=== PATIENT | female | born 1930 | race Caucasian/White ===

== ENCOUNTER 2017-10-26 21:39 | Inpatient (IN) | payer OTHER, BC ==
--- NOTE | 2017-10-26 21:48 | PDOC ---
History of Present Illness - General History Source: EMS, Family Exam Limitations: Intubated - History of Present Illness Initial Comments: 10/26/17 22:11 The patient is an 86 year old female, with a significant past medical history of cardiac stents x 10, aortic valve replacement, IDDM, who presents to the emergency department brought in by ems intubated after complaint of difficulty breathing this evening. As per ems, the patient was read to be 90% on capnography which dropped to 50% after being bagged in the field. As per ems, the patient was found tachypneic in the field, in respiratory distress, and was intubated (ETT 7.0). As per the patients family at bedside, the patient was feeling well yesterday morning, performing activities of daily life without symptoms. As per patients family, the patient had a nonproductive cough for the past few days, however, the patient reportedly felt better this morning. As per the family, the patient received her flu vaccination 3 weeks ago. Family denies recent sick contacts. At presentation was being bagged by ems. Allergies: aspirin Past surgical history: cardiac stent x 10 Social history: denies toxic habits <Monika Miller - Last Filed: 10/26/17 23:06> - General History Source: Family <Jose Antonio Fine - Last Filed: 10/27/17 19:38> - General Chief Complaint: Congestive Heart Failure Stated Complaint: DIFFICULTY BREATHING Time Seen by Provider: 10/26/17 21:47 Past History <Monika Miller - Last Filed: 10/26/17 23:06> <Jose Antonio Fine - Last Filed: 10/27/17 19:38> - Past Medical History Allergies/Adverse Reactions: Allergies Allergy/AdvReac Type Severity Reaction Status Date / Time aspirin Allergy Verified 10/26/17 21:50 Home Medications: Ambulatory Orders Amlodipine Besylate [Norvasc -] 10 mg PO DAILY 10/26/17 Atorvastatin Ca [Lipitor] 20 mg PO HS 10/26/17 Clopidogrel Bisulfate [Plavix -] 75 mg PO DAILY 10/26/17 Furosemide [Lasix] 40 mg PO DAILY 10/26/17 Insulin (LOG) Aspart [NovoLOG -] 0 units SQ TID 10/26/17 Insulin Glargine,Hum.rec.anlog [Lantus Solostar PEN (NF)] 35 units SQ AM Metoprolol Succinate [Toprol Xl -] 37.5 mg PO BID 10/26/17 Multivitamin/Iron/Folic Acid [Centrum Adults Tablet] 1 each PO DAILY 10/26/17 Pregabalin [Lyrica -] 200 mg PO TID 10/26/17 Review of Systems - Review of Systems Able to Perform ROS?: No (intubated) <Monika Miller - Last Filed: 10/26/17 23:06> *Physical Exam - Vital Signs Last Vital Signs Temp Pulse Resp BP Pulse Ox 99.1 F 90 14 152/52 98 10/26/17 21:48 10/26/17 21:48 10/26/17 21:48 10/26/17 21:48 10/26/17 21:48 - Physical Exam Comments: 10/26/17 22:12 GENERAL: (+) Intubated. HEENT: Normocephalic, atraumatic. PERRLA, EOMI. No conjunctival pallor. Sclera are non- icteric. Moist mucous membranes. Oropharynx is clear. NECK: Supple. Full ROM. No JVD. Carotid pulses 2+ and symmetric, without bruits. No thyromegaly. No lymphadenopathy. CARDIOVASCULAR: (+) Tachycardic rate and normal rhythm. No murmurs, rubs, or gallops. Distal pulses are 2+ and symmetric. PULMONARY: (+) decreased breath sounds bilaterally with scattered wheezing throughout. No rales or rhonchi. ABDOMINAL: (+) obese. Soft. Non-tender. Non-distended. No rebound or guarding. No organomegaly. Normoactive bowel sounds. MUSCULOSKELETAL Normal range of motion at all joints. No bony deformities or tenderness. No CVA tenderness. EXTREMITIES: No cyanosis. No clubbing. No edema. No calf tenderness. SKIN: Warm and dry. Normal capillary refill. No rashes. No jaundice. NEUROLOGICAL: No obvious neurological deficits visualized. Alert, awake, appropriate. Cranial nerves 2-12 intact. Normoreflexic in the upper and lower extremities. Toes are down-going bilaterally. Gait and speech unassessed secondary to intubation. <Monika Miller - Last Filed: 10/26/17 23:06> Heart Score/ECG Review - ECG Intrepretation Comment:: 10/26/17 23:06 ECG was read by Dr. Fine at 22:53 Impression: Sinus tachycardia. ST & T wave abnormality, consider inferolateral ischemia. Vent.Rate: 102 bpm IN Interval: 132 ms QTc: 458 ms <Monika Miller - Last Filed: 10/26/17 23:06> ED Treatment Course - LABORATORY CBC & Chemistry Diagram: 10/26/17 22:00 10/26/17 22:00 <Monika Miller - Last Filed: 10/26/17 23:06> - LABORATORY CBC & Chemistry Diagram: 10/27/17 06:00 10/27/17 06:00 <Jose Antonio Fine - Last Filed: 10/27/17 19:38> Medical Decision Making - Medical Decision Making 10/27/17 19:36 Dr. Fine: The scribe's documentation has been prepared under my direction and personally reviewed by me in its entirery. I confirm that the note above accurately reflects all work, treatment, procedures, and medical decision making performed by me. Pt was admitted to ICU accepted by ISIAH Choi early this morning <Jose Antonio Fine - Last Filed: 10/27/17 19:38> *DC/Admit/Observation/Transfer - Attestations Scribe Attestion: 10/26/17 22:16 Documentation prepared by Monika Miller, acting as medical center manager for Jose Antonio Fine DO <Monika Miller - Last Filed: 10/26/17 23:06> - Discharge Dispostion Admit: Yes <Jose Antonio Fine - Last Filed: 10/27/17 19:38> Diagnosis at time of Disposition: NSTEMI (non-ST elevated myocardial infarction), CHF (congestive heart failure) - Discharge Dispostion Condition at time of disposition: Stable
[2017-10-26] MEDS ORDERED: FUROSEMIDE 40 MG/4 ML INJECTABLE VIAL IVPUSH ONE (22:16)
[2017-10-26 22:19] LABS: BASOPHIL 0.4 % (0-2.0); EOSINOPHIL 0.4 % (0-4.5); MCH 28.7 pg (25.7-33.7); MCHC 32.2 g/dl (32.0-36.0); MEAN PLT VOLUME 12.6 fl (7.5-11.1); NEUTROPHILS 74.5 % (42.8-82.8); PLATELET COUNT 125 K/MM3 (134-434); RDW 13.9 % (11.6-15.6); WHITE BLOOD COUNT 20.1 K/mm3 (4.0-10.0)
[2017-10-26] MEDS ORDERED: FUROSEMIDE 40 MG/4 ML INJECTABLE VIAL ONE (22:19)
[2017-10-26 23:11] LABS: INR 1.13 (0.82-1.09); PROTHROMBIN TIME (PATIENT) 12.8 SEC (9.98-11.88)
[2017-10-26 23:20] LABS: ALBUMIN 3.4 g/dl (3.4-5.0); ANION GAP 13 (8-16); CALCIUM 8.8 mg/dL (8.5-10.1); CO2 27 mmol/L (21-32); CREATININE 1.9 mg/dL (0.55-1.02); SGOT/AST 190 U/L (15-37); SGPT/ALT 105 U/L (12-78)
[2017-10-26 23:23] LABS: ALK PHOS 298 U/L (45-117); BILIRUBIN,TOTAL 1.3 mg/dL (0.2-1.0); TOT PROT 7.3 g/dl (6.4-8.2)
[2017-10-26 23:27] LABS: GLUCOSE,RANDOM 368 mg/dL (74-106)
[2017-10-26 23:29] LABS: ARTERIAL BLD GAS O2 SATURATION 97.7 % (90-98.9); ARTERIAL BLOOD GAS HCO3 26.9 meq/L (22-26); ARTERIAL BLOOD GAS pH 7.35 (7.35-7.45)
[2017-10-26 23:30] LABS: ALLENS TEST POSITIVE; ART PUNCT SITE LEFT RADIAL; METHEMOGLOBIN 0.7 % (0.4-1.5)
[2017-10-26 23:31] LABS: LPM/O2% 100; MECH. VENT. YES; PT. ON O2? YES; TYPE OF O2 MECH VENT; VENT RATE 14; VT/PRESS 450
[2017-10-26] MEDS ORDERED: PROPOFOL 1,000,000 MCG/100 ML VIAL ONE (23:33)
[2017-10-26] MEDS: PROPOFOL 1,000,000 MCG/100 ML VIAL IVPB SCH (23:42)
[2017-10-26] MEDS ORDERED: AZITHROMYCIN IVPB 500 MG in DEXTROSE 5%-WATER - 250 ML IVPB SCH (23:45)
[2017-10-26 23:49] LABS: CPK 413 IU/L (26-192)
[2017-10-26 23:53] LABS: TROPONIN I 6.75 ng/ml (0.00-0.05)
[2017-10-26] MEDS ORDERED: CEFTRIAXONE 1,000 MG in DEXTROSE 5%-WATER - 50 ML IVPB ONE (23:57)
[2017-10-27] MEDS ORDERED: CLOPIDOGREL BISULFATE 300 MG TABLET PO ONE (00:02)
[2017-10-27] MEDS ORDERED: HEPARIN NA (PORCINE) 5,000 UNITS/ML 1ML VIAL IVPUSH PRN ×2 (00:02)
[2017-10-27] MEDS ORDERED: ATORVASTATIN CA 80 MG TABLET (FP) PO ONE (00:04)
[2017-10-27 00:09] LABS: URINE APPEARANCE CLEAR; URINE BILIRUBIN NEGATIVE (NEGATIVE); URINE BLOOD NEGATIVE (NEGATIVE); URINE COLOR LT. YELLOW; URINE GLUCOSE (UA) NEGATIVE (NEGATIVE); URINE KETONE NEGATIVE (NEGATIVE); URINE NITRITE NEGATIVE (NEGATIVE); URINE UROBILINOGEN 0.2 mg/dL (0.2-1.0)
[2017-10-27 00:18] LABS: URINE PROTEIN 1+ (NEGATIVE)
[2017-10-27] MEDS ORDERED: ATORVASTATIN CA 80 MG TABLET (FP) ONE (00:29)
[2017-10-27] MEDS ORDERED: CLOPIDOGREL BISULFATE 300 MG TABLET ONE (00:29)
[2017-10-27] MEDS ORDERED: HEPARIN INFUSION - 25,000 UNITS/500 ML INFUS.BAG IVPB ONE (00:29)
--- NOTE | 2017-10-27 00:34 | HP ---
CHIEF COMPLAINT: Shortness of breath PCP: In [place] HISTORY OF PRESENT ILLNESS: 86 year old F with pmh of IDDM, Cardiac Stent placement x10 (last placed 3 years prior), and aortic valve replacement (last year) presenting with shortness of breath. History obtained by daughter. Patient arrived from [place] via car last Wednesday. Patient was in usual state of health 2 days prior to admission. Patient performs ADLs and walks at baseline. Over the last 2 days patient had worsening SOB, decreased Urine output, weakness, and nonproductive cough with saliva. This evening patient's shortness of breath worsened and EMS was called. Patient was intubated in the field 2/2 to respiratory distress and was satting in the 50%. Daughter endorses chronic pedal edema, orthopnea, and dyspnea on exertion which has been worsening over the last 2 days as well. Per daughter, patient has not had increased salt intake. Patient denies fever, chills, nausea, vomiting, diarrhea, chest pain, palpitations, abdominal pain. ER course was notable for: (1) VS- WNL, CBC- wbc 20.1, ABG- 7.35/50.6/101/26.9 (2) Glucose- 389, Lactic Acid-6.0, Troponin of 6.75, CK-MB-26.816, BNP-20,000 (3) UA- negative (4) EKG- Sinus tachycardia. Q waves in inferior and lateral leads (5) CXR-pulmonary vascular congestion, pneumonia cannot be excluded Recent Travel: From [place] PAST MEDICAL HISTORY: as per HPI PAST SURGICAL HISTORY: Hysterectomy Social History: Smoking: denies Alcohol: denies Drugs: denies Family History: Allergies aspirin Allergy (Verified 10/26/17 21:50) HOME MEDICATIONS: Home Medications Medication Instructions Recorded Amlodipine Besylate [Norvasc -] 10 mg PO DAILY 10/26/17 Atorvastatin Ca [Lipitor] 20 mg PO HS 10/26/17 Clopidogrel Bisulfate [Plavix -] 75 mg PO DAILY 10/26/17 Furosemide [Lasix] 40 mg PO DAILY 10/26/17 Insulin (LOG) Aspart [NovoLOG -] 0 units SQ TID 10/26/17 Insulin Glargine,Hum.rec.anlog 35 units SQ AM 10/26/17 [Lantus Solostar PEN (NF)] Metoprolol Succinate [Toprol Xl -] 37.5 mg PO BID 10/26/17 Multivitamin/Iron/Folic Acid 1 each PO DAILY 10/26/17 [Centrum Adults Tablet] Pregabalin [Lyrica -] 200 mg PO TID 10/26/17 REVIEW OF SYSTEMS CONSTITUTIONAL: Absent: fever, chills, diaphoresis, generalized weakness, malaise, loss of appetite, weight change HEENT: Absent: rhinorrhea, nasal congestion, throat pain, throat swelling, difficulty swallowing, mouth swelling, ear pain, eye pain, visual changes CARDIOVASCULAR: Absent: chest pain, syncope, palpitations, irregular heart rate, lightheadedness , peripheral edema RESPIRATORY: Absent: cough, shortness of breath, dyspnea with exertion, orthopnea, wheezing, stridor, hemoptysis GASTROINTESTINAL: Absent: abdominal pain, abdominal distension, nausea, vomiting, diarrhea, constipation, melena, hematochezia GENITOURINARY: Absent: dysuria, frequency, urgency, hesitancy, hematuria, flank pain, genital pain MUSCULOSKELETAL: Absent: myalgia, arthralgia, joint swelling, back pain, neck pain SKIN: Absent: rash, itching, pallor HEMATOLOGIC/IMMUNOLOGIC: Absent: easy bleeding, easy bruising, lymphadenopathy, frequent infections ENDOCRINE: Absent: unexplained weight gain, unexplained weight loss, heat intolerance, cold intolerance NEUROLOGIC: Absent: headache, focal weakness or paresthesias, dizziness, unsteady gait, seizure, mental status changes, bladder or bowel incontinence PSYCHIATRIC: Absent: anxiety, depression, suicidal or homicidal ideation, hallucinations. PHYSICAL EXAMINATION Vital Signs - 24 hr 10/26/17 10/26/17 10/26/17 21:48 21:55 23:06 Temperature 99.1 F Pulse Rate 90 Pulse Rate [ 90 Apical] Respiratory 14 14 14 Rate Blood Pressure 152/52 Blood Pressure 148/53 [Right Arm] O2 Sat by Pulse 98 100 Oximetry (%) 10/26/17 23:07 Temperature Pulse Rate 90 Pulse Rate [ Apical] Respiratory Rate Blood Pressure Blood Pressure [Right Arm] O2 Sat by Pulse 100 Oximetry (%) GENERAL: +Intubated HEAD: Normal with no signs of trauma. LUNGS: Decreased breath sounds bilaterally HEART: Regular rate and rhythm, normal S1 and S2 without murmur, rub or gallop. +peripheral edema bilaterally of lower extremities ABDOMEN: Soft, nontender, not distended, normoactive bowel sounds, no guarding, no rebound, no masses. No hepatomegaly or splenomegaly. SKIN: Warm, dry, normal turgor, no rashes or lesions noted, normal capillary refill. Laboratory Results - last 24 hr 10/26/17 10/26/17 10/26/17 21:53 21:53 21:53 WBC RBC Hgb Hct MCV MCH MCHC RDW Plt Count MPV Neutrophils % Lymphocytes % Monocytes % Eosinophils % Basophils % PT with INR 12.80 H INR 1.13 Puncture Site ABG pH ABG pCO2 at Pt Temp ABG pO2 at Pt Temp ABG HCO3 ABG O2 Sat (Measured) ABG O2 Content ABG Base Excess Olman Test Carboxyhemoglobin Methemoglobin O2 Delivery Device Oxygen Flow Rate Vent Mode Vent Rate Mechanical Rate PEEP Pressure Support Vent Sodium Potassium Chloride Carbon Dioxide Anion Gap BUN Creatinine Creat Clearance w eGFR Random Glucose Lactic Acid Calcium Total Bilirubin AST ALT Alkaline Phosphatase Creatine Kinase 413 H Creatine Kinase Index 6.4 H* CK-MB (CK-2) 26.816 H Troponin I 6.75 H* B-Natriuretic Peptide 40327.60 H Total Protein Albumin Urine Color Lt. yellow Urine Appearance Clear Urine pH 5.0 Ur Specific [place] 1.020 Urine Protein 1+ H Urine Glucose (UA) Negative Urine Ketones Negative Urine Blood Negative Urine Nitrite Negative Urine Bilirubin Negative Urine Urobilinogen 0.2 10/26/17 10/26/17 10/26/17 21:53 22:00 22:00 WBC 20.1 H RBC 4.39 Hgb 12.6 Hct 39.0 MCV 89.0 MCH 28.7 MCHC 32.2 RDW 13.9 Plt Count 125 L MPV 12.6 H Neutrophils % 74.5 Lymphocytes % 17.4 Monocytes % 7.3 Eosinophils % 0.4 Basophils % 0.4 PT with INR INR Puncture Site ABG pH ABG pCO2 at Pt Temp ABG pO2 at Pt Temp ABG HCO3 ABG O2 Sat (Measured) ABG O2 Content ABG Base Excess Olman Test Carboxyhemoglobin Methemoglobin O2 Delivery Device Oxygen Flow Rate Vent Mode Vent Rate Mechanical Rate PEEP Pressure Support Vent Sodium 140 Potassium 4.4 Chloride 100 Carbon Dioxide 27 Anion Gap 13 BUN 32 H Creatinine 1.9 H Creat Clearance w eGFR 24.95 Random Glucose 368 H* Lactic Acid 6.0 H* Calcium 8.8 Total Bilirubin 1.3 H AST 190 H ALT 105 H Alkaline Phosphatase 298 H Creatine Kinase Creatine Kinase Index CK-MB (CK-2) Troponin I B-Natriuretic Peptide Total Protein 7.3 Albumin 3.4 Urine Color Urine Appearance Urine pH Ur Specific [place] Urine Protein Urine Glucose (UA) Urine Ketones Urine Blood Urine Nitrite Urine Bilirubin Urine Urobilinogen 10/26/17 23:25 WBC RBC Hgb Hct MCV MCH MCHC RDW Plt Count MPV Neutrophils % Lymphocytes % Monocytes % Eosinophils % Basophils % PT with INR INR Puncture Site Left radial ABG pH 7.35 ABG pCO2 at Pt Temp 50.6 H ABG pO2 at Pt Temp 101.0 H ABG HCO3 26.9 H ABG O2 Sat (Measured) 97.7 ABG O2 Content 17.8 ABG Base Excess 1.0 Olman Test Positive Carboxyhemoglobin 1.3 Methemoglobin 0.7 O2 Delivery Device Mech vent Oxygen Flow Rate 100 Vent Mode A/c Vent Rate 14 Mechanical Rate Yes PEEP 5.0 Pressure Support Vent 450 Sodium Potassium Chloride Carbon Dioxide Anion Gap BUN Creatinine Creat Clearance w eGFR Random Glucose Lactic Acid Calcium Total Bilirubin AST ALT Alkaline Phosphatase Creatine Kinase Creatine Kinase Index CK-MB (CK-2) Troponin I B-Natriuretic Peptide Total Protein Albumin Urine Color Urine Appearance Urine pH Ur Specific [place] Urine Protein Urine Glucose (UA) Urine Ketones Urine Blood Urine Nitrite Urine Bilirubin Urine Urobilinogen ASSESSMENT/PLAN: 86 year old F with pmh of IDDM, Cardiac Stent placement x10 (last placed 3 years prior), and aortic valve replacement (last year) presenting with shortness of breath, intubated in the field, and admitted to the ICU for Acute hypoxic Respiratory failure 2/2 to CHF exacerbation. #Acute hypoxic respiratory failure 2/2 to CHF exacerbation with NSTEMI -Patient currently intubated -Cardiac monitoring -Strict I/O's -Daily weights -Duonebs Q4 hours PRN -Continue Lipitor 80 mg PO HS -Continue Lasix 40 mg IV BID -Heparin protocol infusion -Start lopressor 25 mg PO TID per cardiology -Patient started on propofol for sedation -Will trend cardiac profile Q6 hours Plus EKG -Echocardiogram pending -Cardiology consulted, Dr. Kerr. Case discussed with cardiology -Blood cultures and flu swab pending -Aspirin held 2/2 to allergy -Repeat ABG and CXR in the AM #BASIL -Will continue to monitor creatinine -If creatinine improves, Patient can be given IV ike inhibitor -Sanches catheter in place -Avoid nephrotoxic medications #IDDM -Check BGM ACHS -Insulin sliding scale ACHS -Will obtain HBA1c #Leukocytosis, Likely reactive versus community acquired pneumonia -Start Ceftriaxone 1 g IV Daily and azithromycin 500 mg IV daily -Urine antigens pending -Respiratory viral panel pending -Flu swab pending -Sputum culture #Lactic Acidosis, Likely secondary to hypoxia -Continue to monitor Q 2 hours #Diabetic Neuropathy -Continue Lyrica 200 mg PO TID #HLD -Start Atorvastatin 80 mg PO daily #Transaminitis -Continue to trend -Hepatitis acute panel pending #FEN/GI -No fluids indicated at this time -Electrolytes within normal limits -Patient is NPO #PPx -DVT:Patient started on heparin protocol -GI: Zantac 150 milligrams PO daily Visit type - Emergency Visit Emergency Visit: Yes ED Registration Date: 10/27/17 Care time: The patient presented to the Emergency Department on the above date and was hospitalized for further evaluation of their emergent condition. - New Patient This patient is new to me today: Yes Date on this admission: 10/27/17 - Critical Care Critical Care patient: Yes Total Critical Care Time (in minutes): 45 Critical Care Statement: The care of this patient involved high complexity decision making to prevent further life threatening deterioration of the patient 's condition and/or to evaluate & treat vital organ system(s) failure or risk of failure.
[2017-10-27 00:37] LABS: ACETONE SERUM NEGATIVE (NEGATIVE)
[2017-10-27] MEDS ORDERED: CEFTRIAXONE 1 GM/50 ML BAG ONE (00:37)
[2017-10-27] MEDS ORDERED: AZITHROMYCIN IVPB 250 ML IVPB ONE (00:37)
--- NOTE | 2017-10-27 00:47 | PN ---
Teaching Attending Note Name of Resident: Lamont Noyola ATTENDING PHYSICIAN STATEMENT I saw and evaluated the patient. I reviewed the resident's note and discussed the case with the resident. I agree with the resident's findings and plan as documented. SUBJECTIVE: 86 yo F with pmhx of CAD, Cardiac stents X10 (placed years ago), AVR replacement , IDDM, who presents BIBA for hypoxic respiratory failure, intubated en field. As per daugter pt.s 02 was 50% on capno when bagged in field. Pt. was found tachypenic by EMS and was intubated. As per family pt. came from [place] over 1 weeks ago. Yesterday she stated she had shortness of breath, but denied chest pain or pressure. She also had a non- productive cougj. She was seeing a part time receptionist in [place] every 3 months, with her last check up being 3 months ago. Daughter noted, she checked out ok at that time. Daughter states she vomited X1 this morning, but later in day had continued shortness of breath. No fevers or chills as per daughter. OBJECTIVE: Physical: VS: Vital Signs Period Temp Pulse Resp BP Sys/[place] Pulse Ox Last 24 Hr 99.1 F 90-90 14-14 148-152/52-53 98-100 GEN: Intubated at bedside HEENT: NCAT, PERRL, ET tube in place CARD: RRR S1, S2 RESP: Decreased breath sounds bases ABD: Soft and Obese, BSX4, NTD to palpation EXT: +2 Pitting edema, bilateral and equal CBCD WBC 20.1 K/mm3 (4.0-10.0) H 10/26/17 22:00 RBC 4.39 M/mm3 (3.60-5.2) 10/26/17 22:00 Hgb 12.6 GM/dL (10.7-15.3) 10/26/17 22:00 Hct 39.0 % (32.4-45.2) 10/26/17 22:00 MCV 89.0 fl (80-96) 10/26/17 22:00 MCHC 32.2 g/dl (32.0-36.0) 10/26/17 22:00 RDW 13.9 % (11.6-15.6) 10/26/17 22:00 Plt Count 125 K/MM3 (134-434) L 10/26/17 22:00 MPV 12.6 fl (7.5-11.1) H 10/26/17 22:00 CMP Sodium 140 mmol/L (136-145) 10/26/17 22:00 Potassium 4.4 mmol/L (3.5-5.1) 10/26/17 22:00 Chloride 100 mmol/L (98-107) 10/26/17 22:00 Carbon Dioxide 27 mmol/L (21-32) 10/26/17 22:00 Anion Gap 13 (8-16) 10/26/17 22:00 BUN 32 mg/dL (7-18) H 10/26/17 22:00 Creatinine 1.9 mg/dL (0.55-1.02) H 10/26/17 22:00 Creat Clearance w eGFR 24.95 (>60) 10/26/17 22:00 Random Glucose 368 mg/dL (74-106) H* 10/26/17 22:00 Calcium 8.8 mg/dL (8.5-10.1) 10/26/17 22:00 Total Bilirubin 1.3 mg/dL (0.2-1.0) H 10/26/17 22:00 AST 190 U/L (15-37) H 10/26/17 22:00 ALT 105 U/L (12-78) H 10/26/17 22:00 Alkaline Phosphatase 298 U/L (45-117) H 10/26/17 22:00 Total Protein 7.3 g/dl (6.4-8.2) 10/26/17 22:00 Albumin 3.4 g/dl (3.4-5.0) 10/26/17 22:00 CARDIAC ENZYMES Creatine Kinase 413 IU/L (26-192) H 10/26/17 21:53 Troponin I 6.75 ng/ml (0.00-0.05) H* 10/26/17 21:53 EKG: Q waves inferolateral leads, NSR Urine Test Results Urine Color Lt. yellow 10/26/17 21:53 Urine Appearance Clear 10/26/17 21:53 Urine pH 5.0 (5.0-8.0) 10/26/17 21:53 Ur Specific [place] 1.020 (1.001-1.035) 10/26/17 21:53 Urine Protein 1+ (NEGATIVE) H 10/26/17 21:53 Urine Glucose (UA) Negative (NEGATIVE) 10/26/17 21:53 Urine Ketones Negative (NEGATIVE) 10/26/17 21:53 Urine Blood Negative (NEGATIVE) 10/26/17 21:53 Urine Nitrite Negative (NEGATIVE) 10/26/17 21:53 Urine Bilirubin Negative (NEGATIVE) 10/26/17 21:53 CXR- ET Tube in place Pulmonary Vasc. congestion with intersistial edema and bilateral plueral effusions, bilateral airspace opacities, alveolar edema most likely, pneumonia cannot be excluded ASSESSMENT AND PLAN: 86 yo F with pmhx of CAD, Cardiac stents X10 (placed years ago), AVR replacement , IDDM, who presents BIBA for hypoxic respiratory failure, intubated en field. Being admitted for acute respiratory failure, NSTEMI, and CHF 1.) Acute Hypoxic Respiratory Failure - Intubated and Sedated - Repeat ABG and CXR 2.) NSTEMI - ASA CANNOT be given due to Allergy - Hep. gtt - Plavix load, then 75mg daily - Cardiology called - Lipid panel/A1c - Statin (monitor transaminases) - Metoprolol - Echo 3.) Community Aquired Pnuemonia - Ceftriaxone, Azithro - Urine Ag - Sputum Cx - Resp. Viral panel, Flue Swab 4.) IDDM - FS - RAISS 5.) AVR - Records 6.) Transaminitis - Hepatitis panel - Trend 7.) GI PPX - Protonix 8.) Dvt Ppx - Hep gtt. Place in ICU CC time: 50 Minutes
[2017-10-27 00:57] LABS: PLATELET COMMENTS NO CLUMPING NOTED
[2017-10-27] MEDS: HEPARIN - 25,000 UNIT in SODIUM CHLORIDE 495 ML IV SCH (01:01)
[2017-10-27] MEDS: RANITIDINE HCL 150 MG TABLET (FP) PO SCH ×2 (01:18→09:27)
[2017-10-27 02:22] VITALS: BMI 28.9
[2017-10-27 02:34] LABS: URINE BACTERIA MODERATE /hpf (NONE SEEN); URINE HYALINE CAST 9 /lpf; URINE MUCUS RARE; URINE RBC 1 /hpf (0-3); URINE WBC 7 /hpf (3-5)
--- NOTE | 2017-10-27 05:20 | CONSULT ---
Consult Consult Specialty:: Pulmonary Critical Care Reason for Consultation:: Respiratory failure - History of Present Illness Chief Complaint: SOB History of Present Illness: Pt is an 86 yo female with h/o cardiac stents (10 yrs ago), aortic valve replacement, IDDM who was brought to ED after being intubated in the field. As per report pt has been having progressively worsening SOB for the past 48 hours. Yesterday EMS activated by family, on arrival she was found to be in respiratory distress and intubated prior to arrival to ED. Family reports non productive cough for the past couple of days as well as chronic LE edema. In ED labs notable for WBC 20, Lactate 6 (down to 3.2), Cr 1.9 (unknown baseline ), AST/ALT 190/105, Trop 6.7, BNP 51503. CXR with pulmonary congestion, though possible LLL infiltrate. Cardiology was consulted, pt placed on plavix and heparin drip for NSTEMI. She was also started on Ceftriaxone/Azithro for possible CAP. She was then transferred to the ICU for further management. Current Medications Albuterol/Ipratropium (Duoneb -) 1 amp NEB Q4H PRN PRN Reason: SHORTNESS OF BREATH Atorvastatin Calcium (Lipitor -) 80 mg PO HS BILL Chlorhexidine Gluconate (Hibiclens For Decolonization -) 1 applic TP HS BILL Furosemide (Lasix Injection -) 40 mg IVPUSH BIDLASIX BILL Heparin Sodium (Porcine) (Heparin -) 1,000 unit IVPUSH PRN PRN PRN Reason: Heparin Heparin Sodium (Porcine) (Heparin -) 5,000 unit IVPUSH PRN PRN PRN Reason: Heparin Propofol (Diprivan -) 1,000,000 mcg in 100 mls @ 1.905 mls/hr IVPB TITR BILL; 5 MCG/KG/MIN PRN Reason: Protocol Last Titration: 10/27/17 02:39 Dose: 25 mcg/kg/min, 9.525 mls/hr Azithromycin 500 mg/ Dextrose 250 mls @ 250 mls/hr IVPB DAILY BILL Last Admin: 10/27/17 01:14 Dose: 250 mls/hr Heparin Sodium (Porcine) 25, (000 unit/ Sodium Chloride) 500 mls @ 16 mls/hr IV TITR BILL; 800 UNIT/HR PRN Reason: Protocol Last Titration: 10/27/17 02:39 Dose: 800 unit/hr, 16 mls/hr Ceftriaxone Sodium 1,000 mg/ (Dextrose) 50 mls @ 100 mls/hr IVPB DAILY ONE Stop: 10/27/17 00:26 Last Admin: 10/27/17 00:10 Dose: 100 mls/hr Insulin Aspart (Novolog Vial Sliding Scale -) 1 vial SQ ACHS [facility] PRN Reason: Protocol Metoprolol Tartrate (Lopressor -) 25 mg PO TID [facility] Mupirocin (Bactroban Ointment (For Decolonization) -) 1 applic NS BID [facility] Stop: 11/01/17 09:59 Pregabalin (Lyrica -) 200 mg PO TID [facility] Ranitidine HCl (Zantac -) 150 mg PO DAILY [facility] Last Admin: 10/27/17 01:18 Dose: 150 mg - Alcohol/Substance Use Hx Alcohol Use: No - Smoking History Smoking history: Unknown if ever smoked Home Medications - Allergies Allergies/Adverse Reactions: Allergies Allergy/AdvReac Type Severity Reaction Status Date / Time aspirin Allergy Verified 10/26/17 21:50 - Home Medications Home Medications: Ambulatory Orders Amlodipine Besylate [Norvasc -] 10 mg PO DAILY 10/26/17 Atorvastatin Ca [Lipitor] 20 mg PO HS 10/26/17 Clopidogrel Bisulfate [Plavix -] 75 mg PO DAILY 10/26/17 Furosemide [Lasix] 40 mg PO DAILY 10/26/17 Insulin (LOG) Aspart [NovoLOG -] 0 units SQ TID 10/26/17 Insulin Glargine,Hum.rec.anlog [Lantus Solostar PEN (NF)] 35 units SQ AM Metoprolol Succinate [Toprol Xl -] 37.5 mg PO BID 10/26/17 Multivitamin/Iron/Folic Acid [Centrum Adults Tablet] 1 each PO DAILY 10/26/17 Pregabalin [Lyrica -] 200 mg PO TID 10/26/17 Physical Exam Vital Signs: Vital Signs Temperature 102.1 F H 10/27/17 01:15 Pulse Rate 84 10/27/17 01:32 Respiratory Rate 14 10/27/17 03:30 Blood Pressure 150/60 10/27/17 01:15 O2 Sat by Pulse Oximetry (%) 100 10/27/17 01:32 Eyes: Yes: WNL Cardiovascular: Yes: Regular Rate and Rhythm, S1, S2 Respiratory: Yes: Mechanically Ventilated, Rhonchi Gastrointestinal: Yes: WNL, Normal Bowel Sounds, Soft Edema: Yes (+2 bilateral ) Peripheral Pulses WNL: Yes Integumentary: Yes: WNL Neurological: Yes: Other (sedated on propofol, pin point pupils) Labs: CBC, BMP 10/26/17 22:00 10/26/17 22:00 CBCD WBC 20.1 K/mm3 (4.0-10.0) H 10/26/17 22:00 RBC 4.39 M/mm3 (3.60-5.2) 10/26/17 22:00 Hgb 12.6 GM/dL (10.7-15.3) 10/26/17 22:00 Hct 39.0 % (32.4-45.2) 10/26/17 22:00 MCV 89.0 fl (80-96) 10/26/17 22:00 MCHC 32.2 g/dl (32.0-36.0) 10/26/17 22:00 RDW 13.9 % (11.6-15.6) 10/26/17 22:00 Plt Count 125 K/MM3 (134-434) L 10/26/17 22:00 MPV 12.6 fl (7.5-11.1) H 10/26/17 22:00 CMP Sodium 140 mmol/L (136-145) 10/26/17 22:00 Potassium 4.4 mmol/L (3.5-5.1) 10/26/17 22:00 Chloride 100 mmol/L (98-107) 10/26/17 22:00 Carbon Dioxide 27 mmol/L (21-32) 10/26/17 22:00 Anion Gap 13 (8-16) 10/26/17 22:00 BUN 32 mg/dL (7-18) H 10/26/17 22:00 Creatinine 1.9 mg/dL (0.55-1.02) H 10/26/17 22:00 Creat Clearance w eGFR 24.95 (>60) 10/26/17 22:00 Calcium 8.8 mg/dL (8.5-10.1) 10/26/17 22:00 Total Bilirubin 1.3 mg/dL (0.2-1.0) H 10/26/17 22:00 AST 190 U/L (15-37) H 10/26/17 22:00 ALT 105 U/L (12-78) H 10/26/17 22:00 Alkaline Phosphatase 298 U/L (45-117) H 10/26/17 22:00 Total Protein 7.3 g/dl (6.4-8.2) 10/26/17 22:00 Albumin 3.4 g/dl (3.4-5.0) 10/26/17 22:00 Troponin, BNP 10/26/17 21:53 Troponin I 6.75 H* B-Natriuretic Peptide 53743.60 H Imaging - Results Chest X-ray: Report Reviewed, Image Reviewed Assessment/Plan Hypoxemic respiratory failure likely in the setting of NSTEMI/heart failure +/- CAP NSTEMI Elevated BNP c/f heart failure BASIL Mild transaminitis Lactic acidosis, improving Hyperglycemia, neg ketones -LTVV (vent adjusted to TV of 300 ~6cc/kg, 20/300/70/5) -ABG to ensure adequate ventilation -propofol for sedation and vent synchrony -cardiology following -TTE -cont heparin drip -cont statin and metoprolol -trend troponin and BNP -diurese for net out -f/u cultures -send resp viral swab -cont ceftriaxone/azithro -f/u repeat Cr -trend heparin panel -f/u hepatitis panel -consider abd US if worsening LFTs -FS -insulin prn -add PPI for GI ppx [facility] Critical Care time: 45 min
[2017-10-27] MEDS ORDERED: PREGABALIN 75 MG CAPSULE PO SCH (05:45)
[2017-10-27] MEDS ORDERED: PREGABALIN 150 MG, PREGABALIN 50 MG PO SCH (06:00)
[2017-10-27] MEDS ORDERED: PREGABALIN 100 MG CAPSULE PO SCH (06:00)
[2017-10-27 06:13] LABS: ARTERIAL BLD GAS O2 SATURATION 98.3 % (90-98.9); ARTERIAL BLOOD GAS HCO3 28.3 meq/L (22-26); ARTERIAL BLOOD GAS pH 7.43 (7.35-7.45)
[2017-10-27 06:14] LABS: ALLENS TEST POSITIVE; ART PUNCT SITE LEFT RADIAL; LPM/O2% 70%; MECH. VENT. YES; PT. ON O2? YES; TYPE OF O2 MECH VENT; VENT RATE 20; VT/PRESS 300
[2017-10-27] MEDS: INSULIN SLIDING SCALE (NOVOLOG) 1 VIAL SQ SCH ×4 (06:21→18:28)
[2017-10-27 06:22] LABS: MCH 28.9 pg (25.7-33.7); MCHC 33.1 g/dl (32.0-36.0); MEAN CELL VOLUME 87.1 fl (80-96); WHITE BLOOD COUNT 13.9 K/mm3 (4.0-10.0)
[2017-10-27] MEDS: METOPROLOL TARTRATE 25 MG TABLET (FP) PO SCH ×3 (06:24→22:00)
[2017-10-27] MEDS: FUROSEMIDE 40 MG/4 ML INJECTABLE VIAL IVPUSH SCH ×2 (06:24→13:09)
[2017-10-27 06:53] LABS: ALBUMIN 2.6 g/dl (3.4-5.0); ANION GAP 8 (8-16); CALCIUM 7.8 mg/dL (8.5-10.1); CO2 31 mmol/L (21-32); GLUCOSE,RANDOM 283 mg/dL (74-106); MAGNESIUM 2.1 mg/dL (1.8-2.4); SGOT/AST 119 U/L (15-37)
[2017-10-27 06:55] LABS: ALK PHOS 254 U/L (45-117); CREATININE 1.7 mg/dL (0.55-1.02); SGPT/ALT 86 U/L (12-78); TOT PROT 5.9 g/dl (6.4-8.2)
[2017-10-27 07:28] LABS: TROPONIN I 11.24 ng/ml (0.00-0.05)
[2017-10-27 08:29] LABS: MEAN PLT VOLUME 12.6 fl (7.5-11.1); PLATELET COUNT 96 K/MM3 (134-434); TOTAL CELLS COUNTED 100
[2017-10-27 08:30] LABS: METAMYELOCYTE 1 % (0-2); PLATELET COMMENTS MOD LARGE PLT SEEN; PLATELET ESTIMATE DECREASED
--- NOTE | 2017-10-27 08:32 | PN ---
Physical Exam: SUBJECTIVE: Patient seen and examined by me this am - Pt sedated, laying in bed intubated. No acute events in the AM - Spoke with daughter regarding plan for transfer to [place] for [facility] per cardiology. Confirmed medication list again with daughter. Daughter provided contact information for [employer], Dr. Navarro [phone] - Pt full code. Daughter endorses extensive past cardiac hx, including stents x10. OBJECTIVE: Vital Signs Intake & Output 10/24/17 10/25/17 10/26/17 10/27/17 23:59 23:59 23:59 23:59 Intake Total 354 Output Total 800 Balance -446 Weight 63.503 kg 69.4 kg Period Temp Pulse Resp BP Sys/Chatman Pulse Ox Last 24 Hr 98.8 F-102.1 F 84-102 14-24 112-152/51-70 98-100 GENERAL: The patient is sedated, intubated, laying in bed. HEAD: Normal with no signs of trauma. EYES: Pinpoint pupils, minimally reactive. No scleral icterus. ENT: ETT tube in place. Ears normal, nares patent, oropharynx clear without exudates, moist mucous membranes. NECK: Trachea midline, supple. No JVD, no hepatojugular reflex LUNGS: BL diffuse rhonchi. No wheezes, no crackles, no accessory muscle use. HEART: Regular rate and rhythm, S1, S2 without murmur, rub or gallop. ABDOMEN: Soft, nondistended, normoactive bowel sounds, no masses. Upper EXTREMITIES: 2+ pulses, warm, well-perfused, no edema. R IV in forearm, L IV in dorsal aspect of hand. Lower extremities: 1+ BL edema. Pressure ulcers noted on distal tip of 1st hallux BL. 1+ DP, 2+ PT pulse BL. Mild BL stasis dermatitis Laboratory Results - last 24 hr CBC, BMP 10/27/17 06:00 10/27/17 06:00 ABG Results ABG pH 7.43 (7.35-7.45) 10/27/17 06:12 ABG pCO2 at Pt Temp 43.4 mmHg (35-45) 10/27/17 06:12 ABG pO2 at Pt Temp 103.0 mmHg (68-100) H 10/27/17 06:12 ABG HCO3 28.3 meq/L (22-26) H 10/27/17 06:12 ABG O2 Sat (Measured) 98.3 % (90-98.9) 10/27/17 06:12 ABG O2 Content 15.7 % vol (15-22) 10/27/17 06:12 ABG Base Excess 4.0 meq/l (-2-2) H 10/27/17 06:12 10/26/17 10/26/17 10/26/17 21:53 21:53 21:53 WBC RBC Hgb Hct MCV MCH MCHC RDW Plt Count MPV Neutrophils % Lymphocytes % Monocytes % Eosinophils % Basophils % Platelet Comment PT with INR 12.80 H INR 1.13 Puncture Site ABG pH ABG pCO2 at Pt Temp ABG pO2 at Pt Temp ABG HCO3 ABG O2 Sat (Measured) ABG O2 Content ABG Base Excess Olman Test Carboxyhemoglobin Methemoglobin O2 Delivery Device Oxygen Flow Rate Vent Mode Vent Rate Mechanical Rate PEEP Pressure Support Vent Sodium Potassium Chloride Carbon Dioxide Anion Gap BUN Creatinine Creat Clearance w eGFR Random Glucose Lactic Acid Calcium Phosphorus Magnesium Total Bilirubin AST ALT Alkaline Phosphatase Creatine Kinase 413 H Creatine Kinase Index 6.4 H* CK-MB (CK-2) 26.816 H Troponin I 6.75 H* B-Natriuretic Peptide 80247.60 H Total Protein Albumin Urine Color Lt. yellow Urine Appearance Clear Urine pH 5.0 Ur Specific [place] 1.020 Urine Protein 1+ H Urine Glucose (UA) Negative Urine Ketones Negative Urine Blood Negative Urine Nitrite Negative Urine Bilirubin Negative Urine Urobilinogen 0.2 Urine WBC (Auto) 7 Urine RBC (Auto) 1 Ur Epithelial Cells Rare Urine Bacteria Moderate Hyaline Casts 9 Urine Mucus Rare Acetone, Qual Negative L Blood Type Antibody Screen 10/26/17 10/26/17 10/26/17 21:53 21:53 22:00 WBC 20.1 H RBC 4.39 Hgb 12.6 Hct 39.0 MCV 89.0 MCH 28.7 MCHC 32.2 RDW 13.9 Plt Count 125 L MPV 12.6 H Neutrophils % 74.5 Lymphocytes % 17.4 Monocytes % 7.3 Eosinophils % 0.4 Basophils % 0.4 Platelet Comment No clumping noted PT with INR INR Puncture Site ABG pH ABG pCO2 at Pt Temp ABG pO2 at Pt Temp ABG HCO3 ABG O2 Sat (Measured) ABG O2 Content ABG Base Excess Olman Test Carboxyhemoglobin Methemoglobin O2 Delivery Device Oxygen Flow Rate Vent Mode Vent Rate Mechanical Rate PEEP Pressure Support Vent Sodium Potassium Chloride Carbon Dioxide Anion Gap BUN Creatinine Creat Clearance w eGFR Random Glucose Lactic Acid 6.0 H* Calcium Phosphorus Magnesium Total Bilirubin AST ALT Alkaline Phosphatase Creatine Kinase Creatine Kinase Index CK-MB (CK-2) Troponin I B-Natriuretic Peptide Total Protein Albumin Urine Color Urine Appearance Urine pH Ur Specific [place] Urine Protein Urine Glucose (UA) Urine Ketones Urine Blood Urine Nitrite Urine Bilirubin Urine Urobilinogen Urine WBC (Auto) Urine RBC (Auto) Ur Epithelial Cells Urine Bacteria Hyaline Casts Urine Mucus Acetone, Qual Blood Type A POSITIVE Antibody Screen Negative 10/26/17 10/26/17 10/27/17 22:00 23:25 01:00 WBC RBC Hgb Hct MCV MCH MCHC RDW Plt Count MPV Neutrophils % Lymphocytes % Monocytes % Eosinophils % Basophils % Platelet Comment PT with INR INR Puncture Site Left radial ABG pH 7.35 ABG pCO2 at Pt Temp 50.6 H ABG pO2 at Pt Temp 101.0 H ABG HCO3 26.9 H ABG O2 Sat (Measured) 97.7 ABG O2 Content 17.8 ABG Base Excess 1.0 Olman Test Positive Carboxyhemoglobin 1.3 Methemoglobin 0.7 O2 Delivery Device Mech vent Oxygen Flow Rate 100 Vent Mode A/c Vent Rate 14 Mechanical Rate Yes PEEP 5.0 Pressure Support Vent 450 Sodium 140 Potassium 4.4 Chloride 100 Carbon Dioxide 27 Anion Gap 13 BUN 32 H Creatinine 1.9 H Creat Clearance w eGFR 24.95 Random Glucose 368 H* Lactic Acid 3.2 H* Calcium 8.8 Phosphorus Magnesium Total Bilirubin 1.3 H AST 190 H ALT 105 H Alkaline Phosphatase 298 H Creatine Kinase Creatine Kinase Index CK-MB (CK-2) Troponin I B-Natriuretic Peptide Total Protein 7.3 Albumin 3.4 Urine Color Urine Appearance Urine pH Ur Specific [place] Urine Protein Urine Glucose (UA) Urine Ketones Urine Blood Urine Nitrite Urine Bilirubin Urine Urobilinogen Urine WBC (Auto) Urine RBC (Auto) Ur Epithelial Cells Urine Bacteria Hyaline Casts Urine Mucus Acetone, Qual Blood Type Antibody Screen 10/27/17 10/27/17 10/27/17 06:00 06:00 06:00 WBC 13.9 H D RBC 3.98 Hgb 11.5 Hct 34.7 MCV 87.1 MCH 28.9 MCHC 33.1 RDW 14.0 Plt Count MPV Neutrophils % No Result Required. Lymphocytes % No Result Required. Monocytes % Eosinophils % Basophils % Platelet Comment PT with INR INR Puncture Site ABG pH ABG pCO2 at Pt Temp ABG pO2 at Pt Temp ABG HCO3 ABG O2 Sat (Measured) ABG O2 Content ABG Base Excess Olman Test Carboxyhemoglobin Methemoglobin O2 Delivery Device Oxygen Flow Rate Vent Mode Vent Rate Mechanical Rate PEEP Pressure Support Vent Sodium 137 Potassium 4.3 Chloride 98 Carbon Dioxide 31 Anion Gap 8 BUN 35 H Creatinine 1.7 H Creat Clearance w eGFR 28.36 Random Glucose 283 H D Lactic Acid Calcium 7.8 L Phosphorus 3.0 Magnesium 2.1 Total Bilirubin 1.0 D AST 119 H D ALT 86 H Alkaline Phosphatase 254 H Creatine Kinase 362 H Creatine Kinase Index CK-MB (CK-2) Troponin I 11.24 H* B-Natriuretic Peptide Total Protein 5.9 L Albumin 2.6 L D Urine Color Urine Appearance Urine pH Ur Specific [place] Urine Protein Urine Glucose (UA) Urine Ketones Urine Blood Urine Nitrite Urine Bilirubin Urine Urobilinogen Urine WBC (Auto) Urine RBC (Auto) Ur Epithelial Cells Urine Bacteria Hyaline Casts Urine Mucus Acetone, Qual Blood Type Antibody Screen 10/27/17 06:12 WBC RBC Hgb Hct MCV MCH MCHC RDW Plt Count MPV Neutrophils % Lymphocytes % Monocytes % Eosinophils % Basophils % Platelet Comment PT with INR INR Puncture Site Left radial ABG pH 7.43 ABG pCO2 at Pt Temp 43.4 ABG pO2 at Pt Temp 103.0 H ABG HCO3 28.3 H ABG O2 Sat (Measured) 98.3 ABG O2 Content 15.7 ABG Base Excess 4.0 H Olman Test Positive Carboxyhemoglobin Methemoglobin O2 Delivery Device Mech vent Oxygen Flow Rate 70% Vent Mode A/c Vent Rate 20 Mechanical Rate Yes PEEP 5.0 Pressure Support Vent 300 Sodium Potassium Chloride Carbon Dioxide Anion Gap BUN Creatinine Creat Clearance w eGFR Random Glucose Lactic Acid Calcium Phosphorus Magnesium Total Bilirubin AST ALT Alkaline Phosphatase Creatine Kinase Creatine Kinase Index CK-MB (CK-2) Troponin I B-Natriuretic Peptide Total Protein Albumin Urine Color Urine Appearance Urine pH Ur Specific [place] Urine Protein Urine Glucose (UA) Urine Ketones Urine Blood Urine Nitrite Urine Bilirubin Urine Urobilinogen Urine WBC (Auto) Urine RBC (Auto) Ur Epithelial Cells Urine Bacteria Hyaline Casts Urine Mucus Acetone, Qual Blood Type Antibody Screen Active Medications Generic Name Dose Route Start Last Admin Trade Name Freq PRN Reason Stop Dose Admin Albuterol/Ipratropium 1 amp 10/27/17 00:09 Duoneb - NEB Q4H PRN SHORTNESS OF BREATH Atorvastatin Calcium 80 mg 10/27/17 22:00 Lipitor - PO HS BILL Chlorhexidine Gluconate 1 applic 10/27/17 22:00 Hibiclens For Decolonization - TP HS BILL Clopidogrel Bisulfate 75 mg 10/27/17 10:00 Plavix - PO DAILY BILL Furosemide 40 mg 10/27/17 06:00 10/27/17 06:24 Lasix Injection - IVPUSH 40 mg BIDLASIX BILL Administration Heparin Sodium (Porcine) 1,000 unit 10/27/17 00:02 Heparin - IVPUSH PRN PRN Heparin Heparin Sodium (Porcine) 5,000 unit 10/27/17 00:02 Heparin - IVPUSH PRN PRN Heparin Propofol 1,000,000 mcg in 100 mls @ 1.905 mls/hr 10/26/17 23:45 10/27/17 02: 39 Diprivan - IVPB 25 mcg/kg/min TITR BILL 9.525 mls/hr Protocol Titration 5 MCG/KG/MIN Heparin Sodium (Porcine) 25, 500 mls @ 16 mls/hr 10/27/17 00:15 10/27/17 02: 39 000 unit/ Sodium Chloride IV 800 unit/hr TITR BILL 16 mls/hr Protocol Titration 800 UNIT/HR Azithromycin 500 mg/ Dextrose 250 mls @ 250 mls/hr 10/27/17 20:00 IVPB DAILY BILL CEFTRIAXONE 1 G/50 ML PREMIX 50 mls @ 100 mls/hr 10/27/17 20:00 Ceftriaxone 1 Gm-D5w Bag IVPB DAILY BILL Insulin Aspart 1 vial 10/27/17 07:00 10/27/17 06:21 Novolog Vial Sliding Scale - SQ 8 units ACHS BILL Administration Protocol Metoprolol Tartrate 25 mg 10/27/17 06:00 10/27/17 06:24 Lopressor - PO 25 mg TID BILL Administration Mupirocin 1 applic 10/27/17 10:00 Bactroban Ointment (For Decolonization) - NS 11/01/17 09:59 BID BILL Pregabalin 75 mg 10/27/17 10:00 Lyrica - PO BID BILL Ranitidine HCl 150 mg 10/27/17 00:45 10/27/17 01:18 Zantac - PO 150 mg DAILY BILL Administration Microbiology 10/27/17 01:15 Nasopharyngeal Swab Influenza Types A,B Antigen (JIMMIE) - Final 10/27/17 01:15 Nasopharyngeal Swab - Final Imaging: CXr 10/26 - 1. Endotracheal tube in place with the tip projecting approximately 2.7 cm above the joshua. 2. Pulmonary vascular congestion with interstitial edema and bilateral pleural effusions. Bilaterally airspace opacities are most likely alveolar edema. Pneumonia cannot be excluded. Please correlate clinically for severe CHF exacerbation. CXR 10/27 - No significant change. ETT in place. ECHO 10/27 - Poor study. Bioprosthetic aortic valve. Mild MR. LV filling pattern normal for age. Ef 58% EKG 10/27 - Sinus tach. No QTC prolongation. Normal axis. Deep q-waves in III, worse than prior ekg on presentation. TWIs in V5-6 ASSESSMENT/PLAN: 86 yo w/ pmh of IDDM, CAD (s/p stents x10, most recently 3 y ago) and AVR (last year) presenting with SOB, found to have severe flash pulmonary edema in setting of NSTEMI. #Acute Hypoxic Respiratory Failure 2/2 to NSTEMI - Intubated, vented - Unlikely to be PE, given CKMB elevation. CT not advised given Cr 1.7 and possible contrast load w/ LHC - Lasix 40mg BID per cards - Strict Is and Os - Duoneb Q4h prn #NSTEMI - elevated trops, abnormal ekg listed above - Continue home metoprolol 25 TID - Heparin gtt protocol - Continue plavix 75mg daily - Cardiology consulted. Recs appreciated. - Per cards, recommend IV hep gtt, lasix and CT to r/o PE w/ transfer for [facility] ( transfer to [place] in AM if stable) - Trop uptrending 6.75 admission-> 11.24 -> 12.30 (10/27 AM) - F/u LE doppler - Lipitor 80 mg daily - obtain PCP records #Possible CAP - WBC 13.9, febrile to 102.1 - F/u blood, urine, sputum cx's - f/u legionella/pneumo urine ag - lactate 3.2 -> 2.7 10/27 AM - Day 1 tim betancourt for CAP coverage #BL distal toe ulcers - arterial doppler #IDDM - Takes lantus 35u qHs at home + SS - lyrica 75mg BID for diabetic neuropathy - ISS - BGM q4h #BASIL - Cr. 1.9 -> 1.7 this AM - Hold IVFs for now - Trend BUN/Cr - daily bmp's PPX: heparin gtt Zantac for GI FEN: Fluids: none Electrolytes: daily BMPs, trend Cr Nutrition: none Dispo: ICU for further management. Transfer to [place] tomorrow for [facility] possibly Plan discussed with attending, Dr. Luis Aden, PGY1 Visit type - Emergency Visit Emergency Visit: Yes ED Registration Date: 10/27/17 Care time: The patient presented to the Emergency Department on the above date and was hospitalized for further evaluation of their emergent condition. - New Patient This patient is new to me today: Yes Date on this admission: 10/27/17 - Critical Care Critical Care patient: Yes Total Critical Care Time (in minutes): 35 Critical Care Statement: The care of this patient involved high complexity decision making to prevent further life threatening deterioration of the patient 's condition and/or to evaluate & treat vital organ system(s) failure or risk of failure.
[2017-10-27 09:16] LABS: CHOLESTEROL 94 mg/dL (50-200)
[2017-10-27] MEDS: MUPIROCIN 2% TOPICAL OINTMENT FOR DECOLONIZATION NS SCH ×2 (09:26→22:00)
[2017-10-27] MEDS: CLOPIDOGREL BISULFATE 75 MG TABLET (FP) PO SCH (09:27)
[2017-10-27] MEDS: PREGABALIN 75 MG CAPSULE PO SCH ×2 (09:27→22:00)
[2017-10-27 09:45] LABS: URINE LEUK ESTERASE TRACE (NEGATIVE)
[2017-10-27] MEDS ORDERED: FUROSEMIDE 40 MG TABLET (FP) PO SCH (10:00)
[2017-10-27] MEDS ORDERED: CLOPIDOGREL BISULFATE 75 MG TABLET (FP) PO SCH (10:00)
[2017-10-27] MEDS ORDERED: METOPROLOL SUCCINATE 25 MG TAB.SR.24H (FP) PO SCH (10:00)
--- NOTE | 2017-10-27 10:20 | CON.CARD ---
Consult Consult Specialty:: Cardiology Reason for Consultation:: nonstemi - History of Present Illness History of Present Illness: The patient is an 86 year old female, with a significant past medical history of cardiac stents x 10, aortic valve replacement, IDDM, who presents to the emergency department brought in by ems intubated after complaint of difficulty breathing this evening. As per ems, the patient was read to be 90% on capnography which dropped to 50% after being bagged in the field. As per ems, the patient was found tachypneic in the field, in respiratory distress, and was intubated (ETT 7.0). As per the patients family at bedside, the patient was feeling well yesterday morning, performing activities of daily life without symptoms. As per patients family, the patient had a nonproductive cough for the past few days, however, the patient reportedly felt better this morning. As per the family, the patient received her flu vaccination 3 weeks ago. Family denies recent sick contacts. At presentation was being bagged by ems. Allergies: aspirin Past surgical history: cardiac stent x 10 Social history: denies toxic habits 86 year old F with pmh of IDDM, Cardiac Stent placement x10 (last placed 3 years prior), and aortic valve replacement (last year) presenting with shortness of breath. History obtained by daughter. Patient arrived from [place] via car last Wednesday. Patient was in usual state of health 2 days prior to admission. Patient performs ADLs and walks at baseline. Over the last 2 days patient had worsening SOB, decreased Urine output, weakness, and nonproductive cough with saliva. This evening patient's shortness of breath worsened and EMS was called. Patient was intubated in the field 2/2 to respiratory distress and was satting in the 50%. Daughter endorses chronic pedal edema, orthopnea, and dyspnea on exertion which has been worsening over the last 2 days as well. Per daughter, patient has not had increased salt intake. Patient denies fever, chills, nausea, vomiting, diarrhea, chest pain, palpitations, abdominal pain. ER course was notable for: (1) VS- WNL, CBC- wbc 20.1, ABG- 7.35/50.6/101/26.9 (2) Glucose- 389, Lactic Acid-6.0, Troponin of 6.75, CK-MB-26.816, BNP-20,000 (3) UA- negative (4) EKG- Sinus tachycardia. Q waves in inferior and lateral leads (5) CXR-pulmonary vascular congestion, pneumonia cannot be excluded - History Source History Provided By: Medical Record - Past Medical History Cardio/Vascular: Yes: CAD, CHF Endocrine: Yes: Diabetes Mellitus - Alcohol/Substance Use Hx Alcohol Use: No - Smoking History Smoking history: Unknown if ever smoked Home Medications - Allergies Allergies/Adverse Reactions: Allergies Allergy/AdvReac Type Severity Reaction Status Date / Time aspirin Allergy Verified 10/26/17 21:50 - Home Medications Home Medications: Ambulatory Orders Amlodipine Besylate [Norvasc -] 10 mg PO DAILY 10/26/17 Atorvastatin Ca [Lipitor] 20 mg PO HS 10/26/17 Clopidogrel Bisulfate [Plavix -] 75 mg PO DAILY 10/26/17 Furosemide [Lasix] 40 mg PO DAILY 10/26/17 Insulin (LOG) Aspart [NovoLOG -] 0 units SQ TID 10/26/17 Insulin Glargine,Hum.rec.anlog [Lantus Solostar PEN (NF)] 35 units SQ AM Metoprolol Succinate [Toprol Xl -] 37.5 mg PO BID 10/26/17 Multivitamin/Iron/Folic Acid [Centrum Adults Tablet] 1 each PO DAILY 10/26/17 Pregabalin [Lyrica -] 200 mg PO TID 10/26/17 Review of Systems Unable to obtain ROS, reason: intubated Vital Signs: Vital Signs Temperature 98.9 F 10/27/17 06:50 Pulse Rate 73 10/27/17 08:00 Respiratory Rate 18 10/27/17 09:00 Blood Pressure 112/51 10/27/17 08:00 O2 Sat by Pulse Oximetry (%) 100 10/27/17 02:00 Constitutional: Yes: Well Nourished, No Distress, Calm Eyes: Yes: WNL, Conjunctiva Clear, EOM Intact HENT: Yes: WNL, Atraumatic, Normocephalic Neck: Yes: WNL, Supple, Trachea Midline Respiratory: Yes: Diminished, Intubated, Mechanically Ventilated Gastrointestinal: Yes: WNL, Normal Bowel Sounds Renal/: Yes: WNL Cardiovascular: Yes: WNL, Regular Rate and Rhythm Musculoskeletal: Yes: WNL Extremities: Yes: WNL Integumentary: Yes: WNL Neurological: Yes: WNL, Alert, Oriented ...Motor Strength: WNL Psychiatric: Yes: WNL, Alert, Oriented - Other Data Labs, Other Data: CBC, BMP 10/27/17 06:00 10/27/17 06:00 INR, PTT INR 1.13 (0.82-1.09) 10/26/17 21:53 Troponin, BNP 10/26/17 10/27/17 21:53 06:00 Troponin I 6.75 H* 11.24 H* B-Natriuretic Peptide 58780.60 H Troponin, BNP 10/26/17 10/27/17 21:53 06:00 Troponin I 6.75 H* 11.24 H* B-Natriuretic Peptide 14413.60 H Laboratory Tests 10/26/17 10/26/17 10/26/17 21:53 21:53 21:53 WBC RBC Hgb Hct MCV MCH MCHC RDW Plt Count MPV Total Counted Neutrophils % Neutrophils % (Manual) Band Neutrophils % Lymphocytes % Lymphocytes % (Manual) Monocytes % Monocytes % (Manual) Eosinophils % Basophils % Basophils % (Manual) Metamyelocytes Platelet Estimate Platelet Comment PT with INR 12.80 H INR 1.13 Puncture Site ABG pH ABG pCO2 at Pt Temp ABG pO2 at Pt Temp ABG HCO3 ABG O2 Sat (Measured) ABG O2 Content ABG Base Excess Olman Test Carboxyhemoglobin Methemoglobin O2 Delivery Device Oxygen Flow Rate Vent Mode Vent Rate Mechanical Rate PEEP Pressure Support Vent Sodium Potassium Chloride Carbon Dioxide Anion Gap BUN Creatinine Creat Clearance w eGFR Random Glucose Hemoglobin A1c % Lactic Acid Calcium Phosphorus Magnesium Total Bilirubin AST ALT Alkaline Phosphatase Creatine Kinase 413 H Creatine Kinase Index 6.4 H* CK-MB (CK-2) 26.816 H Troponin I 6.75 H* B-Natriuretic Peptide 38149.60 H Total Protein Albumin Triglycerides Cholesterol Total LDL Cholesterol HDL Cholesterol Urine Color Lt. yellow Urine Appearance Clear Urine pH 5.0 Ur Specific Patterson 1.020 Urine Protein 1+ H Urine Glucose (UA) Negative Urine Ketones Negative Urine Blood Negative Urine Nitrite Negative Urine Bilirubin Negative Urine Urobilinogen 0.2 Ur Leukocyte Esterase Trace H Urine WBC (Auto) 7 Urine RBC (Auto) 1 Ur Epithelial Cells Rare Urine Bacteria Moderate Hyaline Casts 9 Urine Mucus Rare Acetone, Qual Negative L Blood Type Antibody Screen 10/26/17 10/26/17 10/26/17 21:53 21:53 22:00 WBC 20.1 H RBC 4.39 Hgb 12.6 Hct 39.0 MCV 89.0 MCH 28.7 MCHC 32.2 RDW 13.9 Plt Count 125 L MPV 12.6 H Total Counted Neutrophils % 74.5 Neutrophils % (Manual) Band Neutrophils % Lymphocytes % 17.4 Lymphocytes % (Manual) Monocytes % 7.3 Monocytes % (Manual) Eosinophils % 0.4 Basophils % 0.4 Basophils % (Manual) Metamyelocytes Platelet Estimate Platelet Comment No clumping noted PT with INR INR Puncture Site ABG pH ABG pCO2 at Pt Temp ABG pO2 at Pt Temp ABG HCO3 ABG O2 Sat (Measured) ABG O2 Content ABG Base Excess Olman Test Carboxyhemoglobin Methemoglobin O2 Delivery Device Oxygen Flow Rate Vent Mode Vent Rate Mechanical Rate PEEP Pressure Support Vent Sodium Potassium Chloride Carbon Dioxide Anion Gap BUN Creatinine Creat Clearance w eGFR Random Glucose Hemoglobin A1c % Lactic Acid 6.0 H* Calcium Phosphorus Magnesium Total Bilirubin AST ALT Alkaline Phosphatase Creatine Kinase Creatine Kinase Index CK-MB (CK-2) Troponin I B-Natriuretic Peptide Total Protein Albumin Triglycerides Cholesterol Total LDL Cholesterol HDL Cholesterol Urine Color Urine Appearance Urine pH Ur Specific Patterson Urine Protein Urine Glucose (UA) Urine Ketones Urine Blood Urine Nitrite Urine Bilirubin Urine Urobilinogen Ur Leukocyte Esterase Urine WBC (Auto) Urine RBC (Auto) Ur Epithelial Cells Urine Bacteria Hyaline Casts Urine Mucus Acetone, Qual Blood Type A POSITIVE Antibody Screen Negative 10/26/17 10/26/17 10/27/17 22:00 23:25 01:00 WBC RBC Hgb Hct MCV MCH MCHC RDW Plt Count MPV Total Counted Neutrophils % Neutrophils % (Manual) Band Neutrophils % Lymphocytes % Lymphocytes % (Manual) Monocytes % Monocytes % (Manual) Eosinophils % Basophils % Basophils % (Manual) Metamyelocytes Platelet Estimate Platelet Comment PT with INR INR Puncture Site Left radial ABG pH 7.35 ABG pCO2 at Pt Temp 50.6 H ABG pO2 at Pt Temp 101.0 H ABG HCO3 26.9 H ABG O2 Sat (Measured) 97.7 ABG O2 Content 17.8 ABG Base Excess 1.0 Olman Test Positive Carboxyhemoglobin 1.3 Methemoglobin 0.7 O2 Delivery Device Mech vent Oxygen Flow Rate 100 Vent Mode A/c Vent Rate 14 Mechanical Rate Yes PEEP 5.0 Pressure Support Vent 450 Sodium 140 Potassium 4.4 Chloride 100 Carbon Dioxide 27 Anion Gap 13 BUN 32 H Creatinine 1.9 H Creat Clearance w eGFR 24.95 Random Glucose 368 H* Hemoglobin A1c % Lactic Acid 3.2 H* Calcium 8.8 Phosphorus Magnesium Total Bilirubin 1.3 H AST 190 H ALT 105 H Alkaline Phosphatase 298 H Creatine Kinase Creatine Kinase Index CK-MB (CK-2) Troponin I B-Natriuretic Peptide Total Protein 7.3 Albumin 3.4 Triglycerides Cholesterol Total LDL Cholesterol HDL Cholesterol Urine Color Urine Appearance Urine pH Ur Specific Patterson Urine Protein Urine Glucose (UA) Urine Ketones Urine Blood Urine Nitrite Urine Bilirubin Urine Urobilinogen Ur Leukocyte Esterase Urine WBC (Auto) Urine RBC (Auto) Ur Epithelial Cells Urine Bacteria Hyaline Casts Urine Mucus Acetone, Qual Blood Type Antibody Screen 10/27/17 10/27/17 10/27/17 06:00 06:00 06:00 WBC 13.9 H D RBC 3.98 Hgb 11.5 Hct 34.7 MCV 87.1 MCH 28.9 MCHC 33.1 RDW 14.0 Plt Count 96 L D MPV 12.6 H Total Counted 100 Neutrophils % No Result Required. Neutrophils % (Manual) 74.0 Band Neutrophils % 2.0 Lymphocytes % No Result Required. Lymphocytes % (Manual) 20.0 Monocytes % Monocytes % (Manual) 2 L Eosinophils % Basophils % Basophils % (Manual) 1.0 Metamyelocytes 1 Platelet Estimate Decreased Platelet Comment Mod large plt seen PT with INR INR Puncture Site ABG pH ABG pCO2 at Pt Temp ABG pO2 at Pt Temp ABG HCO3 ABG O2 Sat (Measured) ABG O2 Content ABG Base Excess Olman Test Carboxyhemoglobin Methemoglobin O2 Delivery Device Oxygen Flow Rate Vent Mode Vent Rate Mechanical Rate PEEP Pressure Support Vent Sodium 137 Potassium 4.3 Chloride 98 Carbon Dioxide 31 Anion Gap 8 BUN 35 H Creatinine 1.7 H Creat Clearance w eGFR 28.36 Random Glucose 283 H D Hemoglobin A1c % Lactic Acid Calcium 7.8 L Phosphorus 3.0 Magnesium 2.1 Total Bilirubin 1.0 D AST 119 H D ALT 86 H Alkaline Phosphatase 254 H Creatine Kinase 362 H Creatine Kinase Index 3.3 CK-MB (CK-2) 12.198 H Troponin I 11.24 H* B-Natriuretic Peptide Total Protein 5.9 L Albumin 2.6 L D Triglycerides Cholesterol Total LDL Cholesterol HDL Cholesterol Urine Color Urine Appearance Urine pH Ur Specific Patterson Urine Protein Urine Glucose (UA) Urine Ketones Urine Blood Urine Nitrite Urine Bilirubin Urine Urobilinogen Ur Leukocyte Esterase Urine WBC (Auto) Urine RBC (Auto) Ur Epithelial Cells Urine Bacteria Hyaline Casts Urine Mucus Acetone, Qual Blood Type Antibody Screen 10/27/17 10/27/17 10/27/17 06:00 06:12 07:45 WBC RBC Hgb Hct MCV MCH MCHC RDW Plt Count MPV Total Counted Neutrophils % Neutrophils % (Manual) Band Neutrophils % Lymphocytes % Lymphocytes % (Manual) Monocytes % Monocytes % (Manual) Eosinophils % Basophils % Basophils % (Manual) Metamyelocytes Platelet Estimate Platelet Comment PT with INR INR Puncture Site Left radial ABG pH 7.43 ABG pCO2 at Pt Temp 43.4 ABG pO2 at Pt Temp 103.0 H ABG HCO3 28.3 H ABG O2 Sat (Measured) 98.3 ABG O2 Content 15.7 ABG Base Excess 4.0 H Olman Test Positive Carboxyhemoglobin Methemoglobin O2 Delivery Device Mech vent Oxygen Flow Rate 70% Vent Mode A/c Vent Rate 20 Mechanical Rate Yes PEEP 5.0 Pressure Support Vent 300 Sodium Potassium Chloride Carbon Dioxide Anion Gap BUN Creatinine Creat Clearance w eGFR Random Glucose Hemoglobin A1c % 10.2 H Lactic Acid 2.7 H* Calcium Phosphorus Magnesium Total Bilirubin AST ALT Alkaline Phosphatase Creatine Kinase Creatine Kinase Index CK-MB (CK-2) Troponin I B-Natriuretic Peptide Total Protein Albumin Triglycerides Cholesterol Total LDL Cholesterol HDL Cholesterol Urine Color Urine Appearance Urine pH Ur Specific Patterson Urine Protein Urine Glucose (UA) Urine Ketones Urine Blood Urine Nitrite Urine Bilirubin Urine Urobilinogen Ur Leukocyte Esterase Urine WBC (Auto) Urine RBC (Auto) Ur Epithelial Cells Urine Bacteria Hyaline Casts Urine Mucus Acetone, Qual Blood Type Antibody Screen 10/27/17 07:45 WBC RBC Hgb Hct MCV MCH MCHC RDW Plt Count MPV Total Counted Neutrophils % Neutrophils % (Manual) Band Neutrophils % Lymphocytes % Lymphocytes % (Manual) Monocytes % Monocytes % (Manual) Eosinophils % Basophils % Basophils % (Manual) Metamyelocytes Platelet Estimate Platelet Comment PT with INR INR Puncture Site ABG pH ABG pCO2 at Pt Temp ABG pO2 at Pt Temp ABG HCO3 ABG O2 Sat (Measured) ABG O2 Content ABG Base Excess Olman Test Carboxyhemoglobin Methemoglobin O2 Delivery Device Oxygen Flow Rate Vent Mode Vent Rate Mechanical Rate PEEP Pressure Support Vent Sodium Potassium Chloride Carbon Dioxide Anion Gap BUN Creatinine Creat Clearance w eGFR Random Glucose Hemoglobin A1c % Lactic Acid Calcium Phosphorus Magnesium Total Bilirubin AST ALT Alkaline Phosphatase Creatine Kinase Creatine Kinase Index CK-MB (CK-2) Troponin I B-Natriuretic Peptide Total Protein Albumin Triglycerides 461 H Cholesterol 94 Total LDL Cholesterol 40 HDL Cholesterol 29 L Urine Color Urine Appearance Urine pH Ur Specific Patterson Urine Protein Urine Glucose (UA) Urine Ketones Urine Blood Urine Nitrite Urine Bilirubin Urine Urobilinogen Ur Leukocyte Esterase Urine WBC (Auto) Urine RBC (Auto) Ur Epithelial Cells Urine Bacteria Hyaline Casts Urine Mucus Acetone, Qual Blood Type Antibody Screen Imaging - Results Chest X-ray: Image Reviewed (chf) EKG: Image Reviewed (sr rep abn ? lateral st depression) Problem List - Problems (1) CHF (congestive heart failure) Code(s): I50.9 - HEART FAILURE, UNSPECIFIED (2) NSTEMI (non-ST elevated myocardial infarction) Code(s): I21.4 - NON-ST ELEVATION (NSTEMI) MYOCARDIAL INFARCTION Assessment/Plan nonstemi chf acute resp failure r/o PE ( patient came from [place] via car) s/p avr ashd sp 10 stents dm echo tds dilated lv mildly reduced ef, moderate MR RV not well visualized no TR recorded plan IV heparine plavix lasix CT to ro PE if no PE will d/w family transfer for c. cath d/w dr. Thomson cc time spent 70 min
--- NOTE | 2017-10-27 10:26 | EKG ---
Test Reason : Blood Pressure : / mmHG Vent. Rate : 102 BPM Atrial Rate : 102 BPM P-R Int : 132 ms QRS Dur : 104 ms QT Int : 352 ms P-R-T Axes : 056 019 243 degrees QTc Int : 458 ms SINUS TACHYCARDIA ABNORMAL ECG NO PREVIOUS ECGS AVAILABLE Confirmed by JOSE KAN MD ([id number]) on 10/27/2017 10:26:01 AM Referred By: Confirmed By:JOSE KAN MD
[2017-10-27 10:50] LABS: ARTERIAL BLD GAS O2 SATURATION 97.1 % (90-98.9); ARTERIAL BLOOD GAS BASE EXCESS 5.7 meq/l (-2-2); ARTERIAL BLOOD GAS HCO3 29.6 meq/L (22-26); ARTERIAL BLOOD GAS PO2 79.2 mmHg (68-100); ARTERIAL BLOOD GAS pH 7.46 (7.35-7.45)
[2017-10-27 10:53] LABS: ALLENS TEST POSITIVE; ART PUNCT SITE LEFT RADIAL; LPM/O2% 50; PT. ON O2? YES
[2017-10-27 10:54] LABS: MECH. VENT. ESPRIT; TYPE OF O2 MECH VENT; VENT RATE 20; VT/PRESS 300 TIDAL VOLUME
[2017-10-27] MEDS ORDERED: HEMOQUE TEST 1 EACH EACH ONE (11:20)
[2017-10-27] MEDS ORDERED: INSULIN (NOVOLOG) ASPART 100 UNITS/ML 10ML VIAL ONE (11:47)
--- NOTE | 2017-10-27 12:55 | EKG ---
Test Reason : Blood Pressure : / mmHG Vent. Rate : 081 BPM Atrial Rate : 081 BPM P-R Int : 148 ms QRS Dur : 100 ms QT Int : 376 ms P-R-T Axes : 066 -07 -27 degrees QTc Int : 436 ms NORMAL SINUS RHYTHM LOW VOLTAGE QRS ABNORMAL ECG WHEN COMPARED WITH ECG OF 26-OCT-2017 22:53, NO SIGNIFICANT CHANGE WAS FOUND Confirmed by LORETA VILLEGAS, JOSE ([id number] on 10/27/2017 12:54:33 PM Referred By: Elizabeth DHALIWAL Confirmed By:JOSE KAN MD
[2017-10-27 12:57] LABS: TROPONIN I 12.3 ng/ml (0.00-0.05)
--- NOTE | 2017-10-27 13:15 | CONSULT ---
Consultation: REQUESTING PROVIDER: CONSULT REQUEST: We have been asked to medically evaluate this patient for ( specify). HISTORY OF PRESENT ILLNESS: Briefly, this is an 86 yo F with pmh of CAD s/p stents x 10 3 yrs ago, aortic valve replacement (last year) and IDDM, who was BIBEMS due to respiratory distress. Patient was intubated by EMS in the field O2 sat 50%. According to daughter, patient arrived from [place] via car last Sun and has been experiencing progressive sob, worsening LE edema, decreased UO and dry cough x 2 days. At baseline she is ambulatory and independent. Daughter endorses chronic pedal edema, orthopnea, and dyspnea on exertion but increased salt intake, f/c, n/v/d, constipation, CP, palpitations, abd pain. Patient remains intubated and sedated in ICU. Hemodynamically stable, T max 102.1 at 1:15 am. REVIEW OF SYSTEMS: unable to obtain PHYSICAL EXAMINATION Vital Signs - 24 hr 10/26/17 10/26/17 10/26/17 21:48 21:52 21:55 Temperature 99.1 F Pulse Rate 90 Pulse Rate [ Apical] Respiratory 14 14 Rate Blood Pressure 152/52 Blood Pressure [Right Arm] O2 Sat by Pulse 98 98 Oximetry (%) 10/26/17 10/26/17 10/27/17 23:06 23:07 01:00 Temperature Pulse Rate 90 Pulse Rate [ 90 Apical] Respiratory 14 14 Rate Blood Pressure Blood Pressure 148/53 [Right Arm] O2 Sat by Pulse 100 100 Oximetry (%) 10/27/17 10/27/17 10/27/17 01:12 01:13 01:15 Temperature 102.1 F H Pulse Rate 84 Pulse Rate [ 84 84 Apical] Respiratory 14 14 14 Rate Blood Pressure 150/60 Blood Pressure 114/60 114/60 [Right Arm] O2 Sat by Pulse 100 100 100 Oximetry (%) 10/27/17 10/27/17 10/27/17 01:32 02:00 03:00 Temperature Pulse Rate 84 102 H 88 Pulse Rate [ Apical] Respiratory 24 Rate Blood Pressure 150/60 Blood Pressure [Right Arm] O2 Sat by Pulse 100 100 Oximetry (%) 10/27/17 10/27/17 10/27/17 03:30 04:00 05:00 Temperature 98.8 F Pulse Rate 87 87 Pulse Rate [ Apical] Respiratory 14 14 16 Rate Blood Pressure 112/66 118/70 Blood Pressure [Right Arm] O2 Sat by Pulse Oximetry (%) 10/27/17 10/27/17 10/27/17 05:29 06:00 06:50 Temperature 98.9 F Pulse Rate 84 84 Pulse Rate [ Apical] Respiratory 14 20 20 Rate Blood Pressure 128/59 116/51 Blood Pressure [Right Arm] O2 Sat by Pulse Oximetry (%) 10/27/17 10/27/17 10/27/17 07:15 08:00 09:00 Temperature Pulse Rate 73 Pulse Rate [ Apical] Respiratory 20 20 18 Rate Blood Pressure 112/51 Blood Pressure [Right Arm] O2 Sat by Pulse Oximetry (%) 10/27/17 10/27/17 09:45 10:00 Temperature 99.9 F H Pulse Rate 77 Pulse Rate [ Apical] Respiratory 20 20 Rate Blood Pressure 125/52 Blood Pressure [Right Arm] O2 Sat by Pulse 100 Oximetry (%) GENERAL: sedated HEAD: Normal with no signs of trauma. EYES: Pupils equal, pinpoint, conjunctiva clear EARS, NOSE, THROAT: Moist mucous membranes. NECK: supple LUNGS: bibasilar ronchi HEART: distant heart sounds, Regular rate and rhythm, S1 and S2 ABDOMEN: Soft, not distended, globally reduced bowel sounds, no masses. MUSCULOSKELETAL: No bony deformities UPPER EXTREMITIES: 2+ pulses, warm, well-perfused. No peripheral edema. LOWER EXTREMITIES: 1+ pulses, warm, well-perfused. trace peripheral edema. NEUROLOGICAL: sedated PSYCHIATRIC: sedated SKIN: Warm, dry Laboratory Results - last 24 hr 10/26/17 10/26/17 10/26/17 21:53 21:53 21:53 WBC RBC Hgb Hct MCV MCH MCHC RDW Plt Count MPV Total Counted Neutrophils % Neutrophils % (Manual) Band Neutrophils % Lymphocytes % Lymphocytes % (Manual) Monocytes % Monocytes % (Manual) Eosinophils % Basophils % Basophils % (Manual) Metamyelocytes Platelet Estimate Platelet Comment PT with INR 12.80 H INR 1.13 Puncture Site ABG pH ABG pCO2 at Pt Temp ABG pO2 at Pt Temp ABG HCO3 ABG O2 Sat (Measured) ABG O2 Content ABG Base Excess Olman Test Carboxyhemoglobin Methemoglobin O2 Delivery Device Oxygen Flow Rate Vent Mode Vent Rate Mechanical Rate PEEP Pressure Support Vent Sodium Potassium Chloride Carbon Dioxide Anion Gap BUN Creatinine Creat Clearance w eGFR POC Glucometer Random Glucose Hemoglobin A1c % Lactic Acid Calcium Phosphorus Magnesium Total Bilirubin AST ALT Alkaline Phosphatase Creatine Kinase 413 H Creatine Kinase Index 6.4 H* CK-MB (CK-2) 26.816 H Troponin I 6.75 H* B-Natriuretic Peptide 84346.60 H Total Protein Albumin Triglycerides Cholesterol Total LDL Cholesterol HDL Cholesterol Urine Color Lt. yellow Urine Appearance Clear Urine pH 5.0 Ur Specific Ulen 1.020 Urine Protein 1+ H Urine Glucose (UA) Negative Urine Ketones Negative Urine Blood Negative Urine Nitrite Negative Urine Bilirubin Negative Urine Urobilinogen 0.2 Ur Leukocyte Esterase Trace H Urine WBC (Auto) 7 Urine RBC (Auto) 1 Ur Epithelial Cells Rare Urine Bacteria Moderate Hyaline Casts 9 Urine Mucus Rare Acetone, Qual Negative L Blood Type Antibody Screen 10/26/17 10/26/17 10/26/17 21:53 21:53 22:00 WBC 20.1 H RBC 4.39 Hgb 12.6 Hct 39.0 MCV 89.0 MCH 28.7 MCHC 32.2 RDW 13.9 Plt Count 125 L MPV 12.6 H Total Counted Neutrophils % 74.5 Neutrophils % (Manual) Band Neutrophils % Lymphocytes % 17.4 Lymphocytes % (Manual) Monocytes % 7.3 Monocytes % (Manual) Eosinophils % 0.4 Basophils % 0.4 Basophils % (Manual) Metamyelocytes Platelet Estimate Platelet Comment No clumping noted PT with INR INR Puncture Site ABG pH ABG pCO2 at Pt Temp ABG pO2 at Pt Temp ABG HCO3 ABG O2 Sat (Measured) ABG O2 Content ABG Base Excess Olman Test Carboxyhemoglobin Methemoglobin O2 Delivery Device Oxygen Flow Rate Vent Mode Vent Rate Mechanical Rate PEEP Pressure Support Vent Sodium Potassium Chloride Carbon Dioxide Anion Gap BUN Creatinine Creat Clearance w eGFR POC Glucometer Random Glucose Hemoglobin A1c % Lactic Acid 6.0 H* Calcium Phosphorus Magnesium Total Bilirubin AST ALT Alkaline Phosphatase Creatine Kinase Creatine Kinase Index CK-MB (CK-2) Troponin I B-Natriuretic Peptide Total Protein Albumin Triglycerides Cholesterol Total LDL Cholesterol HDL Cholesterol Urine Color Urine Appearance Urine pH Ur Specific Ulen Urine Protein Urine Glucose (UA) Urine Ketones Urine Blood Urine Nitrite Urine Bilirubin Urine Urobilinogen Ur Leukocyte Esterase Urine WBC (Auto) Urine RBC (Auto) Ur Epithelial Cells Urine Bacteria Hyaline Casts Urine Mucus Acetone, Qual Blood Type A POSITIVE Antibody Screen Negative 1110/26/17 10/27/17 22:00 23:25 01:00 WBC RBC Hgb Hct MCV MCH MCHC RDW Plt Count MPV Total Counted Neutrophils % Neutrophils % (Manual) Band Neutrophils % Lymphocytes % Lymphocytes % (Manual) Monocytes % Monocytes % (Manual) Eosinophils % Basophils % Basophils % (Manual) Metamyelocytes Platelet Estimate Platelet Comment PT with INR INR Puncture Site Left radial ABG pH 7.35 ABG pCO2 at Pt Temp 50.6 H ABG pO2 at Pt Temp 101.0 H ABG HCO3 26.9 H ABG O2 Sat (Measured) 97.7 ABG O2 Content 17.8 ABG Base Excess 1.0 Olman Test Positive Carboxyhemoglobin 1.3 Methemoglobin 0.7 O2 Delivery Device Mech vent Oxygen Flow Rate 100 Vent Mode A/c Vent Rate 14 Mechanical Rate Yes PEEP 5.0 Pressure Support Vent 450 Sodium 140 Potassium 4.4 Chloride 100 Carbon Dioxide 27 Anion Gap 13 BUN 32 H Creatinine 1.9 H Creat Clearance w eGFR 24.95 POC Glucometer Random Glucose 368 H* Hemoglobin A1c % Lactic Acid 3.2 H* Calcium 8.8 Phosphorus Magnesium Total Bilirubin 1.3 H AST 190 H ALT 105 H Alkaline Phosphatase 298 H Creatine Kinase Creatine Kinase Index CK-MB (CK-2) Troponin I B-Natriuretic Peptide Total Protein 7.3 Albumin 3.4 Triglycerides Cholesterol Total LDL Cholesterol HDL Cholesterol Urine Color Urine Appearance Urine pH Ur Specific Ulen Urine Protein Urine Glucose (UA) Urine Ketones Urine Blood Urine Nitrite Urine Bilirubin Urine Urobilinogen Ur Leukocyte Esterase Urine WBC (Auto) Urine RBC (Auto) Ur Epithelial Cells Urine Bacteria Hyaline Casts Urine Mucus Acetone, Qual Blood Type Antibody Screen 10/27/17 10/27/17 10/27/17 06:00 06:00 06:00 WBC 13.9 H D RBC 3.98 Hgb 11.5 Hct 34.7 MCV 87.1 MCH 28.9 MCHC 33.1 RDW 14.0 Plt Count 96 L D MPV 12.6 H Total Counted 100 Neutrophils % No Result Required. Neutrophils % (Manual) 74.0 Band Neutrophils % 2.0 Lymphocytes % No Result Required. Lymphocytes % (Manual) 20.0 Monocytes % Monocytes % (Manual) 2 L Eosinophils % Basophils % Basophils % (Manual) 1.0 Metamyelocytes 1 Platelet Estimate Decreased Platelet Comment Mod large plt seen PT with INR INR Puncture Site ABG pH ABG pCO2 at Pt Temp ABG pO2 at Pt Temp ABG HCO3 ABG O2 Sat (Measured) ABG O2 Content ABG Base Excess Olman Test Carboxyhemoglobin Methemoglobin O2 Delivery Device Oxygen Flow Rate Vent Mode Vent Rate Mechanical Rate PEEP Pressure Support Vent Sodium 137 Potassium 4.3 Chloride 98 Carbon Dioxide 31 Anion Gap 8 BUN 35 H Creatinine 1.7 H Creat Clearance w eGFR 28.36 POC Glucometer Random Glucose 283 H D Hemoglobin A1c % Lactic Acid Calcium 7.8 L Phosphorus 3.0 Magnesium 2.1 Total Bilirubin 1.0 D AST 119 H D ALT 86 H Alkaline Phosphatase 254 H Creatine Kinase 362 H Creatine Kinase Index 3.3 CK-MB (CK-2) 12.198 H Troponin I 11.24 H* B-Natriuretic Peptide Total Protein 5.9 L Albumin 2.6 L D Triglycerides Cholesterol Total LDL Cholesterol HDL Cholesterol Urine Color Urine Appearance Urine pH Ur Specific Ulen Urine Protein Urine Glucose (UA) Urine Ketones Urine Blood Urine Nitrite Urine Bilirubin Urine Urobilinogen Ur Leukocyte Esterase Urine WBC (Auto) Urine RBC (Auto) Ur Epithelial Cells Urine Bacteria Hyaline Casts Urine Mucus Acetone, Qual Blood Type Antibody Screen 10/27/17 10/27/17 10/27/17 06:00 06:06 06:12 WBC RBC Hgb Hct MCV MCH MCHC RDW Plt Count MPV Total Counted Neutrophils % Neutrophils % (Manual) Band Neutrophils % Lymphocytes % Lymphocytes % (Manual) Monocytes % Monocytes % (Manual) Eosinophils % Basophils % Basophils % (Manual) Metamyelocytes Platelet Estimate Platelet Comment PT with INR INR Puncture Site Left radial ABG pH 7.43 ABG pCO2 at Pt Temp 43.4 ABG pO2 at Pt Temp 103.0 H ABG HCO3 28.3 H ABG O2 Sat (Measured) 98.3 ABG O2 Content 15.7 ABG Base Excess 4.0 H Olman Test Positive Carboxyhemoglobin Methemoglobin O2 Delivery Device Mech vent Oxygen Flow Rate 70% Vent Mode A/c Vent Rate 20 Mechanical Rate Yes PEEP 5.0 Pressure Support Vent 300 Sodium Potassium Chloride Carbon Dioxide Anion Gap BUN Creatinine Creat Clearance w eGFR POC Glucometer 356.51972 Random Glucose Hemoglobin A1c % 10.2 H Lactic Acid Calcium Phosphorus Magnesium Total Bilirubin AST ALT Alkaline Phosphatase Creatine Kinase Creatine Kinase Index CK-MB (CK-2) Troponin I B-Natriuretic Peptide Total Protein Albumin Triglycerides Cholesterol Total LDL Cholesterol HDL Cholesterol Urine Color Urine Appearance Urine pH Ur Specific Ulen Urine Protein Urine Glucose (UA) Urine Ketones Urine Blood Urine Nitrite Urine Bilirubin Urine Urobilinogen Ur Leukocyte Esterase Urine WBC (Auto) Urine RBC (Auto) Ur Epithelial Cells Urine Bacteria Hyaline Casts Urine Mucus Acetone, Qual Blood Type Antibody Screen 10/27/17 10/27/17 10/27/17 06:36 07:45 07:45 WBC RBC Hgb Hct MCV MCH MCHC RDW Plt Count MPV Total Counted Neutrophils % Neutrophils % (Manual) Band Neutrophils % Lymphocytes % Lymphocytes % (Manual) Monocytes % Monocytes % (Manual) Eosinophils % Basophils % Basophils % (Manual) Metamyelocytes Platelet Estimate Platelet Comment PT with INR INR Puncture Site ABG pH ABG pCO2 at Pt Temp ABG pO2 at Pt Temp ABG HCO3 ABG O2 Sat (Measured) ABG O2 Content ABG Base Excess Olman Test Carboxyhemoglobin Methemoglobin O2 Delivery Device Oxygen Flow Rate Vent Mode Vent Rate Mechanical Rate PEEP Pressure Support Vent Sodium Potassium Chloride Carbon Dioxide Anion Gap BUN Creatinine Creat Clearance w eGFR POC Glucometer [phone] Random Glucose Hemoglobin A1c % Lactic Acid 2.7 H* Calcium Phosphorus Magnesium Total Bilirubin AST ALT Alkaline Phosphatase Creatine Kinase Creatine Kinase Index CK-MB (CK-2) Troponin I B-Natriuretic Peptide Total Protein Albumin Triglycerides 461 H Cholesterol 94 Total LDL Cholesterol 40 HDL Cholesterol 29 L Urine Color Urine Appearance Urine pH Ur Specific Ulen Urine Protein Urine Glucose (UA) Urine Ketones Urine Blood Urine Nitrite Urine Bilirubin Urine Urobilinogen Ur Leukocyte Esterase Urine WBC (Auto) Urine RBC (Auto) Ur Epithelial Cells Urine Bacteria Hyaline Casts Urine Mucus Acetone, Qual Blood Type Antibody Screen 10/27/17 10/27/17 10/27/17 09:50 10:42 11:27 WBC RBC Hgb Hct MCV MCH MCHC RDW Plt Count MPV Total Counted Neutrophils % Neutrophils % (Manual) Band Neutrophils % Lymphocytes % Lymphocytes % (Manual) Monocytes % Monocytes % (Manual) Eosinophils % Basophils % Basophils % (Manual) Metamyelocytes Platelet Estimate Platelet Comment PT with INR INR Puncture Site Left radial ABG pH 7.46 H ABG pCO2 at Pt Temp 41.9 ABG pO2 at Pt Temp 79.2 D ABG HCO3 29.6 H ABG O2 Sat (Measured) 97.1 ABG O2 Content 15.1 ABG Base Excess 5.7 H Olman Test Positive Carboxyhemoglobin Methemoglobin O2 Delivery Device Mech vent Oxygen Flow Rate 50 Vent Mode A/c Vent Rate 20 Mechanical Rate Esprit PEEP 5.0 Pressure Support Vent 300 tidal volume Sodium Potassium Chloride Carbon Dioxide Anion Gap BUN Creatinine Creat Clearance w eGFR POC Glucometer [phone] Random Glucose Hemoglobin A1c % Lactic Acid Calcium Phosphorus Magnesium Total Bilirubin AST ALT Alkaline Phosphatase Creatine Kinase 347 H Creatine Kinase Index CK-MB (CK-2) Troponin I 12.30 H* B-Natriuretic Peptide Total Protein Albumin Triglycerides Cholesterol Total LDL Cholesterol HDL Cholesterol Urine Color Urine Appearance Urine pH Ur Specific Ulen Urine Protein Urine Glucose (UA) Urine Ketones Urine Blood Urine Nitrite Urine Bilirubin Urine Urobilinogen Ur Leukocyte Esterase Urine WBC (Auto) Urine RBC (Auto) Ur Epithelial Cells Urine Bacteria Hyaline Casts Urine Mucus Acetone, Qual Blood Type Antibody Screen Active Medications Generic Name Dose Route Start Last Admin Trade Name Freq PRN Reason Stop Dose Admin Albuterol/Ipratropium 1 amp 10/27/17 00:09 Duoneb - NEB Q4H PRN SHORTNESS OF BREATH Atorvastatin Calcium 80 mg 10/27/17 22:00 Lipitor - PO HS BILL Chlorhexidine Gluconate 1 applic 10/27/17 22:00 Hibiclens For Decolonization - TP HS BILL Clopidogrel Bisulfate 75 mg 10/27/17 10:00 10/27/17 09:27 Plavix - PO 75 mg DAILY BILL Administration Furosemide 40 mg 10/27/17 06:00 10/27/17 13:09 Lasix Injection - IVPUSH 40 mg BIDLASIX BILL Administration Heparin Sodium (Porcine) 1,000 unit 10/27/17 00:02 Heparin - IVPUSH PRN PRN Heparin Heparin Sodium (Porcine) 5,000 unit 10/27/17 00:02 Heparin - IVPUSH PRN PRN Heparin Propofol 1,000,000 mcg in 100 mls @ 1.905 mls/hr 10/26/17 23:45 10/27/17 02: 39 Diprivan - IVPB 25 mcg/kg/min TITR BILL 9.525 mls/hr Protocol Titration 5 MCG/KG/MIN Heparin Sodium (Porcine) 25, 500 mls @ 16 mls/hr 10/27/17 00:15 10/27/17 02: 39 000 unit/ Sodium Chloride IV 800 unit/hr TITR BILL 16 mls/hr Protocol Titration 800 UNIT/HR Azithromycin 500 mg/ Dextrose 250 mls @ 250 mls/hr 10/27/17 20:00 IVPB DAILY BILL CEFTRIAXONE 1 G/50 ML PREMIX 50 mls @ 100 mls/hr 10/27/17 20:00 Ceftriaxone 1 Gm-D5w Bag IVPB DAILY BILL Insulin Aspart 1 vial 10/27/17 07:00 10/27/17 11:48 Novolog Vial Sliding Scale - SQ 4 units ACHS BILL Administration Protocol Metoprolol Tartrate 25 mg 10/27/17 06:00 10/27/17 13:09 Lopressor - PO 25 mg TID BILL Administration Mupirocin 1 applic 10/27/17 10:00 10/27/17 09:26 Bactroban Ointment (For Decolonization) - NS 11/01/17 09:59 1 applic BID BILL Administration Pregabalin 75 mg 10/27/17 10:00 10/27/17 09:27 Lyrica - PO 75 mg BID BILL Administration Ranitidine HCl 150 mg 10/27/17 00:45 10/27/17 09:27 Zantac - PO 150 mg DAILY BILL Administration ASSESSMENT/PLAN: Briefly, this is an 86 yo F with pmh of CAD s/p stents x 10 3 yrs ago, aortic valve replacement (last year) and IDDM, who was BIBEMS due to respiratory distress. Patient was intubated by EMS in the field Neuro -continue sedation with propofol @ 25, titrate as needed for vent synchronization Pulm *Acute hypoxemic hypercarbic respiratory failure -likely due to NSTEMI vs underlying PNA -vent settings adjusted per AB%/ac/20/5/300, plateau 18; no daily abg needed at this time -CXR b/l pulm vessel engorgememtn and b/l effusions improved, however retrocardiac opacity and RLL opacity remains -continue diuresis -contiune CAP abx coverage rocephin azithro -duonebs -tylenol for fever -f/u cultures -r/o PE in setting of recent travel with B/l LE dopplers; low suspicion, CTA not indicated katie in setting of BASIL; DDimer not useful due to concurrent inflammatory process ID: *Possible Severe sepsis -findings could be explained by reactive inflammatory process; cant r/o CAP -lactic acidosis may be due resp failure/chf -febrile -leukocytosis improving 20->14 -abx coverage -further treatment as above CV *CAD with acute CHF exacerbation *NSTEMI -BNP 9800 -trop 6.75->11.24; trend to peak -EKG inferolateral ST depressions, no change x2. -cardio on board; determine goals of care p/d possible cath transfer -on hep gtt, plavix, allergic to ASA -lopressor 25 tid -lipitor 80 -Lasix IV 40 bid GI *Transaminitis *hyperbilirubinemia -due to hepatic congestion in setting of vol overload -trending down -f/u hepatitis panel Renal *BASIL -likely pre renal due to vol overload -creat improving with diuresis 1.9->1.7; baseline unknown Endocrine -IDDM -BGM, ISS FEN diurese lytes stable NPO hep, zantac Dispo: We will continue to follow the patient. Thank you for this consultative opportunity. Problem List - Problems (1) Transaminitis Code(s): R74.0 - NONSPEC ELEV OF LEVELS OF TRANSAMNS & LACTIC ACID DEHYDRGNSE (2) Severe sepsis Code(s): A41.9 - SEPSIS, UNSPECIFIED ORGANISM; R65.20 - SEVERE SEPSIS WITHOUT SEPTIC SHOCK (3) CAP (community acquired pneumonia) Code(s): J18.9 - PNEUMONIA, UNSPECIFIED ORGANISM (4) Lactic acidosis Code(s): E87.2 - ACIDOSIS (5) BASIL (acute kidney injury) Code(s): N17.9 - ACUTE KIDNEY FAILURE, UNSPECIFIED (6) CHF (congestive heart failure) Code(s): I50.9 - HEART FAILURE, UNSPECIFIED (7) NSTEMI (non-ST elevated myocardial infarction) Code(s): I21.4 - NON-ST ELEVATION (NSTEMI) MYOCARDIAL INFARCTION (8) IDDM (insulin dependent diabetes mellitus) Code(s): E11.9 - TYPE 2 DIABETES MELLITUS WITHOUT COMPLICATIONS; Z79.4 - FAMILY SERVICES WORKER (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 - New Patient This patient is new to me today: Yes Date on this admission: 10/27/17 - Critical Care Critical Care patient: Yes Total Critical Care Time (in minutes): 45 Critical Care Statement: The care of this patient involved high complexity decision making to prevent further life threatening deterioration of the patient 's condition and/or to evaluate & treat vital organ system(s) failure or risk of failure.
--- NOTE | 2017-10-27 14:32 | PN ---
Teaching Attending Note Name of Resident: Fransico Aden ATTENDING PHYSICIAN STATEMENT I saw and evaluated the patient. I reviewed the resident's note and discussed the case with the resident. I agree with the resident's findings and plan as documented. SUBJECTIVE: Unable to obtain hx. No events this am OBJECTIVE: NAD , sedated and intubated. round equal pupils . sluggish reaction to light . CV: RRR distant heart sounds , No JVD . Lungs: rales b/l ABd: soft, ND , NT ,NL BS . Ext: 1+ edema on b/l Legs . DP is not palpable. warm feet . discolored, blackish areas on tip of big toes with a thickened peeling overlying skin . ASSESSMENT AND PLAN: 86 y/o unfortunate lady with h/o CAD, s/p stenting , AVR, IDDM , and other medical problems who presented with SOB and was found to have acute pulm edema in the setting of NSTEMI 1- Acute hypoxic respiratory failure : due to pulm edema in setting of KS - cont diuresis - cont mechanical ventilation 2- NSTEMI: EKG with lateral ischemic changes . trop cont to increase. - trend trop - cont plavix and Heparin gtt . goal PTT 50-70 - cont BB . metorpolol TID - Card input appreciated - suspicion for PE is very low as Ckmb is elevated at 6.5 % of total indicating a primary ischemic cardiac events. US of LE ordered. - echo pending 3- Black discoloration of big toes and decreased DP pulses: concern for ischemia /embolic events . - check Arterial doppler - on heparin gtt 4- CAP : with severe sepsis : - Cont azithro and ceftriaxone . day 2 - follow blood cx and sputum cx - follow lactate 5-h/o DM : A1c 10 . - change SSI to q 6 hr. 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 unclear what her Cr base line is . - obtain records form PCP - cont to monitor Cr on diuresis . ICU level of care. Critical Care Total Critical Care Time (in minutes): 45 Critical Care Statement: The care of this patient involved high complexity decision making to prevent further life threatening deterioration of the patient 's condition and/or to evaluate & treat vital organ system(s) failure or risk of failure.
[2017-10-27 16:43] LABS: TROPONIN I 11.14 ng/ml (0.00-0.05)
[2017-10-27] MEDS ORDERED: ACETAMINOPHEN 1000 MG/100 ML VIAL (NON FORMULARY) IVPB PRN (17:31)
[2017-10-27] MEDS: PROPOFOL 1,000,000 MCG/100 ML VIAL IVPB SCH (17:56)
[2017-10-27] MEDS ORDERED: PT OWN MED DRAWER 7, Y5N ONE (21:51)
[2017-10-27] MEDS: CEFTRIAXONE 1 G/50 ML PREMIX 50 ML IVPB SCH (21:59)
[2017-10-27] MEDS: ATORVASTATIN CA 80 MG TABLET (FP) PO SCH (22:00)
[2017-10-27] MEDS: CHLORHEXIDINE GLUCONATE 4% CLEANSER FOR DECOLONIZATION TP SCH (22:00)
[2017-10-27] MEDS: AZITHROMYCIN IVPB 500 MG in DEXTROSE 5%-WATER - 250 ML IVPB SCH (22:11)
[2017-10-28] MEDS: INSULIN SLIDING SCALE (NOVOLOG) 1 VIAL SQ SCH ×4 (00:06→18:43)
[2017-10-28] MEDS: HEPARIN - 25,000 UNIT in SODIUM CHLORIDE 495 ML IV SCH (01:00)
[2017-10-28] MEDS: ALBUTEROL SO4 2.5/IPRATROPIUM 0.5 INH SOL 3 ML VIAL.NEB. NEB PRN ×3 (01:19→11:20)
[2017-10-28 06:37] LABS: BASOPHIL 0.4 % (0-2.0); EOSINOPHIL 0.6 % (0-4.5); MCH 28.7 pg (25.7-33.7); MEAN CELL VOLUME 87.1 fl (80-96); MEAN PLT VOLUME 12.9 fl (7.5-11.1); NEUTROPHILS 60.7 % (42.8-82.8); PLATELET COUNT 111 K/MM3 (134-434); RDW 13.7 % (11.6-15.6); WHITE BLOOD COUNT 19.1 K/mm3 (4.0-10.0)
[2017-10-28] MEDS: FUROSEMIDE 40 MG/4 ML INJECTABLE VIAL IVPUSH SCH ×2 (06:40→14:12)
[2017-10-28] MEDS: METOPROLOL TARTRATE 25 MG TABLET (FP) PO SCH (06:41)
[2017-10-28] MEDS: PROPOFOL 1,000,000 MCG/100 ML VIAL IVPB SCH ×2 (06:41→21:05)
[2017-10-28 06:56] LABS: ALBUMIN 2.6 g/dl (3.4-5.0); ALK PHOS 305 U/L (45-117); ANION GAP 11 (8-16); BILIRUBIN,TOTAL 1.3 mg/dL (0.2-1.0); CALCIUM 7.7 mg/dL (8.5-10.1); CO2 29 mmol/L (21-32); CREATININE 1.5 mg/dL (0.55-1.02); GLUCOSE,RANDOM 234 mg/dL (74-106); MAGNESIUM 2.2 mg/dL (1.8-2.4); PHOSPHOROUS 3.5 mg/dL (2.5-4.9); SGOT/AST 77 U/L (15-37); SGPT/ALT 63 U/L (12-78); TOT PROT 6.2 g/dl (6.4-8.2)
[2017-10-28] MEDS: DOPAMINE 400 MG/D5W - 400,000 MCG/250 ML INFUS.BAG IVPB SCH (08:05)
--- NOTE | 2017-10-28 08:20 | PN ---
Physical Exam: SUBJECTIVE: Patient seen and examined by me this AM - Per nursing, mild bleeding from ETT. Heparin gtt decreased. No further bleeding. No other overnight events. -Daughter counseled yesterday about plan for transfer for [facility], presumptively today. - Will need to contact crime scene investigator in [place] for further collateral. - hypotensive in AM. Started on Dopa gtt. OBJECTIVE: Vital Signs Intake & Output 10/25/17 10/26/17 10/27/17 10/28/17 23:59 23:59 23:59 23:59 Intake Total 886 708 Output Total 2300 500 Balance -1414 208 Weight 63.503 kg 69.4 kg 67.358 kg Period Temp Pulse Resp BP Sys/Chatman Pulse Ox Last 24 Hr 99.4 F-102 F 66-97 14-25 104-156/38-65 99-100 GENERAL: The patient is sedated, intubated, laying in bed. HEAD: Normal with no signs of trauma. EYES: Pinpoint pupils, minimally reactive. No scleral icterus. ENT: ETT tube in place. Ears normal, nares patent, oropharynx clear without exudates, moist mucous membranes. NECK: Trachea midline, supple. No JVD, no hepatojugular reflex LUNGS: Still with BL diffuse rhonchi/crackles. No wheezes, no accessory muscle use. HEART: Difficult to appreciate. Regular rate and rhythm, S1, S2 without murmur, rub or gallop. ABDOMEN: Soft, nondistended, normoactive bowel sounds, no masses. Upper EXTREMITIES: 2+ pulses, warm, well-perfused, 1+ non-pitting edema. R IV in forearm, L IV in dorsal aspect of hand. Lower extremities: LE edema improved. Pressure ulcers noted on distal tip of 1st hallux BL. 1+ DP, 2+ PT pulse BL. Mild BL stasis dermatitis Laboratory Results - last 24 hr CBC, BMP 10/28/17 05:00 10/28/17 05:00 10/26/17 10/27/17 10/27/17 21:53 06:00 06:00 WBC RBC Hgb Hct MCV MCH MCHC RDW Plt Count 96 L D MPV 12.6 H Total Counted 100 Neutrophils % Neutrophils % (Manual) 74.0 Band Neutrophils % 2.0 Lymphocytes % Lymphocytes % (Manual) 20.0 Monocytes % Monocytes % (Manual) 2 L Eosinophils % Basophils % Basophils % (Manual) 1.0 Metamyelocytes 1 Platelet Estimate Decreased Platelet Comment Mod large plt seen PTT (Actin FS) Puncture Site ABG pH ABG pCO2 at Pt Temp ABG pO2 at Pt Temp ABG HCO3 ABG O2 Sat (Measured) ABG O2 Content ABG Base Excess Olman Test O2 Delivery Device Oxygen Flow Rate Vent Mode Vent Rate Mechanical Rate PEEP Pressure Support Vent Sodium Potassium Chloride Carbon Dioxide Anion Gap BUN Creatinine Creat Clearance w eGFR POC Glucometer Random Glucose Hemoglobin A1c % Lactic Acid Calcium Phosphorus Magnesium Total Bilirubin AST ALT Alkaline Phosphatase Creatine Kinase Creatine Kinase Index 3.3 CK-MB (CK-2) 12.198 H Troponin I Total Protein Albumin Triglycerides Cholesterol Total LDL Cholesterol HDL Cholesterol Ur Leukocyte Esterase Trace H Hepatitis A IgM Ab Hep Bs Antigen Hep B Core IgM Ab Hepatitis C Ab (EIA) 10/27/17 10/27/17 10/27/17 06:00 06:06 06:36 WBC RBC Hgb Hct MCV MCH MCHC RDW Plt Count MPV Total Counted Neutrophils % Neutrophils % (Manual) Band Neutrophils % Lymphocytes % Lymphocytes % (Manual) Monocytes % Monocytes % (Manual) Eosinophils % Basophils % Basophils % (Manual) Metamyelocytes Platelet Estimate Platelet Comment PTT (Actin FS) Puncture Site ABG pH ABG pCO2 at Pt Temp ABG pO2 at Pt Temp ABG HCO3 ABG O2 Sat (Measured) ABG O2 Content ABG Base Excess Olman Test O2 Delivery Device Oxygen Flow Rate Vent Mode Vent Rate Mechanical Rate PEEP Pressure Support Vent Sodium Potassium Chloride Carbon Dioxide Anion Gap BUN Creatinine Creat Clearance w eGFR POC Glucometer [phone] Random Glucose Hemoglobin A1c % 10.2 H Lactic Acid Calcium Phosphorus Magnesium Total Bilirubin AST ALT Alkaline Phosphatase Creatine Kinase Creatine Kinase Index CK-MB (CK-2) Troponin I Total Protein Albumin Triglycerides Cholesterol Total LDL Cholesterol HDL Cholesterol Ur Leukocyte Esterase Hepatitis A IgM Ab Hep Bs Antigen Hep B Core IgM Ab Hepatitis C Ab (EIA) 10/27/17 10/27/17 10/27/17 07:45 07:45 07:45 WBC RBC Hgb Hct MCV MCH MCHC RDW Plt Count MPV Total Counted Neutrophils % Neutrophils % (Manual) Band Neutrophils % Lymphocytes % Lymphocytes % (Manual) Monocytes % Monocytes % (Manual) Eosinophils % Basophils % Basophils % (Manual) Metamyelocytes Platelet Estimate Platelet Comment PTT (Actin FS) Puncture Site ABG pH ABG pCO2 at Pt Temp ABG pO2 at Pt Temp ABG HCO3 ABG O2 Sat (Measured) ABG O2 Content ABG Base Excess Olman Test O2 Delivery Device Oxygen Flow Rate Vent Mode Vent Rate Mechanical Rate PEEP Pressure Support Vent Sodium Potassium Chloride Carbon Dioxide Anion Gap BUN Creatinine Creat Clearance w eGFR POC Glucometer Random Glucose Hemoglobin A1c % Lactic Acid 2.7 H* Calcium Phosphorus Magnesium Total Bilirubin AST ALT Alkaline Phosphatase Creatine Kinase Creatine Kinase Index CK-MB (CK-2) Troponin I Total Protein Albumin Triglycerides 461 H Cholesterol 94 Total LDL Cholesterol 40 HDL Cholesterol 29 L Ur Leukocyte Esterase Hepatitis A IgM Ab Negative Hep Bs Antigen Negative Hep B Core IgM Ab Negative Hepatitis C Ab (EIA) 0.1 10/27/17 10/27/17 10/27/17 09:50 10:42 11:27 WBC RBC Hgb Hct MCV MCH MCHC RDW Plt Count MPV Total Counted Neutrophils % Neutrophils % (Manual) Band Neutrophils % Lymphocytes % Lymphocytes % (Manual) Monocytes % Monocytes % (Manual) Eosinophils % Basophils % Basophils % (Manual) Metamyelocytes Platelet Estimate Platelet Comment PTT (Actin FS) Puncture Site Left radial ABG pH 7.46 H ABG pCO2 at Pt Temp 41.9 ABG pO2 at Pt Temp 79.2 D ABG HCO3 29.6 H ABG O2 Sat (Measured) 97.1 ABG O2 Content 15.1 ABG Base Excess 5.7 H Olman Test Positive O2 Delivery Device Mech vent Oxygen Flow Rate 50 Vent Mode A/c Vent Rate 20 Mechanical Rate Esprit PEEP 5.0 Pressure Support Vent 300 tidal volume Sodium Potassium Chloride Carbon Dioxide Anion Gap BUN Creatinine Creat Clearance w eGFR POC Glucometer [phone] Random Glucose Hemoglobin A1c % Lactic Acid Calcium Phosphorus Magnesium Total Bilirubin AST ALT Alkaline Phosphatase Creatine Kinase 347 H Creatine Kinase Index 3.0 CK-MB (CK-2) 10.460 H Troponin I 12.30 H* Total Protein Albumin Triglycerides Cholesterol Total LDL Cholesterol HDL Cholesterol Ur Leukocyte Esterase Hepatitis A IgM Ab Hep Bs Antigen Hep B Core IgM Ab Hepatitis C Ab (EIA) 10/27/17 10/27/17 10/27/17 13:46 13:46 13:46 WBC RBC Hgb Hct MCV MCH MCHC RDW Plt Count MPV Total Counted Neutrophils % Neutrophils % (Manual) Band Neutrophils % Lymphocytes % Lymphocytes % (Manual) Monocytes % Monocytes % (Manual) Eosinophils % Basophils % Basophils % (Manual) Metamyelocytes Platelet Estimate Platelet Comment PTT (Actin FS) 61.9 H Puncture Site ABG pH ABG pCO2 at Pt Temp ABG pO2 at Pt Temp ABG HCO3 ABG O2 Sat (Measured) ABG O2 Content ABG Base Excess Olman Test O2 Delivery Device Oxygen Flow Rate Vent Mode Vent Rate Mechanical Rate PEEP Pressure Support Vent Sodium Potassium Chloride Carbon Dioxide Anion Gap BUN Creatinine Creat Clearance w eGFR POC Glucometer Random Glucose Hemoglobin A1c % Lactic Acid Calcium Phosphorus Magnesium Total Bilirubin AST ALT Alkaline Phosphatase Creatine Kinase 352 H Creatine Kinase Index 2.8 CK-MB (CK-2) 10.09 H Troponin I 11.14 H* Cancelled Total Protein Albumin Triglycerides Cholesterol Total LDL Cholesterol HDL Cholesterol Ur Leukocyte Esterase Hepatitis A IgM Ab Hep Bs Antigen Hep B Core IgM Ab Hepatitis C Ab (EIA) 10/27/17 10/27/17 10/28/17 16:46 21:59 01:00 WBC RBC Hgb Hct MCV MCH MCHC RDW Plt Count MPV Total Counted Neutrophils % Neutrophils % (Manual) Band Neutrophils % Lymphocytes % Lymphocytes % (Manual) Monocytes % Monocytes % (Manual) Eosinophils % Basophils % Basophils % (Manual) Metamyelocytes Platelet Estimate Platelet Comment PTT (Actin FS) 82.7 H D Puncture Site ABG pH ABG pCO2 at Pt Temp ABG pO2 at Pt Temp ABG HCO3 ABG O2 Sat (Measured) ABG O2 Content ABG Base Excess Olman Test O2 Delivery Device Oxygen Flow Rate Vent Mode Vent Rate Mechanical Rate PEEP Pressure Support Vent Sodium Potassium Chloride Carbon Dioxide Anion Gap BUN Creatinine Creat Clearance w eGFR POC Glucometer [phone] Random Glucose Hemoglobin A1c % Lactic Acid Calcium Phosphorus Magnesium Total Bilirubin AST ALT Alkaline Phosphatase Creatine Kinase Creatine Kinase Index CK-MB (CK-2) Troponin I Total Protein Albumin Triglycerides Cholesterol Total LDL Cholesterol HDL Cholesterol Ur Leukocyte Esterase Hepatitis A IgM Ab Hep Bs Antigen Hep B Core IgM Ab Hepatitis C Ab (EIA) 10/28/17 10/28/17 10/28/17 05:00 05:00 05:00 WBC 19.1 H D RBC 4.07 Hgb 11.7 Hct 35.5 MCV 87.1 MCH 28.7 MCHC 33.0 RDW 13.7 Plt Count 111 L MPV 12.9 H Total Counted Neutrophils % 60.7 Neutrophils % (Manual) Band Neutrophils % Lymphocytes % 29.2 D Lymphocytes % (Manual) Monocytes % 9.1 Monocytes % (Manual) Eosinophils % 0.6 Basophils % 0.4 Basophils % (Manual) Metamyelocytes Platelet Estimate Platelet Comment PTT (Actin FS) Puncture Site ABG pH ABG pCO2 at Pt Temp ABG pO2 at Pt Temp ABG HCO3 ABG O2 Sat (Measured) ABG O2 Content ABG Base Excess Olman Test O2 Delivery Device Oxygen Flow Rate Vent Mode Vent Rate Mechanical Rate PEEP Pressure Support Vent Sodium 138 Potassium 3.1 L D Chloride 98 Carbon Dioxide 29 Anion Gap 11 BUN 31 H Creatinine 1.5 H Creat Clearance w eGFR 32.77 POC Glucometer Random Glucose 234 H Hemoglobin A1c % Lactic Acid 2.9 H* Calcium 7.7 L Phosphorus 3.5 Magnesium 2.2 Total Bilirubin 1.3 H D AST 77 H D ALT 63 D Alkaline Phosphatase 305 H D Creatine Kinase Creatine Kinase Index CK-MB (CK-2) Troponin I Total Protein 6.2 L Albumin 2.6 L Triglycerides Cholesterol Total LDL Cholesterol HDL Cholesterol Ur Leukocyte Esterase Hepatitis A IgM Ab Hep Bs Antigen Hep B Core IgM Ab Hepatitis C Ab (EIA) Active Medications Generic Name Dose Route Start Last Admin Trade Name Freq PRN Reason Stop Dose Admin Acetaminophen 1,000 mg 10/27/17 17:31 10/27/17 17:55 Ofirmev Injection - IVPB 1,000 mg Q6H PRN Administration FEVER OR PAIN Albuterol/Ipratropium 1 amp 10/27/17 00:09 10/28/17 05:00 Duoneb - NEB 1 amp Q4H PRN Administration SHORTNESS OF BREATH Atorvastatin Calcium 80 mg 10/27/17 22:00 10/27/17 22:00 Lipitor - PO 80 mg HS BILL Administration Chlorhexidine Gluconate 1 applic 10/27/17 22:00 10/27/17 22:00 Hibiclens For Decolonization - TP 1 applic HS BILL Administration Clopidogrel Bisulfate 75 mg 10/27/17 10:00 10/27/17 09:27 Plavix - PO 75 mg DAILY BILL Administration Furosemide 40 mg 10/27/17 06:00 10/28/17 06:40 Lasix Injection - IVPUSH 40 mg BIDLASIX BILL Administration Heparin Sodium (Porcine) 1,000 unit 10/27/17 00:02 Heparin - IVPUSH PRN PRN Heparin Heparin Sodium (Porcine) 5,000 unit 10/27/17 00:02 Heparin - IVPUSH PRN PRN Heparin Propofol 1,000,000 mcg in 100 mls @ 1.905 mls/hr 10/26/17 23:45 10/28/17 06: 41 Diprivan - IVPB 30 mcg/kg/min TITR BILL 11.431 mls/hr Protocol Administration 5 MCG/KG/MIN Heparin Sodium (Porcine) 25, 500 mls @ 16 mls/hr 10/27/17 00:15 10/28/17 02: 30 000 unit/ Sodium Chloride IV 700 unit/hr TITR BILL 14 mls/hr Protocol Titration 800 UNIT/HR Azithromycin 500 mg/ Dextrose 250 mls @ 250 mls/hr 10/27/17 20:00 10/27/17 22 :11 IVPB 250 mls/hr DAILY BILL Administration CEFTRIAXONE 1 G/50 ML PREMIX 50 mls @ 100 mls/hr 10/27/17 20:00 10/27/17 21: 59 Ceftriaxone 1 Gm-D5w Bag IVPB 100 mls/hr DAILY BILL Administration Dopamine HCl/Dextrose 400,000 mcg in 250 mls @ 12.63 mls/hr 10/28/17 08:00 08:05 Dopamine 400 Mg/D5w - IVPB 5 mcg/kg/min TITR BILL 12.63 mls/hr Protocol Administration 5 MCG/KG/MIN Insulin Aspart 1 vial 10/27/17 15:30 10/28/17 06:42 Novolog Vial Sliding Scale - SQ 4 units Q6HPO BILL Administration Protocol Metoprolol Tartrate 25 mg 10/27/17 06:00 10/28/17 06:41 Lopressor - PO 25 mg TID BILL Administration Mupirocin 1 applic 10/27/17 10:00 10/27/17 22:00 Bactroban Ointment (For Decolonization) - NS 11/01/17 09:59 1 applic BID BILL Administration Pregabalin 75 mg 10/27/17 10:00 10/27/17 22:00 Lyrica - PO 75 mg BID BILL Administration Ranitidine HCl 150 mg 10/27/17 00:45 10/27/17 09:27 Zantac - PO 150 mg DAILY BILL Administration Microbiology 10/26/17 21:54 Blood - Peripheral Venous Blood Culture - Preliminary NO GROWTH OBTAINED AFTER 24 HOURS, INCUBATION TO CONTINUE FOR 4 DAYS. 10/26/17 21:54 Blood - Peripheral Venous Blood Culture - Preliminary NO GROWTH OBTAINED AFTER 24 HOURS, INCUBATION TO CONTINUE FOR 4 DAYS. 10/27/17 06:30 Sputum - Endotrachea Suction/Ventilator Gram Stain - Final 10/27/17 06:30 Urine - Urine Sanches Legionella Antigen - Final 10/27/17 06:30 Urine - Urine Sanches Streptococcus pneumoniae Antigen (M - Final 10/27/17 01:15 Nasopharyngeal Swab Influenza Types A,B Antigen (JIMMIE) - Final 10/27/17 01:15 Nasopharyngeal Swab - Final Imaging: CXr 10/26 - 1. Endotracheal tube in place with the tip projecting approximately 2.7 cm above the joshua. 2. Pulmonary vascular congestion with interstitial edema and bilateral pleural effusions. Bilaterally airspace opacities are most likely alveolar edema. Pneumonia cannot be excluded. Please correlate clinically for severe CHF exacerbation. CXR 10/27 - No significant change. ETT in place. CXR 10/28 - No evidence of pneumothorax. Resolving vascular congestive changes. Resolving bilateral pulmonary consolidations. ECHO 10/27 - Poor study. Bioprosthetic aortic valve. Mild MR. LV filling pattern normal for age. Ef 58% EKG 10/27 - Sinus tach. No QTC prolongation. Normal axis. Deep q-waves in III, worse than prior ekg on presentation. TWIs in V5-6 EKG 10/28 - NSR. NAD. Q waves in III improved. No TWIs. Improved since prior Venous duplex LE 10/27 - No evidence of deep venous thrombosis. Arterial duplex 10/27 - Extensive atherosclerotic disease with weak, monophasic flow within the popliteal and posterior tibial arteries bilaterally. Clinical correlation and follow-up recommended. Please see above discussion. ASSESSMENT/PLAN: 86 yo w/ pmh of IDDM, CAD (s/p stents x10, most recently 3 y ago) and AVR (last year) presenting with SOB, found to have severe flash pulmonary edema in setting of NSTEMI. #Acute Hypoxic Respiratory Failure 2/2 to NSTEMI - Remains intubated, vented - Unlikely to be PE, given CKMB elevation. Discussed with crime scene investigator, Dr. Rowan. Cannot rule-out PE and presents increase risk with cardiac cath if PE present, however BASIL complicates decision-making. Will hold off on CT for now , recheck Cr in AM. - Lasix 40mg BID per cards - Strict Is and Os - Duoneb Q4h prn #NSTEMI - elevated trops, abnormal ekg listed above. Repeat EKG improved since prior on 10/27 - Plan for transfer to [facility], however no beds. Will continue with current tx and assess. daughter informed. - hold metoprolol in setting of hypotension - Heparin gtt protocol - Continue plavix 75mg daily - Cardiology consulted. Recs appreciated. - Trop downtrending today 11 -> 7.4 - F/u LE doppler - Lipitor 80 mg daily - Monitor for hypotension. Maintain MAP of 65>. A-line placement for BP monitoring. #Possible CAP - WBC 13.9, febrile to 102.1 - blood, urine neg to date - Sputum + moraxella catarrhalis - Legionella/pneumo urine ag neg - lactate 3.2 -> 2.7 10/27 AM - Day 2 tim betancourt for CAP coverage #PVD - arterial dopplers notable for extensive Bl atherosclerotic dz. - Vascular consulted. Recs appreciated #IDDM - Takes lantus 35u qHs at home + SS. BG 362 in PM. - Will need to start basal insulin + SS - lyrica 75mg BID for diabetic neuropathy - ISS for now - BGM q4h #BASIL - Cr stable at 1.5 today this AM - Hold IVFs for now - Trend BUN/Cr - daily bmp's PPX: heparin gtt Zantac for GI FEN: Fluids: none Electrolytes: HypoK 3.2, repleted. Daily BMPs Nutrition: none Dispo: ICU for further management. Transfer when stable/bed available at [facility]. Plan discussed with attending, Dr. Luis Aden, PGY1 Visit type - Emergency Visit Emergency Visit: Yes ED Registration Date: 10/27/17 Care time: The patient presented to the Emergency Department on the above date and was hospitalized for further evaluation of their emergent condition. - New Patient This patient is new to me today: No - Critical Care Critical Care patient: Yes Total Critical Care Time (in minutes): 35 Critical Care Statement: The care of this patient involved high complexity decision making to prevent further life threatening deterioration of the patient 's condition and/or to evaluate & treat vital organ system(s) failure or risk of failure.
--- NOTE | 2017-10-28 08:26 | PN ---
Physical Exam: SUBJECTIVE: Patient seen and examined by me - Mild somnolent, delirious when seen this AM. Received ativan overnight due to agitation, combativeness with nursing staff - Daughter at bedside. States that pt tends to , usually receives risperdal in PM to help with insomnia. Endorses pt seems better - Pt endorses improving SOB. Complaining of issues with nursing staff. Tangential speech. Worried about falling, frustrated that she has not received adequate assistance by staff. - Denies any fever/chills, BUENROSTRO/dizzines, CP/palpitations, cough, N/V, dysuria, peripheral numbness/weakness OBJECTIVE: Vital Signs Intake & Output 10/25/17 10/26/17 10/27/17 10/28/17 23:59 23:59 23:59 23:59 Intake Total 886 708 Output Total 2300 500 Balance -1414 208 Weight 63.503 kg 69.4 kg 67.358 kg Period Temp Pulse Resp BP Sys/Chatman Pulse Ox Last 24 Hr 99.4 F-102 F 66-97 14-25 104-156/38-65 99-100 GENERAL: A&Ox2, does not know date. Somnolent, in no acute distress. HEAD: NCAT EYES: PERRL, extraocular movements intact, sclera anicteric, conjunctiva clear. No ptosis. ENT: Ears normal, nares patent, oropharynx clear without exudates, moist mucous membranes. NECK: Trachea midline, supple. JVD noted. LUNGS: Much improved. Decreased bibasilar breath sounds. No longer wheezing. No accessory muscle use. HEART: 3/6 systolic ejection murmur heard best at RUSB and LUSB. Regular rate and rhythm, S1, S2 without murmur, rub or gallop. ABDOMEN: Soft, nontender, nondistended, normoactive bowel sounds, no guarding, no rebound. No suprapubic tenderness Upper EXTREMITIES: 2+ pulses, warm, well-perfused, no edema. Lower extremities: 2+ DP, PT pulses BL. 1+ pitting edema bilaterally, improved. NEUROLOGICAL: Cranial nerves II through XII grossly intact. Normal speech, gait not observed. Psych: Still with tangential speech, pleasant, normal affect Laboratory Results - last 24 hr CBC, BMP 10/28/17 05:00 10/28/17 05:00 10/26/17 10/27/17 10/27/17 21:53 06:00 06:00 WBC RBC Hgb Hct MCV MCH MCHC RDW Plt Count 96 L D MPV 12.6 H Total Counted 100 Neutrophils % Neutrophils % (Manual) 74.0 Band Neutrophils % 2.0 Lymphocytes % Lymphocytes % (Manual) 20.0 Monocytes % Monocytes % (Manual) 2 L Eosinophils % Basophils % Basophils % (Manual) 1.0 Metamyelocytes 1 Platelet Estimate Decreased Platelet Comment Mod large plt seen PTT (Actin FS) Puncture Site ABG pH ABG pCO2 at Pt Temp ABG pO2 at Pt Temp ABG HCO3 ABG O2 Sat (Measured) ABG O2 Content ABG Base Excess Olman Test O2 Delivery Device Oxygen Flow Rate Vent Mode Vent Rate Mechanical Rate PEEP Pressure Support Vent Sodium Potassium Chloride Carbon Dioxide Anion Gap BUN Creatinine Creat Clearance w eGFR POC Glucometer Random Glucose Hemoglobin A1c % Lactic Acid Calcium Phosphorus Magnesium Total Bilirubin AST ALT Alkaline Phosphatase Creatine Kinase Creatine Kinase Index 3.3 CK-MB (CK-2) 12.198 H Troponin I Total Protein Albumin Triglycerides Cholesterol Total LDL Cholesterol HDL Cholesterol Ur Leukocyte Esterase Trace H Hepatitis A IgM Ab Hep Bs Antigen Hep B Core IgM Ab Hepatitis C Ab (EIA) 10/27/17 10/27/17 10/27/17 06:00 06:06 06:36 WBC RBC Hgb Hct MCV MCH MCHC RDW Plt Count MPV Total Counted Neutrophils % Neutrophils % (Manual) Band Neutrophils % Lymphocytes % Lymphocytes % (Manual) Monocytes % Monocytes % (Manual) Eosinophils % Basophils % Basophils % (Manual) Metamyelocytes Platelet Estimate Platelet Comment PTT (Actin FS) Puncture Site ABG pH ABG pCO2 at Pt Temp ABG pO2 at Pt Temp ABG HCO3 ABG O2 Sat (Measured) ABG O2 Content ABG Base Excess Olman Test O2 Delivery Device Oxygen Flow Rate Vent Mode Vent Rate Mechanical Rate PEEP Pressure Support Vent Sodium Potassium Chloride Carbon Dioxide Anion Gap BUN Creatinine Creat Clearance w eGFR POC Glucometer [phone] Random Glucose Hemoglobin A1c % 10.2 H Lactic Acid Calcium Phosphorus Magnesium Total Bilirubin AST ALT Alkaline Phosphatase Creatine Kinase Creatine Kinase Index CK-MB (CK-2) Troponin I Total Protein Albumin Triglycerides Cholesterol Total LDL Cholesterol HDL Cholesterol Ur Leukocyte Esterase Hepatitis A IgM Ab Hep Bs Antigen Hep B Core IgM Ab Hepatitis C Ab (EIA) 10/27/17 10/27/1717 07:45 07:45 07:45 WBC RBC Hgb Hct MCV MCH MCHC RDW Plt Count MPV Total Counted Neutrophils % Neutrophils % (Manual) Band Neutrophils % Lymphocytes % Lymphocytes % (Manual) Monocytes % Monocytes % (Manual) Eosinophils % Basophils % Basophils % (Manual) Metamyelocytes Platelet Estimate Platelet Comment PTT (Actin FS) Puncture Site ABG pH ABG pCO2 at Pt Temp ABG pO2 at Pt Temp ABG HCO3 ABG O2 Sat (Measured) ABG O2 Content ABG Base Excess Olman Test O2 Delivery Device Oxygen Flow Rate Vent Mode Vent Rate Mechanical Rate PEEP Pressure Support Vent Sodium Potassium Chloride Carbon Dioxide Anion Gap BUN Creatinine Creat Clearance w eGFR POC Glucometer Random Glucose Hemoglobin A1c % Lactic Acid 2.7 H* Calcium Phosphorus Magnesium Total Bilirubin AST ALT Alkaline Phosphatase Creatine Kinase Creatine Kinase Index CK-MB (CK-2) Troponin I Total Protein Albumin Triglycerides 461 H Cholesterol 94 Total LDL Cholesterol 40 HDL Cholesterol 29 L Ur Leukocyte Esterase Hepatitis A IgM Ab Negative Hep Bs Antigen Negative Hep B Core IgM Ab Negative Hepatitis C Ab (EIA) 0.1 10/27/17 10/27/17 10/27/17 09:50 10:42 11:27 WBC RBC Hgb Hct MCV MCH MCHC RDW Plt Count MPV Total Counted Neutrophils % Neutrophils % (Manual) Band Neutrophils % Lymphocytes % Lymphocytes % (Manual) Monocytes % Monocytes % (Manual) Eosinophils % Basophils % Basophils % (Manual) Metamyelocytes Platelet Estimate Platelet Comment PTT (Actin FS) Puncture Site Left radial ABG pH 7.46 H ABG pCO2 at Pt Temp 41.9 ABG pO2 at Pt Temp 79.2 D ABG HCO3 29.6 H ABG O2 Sat (Measured) 97.1 ABG O2 Content 15.1 ABG Base Excess 5.7 H Olman Test Positive O2 Delivery Device Mech vent Oxygen Flow Rate 50 Vent Mode A/c Vent Rate 20 Mechanical Rate Esprit PEEP 5.0 Pressure Support Vent 300 tidal volume Sodium Potassium Chloride Carbon Dioxide Anion Gap BUN Creatinine Creat Clearance w eGFR POC Glucometer [phone] Random Glucose Hemoglobin A1c % Lactic Acid Calcium Phosphorus Magnesium Total Bilirubin AST ALT Alkaline Phosphatase Creatine Kinase 347 H Creatine Kinase Index 3.0 CK-MB (CK-2) 10.460 H Troponin I 12.30 H* Total Protein Albumin Triglycerides Cholesterol Total LDL Cholesterol HDL Cholesterol Ur Leukocyte Esterase Hepatitis A IgM Ab Hep Bs Antigen Hep B Core IgM Ab Hepatitis C Ab (EIA) 10/27/17 10/27/17 10/27/17 13:46 13:46 13:46 WBC RBC Hgb Hct MCV MCH MCHC RDW Plt Count MPV Total Counted Neutrophils % Neutrophils % (Manual) Band Neutrophils % Lymphocytes % Lymphocytes % (Manual) Monocytes % Monocytes % (Manual) Eosinophils % Basophils % Basophils % (Manual) Metamyelocytes Platelet Estimate Platelet Comment PTT (Actin FS) 61.9 H Puncture Site ABG pH ABG pCO2 at Pt Temp ABG pO2 at Pt Temp ABG HCO3 ABG O2 Sat (Measured) ABG O2 Content ABG Base Excess Olman Test O2 Delivery Device Oxygen Flow Rate Vent Mode Vent Rate Mechanical Rate PEEP Pressure Support Vent Sodium Potassium Chloride Carbon Dioxide Anion Gap BUN Creatinine Creat Clearance w eGFR POC Glucometer Random Glucose Hemoglobin A1c % Lactic Acid Calcium Phosphorus Magnesium Total Bilirubin AST ALT Alkaline Phosphatase Creatine Kinase 352 H Creatine Kinase Index 2.8 CK-MB (CK-2) 10.09 H Troponin I 11.14 H* Cancelled Total Protein Albumin Triglycerides Cholesterol Total LDL Cholesterol HDL Cholesterol Ur Leukocyte Esterase Hepatitis A IgM Ab Hep Bs Antigen Hep B Core IgM Ab Hepatitis C Ab (EIA) 10/27/17 10/27/17 10/28/17 16:46 21:59 01:00 WBC RBC Hgb Hct MCV MCH MCHC RDW Plt Count MPV Total Counted Neutrophils % Neutrophils % (Manual) Band Neutrophils % Lymphocytes % Lymphocytes % (Manual) Monocytes % Monocytes % (Manual) Eosinophils % Basophils % Basophils % (Manual) Metamyelocytes Platelet Estimate Platelet Comment PTT (Actin FS) 82.7 H D Puncture Site ABG pH ABG pCO2 at Pt Temp ABG pO2 at Pt Temp ABG HCO3 ABG O2 Sat (Measured) ABG O2 Content ABG Base Excess Olman Test O2 Delivery Device Oxygen Flow Rate Vent Mode Vent Rate Mechanical Rate PEEP Pressure Support Vent Sodium Potassium Chloride Carbon Dioxide Anion Gap BUN Creatinine Creat Clearance w eGFR POC Glucometer [phone] Random Glucose Hemoglobin A1c % Lactic Acid Calcium Phosphorus Magnesium Total Bilirubin AST ALT Alkaline Phosphatase Creatine Kinase Creatine Kinase Index CK-MB (CK-2) Troponin I Total Protein Albumin Triglycerides Cholesterol Total LDL Cholesterol HDL Cholesterol Ur Leukocyte Esterase Hepatitis A IgM Ab Hep Bs Antigen Hep B Core IgM Ab Hepatitis C Ab (EIA) 10/28/17 10/28/17 10/28/17 05:00 05:00 05:00 WBC 19.1 H D RBC 4.07 Hgb 11.7 Hct 35.5 MCV 87.1 MCH 28.7 MCHC 33.0 RDW 13.7 Plt Count 111 L MPV 12.9 H Total Counted Neutrophils % 60.7 Neutrophils % (Manual) Band Neutrophils % Lymphocytes % 29.2 D Lymphocytes % (Manual) Monocytes % 9.1 Monocytes % (Manual) Eosinophils % 0.6 Basophils % 0.4 Basophils % (Manual) Metamyelocytes Platelet Estimate Platelet Comment PTT (Actin FS) Puncture Site ABG pH ABG pCO2 at Pt Temp ABG pO2 at Pt Temp ABG HCO3 ABG O2 Sat (Measured) ABG O2 Content ABG Base Excess Olman Test O2 Delivery Device Oxygen Flow Rate Vent Mode Vent Rate Mechanical Rate PEEP Pressure Support Vent Sodium 138 Potassium 3.1 L D Chloride 98 Carbon Dioxide 29 Anion Gap 11 BUN 31 H Creatinine 1.5 H Creat Clearance w eGFR 32.77 POC Glucometer Random Glucose 234 H Hemoglobin A1c % Lactic Acid 2.9 H* Calcium 7.7 L Phosphorus 3.5 Magnesium 2.2 Total Bilirubin 1.3 H D AST 77 H D ALT 63 D Alkaline Phosphatase 305 H D Creatine Kinase Creatine Kinase Index CK-MB (CK-2) Troponin I Total Protein 6.2 L Albumin 2.6 L Triglycerides Cholesterol Total LDL Cholesterol HDL Cholesterol Ur Leukocyte Esterase Hepatitis A IgM Ab Hep Bs Antigen Hep B Core IgM Ab Hepatitis C Ab (EIA) Active Medications Generic Name Dose Route Start Last Admin Trade Name Freq PRN Reason Stop Dose Admin Acetaminophen 1,000 mg 10/27/17 17:31 10/27/17 17:55 Ofirmev Injection - IVPB 1,000 mg Q6H PRN Administration FEVER OR PAIN Albuterol/Ipratropium 1 amp 10/27/17 00:09 10/28/17 05:00 Duoneb - NEB 1 amp Q4H PRN Administration SHORTNESS OF BREATH Atorvastatin Calcium 80 mg 10/27/17 22:00 10/27/17 22:00 Lipitor - PO 80 mg HS BILL Administration Chlorhexidine Gluconate 1 applic 10/27/17 22:00 10/27/17 22:00 Hibiclens For Decolonization - TP 1 applic HS BILL Administration Clopidogrel Bisulfate 75 mg 10/27/17 10:00 10/27/17 09:27 Plavix - PO 75 mg DAILY BILL Administration Furosemide 40 mg 10/27/17 06:00 10/28/17 06:40 Lasix Injection - IVPUSH 40 mg BIDLASIX BILL Administration Heparin Sodium (Porcine) 1,000 unit 10/27/17 00:02 Heparin - IVPUSH PRN PRN Heparin Heparin Sodium (Porcine) 5,000 unit 10/27/17 00:02 Heparin - IVPUSH PRN PRN Heparin Propofol 1,000,000 mcg in 100 mls @ 1.905 mls/hr 10/26/17 23:45 10/28/17 06: 41 Diprivan - IVPB 30 mcg/kg/min TITR BILL 11.431 mls/hr Protocol Administration 5 MCG/KG/MIN Heparin Sodium (Porcine) 25, 500 mls @ 16 mls/hr 10/27/17 00:15 10/28/17 02: 30 000 unit/ Sodium Chloride IV 700 unit/hr TITR BILL 14 mls/hr Protocol Titration 800 UNIT/HR Azithromycin 500 mg/ Dextrose 250 mls @ 250 mls/hr 10/27/17 20:00 10/27/17 22 :11 IVPB 250 mls/hr DAILY BILL Administration CEFTRIAXONE 1 G/50 ML PREMIX 50 mls @ 100 mls/hr 10/27/17 20:00 10/27/17 21: 59 Ceftriaxone 1 Gm-D5w Bag IVPB 100 mls/hr DAILY BILL Administration Dopamine HCl/Dextrose 400,000 mcg in 250 mls @ 12.63 mls/hr 10/28/17 08:00 08:05 Dopamine 400 Mg/D5w - IVPB 5 mcg/kg/min TITR BILL 12.63 mls/hr Protocol Administration 5 MCG/KG/MIN Insulin Aspart 1 vial 10/27/17 15:30 10/28/17 06:42 Novolog Vial Sliding Scale - SQ 4 units Q6HPO BILL Administration Protocol Metoprolol Tartrate 25 mg 10/27/17 06:00 10/28/17 06:41 Lopressor - PO 25 mg TID BILL Administration Mupirocin 1 applic 10/27/17 10:00 10/27/17 22:00 Bactroban Ointment (For Decolonization) - NS 11/01/17 09:59 1 applic BID BILL Administration Pregabalin 75 mg 10/27/17 10:00 11/29/17 22:00 Lyrica - PO 75 mg BID BILL Administration Ranitidine HCl 150 mg 10/27/17 00:45 10/27/17 09:27 Zantac - PO 150 mg DAILY BILL Administration Microbiology 10/26/17 21:54 Blood - Peripheral Venous Blood Culture - Preliminary NO GROWTH OBTAINED AFTER 24 HOURS, INCUBATION TO CONTINUE FOR 4 DAYS. 10/26/17 21:54 Blood - Peripheral Venous Blood Culture - Preliminary NO GROWTH OBTAINED AFTER 24 HOURS, INCUBATION TO CONTINUE FOR 4 DAYS. 10/27/17 06:30 Sputum - Endotrachea Suction/Ventilator Gram Stain - Final 10/27/17 06:30 Urine - Urine Sanches Legionella Antigen - Final 10/27/17 06:30 Urine - Urine Sanches Streptococcus pneumoniae Antigen (M - Final 10/27/17 01:15 Nasopharyngeal Swab Influenza Types A,B Antigen (JIMMIE) - Final 10/27/17 01:15 Nasopharyngeal Swab - Final CXR 10/27 - BL Pleural effusions. L compressive ateclectasis EKG 10/26 - RBBB. Extreme R axis deviation. TWI in v1-v3, v6. ASSESSMENT/PLAN: 72 yo woman w/ pmh of COPD, CAD (stents in 2012), diastolic CHF, HTN, DM,, dementia, who presented to ED with progressive increased WOB/SOB after >1 week of finishing steroid taper, unresponsive to home O2/duoneb tx, satting in low 80s at home with hx of multiple admissions for COPD/CHF exacerbations. #Acute hypoxic hypercapneic respiratory failure - AM ABG 7.36/67/61/37, minimal change on 5L O2. SOB improved since admission - O2 Tx. Maintain O2 >88%. Bipap at night. - If increasingly somnolent, hypoxic during day, escalate to BiPap and send ABG - Decreased Solumedrol 60 mg to 40mg BID - Duonebs q6h, q4h PRN - Symbicort BID - Zithromax 500mg daily for 3 days - Pulmonology consulted. Recs appreciated - No cultures sent - Smoking cessation #Diastolic CHF - BNP 467 on admission. ECHO 06/15/2017 - grossly normal, EF 70%. - Resume Toprol xl 100mg daily, Hyzaar 1 tab daily per cards - Lasix 20mg PO daily per cardiology - Ranexa BID - Cardiology consulted. Recs appreciated. - Strict Is and Os #CAD - EKG w/ RBBB, TWIs V1-3,V6, NSR. Prior stents in 2012 - ASA 81mg - Continue BB, hyzaar - Trop neg x1 (0.02) - cardiology following #DM - BGM ACHS - ISS - Gabapentin 300mg for diabetic neuropathy #HTN -Continue home norvasc 10mg daily. Possible switch to SHIRA/ARB tomorrow - Check Cr in AM #Gastric mass - Pt refusing treatment/biopsy. - GI consulted. Per Dr. Acharya, daughter wishes for comfort care only. No procedures - Prior elevated CEA #GERD -PPI #nicotine dependence - Nicoderm patch - Doughnut Batter Mixer on smoking cessation #PPX Heparin subQ FEN: Fluids: Limit PO intake Electrolytes: Daily BMPs, monitor BUN/Cr Nutrition: Diabetic diet Plan discussed with attending, Dr. Luis Aden, PGY1
[2017-10-28] MEDS ORDERED: POTASSIUM CHLORIDE 20 MEQ PREMIX IVPB 100 ML IVPB ONE (08:32)
[2017-10-28] MEDS ORDERED: HEMOQUE TEST 1 EACH EACH ONE (09:15)
[2017-10-28 09:36] LABS: TROPONIN I 7.39 ng/ml (0.00-0.05)
[2017-10-28] MEDS: CEFTRIAXONE 1 G/50 ML PREMIX 50 ML IVPB SCH (10:04)
[2017-10-28] MEDS: RANITIDINE HCL 150 MG TABLET (FP) PO SCH (10:05)
[2017-10-28] MEDS: CLOPIDOGREL BISULFATE 75 MG TABLET (FP) PO SCH (10:05)
[2017-10-28] MEDS: MUPIROCIN 2% TOPICAL OINTMENT FOR DECOLONIZATION NS SCH ×2 (10:05→21:03)
[2017-10-28] MEDS: PREGABALIN 75 MG CAPSULE PO SCH ×2 (10:19→21:04)
[2017-10-28] MEDS ORDERED: PT OWN MED DRAWER 7, Y5N ONE ×2 (11:38→21:00)
[2017-10-28] MEDS: AZITHROMYCIN IVPB 500 MG in DEXTROSE 5%-WATER - 250 ML IVPB SCH (11:46)
--- NOTE | 2017-10-28 11:54 | PN ---
Teaching Attending Note Name of Resident: Fransico Aden ATTENDING PHYSICIAN STATEMENT I saw and evaluated the patient. I reviewed the resident's note and discussed the case with the resident. I agree with the resident's findings and plan as documented. SUBJECTIVE: This Am, she was hypotensive. Dopamine was started. No other events over night OBJECTIVE: NAD, sedated and intubated. round equal pupils. sluggish reaction to light . CV: RRR distant heart sounds , No JVD . Lungs: rales b/l improved from yesterday ABd: soft, ND , NT ,NL BS . Ext: 1+ edema on b/l Legs . DP is not palpable. warm feet . discolored, blackish areas on tip of big toes with a thickened peeling overlying skin . ASSESSMENT AND PLAN: 86 y/o unfortunate lady with h/o CAD, s/p stenting , AVR, IDDM , and other medical problems who presented with SOB and was found to have acute pulm edema in the setting of NSTEMI 1- Acute hypoxic respiratory failure: due to pulm edema in setting of UT and possible PNA - Cont diuresis. - Cont mechanical ventilation 2- NSTEMI: EKG with lateral ischemic changes. trop trended down. Now hypotensive ( cardiogenic shock ve septic shock ) - Cont trend trop / . repeat EKG - cont plavix and Heparin gtt . goal PTT 50-70 - dc metoprolol in setting of shock - Suspicion for PE is low , especially with neg doppler of LE , and sign of L sided heart failure. introducing dye now might be risky in the setting of BASIL. - echo was a difficult study. d/w Card the possible need for repeat Echo, it will be reviewed and co ndsidered - Await further Recs from Dr. Ulrich. - consider changing propofol to another sedative in setting of hypotension - needs central line. COnsider A line 3- BASIL: likley prerenal from CHF . Cr improved with diuresis - cont lasix - cont to monitor - records to be obtained form her PCP 4- CAP: with severe sepsis : - Cont azithro and ceftriaxone . day 3 - follow blood cx and sputum cx - follow lactate 5-PVD: Black discoloration of big toes and decreased DP pulses Arterial US d reviewed. - cont heparin gtt - VAscular 5-h/o DM : A1c 10 . - Cont SSI ICU level of care.
--- NOTE | 2017-10-28 12:50 | EKG ---
Test Reason : Blood Pressure : / mmHG Vent. Rate : 067 BPM Atrial Rate : 067 BPM P-R Int : 130 ms QRS Dur : 106 ms QT Int : 508 ms P-R-T Axes : 090 012 013 degrees QTc Int : 536 ms NORMAL SINUS RHYTHM INCOMPLETE LEFT BUNDLE BRANCH BLOCK NONSPECIFIC ST AND T WAVE ABNORMALITY PROLONGED QT ABNORMAL ECG WHEN COMPARED WITH ECG OF 27-OCT-2017 08:27, NONSPECIFIC T WAVE ABNORMALITY, WORSE IN ANTERIOR LEADS QT HAS LENGTHENED Confirmed by DIANA DIAZ MD ([id number]) on 10/28/2017 12:50:22 PM Referred By: Confirmed By:DIANA DIAZ MD
--- NOTE | 2017-10-28 12:59 | PN ---
Progress Note, Physician Chief Complaint: Pt is intubated; awakens intermittently. Daughter is at bedside; says her mother opens her eyes, but does not respond to her. History of Present Illness: The patient is an 86 year old female (b. [place]),, with a significant past medical history of cardiac stents x 10, aortic valve replacement, IDDM, who presents to the emergency department brought in by ems intubated after complaint of difficulty breathing this evening. As per ems, the patient was read to be 90% on capnography which dropped to 50% after being bagged in the field. As per ems, the patient was found tachypneic in the field, in respiratory distress, and was intubated (ETT 7.0). As per the patients family at bedside, the patient was feeling well yesterday morning, performing activities of daily life without symptoms. As per patients family, the patient had a nonproductive cough for the past few days, however, the patient reportedly felt better this morning. As per the family, the patient received her flu vaccination 3 weeks ago. Family denies recent sick contacts. At presentation was being bagged by ems. Allergies: aspirin Past surgical history: cardiac stent x 10 Social history: denies toxic habits - Current Medication List Current Medications: Active Medications Acetaminophen (Ofirmev Injection -) 1,000 mg IVPB Q6H PRN PRN Reason: FEVER OR PAIN Last Admin: 10/27/17 17:55 Dose: 1,000 mg Albuterol/Ipratropium (Duoneb -) 1 amp NEB Q4H PRN PRN Reason: SHORTNESS OF BREATH Last Admin: 10/28/17 11:20 Dose: 1 amp Atorvastatin Calcium (Lipitor -) 80 mg PO HS [facility] Last Admin: 10/27/17 22:00 Dose: 80 mg Chlorhexidine Gluconate (Hibiclens For Decolonization -) 1 applic TP HS [facility] Last Admin: 10/27/17 22:00 Dose: 1 applic Clopidogrel Bisulfate (Plavix -) 75 mg PO DAILY [facility] Last Admin: 10/28/17 10:05 Dose: 75 mg Furosemide (Lasix Injection -) 40 mg IVPUSH BIDLASIX [facility] Last Admin: 10/28/17 06:40 Dose: 40 mg Heparin Sodium (Porcine) (Heparin -) 1,000 unit IVPUSH PRN PRN PRN Reason: Heparin Heparin Sodium (Porcine) (Heparin -) 5,000 unit IVPUSH PRN PRN PRN Reason: Heparin Propofol (Diprivan -) 1,000,000 mcg in 100 mls @ 1.905 mls/hr IVPB TITR BILL; 5 MCG/KG/MIN PRN Reason: Protocol Last Titration: 10/28/17 10:00 Dose: 40 mcg/kg/min, 15.241 mls/hr Heparin Sodium (Porcine) 25, (000 unit/ Sodium Chloride) 500 mls @ 16 mls/hr IV TITR BILL; 800 UNIT/HR PRN Reason: Protocol Last Titration: 10/28/17 02:30 Dose: 700 unit/hr, 14 mls/hr Azithromycin 500 mg/ Dextrose 250 mls @ 250 mls/hr IVPB DAILY [facility] Last Admin: 10/28/17 11:46 Dose: 250 mls/hr CEFTRIAXONE 1 G/50 ML PREMIX (Ceftriaxone 1 Gm-D5w Bag) 50 mls @ 100 mls/hr IVPB DAILY [facility] Last Admin: 10/28/17 10:04 Dose: 100 mls/hr Dopamine HCl/Dextrose (Dopamine 400 Mg/D5w -) 400,000 mcg in 250 mls @ 12.63 mls/hr IVPB TITR BILL; 5 MCG/KG/MIN PRN Reason: Protocol Last Admin: 10/28/17 08:05 Dose: 5 mcg/kg/min, 12.63 mls/hr Insulin Aspart (Novolog Vial Sliding Scale -) 1 vial SQ Q6HPO BILL PRN Reason: Protocol Last Admin: 10/28/17 06:42 Dose: 4 units Mupirocin (Bactroban Ointment (For Decolonization) -) 1 applic NS BID [facility] Stop: 11/01/17 09:59 Last Admin: 10/28/17 10:05 Dose: 1 applic Pregabalin (Lyrica -) 75 mg PO BID [facility] Last Admin: 10/28/17 10:19 Dose: 75 mg Ranitidine HCl (Zantac -) 150 mg PO DAILY [facility] Last Admin: 10/28/17 10:05 Dose: 150 mg - Objective Vital Signs: Vital Signs Temperature 99.1 F 10/28/17 10:00 Pulse Rate 64 10/28/17 10:00 Respiratory Rate 20 10/28/17 11:20 Blood Pressure 113/40 10/28/17 10:00 O2 Sat by Pulse Oximetry (%) 99 10/27/17 20:00 Constitutional: Yes: Other Eyes: Yes: Conjunctiva Clear HENT: Yes: Other (congestion) Neck: Yes: Decreased ROM Cardiovascular: Yes: Pulse Irregular, Murmur (2/6 systolic murmur, LSB-->apex) Respiratory: Yes: Mechanically Ventilated Gastrointestinal: Yes: Soft Genitourinary: No: Anuria Musculoskeletal: Yes: Other Extremities: Yes: Cool Edema: Yes Edema: LLE: 1+, RLE: 1+ Peripheral Pulses: Left Doralis Pedis: 1+, Right Dorsalis Pedis: 1+ Integumentary: Yes: Venous Stasis Changes Neurological: Yes: Other (not following commands) Labs: CBC, BMP 10/28/17 05:00 10/28/17 05:00 INR, PTT INR 1.13 (0.82-1.09) 10/26/17 21:53 Abnormal Lab Results 10/28/17 10/28/17 10/28/17 01:00 05:00 05:00 WBC 19.1 H D Plt Count 111 L MPV 12.9 H PTT (Actin FS) 82.7 H D Sodium Potassium 3.1 L D Chloride BUN 31 H Creatinine 1.5 H Random Glucose 234 H Lactic Acid Calcium 7.7 L Total Bilirubin 1.3 H D AST 77 H D Alkaline Phosphatase 305 H D Troponin I 7.39 H* Total Protein 6.2 L Albumin 2.6 L 10/28/17 10/28/17 10/28/17 05:00 08:52 13:46 WBC Plt Count MPV PTT (Actin FS) 57.0 H D Sodium 135 L Potassium 3.2 L Chloride 96 L BUN 32 H Creatinine 1.5 H Random Glucose 362 H* D Lactic Acid 2.9 H* Calcium 7.1 L Total Bilirubin AST Alkaline Phosphatase Troponin I Total Protein Albumin - ....Imaging Chest X-ray: Image Reviewed (improving vascular congestion) EKG: Image Reviewed (NSR; incomplete LBBB; nonspecific T wave changes (more anteriorly)) Problem List - Problems (1) Acute on chronic systolic and diastolic heart failure, NYHA class 3 Assessment/Plan: NSTEMI; Mild-moderate LY dysfunction; unable to see RV well, and RVSP unable to be assessed. Hypotension-->IV dopamine this morning, with improvement in BP. Good urine output; improvement in vascular congestion (CXR). AB.46/42/79/97 on AC 50%/20/[place]/Peep 5/PSV 300 Pt's daughter requests transfer to [facility], DIscussed pt with Dr. Lin , [facility]: no beds presently available, and it is felt pt is responsive to present therapy. will reassess daily Code(s): I50.43 - ACUTE ON CHRONIC COMBINED SYSTOLIC AND DIASTOLIC HRT FAIL (2) BASIL (acute kidney injury) Code(s): N17.9 - ACUTE KIDNEY FAILURE, UNSPECIFIED (3) CAD (coronary artery disease) Code(s): I25.10 - ATHSCL HEART DISEASE OF [place] CORONARY ARTERY W/O ANG PCTRS (4) IDDM (insulin dependent diabetes mellitus) Code(s): E11.9 - TYPE 2 DIABETES MELLITUS WITHOUT COMPLICATIONS; Z79.4 - CARE HOME (CURRENT) USE OF INSULIN (5) Lactic acidosis Code(s): E87.2 - ACIDOSIS (6) NSTEMI (non-ST elevated myocardial infarction) Assessment/Plan: Continue IV heparin and clopidogrel (reported ASA allergy). Statin. On dopamine for circulatroy shock, hypotension. Code(s): I21.4 - NON-ST ELEVATION (NSTEMI) MYOCARDIAL INFARCTION (7) Severe sepsis Code(s): A41.9 - SEPSIS, UNSPECIFIED ORGANISM; R65.20 - SEVERE SEPSIS WITHOUT SEPTIC SHOCK (8) Transaminitis Code(s): R74.0 - NONSPEC ELEV OF LEVELS OF TRANSAMNS & LACTIC ACID DEHYDRGNSE (9) At high risk for pulmonary embolism Assessment/Plan: relatively sudden SOB a week after a 9 hour car trip from [place]. Leg pains (however, these have been chronic). Continue IV heparin. Problematic doing CTA presently. Code(s): Z91.89 - OTH PERSONAL RISK FACTORS, NOT ELSEWHERE CLASSIFIED
--- NOTE | 2017-10-28 13:00 | PN ---
Progress Note, Physician - Current Medication List Current Medications: Active Medications Acetaminophen (Ofirmev Injection -) 1,000 mg IVPB Q6H PRN PRN Reason: FEVER OR PAIN Last Admin: 10/27/17 17:55 Dose: 1,000 mg Albuterol/Ipratropium (Duoneb -) 1 amp NEB Q4H PRN PRN Reason: SHORTNESS OF BREATH Last Admin: 10/28/17 11:20 Dose: 1 amp Atorvastatin Calcium (Lipitor -) 80 mg PO HS BILL Last Admin: 10/27/17 22:00 Dose: 80 mg Chlorhexidine Gluconate (Hibiclens For Decolonization -) 1 applic TP HS BILL Last Admin: 10/27/17 22:00 Dose: 1 applic Clopidogrel Bisulfate (Plavix -) 75 mg PO DAILY BILL Last Admin: 10/28/17 10:05 Dose: 75 mg Furosemide (Lasix Injection -) 40 mg IVPUSH BIDLASIX BILL Last Admin: 10/28/17 06:40 Dose: 40 mg Heparin Sodium (Porcine) (Heparin -) 1,000 unit IVPUSH PRN PRN PRN Reason: Heparin Heparin Sodium (Porcine) (Heparin -) 5,000 unit IVPUSH PRN PRN PRN Reason: Heparin Propofol (Diprivan -) 1,000,000 mcg in 100 mls @ 1.905 mls/hr IVPB TITR BILL; 5 MCG/KG/MIN PRN Reason: Protocol Last Titration: 10/28/17 10:00 Dose: 40 mcg/kg/min, 15.241 mls/hr Heparin Sodium (Porcine) 25, (000 unit/ Sodium Chloride) 500 mls @ 16 mls/hr IV TITR BILL; 800 UNIT/HR PRN Reason: Protocol Last Titration: 10/28/17 02:30 Dose: 700 unit/hr, 14 mls/hr Azithromycin 500 mg/ Dextrose 250 mls @ 250 mls/hr IVPB DAILY [facility] Last Admin: 10/28/17 11:46 Dose: 250 mls/hr CEFTRIAXONE 1 G/50 ML PREMIX (Ceftriaxone 1 Gm-D5w Bag) 50 mls @ 100 mls/hr IVPB DAILY [facility] Last Admin: 10/28/17 10:04 Dose: 100 mls/hr Dopamine HCl/Dextrose (Dopamine 400 Mg/D5w -) 400,000 mcg in 250 mls @ 12.63 mls/hr IVPB TITR BILL; 5 MCG/KG/MIN PRN Reason: Protocol Last Admin: 10/28/17 08:05 Dose: 5 mcg/kg/min, 12.63 mls/hr Insulin Aspart (Novolog Vial Sliding Scale -) 1 vial SQ Q6HPO BILL PRN Reason: Protocol Last Admin: 10/28/17 06:42 Dose: 4 units Mupirocin (Bactroban Ointment (For Decolonization) -) 1 applic NS BID [facility] Stop: 11/01/17 09:59 Last Admin: 10/28/17 10:05 Dose: 1 applic Pregabalin (Lyrica -) 75 mg PO BID [facility] Last Admin: 10/28/17 10:19 Dose: 75 mg Ranitidine HCl (Zantac -) 150 mg PO DAILY [facility] Last Admin: 10/28/17 10:05 Dose: 150 mg - Objective Vital Signs: Vital Signs Temperature 99.1 F 10/28/17 10:00 Pulse Rate 64 10/28/17 10:00 Respiratory Rate 20 10/28/17 11:20 Blood Pressure 113/40 10/28/17 10:00 O2 Sat by Pulse Oximetry (%) 99 10/27/17 20:00 Labs: CBC, BMP 10/28/17 05:00 10/28/17 05:00 INR, PTT INR 1.13 (0.82-1.09) 10/26/17 21:53
--- NOTE | 2017-10-28 13:01 | PN ---
Teaching Attending Note Name of Resident: David Melendez ATTENDING PHYSICIAN STATEMENT I saw and evaluated the patient. I reviewed the resident's note and discussed the case with the resident. I agree with the resident's findings and plan as documented. SUBJECTIVE: Patient seen and examined in the ICU. Intubated and sedated. On low dose Dopamine for hemodynamic support. AC mode of vent. Intake & Output 10/25/17 10/26/17 10/27/17 10/28/17 23:59 23:59 23:59 23:59 Intake Total 886 708 Output Total 2300 500 Balance -1414 208 Weight 140 lb 153 lb 148 lb 8 oz Last Vital Signs Temp Pulse Resp BP Pulse Ox 99.1 F 64 20 113/40 99 10/28/17 10:00 10/28/17 10:00 10/28/17 11:20 10/28/17 10:00 10/27/17 20:00 Active Medications Acetaminophen (Ofirmev Injection -) 1,000 mg IVPB Q6H PRN PRN Reason: FEVER OR PAIN Last Admin: 10/27/17 17:55 Dose: 1,000 mg Albuterol/Ipratropium (Duoneb -) 1 amp NEB Q4H PRN PRN Reason: SHORTNESS OF BREATH Last Admin: 10/28/17 11:20 Dose: 1 amp Atorvastatin Calcium (Lipitor -) 80 mg PO HS [facility] Last Admin: 10/27/17 22:00 Dose: 80 mg Chlorhexidine Gluconate (Hibiclens For Decolonization -) 1 applic TP HS BILL Last Admin: 10/27/17 22:00 Dose: 1 applic Clopidogrel Bisulfate (Plavix -) 75 mg PO DAILY BILL Last Admin: 10/28/17 10:05 Dose: 75 mg Furosemide (Lasix Injection -) 40 mg IVPUSH BIDLASIX BILL Last Admin: 10/28/17 06:40 Dose: 40 mg Heparin Sodium (Porcine) (Heparin -) 1,000 unit IVPUSH PRN PRN PRN Reason: Heparin Heparin Sodium (Porcine) (Heparin -) 5,000 unit IVPUSH PRN PRN PRN Reason: Heparin Propofol (Diprivan -) 1,000,000 mcg in 100 mls @ 1.905 mls/hr IVPB TITR BILL; 5 MCG/KG/MIN PRN Reason: Protocol Last Titration: 10/28/17 10:00 Dose: 40 mcg/kg/min, 15.241 mls/hr Heparin Sodium (Porcine) 25, (000 unit/ Sodium Chloride) 500 mls @ 16 mls/hr IV TITR BILL; 800 UNIT/HR PRN Reason: Protocol Last Titration: 10/28/17 02:30 Dose: 700 unit/hr, 14 mls/hr Azithromycin 500 mg/ Dextrose 250 mls @ 250 mls/hr IVPB DAILY [facility] Last Admin: 10/28/17 11:46 Dose: 250 mls/hr CEFTRIAXONE 1 G/50 ML PREMIX (Ceftriaxone 1 Gm-D5w Bag) 50 mls @ 100 mls/hr IVPB DAILY [facility] Last Admin: 10/28/17 10:04 Dose: 100 mls/hr Dopamine HCl/Dextrose (Dopamine 400 Mg/D5w -) 400,000 mcg in 250 mls @ 12.63 mls/hr IVPB TITR BILL; 5 MCG/KG/MIN PRN Reason: Protocol Last Admin: 10/28/17 08:05 Dose: 5 mcg/kg/min, 12.63 mls/hr Insulin Aspart (Novolog Vial Sliding Scale -) 1 vial SQ Q6HPO BILL PRN Reason: Protocol Last Admin: 10/28/17 06:42 Dose: 4 units Mupirocin (Bactroban Ointment (For Decolonization) -) 1 applic NS BID [facility] Stop: 11/01/17 09:59 Last Admin: 10/28/17 10:05 Dose: 1 applic Pregabalin (Lyrica -) 75 mg PO BID [facility] Last Admin: 10/28/17 10:19 Dose: 75 mg Ranitidine HCl (Zantac -) 150 mg PO DAILY [facility] Last Admin: 10/28/17 10:05 Dose: 150 mg General: Yes: Intubated Cardiovascular: Yes: Regular Rate and Rhythm, S1, S2 Respiratory: Yes: Mechanically Ventilated, Bilateral Rhonchi Gastrointestinal: Yes: WNL, Normal Bowel Sounds, Soft Edema: Yes (+2 bilateral ) Peripheral Pulses WNL: Yes Integumentary: Yes: WNL Neurological: Yes: Other (sedated on propofol) Labs: Laboratory Results - last 24 hr 10/27/17 10/27/17 10/27/17 07:45 09:50 13:46 WBC RBC Hgb Hct MCV MCH MCHC RDW Plt Count MPV Neutrophils % Lymphocytes % Monocytes % Eosinophils % Basophils % PTT (Actin FS) Sodium Potassium Chloride Carbon Dioxide Anion Gap BUN Creatinine Creat Clearance w eGFR POC Glucometer Random Glucose Lactic Acid Calcium Phosphorus Magnesium Total Bilirubin AST ALT Alkaline Phosphatase Creatine Kinase 347 H 352 H Creatine Kinase Index 3.0 2.8 CK-MB (CK-2) 10.460 H 10.09 H Troponin I 12.30 H* 11.14 H* Total Protein Albumin Hepatitis A IgM Ab Negative Hep Bs Antigen Negative Hep B Core IgM Ab Negative Hepatitis C Ab (EIA) 0.1 10/27/17 10/27/17 10/27/17 13:46 13:46 16:46 WBC RBC Hgb Hct MCV MCH MCHC RDW Plt Count MPV Neutrophils % Lymphocytes % Monocytes % Eosinophils % Basophils % PTT (Actin FS) 61.9 H Sodium Potassium Chloride Carbon Dioxide Anion Gap BUN Creatinine Creat Clearance w eGFR POC Glucometer [phone] Random Glucose Lactic Acid Calcium Phosphorus Magnesium Total Bilirubin AST ALT Alkaline Phosphatase Creatine Kinase Creatine Kinase Index CK-MB (CK-2) Troponin I Cancelled Total Protein Albumin Hepatitis A IgM Ab Hep Bs Antigen Hep B Core IgM Ab Hepatitis C Ab (EIA) 10/27/17 10/28/17 10/28/17 21:59 01:00 05:00 WBC 19.1 H D RBC 4.07 Hgb 11.7 Hct 35.5 MCV 87.1 MCH 28.7 MCHC 33.0 RDW 13.7 Plt Count 111 L MPV 12.9 H Neutrophils % 60.7 Lymphocytes % 29.2 D Monocytes % 9.1 Eosinophils % 0.6 Basophils % 0.4 PTT (Actin FS) 82.7 H D Sodium Potassium Chloride Carbon Dioxide Anion Gap BUN Creatinine Creat Clearance w eGFR POC Glucometer [phone] Random Glucose Lactic Acid Calcium Phosphorus Magnesium Total Bilirubin AST ALT Alkaline Phosphatase Creatine Kinase Creatine Kinase Index CK-MB (CK-2) Troponin I Total Protein Albumin Hepatitis A IgM Ab Hep Bs Antigen Hep B Core IgM Ab Hepatitis C Ab (EIA) 10/28/17 10/28/17 10/28/17 05:00 05:00 05:10 WBC RBC Hgb Hct MCV MCH MCHC RDW Plt Count MPV Neutrophils % Lymphocytes % Monocytes % Eosinophils % Basophils % PTT (Actin FS) Sodium 138 Potassium 3.1 L D Chloride 98 Carbon Dioxide 29 Anion Gap 11 BUN 31 H Creatinine 1.5 H Creat Clearance w eGFR 32.77 POC Glucometer Random Glucose 234 H Lactic Acid 2.9 H* Calcium 7.7 L Phosphorus 3.5 Magnesium 2.2 Total Bilirubin 1.3 H D AST 77 H D ALT 63 D Alkaline Phosphatase 305 H D Creatine Kinase Creatine Kinase Index CK-MB (CK-2) Troponin I 7.39 H* Cancelled Total Protein 6.2 L Albumin 2.6 L Hepatitis A IgM Ab Hep Bs Antigen Hep B Core IgM Ab Hepatitis C Ab (EIA) 10/28/17 10/28/17 05:43 08:52 WBC RBC Hgb Hct MCV MCH MCHC RDW Plt Count MPV Neutrophils % Lymphocytes % Monocytes % Eosinophils % Basophils % PTT (Actin FS) 57.0 H D Sodium Potassium Chloride Carbon Dioxide Anion Gap BUN Creatinine Creat Clearance w eGFR POC Glucometer [phone] Random Glucose Lactic Acid Calcium Phosphorus Magnesium Total Bilirubin AST ALT Alkaline Phosphatase Creatine Kinase Creatine Kinase Index CK-MB (CK-2) Troponin I Total Protein Albumin Hepatitis A IgM Ab Hep Bs Antigen Hep B Core IgM Ab Hepatitis C Ab (EIA) Assessment/Plan Hypoxemic respiratory failure likely in the setting of NSTEMI/heart failure +/- CAP NSTEMI Elevated BNP : heart failure BASIL Mild transaminitis Lactic acidosis, improving Hyperglycemia Low clinical suspicion for Pulmonary Embolism AC Mode of vent Hold Lasix for now CVC insertion Dopamine for hemodynamic support IV Heparin Statin Troponin Daily assessment for diuretic Noted Empiric ABX Glycemic control Strict I&O Hold on CT chest as low clinical suspicion for PE Dr Coelho Critical care time spent in reviewing chart, evaluating patient and formulating plan - 36 minutes.
--- NOTE | 2017-10-28 13:24 | PN ---
Physical Exam: SUBJECTIVE: The patient is an 86F with a PMH of CAD s/p 10 stents 3 years ago, aortic valve replacement last year, IDDM who was brought into the ED for respiratory distress. The patient was intubated in the field and sedated. The patient remains intubated and sedated in the ICU. No acute events overnight. Unable to obtain ROS. OBJECTIVE: Vital Signs Period Temp Pulse Resp BP Sys/Chatman Pulse Ox Last 24 Hr 99.1 F-102 F 64-97 14-25 104-156/34-65 99 GENERAL: The patient is sedated, in no acute distress. HEAD: Normal with no signs of trauma. EYES: PERRL, extraocular movements intact, sclera anicteric, conjunctiva clear. No ptosis. NECK: Trachea midline, full range of motion, supple. LUNGS: Breath sounds equal, clear to auscultation bilaterally, no wheezes, no crackles, no accessory muscle use. HEART: Regular rate and rhythm, S1, S2 without murmur, rub or gallop. ABDOMEN: Soft, nontender, nondistended, normoactive bowel sounds, no guarding, no rebound, no hepatosplenomegaly, no masses. EXTREMITIES: 2+ pulses, warm, well-perfused, no edema. NEUROLOGICAL: Cranial nerves II through XII grossly intact. Normal speech, gait not observed. PSYCH: Normal mood, normal affect. SKIN: Warm, dry, normal turgor, no rashes or lesions noted Laboratory Results - last 24 hr 10/27/17 10/27/17 10/27/17 07:45 09:50 13:46 WBC RBC Hgb Hct MCV MCH MCHC RDW Plt Count MPV Neutrophils % Lymphocytes % Monocytes % Eosinophils % Basophils % PTT (Actin FS) Sodium Potassium Chloride Carbon Dioxide Anion Gap BUN Creatinine Creat Clearance w eGFR POC Glucometer Random Glucose Lactic Acid Calcium Phosphorus Magnesium Total Bilirubin AST ALT Alkaline Phosphatase Creatine Kinase 352 H Creatine Kinase Index 3.0 2.8 CK-MB (CK-2) 10.460 H 10.09 H Troponin I 11.14 H* Total Protein Albumin Hepatitis A IgM Ab Negative Hep Bs Antigen Negative Hep B Core IgM Ab Negative Hepatitis C Ab (EIA) 0.1 10/27/17 10/27/17 10/27/17 13:46 13:46 16:46 WBC RBC Hgb Hct MCV MCH MCHC RDW Plt Count MPV Neutrophils % Lymphocytes % Monocytes % Eosinophils % Basophils % PTT (Actin FS) 61.9 H Sodium Potassium Chloride Carbon Dioxide Anion Gap BUN Creatinine Creat Clearance w eGFR POC Glucometer [phone] Random Glucose Lactic Acid Calcium Phosphorus Magnesium Total Bilirubin AST ALT Alkaline Phosphatase Creatine Kinase Creatine Kinase Index CK-MB (CK-2) Troponin I Cancelled Total Protein Albumin Hepatitis A IgM Ab Hep Bs Antigen Hep B Core IgM Ab Hepatitis C Ab (EIA) 10/27/17 10/28/17 10/28/17 21:59 01:00 05:00 WBC 19.1 H D RBC 4.07 Hgb 11.7 Hct 35.5 MCV 87.1 MCH 28.7 MCHC 33.0 RDW 13.7 Plt Count 111 L MPV 12.9 H Neutrophils % 60.7 Lymphocytes % 29.2 D Monocytes % 9.1 Eosinophils % 0.6 Basophils % 0.4 PTT (Actin FS) 82.7 H D Sodium Potassium Chloride Carbon Dioxide Anion Gap BUN Creatinine Creat Clearance w eGFR POC Glucometer [phone] Random Glucose Lactic Acid Calcium Phosphorus Magnesium Total Bilirubin AST ALT Alkaline Phosphatase Creatine Kinase Creatine Kinase Index CK-MB (CK-2) Troponin I Total Protein Albumin Hepatitis A IgM Ab Hep Bs Antigen Hep B Core IgM Ab Hepatitis C Ab (EIA) 10/28/17 10/28/17 10/28/17 05:00 05:00 05:10 WBC RBC Hgb Hct MCV MCH MCHC RDW Plt Count MPV Neutrophils % Lymphocytes % Monocytes % Eosinophils % Basophils % PTT (Actin FS) Sodium 138 Potassium 3.1 L D Chloride 98 Carbon Dioxide 29 Anion Gap 11 BUN 31 H Creatinine 1.5 H Creat Clearance w eGFR 32.77 POC Glucometer Random Glucose 234 H Lactic Acid 2.9 H* Calcium 7.7 L Phosphorus 3.5 Magnesium 2.2 Total Bilirubin 1.3 H D AST 77 H D ALT 63 D Alkaline Phosphatase 305 H D Creatine Kinase Creatine Kinase Index CK-MB (CK-2) Troponin I 7.39 H* Cancelled Total Protein 6.2 L Albumin 2.6 L Hepatitis A IgM Ab Hep Bs Antigen Hep B Core IgM Ab Hepatitis C Ab (EIA) 10/28/17 10/28/17 05:43 08:52 WBC RBC Hgb Hct MCV MCH MCHC RDW Plt Count MPV Neutrophils % Lymphocytes % Monocytes % Eosinophils % Basophils % PTT (Actin FS) 57.0 H D Sodium Potassium Chloride Carbon Dioxide Anion Gap BUN Creatinine Creat Clearance w eGFR POC Glucometer [phone] Random Glucose Lactic Acid Calcium Phosphorus Magnesium Total Bilirubin AST ALT Alkaline Phosphatase Creatine Kinase Creatine Kinase Index CK-MB (CK-2) Troponin I Total Protein Albumin Hepatitis A IgM Ab Hep Bs Antigen Hep B Core IgM Ab Hepatitis C Ab (EIA) Active Medications Generic Name Dose Route Start Last Admin Trade Name Freq PRN Reason Stop Dose Admin Acetaminophen 1,000 mg 10/27/17 17:31 10/27/17 17:55 Ofirmev Injection - IVPB 1,000 mg Q6H PRN Administration FEVER OR PAIN Albuterol/Ipratropium 1 amp 10/27/17 00:09 10/28/17 11:20 Duoneb - NEB 1 amp Q4H PRN Administration SHORTNESS OF BREATH Atorvastatin Calcium 80 mg 10/27/17 22:00 10/27/17 22:00 Lipitor - PO 80 mg HS BILL Administration Chlorhexidine Gluconate 1 applic 10/27/17 22:00 10/27/17 22:00 Hibiclens For Decolonization - TP 1 applic HS BILL Administration Clopidogrel Bisulfate 75 mg 10/27/17 10:00 10/28/17 10:05 Plavix - PO 75 mg DAILY BILL Administration Furosemide 40 mg 10/27/17 06:00 10/28/17 06:40 Lasix Injection - IVPUSH 40 mg BIDLASIX BILL Administration Heparin Sodium (Porcine) 1,000 unit 10/27/17 00:02 Heparin - IVPUSH PRN PRN Heparin Heparin Sodium (Porcine) 5,000 unit 10/27/17 00:02 Heparin - IVPUSH PRN PRN Heparin Propofol 1,000,000 mcg in 100 mls @ 1.905 mls/hr 10/26/17 23:45 10/28/17 10: 00 Diprivan - IVPB 40 mcg/kg/min TITR BILL 15.241 mls/hr Protocol Titration 5 MCG/KG/MIN Heparin Sodium (Porcine) 25, 500 mls @ 16 mls/hr 10/27/17 00:15 10/28/17 02: 30 000 unit/ Sodium Chloride IV 700 unit/hr TITR BILL 14 mls/hr Protocol Titration 800 UNIT/HR Azithromycin 500 mg/ Dextrose 250 mls @ 250 mls/hr 10/27/17 20:00 10/28/17 11 :46 IVPB 250 mls/hr DAILY BILL Administration CEFTRIAXONE 1 G/50 ML PREMIX 50 mls @ 100 mls/hr 10/27/17 20:00 10/28/17 10: 04 Ceftriaxone 1 Gm-D5w Bag IVPB 100 mls/hr DAILY BILL Administration Dopamine HCl/Dextrose 400,000 mcg in 250 mls @ 12.63 mls/hr 10/28/17 08:00 08:05 Dopamine 400 Mg/D5w - IVPB 5 mcg/kg/min TITR BILL 12.63 mls/hr Protocol Administration 5 MCG/KG/MIN Insulin Aspart 1 vial 10/27/17 15:30 10/28/17 13:09 Novolog Vial Sliding Scale - SQ Not Given Q6HPO [facility] Protocol Mupirocin 1 applic 10/27/17 10:00 10/28/17 10:05 Bactroban Ointment (For Decolonization) - NS 11/01/17 09:59 1 applic BID BILL Administration Pregabalin 75 mg 10/27/17 10:00 10/28/17 10:19 Lyrica - PO 75 mg BID BILL Administration Ranitidine HCl 150 mg 10/27/17 00:45 10/28/17 10:05 Zantac - PO 150 mg DAILY BILL Administration ASSESSMENT/PLAN: The patient is an 86F who presented to the ED in respiratory distress and is currently intubated and sedated. Neuro: - Currently sedated - Continue sedation with Propofol @25 CV: CAD and questionable NSTEMI - Continue heparin GGT and plavix - Pt is allergic to ASA - Continue Lopressor 25, lipitor 80, lasix 40 IV Pulm: NSTEMI vs PNA - CAP coverage: 1 gm rocephin and 500 azithro - Continue diuresis with 40 mg IV lasix Renal: BASIL - BUN/Cr: 31/1.5, improving from 35/1.7 : - None GI: - On Zantac 150 daily ID: Sepsis 2/2 CAP or inflammation vs cardiogenic shock - Continue resusictation - BP slightly hypotensive in the AM - Added dopamine via peripheral IV for BP support Hem/Onc: - None Endocrine: IDDM - Continue meds - Novolog 1 sq q6h MSK: - None PPX: - Heparin ggt FEN (Fluids, electrolytes, nutrition): - NPO Dispo: - Continue to monitor in ICU Visit type - Emergency Visit Emergency Visit: Yes ED Registration Date: 10/27/17 Care time: The patient presented to the Emergency Department on the above date and was hospitalized for further evaluation of their emergent condition. - New Patient This patient is new to me today: Yes Date on this admission: 10/28/17 - Critical Care Critical Care patient: Yes Total Critical Care Time (in minutes): 45 Critical Care Statement: The care of this patient involved high complexity decision making to prevent further life threatening deterioration of the patient 's condition and/or to evaluate & treat vital organ system(s) failure or risk of failure.
[2017-10-28] MEDS ORDERED: POTASSIUM CHLORIDE TABS 20 MEQ TABLET.ER (FP) PO ONE (13:37)
[2017-10-28 14:32] LABS: ANION GAP 9 (8-16); CALCIUM 7.1 mg/dL (8.5-10.1); CO2 30 mmol/L (21-32); CREATININE 1.5 mg/dL (0.55-1.02)
[2017-10-28 15:07] LABS: GLUCOSE,RANDOM 362 mg/dL (74-106)
[2017-10-28] MEDS ORDERED: PROPOFOL 1,000,000 MCG/100 ML VIAL ONE (15:20)
[2017-10-28] MEDS: KCL 10 MEQ IVPB 10 MEQ/100 ML INFUS.BAG IVPB SCH ×3 (16:01→18:37)
--- NOTE | 2017-10-28 17:05 | PN ---
Progress Note (short form) - Note Progress Note: Vascular Surgery Pt seen and examined. Pt on dopamine and IV heparin. Called to evaluate bl lower ext for discoloration. Pt with right great toe callus. Pt has good dopplerable DP and PT pulses in both extremiteis. cont medical management. Venou duplex is negative. Jatinder Thornton DO
[2017-10-28 18:25] LABS: ANION GAP 9 (8-16); CO2 28 mmol/L (21-32); CREATININE 1.5 mg/dL (0.55-1.02)
[2017-10-28 18:27] LABS: CALCIUM 6.8 mg/dL (8.5-10.1); GLUCOSE,RANDOM 337 mg/dL (74-106)
[2017-10-28] MEDS ORDERED: CALCIUM GLUCONATE 10% - 1,000 MG/10 ML VIAL IVPB ONE (18:29)
[2017-10-28] MEDS ORDERED: CALCIUM GLUCONATE 10% - 1,000 MG/10 ML VIAL ONE (20:59)
[2017-10-28] MEDS: CHLORHEXIDINE GLUCONATE 4% CLEANSER FOR DECOLONIZATION TP SCH (21:03)
[2017-10-28] MEDS: ATORVASTATIN CA 80 MG TABLET (FP) PO SCH (21:04)
[2017-10-29] MEDS: HEPARIN - 25,000 UNIT in SODIUM CHLORIDE 495 ML IV SCH (03:49)
[2017-10-29] MEDS: PROPOFOL 1,000,000 MCG/100 ML VIAL IVPB SCH ×2 (04:04→21:46)
[2017-10-29] MEDS ORDERED: PROPOFOL 1,000,000 MCG/100 ML VIAL ONE (05:18)
[2017-10-29] MEDS: INSULIN SLIDING SCALE (NOVOLOG) 1 VIAL SQ SCH ×4 (05:31→21:42)
[2017-10-29 06:17] LABS: MCH 28.9 pg (25.7-33.7); MCHC 33.8 g/dl (32.0-36.0); MEAN CELL VOLUME 85.5 fl (80-96); MEAN PLT VOLUME 12.7 fl (7.5-11.1); PLATELET COUNT 124 K/MM3 (134-434); WHITE BLOOD COUNT 13.3 K/mm3 (4.0-10.0)
[2017-10-29 07:21] LABS: ALBUMIN 2.1 g/dl (3.4-5.0); ANION GAP 8 (8-16); BILIRUBIN,TOTAL 0.9 mg/dL (0.2-1.0); CALCIUM 7.5 mg/dL (8.5-10.1); CO2 30 mmol/L (21-32); CREATININE 1.4 mg/dL (0.55-1.02); GLUCOSE,RANDOM 194 mg/dL (74-106); MAGNESIUM 2.4 mg/dL (1.8-2.4); PHOSPHOROUS 4.2 mg/dL (2.5-4.9); SGOT/AST 64 U/L (15-37); SGPT/ALT 53 U/L (12-78); TOT PROT 5.6 g/dl (6.4-8.2)
[2017-10-29 07:34] LABS: ALK PHOS 428 U/L (45-117); CPK 379 IU/L (26-192)
--- NOTE | 2017-10-29 08:52 | PN ---
Physical Exam: SUBJECTIVE: Patient seen and examined by me this AM - One episode of SVT overnight per nursing. BP stable on dopa 5 gtt. No other events per nursing. - Per cardiology, no beds available at [facility] currently. Pt up for transfer. Will go for [facility] once bed available. - Intubated, sedated still. AC mode. Vent 40/300/20/5 OBJECTIVE: Vital Signs Intake & Output 10/26/17 10/27/17 10/28/17 10/29/17 23:59 23:59 23:59 23:59 Intake Total 886 2441 312 Output Total 2300 1700 300 Balance -1414 741 12 Weight 63.503 kg 69.4 kg 67.358 kg 67.5 kg Period Temp Pulse Resp BP Sys/Chatman Pulse Ox Last 24 Hr 99.0 F-99.5 F 64-83 14-22 104-131/36-50 96-99 GENERAL: The patient is sedated, intubated, laying in bed. HEAD: Normal with no signs of trauma. EYES: Pinpoint pupils, minimally reactive. Mild scleral icterus ENT: Increased labial edema. NG, ETT in place. Ears normal, nares patent, oropharynx clear without exudates, moist mucous membranes. NECK: Trachea midline, supple. No JVD, no hepatojugular reflex LUNGS: Still with BL diffuse rhonchi/crackles. No wheezes, no accessory muscle use. HEART: 2/6 blowing systolic murmur at LUSB/RUSB. Distant heart sounds. Regular rate and rhythm, S1, S2 without murmur, rub or gallop. ABDOMEN: Soft, nondistended, normoactive bowel sounds, no masses. Upper EXTREMITIES: 2+ pulses, warm, well-perfused, 1+ non-pitting edema. R IV in forearm, L IV in dorsal aspect of hand. Lower extremities: Trace LE edema. Pressure ulcers noted on distal tip of 1st hallux BL. Still with 1+ DP, 2+ PT pulse BL. Mild BL stasis dermatitis Laboratory Results - last 24 hr CBC, BMP 10/29/17 05:00 10/29/17 05:00 10/28/17 10/28/17 10/28/17 05:00 05:43 08:52 WBC RBC Hgb Hct MCV MCH MCHC RDW Plt Count MPV Neutrophils % Lymphocytes % PTT (Actin FS) 57.0 H D Sodium Potassium Chloride Carbon Dioxide Anion Gap BUN Creatinine Creat Clearance w eGFR POC Glucometer [phone] Random Glucose Calcium Phosphorus Magnesium Total Bilirubin AST ALT Alkaline Phosphatase Creatine Kinase Troponin I 7.39 H* Total Protein Albumin 10/28/17 10/28/17 10/28/17 13:05 13:46 17:00 WBC RBC Hgb Hct MCV MCH MCHC RDW Plt Count MPV Neutrophils % Lymphocytes % PTT (Actin FS) Sodium 135 L 138 Potassium 3.2 L 4.3 D Chloride 96 L 101 Carbon Dioxide 30 28 Anion Gap 9 9 BUN 32 H 34 H Creatinine 1.5 H 1.5 H Creat Clearance w eGFR POC Glucometer > 400 Random Glucose 362 H* D 337 H* Calcium 7.1 L 6.8 L* Phosphorus Magnesium Total Bilirubin AST ALT Alkaline Phosphatase Creatine Kinase Troponin I Total Protein Albumin 10/28/17 10/29/17 10/29/17 22:45 05:00 05:00 WBC 13.3 H D RBC 3.61 Hgb 10.4 L D Hct 30.9 L MCV 85.5 MCH 28.9 MCHC 33.8 RDW 14.0 Plt Count 124 L MPV 12.7 H Neutrophils % No Result Required. Lymphocytes % No Result Required. PTT (Actin FS) 49.5 H Sodium Potassium Chloride Carbon Dioxide Anion Gap BUN Creatinine Creat Clearance w eGFR POC Glucometer [phone] Random Glucose Calcium Phosphorus Magnesium Total Bilirubin AST ALT Alkaline Phosphatase Creatine Kinase Troponin I Total Protein Albumin 10/29/17 05:00 WBC RBC Hgb Hct MCV MCH MCHC RDW Plt Count MPV Neutrophils % Lymphocytes % PTT (Actin FS) Sodium 138 Potassium 3.9 Chloride 100 Carbon Dioxide 30 Anion Gap 8 BUN 31 H Creatinine 1.4 H Creat Clearance w eGFR 35.49 POC Glucometer Random Glucose 194 H D Calcium 7.5 L Phosphorus 4.2 Magnesium 2.4 Total Bilirubin 0.9 D AST 64 H ALT 53 Alkaline Phosphatase 428 H D Creatine Kinase 379 H Troponin I Total Protein 5.6 L Albumin 2.1 L Active Medications Generic Name Dose Route Start Last Admin Trade Name Freq PRN Reason Stop Dose Admin Acetaminophen 1,000 mg 10/27/17 17:31 10/27/17 17:55 Ofirmev Injection - IVPB 1,000 mg Q6H PRN Administration FEVER OR PAIN Albuterol Sulfate 1 amp 10/28/17 16:04 Ventolin 0.083% Nebulizer Soln - NEB Q4H PRN SHORT OF BREATH/WHEEZING Atorvastatin Calcium 80 mg 10/27/17 22:00 10/28/17 21:04 Lipitor - PO 80 mg HS BILL Administration Chlorhexidine Gluconate 1 applic 10/27/17 22:00 10/28/17 21:03 Hibiclens For Decolonization - TP 1 applic HS BILL Administration Clopidogrel Bisulfate 75 mg 10/27/17 10:00 10/28/17 10:05 Plavix - PO 75 mg DAILY BILL Administration Heparin Sodium (Porcine) 1,000 unit 10/27/17 00:02 Heparin - IVPUSH PRN PRN Heparin Heparin Sodium (Porcine) 5,000 unit 10/27/17 00:02 Heparin - IVPUSH PRN PRN Heparin Propofol 1,000,000 mcg in 100 mls @ 1.905 mls/hr 10/26/17 23:45 10/29/17 04: 04 Diprivan - IVPB Not Given TITR BILL Protocol 5 MCG/KG/MIN Heparin Sodium (Porcine) 25, 500 mls @ 16 mls/hr 10/27/17 00:15 10/29/17 03: 49 000 unit/ Sodium Chloride IV Not Given TITR BILL Protocol 800 UNIT/HR Azithromycin 500 mg/ Dextrose 250 mls @ 250 mls/hr 10/27/17 20:00 10/28/17 11 :46 IVPB 250 mls/hr DAILY BILL Administration CEFTRIAXONE 1 G/50 ML PREMIX 50 mls @ 100 mls/hr 10/27/17 20:00 10/28/17 10: 04 Ceftriaxone 1 Gm-D5w Bag IVPB 100 mls/hr DAILY BILL Administration Dopamine HCl/Dextrose 400,000 mcg in 250 mls @ 12.63 mls/hr 10/28/17 08:00 08:05 Dopamine 400 Mg/D5w - IVPB 5 mcg/kg/min TITR BILL 12.63 mls/hr Protocol Administration 5 MCG/KG/MIN Insulin Aspart 1 vial 10/27/17 15:30 10/29/17 05:31 Novolog Vial Sliding Scale - SQ 2 units Q6HPO BILL Administration Protocol Mupirocin 1 applic 10/27/17 10:00 10/28/17 21:03 Bactroban Ointment (For Decolonization) - NS 11/01/17 09:59 1 applic BID BILL Administration Pregabalin 75 mg 10/27/17 10:00 10/28/17 21:04 Lyrica - PO 75 mg BID BILL Administration Ranitidine HCl 150 mg 10/27/17 00:45 10/28/17 10:05 Zantac - PO 150 mg DAILY BILL Administration Microbiology 10/26/17 21:54 Blood - Peripheral Venous Blood Culture - Preliminary NO GROWTH OBTAINED AFTER 48 HOURS, INCUBATION TO CONTINUE FOR 3 DAYS. 10/26/17 21:54 Blood - Peripheral Venous Blood Culture - Preliminary NO GROWTH OBTAINED AFTER 48 HOURS, INCUBATION TO CONTINUE FOR 3 DAYS. 10/27/17 06:30 Sputum - Endotrachea Suction/Ventilator Gram Stain - Final 10/27/17 06:30 Sputum - Endotrachea Suction/Ventilator Sputum Culture - Preliminary Moraxella (Bran.) Catarrhalis 10/26/17 21:53 Urine - Urine Sanches Urine Culture - Final NO GROWTH OBTAINED 10/27/17 06:48 Nasopharyngeal Swab Respiratory Virus (PCR) - Preliminary 10/27/17 06:30 Urine - Urine Sanches Legionella Antigen - Final 10/27/17 06:30 Urine - Urine Sanches Streptococcus pneumoniae Antigen (M - Final 10/27/17 01:15 Nasopharyngeal Swab Influenza Types A,B Antigen (JIMMIE) - Final 10/27/17 01:15 Nasopharyngeal Swab - Final Imaging: CXr 10/26 - 1. Endotracheal tube in place with the tip projecting approximately 2.7 cm above the joshua. 2. Pulmonary vascular congestion with interstitial edema and bilateral pleural effusions. Bilaterally airspace opacities are most likely alveolar edema. Pneumonia cannot be excluded. Please correlate clinically for severe CHF exacerbation. CXR 10/27 - No significant change. ETT in place. CXR 10/28 - No evidence of pneumothorax. Resolving vascular congestive changes. Resolving bilateral pulmonary consolidations. ECHO 10/27 - Poor study. Bioprosthetic aortic valve. Mild MR. LV filling pattern normal for age. Ef 58% EKG 10/27 - Sinus tach. No QTC prolongation. Normal axis. Deep q-waves in III, worse than prior ekg on presentation. TWIs in V5-6 EKG 10/28 - NSR. NAD. Q waves in III improved. No TWIs. Improved since prior Venous duplex LE 10/27 - No evidence of deep venous thrombosis. Arterial duplex 10/27 - Extensive atherosclerotic disease with weak, monophasic flow within the popliteal and posterior tibial arteries bilaterally. Clinical correlation and follow-up recommended. Please see above discussion. CXR 10/29 - No significant changes since prior CXR. ASSESSMENT/PLAN: 86 yo w/ pmh of IDDM, CAD (s/p stents x10, most recently 3 y ago) and AVR (last year) presenting with SOB, found to have severe flash pulmonary edema in setting of NSTEMI. #Acute Hypoxic Respiratory Failure 2/2 to NSTEMI - Remains intubated, vented. AC Mode. Vent 40/300/20/5. Sedation changed from propofol to fentanyl, ?versed, covering ICU resident confirmed. Propofol is cardiosuppresive. Will confirm again in AM. - Unlikely to be PE, given CKMB elevation. Discussed with bulk folder, Dr. Rowan. Cannot rule-out PE and presents increase risk with cardiac cath if PE present, however BASIL complicates decision-making. Will continue to hold off on CT scan. - Holding lasix per ICU team plan. Continue to monitor Cr. - Strict Is and Os - Duoneb Q4h prn #NSTEMI - elevated trops, abnormal ekg listed above. Repeat EKG improved since prior on 10/27 - Plan for transfer to [facility], still no beds - Continue to hold metoprolol in setting of hypotension. Reconfirm w/ cardiology - Heparin gtt protocol - Continue plavix 75mg daily - Cardiology consulted. Recs appreciated. - Trop still downtrending today 7.4 -> 4.3 this AM - Lipitor 80 mg daily - Monitor for hypotension. Maintain MAP of 65>. #Possible CAP - WBC 13.2 today down slightly, Low fever 99.5 overnight - blood, urine neg to date - Sputum + moraxella catarrhalis - Legionella/pneumo urine ag neg - lactate 3.2 -> 2.7 10/27 AM - Day 3 tim betancourt for CAP coverage - Trend fever, WBC #PVD - arterial dopplers notable for extensive Bl atherosclerotic dz. - Vascular consulted. Recs appreciated #IDDM - Takes lantus 35u qHs at home + SS. AM BG 194 this AM - Continue to monitor glucose. Consider basal insulin - lyrica 75mg BID for diabetic neuropathy - ISS adjusted - BGM q4h #BASIL - Cr 1.4 today. At baseline - Hold IVFs for now in setting of CHF - Trend BUN/Cr - daily bmp's PPX: heparin gtt Zantac for GI FEN: Fluids: none Electrolytes:Daily BMPs, trend Cr Nutrition: none Dispo: ICU for further management. Transfer when stable/bed available at [facility]. Plan discussed with attending, Dr. Luis Aden, PGY1 Visit type - Emergency Visit Emergency Visit: Yes ED Registration Date: 10/27/17 Care time: The patient presented to the Emergency Department on the above date and was hospitalized for further evaluation of their emergent condition. - New Patient This patient is new to me today: No - Critical Care Critical Care patient: Yes Total Critical Care Time (in minutes): 35 Critical Care Statement: The care of this patient involved high complexity decision making to prevent further life threatening deterioration of the patient 's condition and/or to evaluate & treat vital organ system(s) failure or risk of failure.
[2017-10-29 09:27] LABS: METAMYELOCYTE 1 % (0-2); PLATELET ESTIMATE SLT DECREASE; TOTAL CELLS COUNTED 100
[2017-10-29] MEDS ORDERED: PT OWN MED DRAWER 7, Y5N ONE (09:31)
[2017-10-29] MEDS: AZITHROMYCIN IVPB 500 MG in DEXTROSE 5%-WATER - 250 ML IVPB SCH (09:36)
[2017-10-29 09:37] LABS: TROPONIN I 4.34 ng/ml (0.00-0.05)
[2017-10-29] MEDS: CEFTRIAXONE 1 G/50 ML PREMIX 50 ML IVPB SCH (09:41)
[2017-10-29] MEDS: RANITIDINE HCL 150 MG TABLET (FP) PO SCH (09:42)
[2017-10-29] MEDS: PREGABALIN 75 MG CAPSULE PO SCH ×2 (09:42→21:44)
[2017-10-29] MEDS: MUPIROCIN 2% TOPICAL OINTMENT FOR DECOLONIZATION NS SCH ×2 (09:42→21:44)
[2017-10-29] MEDS ORDERED: FUROSEMIDE 40 MG/4 ML INJECTABLE VIAL IVPUSH SCH (09:45)
--- NOTE | 2017-10-29 09:51 | PN ---
Teaching Attending Note Name of Resident: David Melendez ATTENDING PHYSICIAN STATEMENT I saw and evaluated the patient. I reviewed the resident's note and discussed the case with the resident. I agree with the resident's findings and plan as documented. SUBJECTIVE: Patient seen and examined in the ICU. Intubated and sedated. On Dopamine @ 5mcq for hemodynamic support. AC mode of vent, 40% FiO2. Intake & Output 10/26/17 10/27/17 10/28/17 10/29/17 23:59 23:59 23:59 23:59 Intake Total 886 2441 312 Output Total 2300 1700 300 Balance -1414 741 12 Weight 140 lb 153 lb 148 lb 8 oz 148 lb 12.992 oz Last Vital Signs Temp Pulse Resp BP Pulse Ox 99.2 F 65 20 112/48 96 10/29/17 10:00 10/29/17 10:26 10/29/17 10:00 10/29/17 10:26 10/29/17 07:53 Active Medications Acetaminophen (Ofirmev Injection -) 1,000 mg IVPB Q6H PRN PRN Reason: FEVER OR PAIN Last Admin: 10/27/17 17:55 Dose: 1,000 mg Albuterol Sulfate (Ventolin 0.083% Nebulizer Soln -) 1 amp NEB Q4H PRN PRN Reason: SHORT OF BREATH/WHEEZING Atorvastatin Calcium (Lipitor -) 80 mg PO HS BILL Last Admin: 10/28/17 21:04 Dose: 80 mg Chlorhexidine Gluconate (Hibiclens For Decolonization -) 1 applic TP HS BILL Last Admin: 10/28/17 21:03 Dose: 1 applic Clopidogrel Bisulfate (Plavix -) 75 mg PO DAILY BILL Last Admin: 10/28/17 10:05 Dose: 75 mg Heparin Sodium (Porcine) (Heparin -) 1,000 unit IVPUSH PRN PRN PRN Reason: Heparin Heparin Sodium (Porcine) (Heparin -) 5,000 unit IVPUSH PRN PRN PRN Reason: Heparin Propofol (Diprivan -) 1,000,000 mcg in 100 mls @ 1.905 mls/hr IVPB TITR BILL; 5 MCG/KG/MIN PRN Reason: Protocol Last Titration: 10/29/17 10:27 Dose: 40 mcg/kg/min, 15.241 mls/hr Heparin Sodium (Porcine) 25, (000 unit/ Sodium Chloride) 500 mls @ 16 mls/hr IV TITR BILL; 800 UNIT/HR PRN Reason: Protocol Last Titration: 10/29/17 07:30 Dose: 800 unit/hr, 16 mls/hr Azithromycin 500 mg/ Dextrose 250 mls @ 250 mls/hr IVPB DAILY [facility] Last Admin: 10/29/17 09:36 Dose: 250 mls/hr CEFTRIAXONE 1 G/50 ML PREMIX (Ceftriaxone 1 Gm-D5w Bag) 50 mls @ 100 mls/hr IVPB DAILY [facility] Last Admin: 10/29/17 09:41 Dose: 100 mls/hr Dopamine HCl/Dextrose (Dopamine 400 Mg/D5w -) 400,000 mcg in 250 mls @ 12.63 mls/hr IVPB TITR BILL; 5 MCG/KG/MIN PRN Reason: Protocol Last Titration: 10/29/17 10:26 Dose: 2 mcg/kg/min, 5.052 mls/hr Insulin Aspart (Novolog Vial Sliding Scale -) 1 vial SQ Q6HPO [facility] PRN Reason: Protocol Mupirocin (Bactroban Ointment (For Decolonization) -) 1 applic NS BID [facility] Stop: 11/01/17 09:59 Last Admin: 10/29/17 09:42 Dose: 1 applic Pregabalin (Lyrica -) 75 mg PO BID [facility] Last Admin: 10/29/17 09:42 Dose: 75 mg Ranitidine HCl (Zantac -) 150 mg PO DAILY [facility] Last Admin: 10/29/17 09:42 Dose: 150 mg General: Yes: Intubated and sedated Cardiovascular: Yes: Regular Rate and Rhythm, S1, S2 Respiratory: Yes: Mechanically Ventilated, Bilateral Rhonchi Gastrointestinal: Yes: WNL, Normal Bowel Sounds, Soft Edema: Yes (+2 bilateral ) Peripheral Pulses WNL: Yes Integumentary: Yes: WNL Neurological: Yes: Other (sedated on propofol) Labs: Laboratory Results - last 24 hr 10/28/17 10/28/17 10/28/17 05:43 13:05 13:46 WBC RBC Hgb Hct MCV MCH MCHC RDW Plt Count MPV Total Counted Neutrophils % Neutrophils % (Manual) Lymphocytes % Lymphocytes % (Manual) Monocytes % (Manual) Basophils % (Manual) Metamyelocytes Platelet Estimate PTT (Actin FS) Sodium 135 L Potassium 3.2 L Chloride 96 L Carbon Dioxide 30 Anion Gap 9 BUN 32 H Creatinine 1.5 H Creat Clearance w eGFR POC Glucometer [phone] > 400 Random Glucose 362 H* D Calcium 7.1 L Phosphorus Magnesium Total Bilirubin AST ALT Alkaline Phosphatase Creatine Kinase Troponin I Total Protein Albumin 10/28/17 10/28/17 10/29/17 17:00 22:45 05:00 WBC RBC Hgb Hct MCV MCH MCHC RDW Plt Count MPV Total Counted Neutrophils % Neutrophils % (Manual) Lymphocytes % Lymphocytes % (Manual) Monocytes % (Manual) Basophils % (Manual) Metamyelocytes Platelet Estimate PTT (Actin FS) 49.5 H Sodium 138 Potassium 4.3 D Chloride 101 Carbon Dioxide 28 Anion Gap 9 BUN 34 H Creatinine 1.5 H Creat Clearance w eGFR POC Glucometer [phone] Random Glucose 337 H* Calcium 6.8 L* Phosphorus Magnesium Total Bilirubin AST ALT Alkaline Phosphatase Creatine Kinase Troponin I Total Protein Albumin 10/29/17 10/29/17 05:00 05:00 WBC 13.3 H D RBC 3.61 Hgb 10.4 L D Hct 30.9 L MCV 85.5 MCH 28.9 MCHC 33.8 RDW 14.0 Plt Count 124 L MPV 12.7 H Total Counted 100 Neutrophils % No Result Required. Neutrophils % (Manual) 59.0 D Lymphocytes % No Result Required. Lymphocytes % (Manual) 28.0 D Monocytes % (Manual) 10 D Basophils % (Manual) 2.0 Metamyelocytes 1 Platelet Estimate Slt decrease PTT (Actin FS) Sodium 138 Potassium 3.9 Chloride 100 Carbon Dioxide 30 Anion Gap 8 BUN 31 H Creatinine 1.4 H Creat Clearance w eGFR 35.49 POC Glucometer Random Glucose 194 H D Calcium 7.5 L Phosphorus 4.2 Magnesium 2.4 Total Bilirubin 0.9 D AST 64 H ALT 53 Alkaline Phosphatase 428 H D Creatine Kinase 379 H Troponin I 4.34 H* Total Protein 5.6 L Albumin 2.1 L Assessment/Plan Hypoxemic respiratory failure likely in the setting of NSTEMI/heart failure +/- CAP NSTEMI Elevated BNP : heart failure BASIL Mild transaminitis Lactic acidosis, improving Hyperglycemia Low clinical suspicion for Pulmonary Embolism AC Mode of vent Hold Lasix for now CVC insertion Dopamine for hemodynamic support IV Heparin Statin Empiric ABX Glycemic control Strict I&O Hold on CT chest as low clinical suspicion for PE For transfer to [facility] for cardiac cath Dr Coelho Critical care time spent in reviewing chart, evaluating patient and formulating plan - 36 minutes.
[2017-10-29] MEDS: CLOPIDOGREL BISULFATE 75 MG TABLET (FP) PO SCH (12:50)
--- NOTE | 2017-10-29 13:19 | PN ---
Physical Exam: SUBJECTIVE: The patient is an 86F with a PMH of CAD s/p 10 stents 3 years ago, aortic valve replacement last year, IDDM who was brought into the ED for respiratory distress. The patient was intubated in the field and sedated. The patient remains intubated and sedated in the ICU. No acute events overnight. Unable to obtain ROS. Patient is normotensive on dopamine drip. Transfer to [facility] for heart cath. OBJECTIVE: Vital Signs Period Temp Pulse Resp BP Sys/[place] Pulse Ox Last 24 Hr 99.0 F-99.5 F 65-83 14-22 102-132/36-55 96-99 GENERAL: The patient is intubated, in no acute distress. HEAD: Normal with no signs of trauma. EYES: PERRL, extraocular movements intact, sclera anicteric, conjunctiva clear. No ptosis. . NECK: Trachea midline, full range of motion, supple. LUNGS: Breath sounds equal, clear to auscultation bilaterally, no wheezes, no crackles, no accessory muscle use. HEART: Regular rate and rhythm, S1, S2 without murmur, rub or gallop. ABDOMEN: Soft, nontender, nondistended, normoactive bowel sounds, no guarding, no rebound, no hepatosplenomegaly, no masses. EXTREMITIES: 2+ pulses, warm, well-perfused, no edema. NEUROLOGICAL: Cranial nerves II through XII grossly intact. Normal speech, gait not observed. PSYCH: Normal mood, normal affect. SKIN: Warm, dry, normal turgor, no rashes or lesions noted Laboratory Results - last 24 hr 10/28/17 10/28/17 10/28/17 13:05 13:46 17:00 WBC RBC Hgb Hct MCV MCH MCHC RDW Plt Count MPV Total Counted Neutrophils % Neutrophils % (Manual) Lymphocytes % Lymphocytes % (Manual) Monocytes % (Manual) Basophils % (Manual) Metamyelocytes Platelet Estimate PTT (Actin FS) Sodium 135 L 138 Potassium 3.2 L 4.3 D Chloride 96 L 101 Carbon Dioxide 30 28 Anion Gap 9 9 BUN 32 H 34 H Creatinine 1.5 H 1.5 H Creat Clearance w eGFR POC Glucometer > 400 Random Glucose 362 H* D 337 H* Calcium 7.1 L 6.8 L* Phosphorus Magnesium Total Bilirubin AST ALT Alkaline Phosphatase Creatine Kinase Creatine Kinase Index CK-MB (CK-2) Troponin I Total Protein Albumin 10/28/17 10/29/17 10/29/17 22:45 05:00 05:00 WBC 13.3 H D RBC 3.61 Hgb 10.4 L D Hct 30.9 L MCV 85.5 MCH 28.9 MCHC 33.8 RDW 14.0 Plt Count 124 L MPV 12.7 H Total Counted 100 Neutrophils % No Result Required. Neutrophils % (Manual) 59.0 D Lymphocytes % No Result Required. Lymphocytes % (Manual) 28.0 D Monocytes % (Manual) 10 D Basophils % (Manual) 2.0 Metamyelocytes 1 Platelet Estimate Slt decrease PTT (Actin FS) 49.5 H Sodium Potassium Chloride Carbon Dioxide Anion Gap BUN Creatinine Creat Clearance w eGFR POC Glucometer [phone] Random Glucose Calcium Phosphorus Magnesium Total Bilirubin AST ALT Alkaline Phosphatase Creatine Kinase Creatine Kinase Index CK-MB (CK-2) Troponin I Total Protein Albumin 10/29/17 10/29/17 05:00 05:27 WBC RBC Hgb Hct MCV MCH MCHC RDW Plt Count MPV Total Counted Neutrophils % Neutrophils % (Manual) Lymphocytes % Lymphocytes % (Manual) Monocytes % (Manual) Basophils % (Manual) Metamyelocytes Platelet Estimate PTT (Actin FS) Sodium 138 Potassium 3.9 Chloride 100 Carbon Dioxide 30 Anion Gap 8 BUN 31 H Creatinine 1.4 H Creat Clearance w eGFR 35.49 POC Glucometer 219.72732 Random Glucose 194 H D Calcium 7.5 L Phosphorus 4.2 Magnesium 2.4 Total Bilirubin 0.9 D AST 64 H ALT 53 Alkaline Phosphatase 428 H D Creatine Kinase 379 H Creatine Kinase Index 0.5 CK-MB (CK-2) 2.27 Troponin I 4.34 H* Total Protein 5.6 L Albumin 2.1 L Active Medications Generic Name Dose Route Start Last Admin Trade Name Freq PRN Reason Stop Dose Admin Acetaminophen 1,000 mg 10/27/17 17:31 10/27/17 17:55 Ofirmev Injection - IVPB 1,000 mg Q6H PRN Administration FEVER OR PAIN Albuterol Sulfate 1 amp 10/28/17 16:04 Ventolin 0.083% Nebulizer Soln - NEB Q4H PRN SHORT OF BREATH/WHEEZING Atorvastatin Calcium 80 mg 10/27/17 22:00 10/28/17 21:04 Lipitor - PO 80 mg HS BILL Administration Chlorhexidine Gluconate 1 applic 10/27/17 22:00 10/28/17 21:03 Hibiclens For Decolonization - TP 1 applic HS BILL Administration Clopidogrel Bisulfate 75 mg 10/27/17 10:00 10/29/17 12:50 Plavix - PO 75 mg DAILY BILL Administration Heparin Sodium (Porcine) 1,000 unit 10/27/17 00:02 Heparin - IVPUSH PRN PRN Heparin Heparin Sodium (Porcine) 5,000 unit 10/27/17 00:02 Heparin - IVPUSH PRN PRN Heparin Propofol 1,000,000 mcg in 100 mls @ 1.905 mls/hr 10/26/17 23:45 10/29/17 12: 59 Diprivan - IVPB 35 mcg/kg/min TITR BILL 13.336 mls/hr Protocol Titration 5 MCG/KG/MIN Heparin Sodium (Porcine) 25, 500 mls @ 16 mls/hr 10/27/17 00:15 10/29/17 07: 30 000 unit/ Sodium Chloride IV 800 unit/hr TITR BILL 16 mls/hr Protocol Titration 800 UNIT/HR Azithromycin 500 mg/ Dextrose 250 mls @ 250 mls/hr 10/27/17 20:00 10/29/17 09 :36 IVPB 250 mls/hr DAILY BILL Administration CEFTRIAXONE 1 G/50 ML PREMIX 50 mls @ 100 mls/hr 10/27/17 20:00 10/29/17 09: 41 Ceftriaxone 1 Gm-D5w Bag IVPB 100 mls/hr DAILY BILL Administration Dopamine HCl/Dextrose 400,000 mcg in 250 mls @ 12.63 mls/hr 10/28/17 08:00 12:58 Dopamine 400 Mg/D5w - IVPB 0 mcg/kg/min TITR BILL 0 mls/hr Protocol Titration 5 MCG/KG/MIN Potassium Chloride 10 meq in 100 mls @ 100 mls/hr 10/29/17 13:15 Potassium Chloride 10 Meq Premix Ivpb - IVPB 10/29/17 14:14 Q60M BILL Insulin Aspart 1 vial 10/29/17 12:00 Novolog Vial Sliding Scale - SQ Q6HPO [facility] Protocol Mupirocin 1 applic 10/27/17 10:00 10/29/17 09:42 Bactroban Ointment (For Decolonization) - NS 11/01/17 09:59 1 applic BID BILL Administration Pregabalin 75 mg 10/27/17 10:00 10/29/17 09:42 Lyrica - PO 75 mg BID BILL Administration Ranitidine HCl 150 mg 10/27/17 00:45 10/29/17 09:42 Zantac - PO 150 mg DAILY BILL Administration ASSESSMENT/PLAN: The patient is an 86F who presented to the ED in respiratory distress and is currently intubated and sedated. Neuro: - Currently sedated - Continue sedation with Propofol @25 - Will add fentanyl and wean propofol 2/2 cardiosuppressive effects of propofol CV: CAD and questionable NSTEMI - Continue heparin GGT and plavix - Pt is allergic to ASA - Continue Lopressor 25, lipitor 80, lasix 40 IV - Transfer to [facility] for cath - EKG shows nonspecific T-wave changes - BP is normotensive with dopamine drip continuing Pulm: NSTEMI vs PNA - CAP coverage: 1 gm rocephin and 500 azithro - Continue diuresis with 40 mg IV lasix Renal: BASIL - BUN/Cr: 31/1.4, stable : - None GI: - On Zantac 150 daily ID: Sepsis 2/2 CAP or inflammation vs cardiogenic shock - Continue resuscitation - Continue dopamine drip - Wean propofol as it has cardiosuppressive effects Hem/Onc: - None Endocrine: IDDM - Continue meds - Novolog 1 sq q6h MSK: - None PPX: - Heparin ggt FEN (Fluids, electrolytes, nutrition): - Per wallpaper hanger helper, will progress diet as tolerated - Enteral feeds Dispo: - Transfer to [facility] when bed is available Visit type - Emergency Visit Emergency Visit: Yes ED Registration Date: 10/27/17 Care time: The patient presented to the Emergency Department on the above date and was hospitalized for further evaluation of their emergent condition. - New Patient This patient is new to me today: No - Critical Care Critical Care patient: Yes Total Critical Care Time (in minutes): 49 Critical Care Statement: The care of this patient involved high complexity decision making to prevent further life threatening deterioration of the patient 's condition and/or to evaluate & treat vital organ system(s) failure or risk of failure.
[2017-10-29] MEDS ORDERED: FENTANYL INJECTION 500 MCG in DEXTROSE 5%-WATER - 90 ML IVPB SCH (13:30)
--- NOTE | 2017-10-29 14:30 | PN ---
Teaching Attending Note Name of Resident: Fransico Aden ATTENDING PHYSICIAN STATEMENT I saw and evaluated the patient. I reviewed the resident's note and discussed the case with the resident. I agree with the resident's findings and plan as documented. SUBJECTIVE: no events over night OBJECTIVE: NAD, sedated and intubated. round equal pupils. sluggish reaction to light. CV: RRR distant heart sounds , No JVD . Lungs: rales anteriorly, clear lungs in lower lobes ABd: soft, ND , NT ,NL BS . Ext:1+ edema on b/l Legs. DP is not palpable. warm feet . discolored, blackish areas on tip of big toes with peeling overlying skin . ASSESSMENT AND PLAN: 86 y/o unfortunate lady with h/o CAD, s/p stenting , AVR, IDDM , and other medical problems who presented with SOB and was found to have acute pulm edema in the setting of NSTEMI 1- Acute hypoxic respiratory failure: due to pulm edema and PNA - Cont to hold diuress - Cont mechanical ventilation 2- NSTEMI with cardiogenic shock - cont plavix and Heparin gtt. goal PTT 50-70 - cont to hold BB - d/w Dr. Christiansonade the possibility to change propofol to another sedative due to hypotension - taper dopamine down . - CAth plan per Card 3- BASIL: pre-renal from CHF. improved and stable - cont to monitor 4- CAP: with severe sepsis: - Cont azithro and ceftriaxone . day 4 - follow blood cx - Sputum cx with Moraxella Catarrhalis , covered with this regimen 5-PVD: - cont heparin gtt 5-h/o DM : - Cont SSI ( increase coverage ) - [facility] pharmacy to switch Abx gtts to ICU level of care.
--- NOTE | 2017-10-29 15:05 | PN ---
Progress Note, Physician Chief Complaint: Pt remains intubated, sedated. History of Present Illness: The patient is an 86 year old female (b. [place]),, with a significant past medical history of cardiac stents x 10, aortic valve replacement, IDDM, who presents to the emergency department brought in by ems intubated after complaint of difficulty breathing this evening. As per ems, the patient was read to be 90% on capnography which dropped to 50% after being bagged in the field. As per ems, the patient was found tachypneic in the field, in respiratory distress, and was intubated (ETT 7.0). As per the patients family at bedside, the patient was feeling well yesterday morning, performing activities of daily life without symptoms. As per patients family, the patient had a nonproductive cough for the past few days, however, the patient reportedly felt better this morning. As per the family, the patient received her flu vaccination 3 weeks ago. Family denies recent sick contacts. At presentation was being bagged by ems. Allergies: aspirin Past surgical history: cardiac stent x 10 Social history: denies toxic habits - Current Medication List Current Medications: Active Medications Acetaminophen (Ofirmev Injection -) 1,000 mg IVPB Q6H PRN PRN Reason: FEVER OR PAIN Last Admin: 10/27/17 17:55 Dose: 1,000 mg Albuterol Sulfate (Ventolin 0.083% Nebulizer Soln -) 1 amp NEB Q4H PRN PRN Reason: SHORT OF BREATH/WHEEZING Atorvastatin Calcium (Lipitor -) 80 mg PO HS [facility] Last Admin: 10/28/17 21:04 Dose: 80 mg Chlorhexidine Gluconate (Hibiclens For Decolonization -) 1 applic TP HS [facility] Last Admin: 10/28/17 21:03 Dose: 1 applic Clopidogrel Bisulfate (Plavix -) 75 mg PO DAILY [facility] Last Admin: 10/29/17 12:50 Dose: 75 mg Heparin Sodium (Porcine) (Heparin -) 1,000 unit IVPUSH PRN PRN PRN Reason: Heparin Heparin Sodium (Porcine) (Heparin -) 5,000 unit IVPUSH PRN PRN PRN Reason: Heparin Propofol (Diprivan -) 1,000,000 mcg in 100 mls @ 1.905 mls/hr IVPB TITR BILL; 5 MCG/KG/MIN PRN Reason: Protocol Last Titration: 10/29/17 12:59 Dose: 35 mcg/kg/min, 13.336 mls/hr Heparin Sodium (Porcine) 25, (000 unit/ Sodium Chloride) 500 mls @ 16 mls/hr IV TITR BILL; 800 UNIT/HR PRN Reason: Protocol Last Titration: 10/29/17 07:30 Dose: 800 unit/hr, 16 mls/hr Azithromycin 500 mg/ Dextrose 250 mls @ 250 mls/hr IVPB DAILY [facility] Last Admin: 10/29/17 09:36 Dose: 250 mls/hr CEFTRIAXONE 1 G/50 ML PREMIX (Ceftriaxone 1 Gm-D5w Bag) 50 mls @ 100 mls/hr IVPB DAILY [facility] Last Admin: 10/29/17 09:41 Dose: 100 mls/hr Dopamine HCl/Dextrose (Dopamine 400 Mg/D5w -) 400,000 mcg in 250 mls @ 12.63 mls/hr IVPB TITR BILL; 5 MCG/KG/MIN PRN Reason: Protocol Last Titration: 10/29/17 12:58 Dose: 0 mcg/kg/min, 0 mls/hr Potassium Chloride (Potassium Chloride 10 Meq Premix Ivpb -) 10 meq in 100 mls @ 100 mls/hr IVPB Q60M [facility] Stop: 10/29/17 14:14 Fentanyl 500 mcg/ Dextrose 100 mls @ 5 mls/hr IVPB TITR [facility] PRN Reason: 25 MCG/HR Insulin Aspart (Novolog Vial Sliding Scale -) 1 vial SQ Q6HPO BILL PRN Reason: Protocol Last Admin: 10/29/17 13:53 Dose: 4 unit Mupirocin (Bactroban Ointment (For Decolonization) -) 1 applic NS BID [facility] Stop: 11/01/17 09:59 Last Admin: 10/29/17 09:42 Dose: 1 applic Pregabalin (Lyrica -) 75 mg PO BID [facility] Last Admin: 10/29/17 09:42 Dose: 75 mg Ranitidine HCl (Zantac -) 150 mg PO DAILY [facility] Last Admin: 10/29/17 09:42 Dose: 150 mg - Objective Vital Signs: Vital Signs Temperature 99.2 F 10/29/17 10:00 Pulse Rate 74 10/29/17 12:58 Respiratory Rate 20 10/29/17 14:27 Blood Pressure 131/55 10/29/17 12:58 O2 Sat by Pulse Oximetry (%) 96 10/29/17 07:53 Eyes: Yes: WNL HENT: Yes: Other (intubated) Neck: Yes: Decreased ROM Cardiovascular: Yes: Murmur (systolic 2/6 LSB-->axilla) Respiratory: Yes: Diminished Gastrointestinal: Yes: Soft ...Rectal Exam: Yes: Deferred Genitourinary: No: Anuria Musculoskeletal: Yes: Muscle Weakness Extremities: Yes: Cool Edema: No Peripheral Pulses WNL: No Peripheral Pulses: Left Doralis Pedis: 1+, Right Dorsalis Pedis: 1+ Integumentary: Yes: WNL Neurological: Yes: Unresponsive, Weakness Psychiatric: Yes: Other Labs: CBC, BMP 10/29/17 05:00 10/29/17 05:00 INR, PTT INR 1.13 (0.82-1.09) 10/26/17 21:53 Abnormal Lab Results 10/28/17 10/28/17 10/29/17 13:46 17:00 05:00 WBC Hgb Hct Plt Count MPV PTT (Actin FS) 49.5 H BUN 34 H Creatinine 1.5 H Random Glucose 362 H* D 337 H* Calcium 6.8 L* AST Alkaline Phosphatase Creatine Kinase Troponin I Total Protein Albumin 10/29/17 10/29/17 05:00 05:00 WBC 13.3 H D Hgb 10.4 L D Hct 30.9 L Plt Count 124 L MPV 12.7 H PTT (Actin FS) BUN 31 H Creatinine 1.4 H Random Glucose 194 H D Calcium 7.5 L AST 64 H Alkaline Phosphatase 428 H D Creatine Kinase 379 H Troponin I 4.34 H* Total Protein 5.6 L Albumin 2.1 L Abnormal Lab Results 10/29/17 10/29/17 10/29/17 05:00 05:00 05:00 WBC 13.3 H D Hgb 10.4 L D Hct 30.9 L Plt Count 124 L MPV 12.7 H PTT (Actin FS) 49.5 H BUN 31 H Creatinine 1.4 H Random Glucose 194 H D Calcium 7.5 L AST 64 H Alkaline Phosphatase 428 H D Creatine Kinase 379 H Troponin I 4.34 H* Total Protein 5.6 L Albumin 2.1 L 10/29/17 10/29/17 17:45 17:45 WBC Hgb Hct Plt Count MPV PTT (Actin FS) 69.8 H D BUN Creatinine Random Glucose Calcium AST Alkaline Phosphatase Creatine Kinase Troponin I 3.78 H* Total Protein Albumin - ....Imaging Chest X-ray: Image Reviewed (no significant change (mild-moderate vascular congestion)) Other: Image Reviewed (telemetry: NSR) Problem List - Problems (1) Acute on chronic systolic and diastolic heart failure, NYHA class 3 Assessment/Plan: NSTEMI; Mild-moderate LV dysfunction; unable to see RV well, and RVSP unable to be assessed. Hypotension required IV dopamine; as of this afternoon, it has been discontinued. Fair urine output; continued vascular congestion. Code(s): I50.43 - ACUTE ON CHRONIC COMBINED SYSTOLIC AND DIASTOLIC HRT FAIL (2) BASIL (acute kidney injury) Assessment/Plan: avoid excessive dehydration. Code(s): N17.9 - ACUTE KIDNEY FAILURE, UNSPECIFIED (3) CAD (coronary artery disease) Code(s): I25.10 - ATHSCL HEART DISEASE OF [place] CORONARY ARTERY W/O ANG PCTRS (4) IDDM (insulin dependent diabetes mellitus) Code(s): E11.9 - TYPE 2 DIABETES MELLITUS WITHOUT COMPLICATIONS; Z79.4 - SEWING TECHNIQUES DEMONSTRATOR (CURRENT) USE OF INSULIN (5) Lactic acidosis Code(s): E87.2 - ACIDOSIS (6) NSTEMI (non-ST elevated myocardial infarction) Assessment/Plan: Now off dopamine. NTI 12.3-->4.3 within the past 48 hours. Continue IV heparin and PO clopidogrel. On atorvastatin 80 mg/day. Consider ACEI when BP and renal status allow. Code(s): I21.4 - NON-ST ELEVATION (NSTEMI) MYOCARDIAL INFARCTION (7) Severe sepsis Code(s): A41.9 - SEPSIS, UNSPECIFIED ORGANISM; R65.20 - SEVERE SEPSIS WITHOUT SEPTIC SHOCK (8) Transaminitis Assessment/Plan: likely secondary to passive congestion from CHF; levels are improving. Code(s): R74.0 - NONSPEC ELEV OF LEVELS OF TRANSAMNS & LACTIC ACID DEHYDRGNSE (9) At high risk for pulmonary embolism Assessment/Plan: relatively sudden SOB a week after a 9 hour car trip from [place]. Leg pains (however, these have been chronic). Continue IV heparin. Problematic doing CTA presently. Code(s): Z91.89 - OTH PERSONAL RISK FACTORS, NOT ELSEWHERE CLASSIFIED (10) Acute respiratory failure Assessment/Plan: For respiratory weaning per laboratory animal caretaker. Code(s): J96.00 - ACUTE RESPIRATORY FAILURE, UNSP W HYPOXIA OR HYPERCAPNIA
[2017-10-29] MEDS ORDERED: KCL 10 MEQ IVPB 10 MEQ/100 ML INFUS.BAG IVPB SCH (15:30)
[2017-10-29] MEDS ORDERED: fentaNYL CITRATE 250 MCG/5 ML VIAL ONE (17:50)
[2017-10-29] MEDS: FENTANYL INJECTION 500 MCG in DEXTROSE 5%-WATER - 90 ML IVPB SCH (18:11)
[2017-10-29] MEDS: DOPAMINE 400 MG/D5W - 400,000 MCG/250 ML INFUS.BAG IVPB SCH (19:19)
[2017-10-29] MEDS: CHLORHEXIDINE GLUCONATE 4% CLEANSER FOR DECOLONIZATION TP SCH (21:44)
[2017-10-29] MEDS: ATORVASTATIN CA 80 MG TABLET (FP) PO SCH (21:45)
[2017-10-30] MEDS: INSULIN SLIDING SCALE (NOVOLOG) 1 VIAL SQ SCH ×4 (00:35→17:40)
[2017-10-30] MEDS: HEPARIN - 25,000 UNIT in SODIUM CHLORIDE 495 ML IV SCH ×3 (00:35→17:43)
--- NOTE | 2017-10-30 06:06 | PN ---
Progress Note (short form) - Note Progress Note: PULM/CCM SUBJECTIVE: Patient seen and examined in the ICU. 24Hr: weaned off dopamine starting diuresis still awaiting bed at [facility] for cath holding propofol this am Vital Signs Temp 98.9 F 10/30/17 02:00 Pulse 64 10/30/17 04:00 Resp 20 10/30/17 04:00 BP 101/38 10/30/17 04:00 Pulse Ox 98 10/29/17 20:59 Intake & Output 10/29/17 10/29/17 10/30/17 11:59 23:59 11:59 Intake Total 312 256 Output Total 300 300 Balance 12 -44 Weight 67.5 kg Intake: IV 312 116 DIPRIVAN - 1,000,000 mcg 126 52 In 100 ml @ 5 MCG/KG/MIN 1.905 mls/hr IVPB TITR BILL Rx#:[id number] DOPAMINE 400 MG/D5W - 400 88 ,000 mcg In 250 ml @ 5 MCG/KG/MIN 12.63 mls/hr IVPB TITR BILL Rx#: [id number] Heparin - 25,000 Unit In 98 64 Normal Saline - 495 ml @ 800 UNIT/HR 16 mls/hr IV TITR BILL Rx#:[id number] IVPB 20 Tube Irrigant 120 Output: Urine 300 300 Sanches 300 300 Other: Voiding Method Indwelling Catheter Indwelling Catheter Bowel Movement No Weight Measurement Method Built in [facility] Home Medications Amlodipine Besylate [Norvasc -] 10 mg PO DAILY 10/26/17 Atorvastatin Ca [Lipitor] 20 mg PO HS 10/26/17 Clopidogrel Bisulfate [Plavix -] 75 mg PO DAILY 10/26/17 Furosemide [Lasix] 40 mg PO DAILY 10/26/17 Insulin (LOG) Aspart [NovoLOG -] 0 units SQ TID 10/26/17 Insulin Glargine,Hum.rec.anlog [Lantus Solostar PEN (NF)] 35 units SQ AM Metoprolol Succinate [Toprol Xl -] 37.5 mg PO BID 10/26/17 Multivitamin/Iron/Folic Acid [Centrum Adults Tablet] 1 each PO DAILY 10/26/17 Pregabalin [Lyrica -] 200 mg PO TID 10/26/17 Current Medications Acetaminophen (Ofirmev Injection -) 1,000 mg IVPB Q6H PRN PRN Reason: FEVER OR PAIN Last Admin: 10/27/17 17:55 Dose: 1,000 mg Albuterol Sulfate (Ventolin 0.083% Nebulizer Soln -) 1 amp NEB Q4H PRN PRN Reason: SHORT OF BREATH/WHEEZING Atorvastatin Calcium (Lipitor -) 80 mg PO HS [facility] Last Admin: 10/29/17 21:45 Dose: 80 mg Chlorhexidine Gluconate (Hibiclens For Decolonization -) 1 applic TP HS [facility] Last Admin: 10/29/17 21:44 Dose: 1 applic Clopidogrel Bisulfate (Plavix -) 75 mg PO DAILY [facility] Last Admin: 10/29/17 12:50 Dose: 75 mg Heparin Sodium (Porcine) (Heparin -) 1,000 unit IVPUSH PRN PRN PRN Reason: Heparin Heparin Sodium (Porcine) (Heparin -) 5,000 unit IVPUSH PRN PRN PRN Reason: Heparin Propofol (Diprivan -) 1,000,000 mcg in 100 mls @ 1.905 mls/hr IVPB TITR BILL; 5 MCG/KG/MIN PRN Reason: Protocol Last Admin: 10/29/17 21:46 Dose: 35 mcg/kg/min, 13.336 mls/hr Heparin Sodium (Porcine) 25, (000 unit/ Sodium Chloride) 500 mls @ 16 mls/hr IV TITR BILL; 800 UNIT/HR PRN Reason: Protocol Last Admin: 10/30/17 00:35 Dose: Not Given Azithromycin 500 mg/ Dextrose 250 mls @ 250 mls/hr IVPB DAILY [facility] Last Admin: 10/29/17 09:36 Dose: 250 mls/hr CEFTRIAXONE 1 G/50 ML PREMIX (Ceftriaxone 1 Gm-D5w Bag) 50 mls @ 100 mls/hr IVPB DAILY [facility] Last Admin: 10/29/17 09:41 Dose: 100 mls/hr Dopamine HCl/Dextrose (Dopamine 400 Mg/D5w -) 400,000 mcg in 250 mls @ 12.63 mls/hr IVPB TITR BILL; 5 MCG/KG/MIN PRN Reason: Protocol Last Admin: 10/29/17 19:19 Dose: Not Given Fentanyl 500 mcg/ Dextrose 100 mls @ 5 mls/hr IVPB TITR BILL; 25 MCG/HR PRN Reason: Protocol Last Admin: 10/29/17 18:11 Dose: 5 mls/hr Insulin Aspart (Novolog Vial Sliding Scale -) 1 vial SQ Q6HPO [facility] PRN Reason: Protocol Last Admin: 10/30/17 00:35 Dose: 6 unit Mupirocin (Bactroban Ointment (For Decolonization) -) 1 applic NS BID [facility] Stop: 11/01/17 09:59 Last Admin: 10/29/17 21:44 Dose: 1 applic Pregabalin (Lyrica -) 75 mg PO BID [facility] Last Admin: 10/29/17 21:44 Dose: 75 mg Ranitidine HCl (Zantac -) 150 mg PO DAILY [facility] Last Admin: 10/29/17 09:42 Dose: 150 mg General: Yes: intubated, deeply sedated on propofol Cardiovascular: Yes: Regular Rate and Rhythm, S1, S2 Respiratory: Yes:scattered rhonchi, minimal secretions via ETT Gastrointestinal: Yes: WNL, Normal Bowel Sounds, Soft Edema: Yes dependent pitting edema Peripheral Pulses WNL: Yes Integumentary: Yes: WNL Neurological: Yes: Other (sedated on propofol) Labs: Laboratory Results - last 24 hr 10/28/17 10/28/17 10/28/17 05:43 13:05 13:46 WBC RBC Hgb Hct MCV MCH MCHC RDW Plt Count MPV Total Counted Neutrophils % Neutrophils % (Manual) Lymphocytes % Lymphocytes % (Manual) Monocytes % (Manual) Basophils % (Manual) Metamyelocytes Platelet Estimate PTT (Actin FS) Sodium 135 L Potassium 3.2 L Chloride 96 L Carbon Dioxide 30 Anion Gap 9 BUN 32 H Creatinine 1.5 H Creat Clearance w eGFR POC Glucometer [phone] > 400 Random Glucose 362 H* D Calcium 7.1 L Phosphorus Magnesium Total Bilirubin AST ALT Alkaline Phosphatase Creatine Kinase Troponin I Total Protein Albumin 10/28/17 10/28/17 10/29/17 17:00 22:45 05:00 WBC RBC Hgb Hct MCV MCH MCHC RDW Plt Count MPV Total Counted Neutrophils % Neutrophils % (Manual) Lymphocytes % Lymphocytes % (Manual) Monocytes % (Manual) Basophils % (Manual) Metamyelocytes Platelet Estimate PTT (Actin FS) 49.5 H Sodium 138 Potassium 4.3 D Chloride 101 Carbon Dioxide 28 Anion Gap 9 BUN 34 H Creatinine 1.5 H Creat Clearance w eGFR POC Glucometer [phone] Random Glucose 337 H* Calcium 6.8 L* Phosphorus Magnesium Total Bilirubin AST ALT Alkaline Phosphatase Creatine Kinase Troponin I Total Protein Albumin 10/29/17 10/29/17 05:00 05:00 WBC 13.3 H D RBC 3.61 Hgb 10.4 L D Hct 30.9 L MCV 85.5 MCH 28.9 MCHC 33.8 RDW 14.0 Plt Count 124 L MPV 12.7 H Total Counted 100 Neutrophils % No Result Required. Neutrophils % (Manual) 59.0 D Lymphocytes % No Result Required. Lymphocytes % (Manual) 28.0 D Monocytes % (Manual) 10 D Basophils % (Manual) 2.0 Metamyelocytes 1 Platelet Estimate Slt decrease PTT (Actin FS) Sodium 138 Potassium 3.9 Chloride 100 Carbon Dioxide 30 Anion Gap 8 BUN 31 H Creatinine 1.4 H Creat Clearance w eGFR 35.49 POC Glucometer Random Glucose 194 H D Calcium 7.5 L Phosphorus 4.2 Magnesium 2.4 Total Bilirubin 0.9 D AST 64 H ALT 53 Alkaline Phosphatase 428 H D Creatine Kinase 379 H Troponin I 4.34 H* Total Protein 5.6 L Albumin 2.1 L Assessment/Plan Hypoxemic respiratory failure likely in the setting of NSTEMI/heart failure +/- CAP NSTEMI Elevated BNP : heart failure BASIL Mild transaminitis Lactic acidosis, improving Hyperglycemia Low clinical suspicion for Pulmonary Embolism Cont AC Mode of vent, consider high PS upon daily awakening start diuresis as BP allows CVC insertion inotropic support as needed IV Heparin Statin Empiric ABX Glycemic control Strict I&O low clinical suspicion for PE and on AC for valve For transfer to [facility] for cardiac cath Bogdan Menezes ACNP 4423 35min
[2017-10-30 06:17] LABS: BASOPHIL 0.3 % (0-2.0); EOSINOPHIL 2.2 % (0-4.5); MCH 28.5 pg (25.7-33.7); MEAN CELL VOLUME 86.4 fl (80-96); MEAN PLT VOLUME 12.4 fl (7.5-11.1); NEUTROPHILS 63.4 % (42.8-82.8); PLATELET COUNT 122 K/MM3 (134-434); RDW 14.3 % (11.6-15.6); WHITE BLOOD COUNT 12.8 K/mm3 (4.0-10.0)
[2017-10-30] MEDS: PROPOFOL 1,000,000 MCG/100 ML VIAL IVPB SCH ×2 (07:10→07:12)
[2017-10-30] MEDS ORDERED: FUROSEMIDE 40 MG/4 ML INJECTABLE VIAL IVPUSH ONE (08:15)
--- NOTE | 2017-10-30 08:20 | PN ---
Teaching Attending Note Name of Resident: Fransico Aden ATTENDING PHYSICIAN STATEMENT I saw and evaluated the patient. I reviewed the resident's note and discussed the case with the resident. I agree with the resident's findings and plan as documented. SUBJECTIVE: no events over night OBJECTIVE: awake, intubated , looks uncomfortable. tracks CV: RRR distant heart sounds , No JVD . Lungs: rales anteriorly, clear lungs in lower lobes ABd: soft, slightly distended , NT ,NL BS . Ext:1+ edema on b/l Legs. DP is not palpable. warm feet . discolored, blackish areas on tip of big toes with peeling overlying skin . ASSESSMENT AND PLAN: 86 y/o unfortunate lady with h/o CAD, s/p stenting , AVR, IDDM , and other medical problems who presented with SOB and was found to have acute pulm edema in the setting of NSTEMI 1- Acute hypoxic respiratory failure: due to pulm edema and PNA - start lasix again. give 40 IV now - Cont mechanical ventilation , with trial to wean off - cont Abx . Mix in NS instead of D5w. pharmacy called 2- NSTEMI with cardiogenic shock. - cont plavix and Heparin gtt. - cont to hold BB - off dopamine - CAth plan per Card 3- BASIL: pre-renal from CHF. labs pending this am - cont to monitor 4- CAP: with severe sepsis: - Cont azithro and ceftriaxone . day 5 - blood cx Neg to date - Sputum cx with Moraxella Catarrhalis , covered with this regimen 5-PVD: - cont heparin gtt 5-h/o DM : - Cont SSI - mix Abx in NS ICU level of care. d/w ICU staff Critical Care Total Critical Care Time (in minutes): 30 Critical Care Statement: The care of this patient involved high complexity decision making to prevent further life threatening deterioration of the patient 's condition and/or to evaluate & treat vital organ system(s) failure or risk of failure.
[2017-10-30] MEDS ORDERED: QUEtiapine FUMARATE 25 MG TABLET (FP) PO ONE (08:23)
[2017-10-30] MEDS: FENTANYL INJECTION 500 MCG in DEXTROSE 5%-WATER - 90 ML IVPB SCH ×6 (08:30→16:00)
--- NOTE | 2017-10-30 09:22 | EKG ---
Test Reason : Blood Pressure : / mmHG Vent. Rate : 070 BPM Atrial Rate : 070 BPM P-R Int : 138 ms QRS Dur : 102 ms QT Int : 454 ms P-R-T Axes : 058 007 095 degrees QTc Int : 490 ms NORMAL SINUS RHYTHM NONSPECIFIC ST ABNORMALITY ABNORMAL QRS-T ANGLE, CONSIDER PRIMARY T WAVE ABNORMALITY PROLONGED QT ABNORMAL ECG WHEN COMPARED WITH ECG OF 28-OCT-2017 10:22, NONSPECIFIC T WAVE ABNORMALITY HAS REPLACED INVERTED T WAVES IN INFERIOR LEADS NONSPECIFIC T WAVE ABNORMALITY NO LONGER EVIDENT IN ANTERIOR LEADS Confirmed by LORETA VILLEGAS, JOSE ([id number]) on 10/30/2017 9:22:19 AM Referred By: Confirmed By:JOSE KAN MD
[2017-10-30] MEDS: MUPIROCIN 2% TOPICAL OINTMENT FOR DECOLONIZATION NS SCH ×2 (09:26→21:01)
[2017-10-30] MEDS: CLOPIDOGREL BISULFATE 75 MG TABLET (FP) PO SCH (09:27)
[2017-10-30] MEDS: PREGABALIN 75 MG CAPSULE PO SCH ×2 (09:27→21:01)
[2017-10-30] MEDS: RANITIDINE HCL 150 MG TABLET (FP) PO SCH (09:27)
[2017-10-30] MEDS: DOPAMINE 400 MG/D5W - 400,000 MCG/250 ML INFUS.BAG IVPB SCH (09:28)
[2017-10-30 09:29] LABS: ALBUMIN 2.2 g/dl (3.4-5.0); ANION GAP 15 (8-16); BILIRUBIN,TOTAL 0.9 mg/dL (0.2-1.0); CALCIUM 7.3 mg/dL (8.5-10.1); CO2 23 mmol/L (21-32); CREATININE 1.6 mg/dL (0.55-1.02); GLUCOSE,RANDOM 189 mg/dL (74-106); MAGNESIUM 2.8 mg/dL (1.8-2.4); PHOSPHOROUS 4.6 mg/dL (2.5-4.9); SGOT/AST 84 U/L (15-37); SGPT/ALT 61 U/L (12-78); TOT PROT 6.2 g/dl (6.4-8.2)
[2017-10-30 09:30] LABS: ALK PHOS 702 U/L (45-117)
--- NOTE | 2017-10-30 09:43 | PN ---
Physical Exam: SUBJECTIVE: Patient seen and examined by me this AM - Off pressors. Stable overnight - No transfer yet. Will require cardiology f/u - Slight fever overnight - More active today, moving in bed. Sedation was decreased overnight. OBJECTIVE: Vital Signs Intake & Output 10/27/17 10/28/17 10/29/17 10/30/17 23:59 23:59 23:59 23:59 Intake Total 886 2441 568 238 Output Total 2300 1700 600 200 Balance -1414 741 -32 38 Weight 69.4 kg 67.358 kg 67.5 kg 65.969 kg Period Temp Pulse Resp BP Sys/Chatman Pulse Ox Last 24 Hr 98.9 F-100.1 F 60-94 15-20 101-132/38-80 98-98 GENERAL: The patient is sedated, intubated, laying in bed. HEAD: Normal with no signs of trauma. +dolls eyes, +corneal reflex, + gag reflex. EYES: Pinpoint pupils, minimally reactive. Mild scleral icterus ENT: Increased labial edema. NG, ETT in place. Ears normal, nares patent, oropharynx clear without exudates, moist mucous membranes. NECK: Trachea midline, supple. No JVD, no hepatojugular reflex LUNGS: Course breath sounds. Decreased at bases. No wheezes, no accessory muscle use. HEART: 2/6 blowing systolic murmur at LUSB/RUSB. Regular rate and rhythm, S1, S2 without murmur, rub or gallop. ABDOMEN: Soft, nondistended, normoactive bowel sounds, no masses. Upper EXTREMITIES: 2+ pulses, warm, well-perfused, 1+ non-pitting edema. R IV in forearm, L IV in dorsal aspect of hand. Lower extremities: 1+ pitting LE edema. Pressure ulcers noted on distal tip of 1st hallux BL. Still with 1+ DP, 2+ PT pulse BL. Mild BL stasis dermatitis Laboratory Results - last 24 hr CBC, BMP 10/30/17 05:50 10/30/17 05:50 10/29/17 10/29/17 10/29/17 05:00 05:27 17:45 WBC RBC Hgb Hct MCV MCH MCHC RDW Plt Count MPV Neutrophils % Lymphocytes % Monocytes % Eosinophils % Basophils % PTT (Actin FS) Sodium Potassium Chloride Carbon Dioxide Anion Gap BUN Creatinine Creat Clearance w eGFR POC Glucometer [phone] Random Glucose Calcium Phosphorus Magnesium Total Bilirubin AST ALT Alkaline Phosphatase Creatine Kinase Index 0.5 CK-MB (CK-2) 2.27 Troponin I 4.34 H* 3.78 H* Total Protein Albumin 10/29/17 10/29/17 10/30/17 17:45 21:18 05:50 WBC RBC Hgb Hct MCV MCH MCHC RDW Plt Count MPV Neutrophils % Lymphocytes % Monocytes % Eosinophils % Basophils % PTT (Actin FS) 69.8 H D 92.7 H D Sodium Potassium Chloride Carbon Dioxide Anion Gap BUN Creatinine Creat Clearance w eGFR POC Glucometer [phone] Random Glucose Calcium Phosphorus Magnesium Total Bilirubin AST ALT Alkaline Phosphatase Creatine Kinase Index CK-MB (CK-2) Troponin I Total Protein Albumin 10/30/17 10/30/17 05:50 05:50 WBC 12.8 H RBC 3.87 Hgb 11.0 Hct 33.4 MCV 86.4 MCH 28.5 MCHC 33.0 RDW 14.3 Plt Count 122 L MPV 12.4 H Neutrophils % 63.4 Lymphocytes % 25.8 Monocytes % 8.3 Eosinophils % 2.2 D Basophils % 0.3 PTT (Actin FS) Sodium 138 Potassium 3.9 Chloride 101 Carbon Dioxide 23 D Anion Gap 15 BUN 33 H Creatinine 1.6 H Creat Clearance w eGFR 30.42 POC Glucometer Random Glucose 189 H Calcium 7.3 L Phosphorus 4.6 Magnesium 2.8 H Total Bilirubin 0.9 AST 84 H D ALT 61 Alkaline Phosphatase 702 H D Creatine Kinase Index CK-MB (CK-2) Troponin I Total Protein 6.2 L Albumin 2.2 L Active Medications Generic Name Dose Route Start Last Admin Trade Name Freq PRN Reason Stop Dose Admin Acetaminophen 1,000 mg 10/27/17 17:31 10/27/17 17:55 Ofirmev Injection - IVPB 1,000 mg Q6H PRN Administration FEVER OR PAIN Albuterol Sulfate 1 amp 10/28/17 16:04 Ventolin 0.083% Nebulizer Soln - NEB Q4H PRN SHORT OF BREATH/WHEEZING Atorvastatin Calcium 80 mg 10/27/17 22:00 10/29/17 21:45 Lipitor - PO 80 mg HS BILL Administration Chlorhexidine Gluconate 1 applic 10/27/17 22:00 10/29/17 21:44 Hibiclens For Decolonization - TP 1 applic HS BILL Administration Clopidogrel Bisulfate 75 mg 10/27/17 10:00 10/30/17 09:27 Plavix - PO 75 mg DAILY BILL Administration Fentanyl 50 mcg 10/30/17 08:16 10/30/17 08:40 Sublimaze Injection - IVPUSH 10/31/17 08:29 50 mcg Q2H PRN Administration AGITATION Heparin Sodium (Porcine) 1,000 unit 10/27/17 00:02 Heparin - IVPUSH PRN PRN Heparin Heparin Sodium (Porcine) 5,000 unit 10/27/17 00:02 Heparin - IVPUSH PRN PRN Heparin Heparin Sodium (Porcine) 25, 500 mls @ 16 mls/hr 10/27/17 00:15 10/30/17 08: 37 000 unit/ Sodium Chloride IV 700 unit/hr TITR BILL 14 mls/hr Protocol Titration 800 UNIT/HR Fentanyl 500 mcg/ Dextrose 100 mls @ 5 mls/hr 10/29/17 16:15 10/29/17 18:11 IVPB 5 mls/hr TITR BILL Administration Protocol 25 MCG/HR Ceftriaxone Sodium 1 gm/ 50 mls @ 100 mls/hr 10/30/17 10:00 Sodium Chloride IVPB DAILY BILL Insulin Aspart 1 vial 10/29/17 12:00 10/30/17 07:06 Novolog Vial Sliding Scale - SQ 4 unit Q6HPO BILL Administration Protocol Mupirocin 1 applic 10/27/17 10:00 10/30/17 09:26 Bactroban Ointment (For Decolonization) - NS 11/01/17 09:59 1 applic BID BILL Administration Pregabalin 75 mg 10/27/17 10:00 10/30/17 09:27 Lyrica - PO 75 mg BID BILL Administration Ranitidine HCl 150 mg 10/27/17 00:45 10/30/17 09:27 Zantac - PO 150 mg DAILY BILL Administration Microbiology 10/26/17 21:54 Blood - Peripheral Venous Blood Culture - Preliminary NO GROWTH OBTAINED AFTER 72 HOURS, INCUBATION TO CONTINUE FOR 2 DAYS. 10/26/17 21:54 Blood - Peripheral Venous Blood Culture - Preliminary NO GROWTH OBTAINED AFTER 72 HOURS, INCUBATION TO CONTINUE FOR 2 DAYS. 10/27/17 06:30 Sputum - Endotrachea Suction/Ventilator Gram Stain - Final 10/27/17 06:30 Sputum - Endotrachea Suction/Ventilator Sputum Culture - Final Moraxella (Bran.) Catarrhalis 10/26/17 21:53 Urine - Urine Sanches Urine Culture - Final NO GROWTH OBTAINED 10/27/17 06:48 Nasopharyngeal Swab Respiratory Virus (PCR) - Preliminary 10/27/17 06:30 Urine - Urine Sanches Legionella Antigen - Final 10/27/17 06:30 Urine - Urine Sanches Streptococcus pneumoniae Antigen (M - Final 10/27/17 01:15 Nasopharyngeal Swab Influenza Types A,B Antigen (JIMMIE) - Final 10/27/17 01:15 Nasopharyngeal Swab - Final Imaging: CXr 10/26 - 1. Endotracheal tube in place with the tip projecting approximately 2.7 cm above the joshua. 2. Pulmonary vascular congestion with interstitial edema and bilateral pleural effusions. Bilaterally airspace opacities are most likely alveolar edema. Pneumonia cannot be excluded. Please correlate clinically for severe CHF exacerbation. CXR 10/27 - No significant change. ETT in place. CXR 10/28 - No evidence of pneumothorax. Resolving vascular congestive changes. Resolving bilateral pulmonary consolidations. ECHO 10/27 - Poor study. Bioprosthetic aortic valve. Mild MR. LV filling pattern normal for age. Ef 58% EKG 10/27 - Sinus tach. No QTC prolongation. Normal axis. Deep q-waves in III, worse than prior ekg on presentation. TWIs in V5-6 EKG 10/28 - NSR. NAD. Q waves in III improved. No TWIs. Improved since prior Venous duplex LE 10/27 - No evidence of deep venous thrombosis. Arterial duplex 10/27 - Extensive atherosclerotic disease with weak, monophasic flow within the popliteal and posterior tibial arteries bilaterally. Clinical correlation and follow-up recommended. Please see above discussion. CXR 10/29 - No significant changes since prior CXR. ASSESSMENT/PLAN: 86 yo w/ pmh of IDDM, CAD (s/p stents x10, most recently 3 y ago) and AVR (last year) presenting with SOB, found to have severe flash pulmonary edema in setting of NSTEMI. Pt still awaiting transfer to [facility] for C. Stable, off pressors. Will likely be up for transfer Wednesday if beds available. Will check again with cardiology on Wednesday. #Acute Hypoxic Respiratory Failure 2/2 to NSTEMI - Remains intubated, vented. AC Mode. Vent 40/300/20/5. Sedation changed to propofol/fentanyl per ICU team. - Unlikely to be PE, given CKMB elevation. Discussed with local company refrigerated truck driver, Dr. Rowan. Cannot rule-out PE and presents increase risk with cardiac cath if PE present, however BASIL complicates decision-making. Will continue to hold off on CT scan. - Started lasix 40 daily now. Continue to monitor Cr. - Strict Is and Os - Duoneb Q4h prn - Possible extubation today. #NSTEMI - elevated trops, abnormal ekg listed above. Repeat EKG improved since prior on 10/27 - Plan for transfer to [facility], still no beds. Try again on Wednesday. - Continue to hold metoprolol in setting of hypotension. Reconfirm w/ cardiology - Heparin gtt protocol - Continue plavix 75mg daily - Cardiology consulted. Recs appreciated. - Lipitor 80 mg daily - Monitor for hypotension. Maintain MAP of 65>. #Possible CAP - WBC 13.2 today down slightly, Low fever 99.5 overnight - blood, urine neg to date - Sputum + moraxella catarrhalis - Legionella/pneumo urine ag neg - lactate 3.2 -> 2.7 10/27 AM - Day 5 tim betancourt for CAP coverage - Trend fever, WBC #Elevated Alk phos - 298 on admission 10/26-> 702 10/30 - f/u RUQ u/s - Trend LFTs #PVD - arterial dopplers notable for extensive Bl atherosclerotic dz. - Vascular consulted. Recs appreciated #IDDM - Takes lantus 35u qHs at home + SS. AM BG 194 this AM - Continue to monitor glucose. Consider basal insulin - lyrica 75mg BID for diabetic neuropathy - ISS adjusted - BGM q4h - All IV in meds in NS, not D5W #BASIL - Cr 1.4 -> 1.6 today. Uptrending. - Continue to hold IVFs for now in setting of CHF - Trend BUN/Cr - daily bmp's PPX: heparin gtt Zantac for GI FEN: Fluids: none Electrolytes:Daily BMPs, trend Cr Nutrition: none Dispo: ICU for further management. Transfer when stable/bed available at [facility], likely wednesday if available. Plan discussed with attending, Dr. Luis Aden, PGY1 Visit type - Emergency Visit Emergency Visit: Yes ED Registration Date: 10/27/17 Care time: The patient presented to the Emergency Department on the above date and was hospitalized for further evaluation of their emergent condition. - New Patient This patient is new to me today: No - Critical Care Critical Care patient: Yes Total Critical Care Time (in minutes): 35 Critical Care Statement: The care of this patient involved high complexity decision making to prevent further life threatening deterioration of the patient 's condition and/or to evaluate & treat vital organ system(s) failure or risk of failure.
[2017-10-30] MEDS ORDERED: AZITHROMYCIN IVPB 500 MG in SODIUM CHLORIDE 250 ML IVPB SCH (10:00)
--- NOTE | 2017-10-30 10:07 | PN ---
Progress Note, Physician History of Present Illness: The patient is an 86 year old female, with a significant past medical history of cardiac stents x 10, aortic valve replacement, IDDM, who presents to the emergency department brought in by ems intubated after complaint of difficulty breathing this evening. As per ems, the patient was read to be 90% on capnography which dropped to 50% after being bagged in the field. As per ems, the patient was found tachypneic in the field, in respiratory distress, and was intubated (ETT 7.0). As per the patients family at bedside, the patient was feeling well yesterday morning, performing activities of daily life without symptoms. As per patients family, the patient had a nonproductive cough for the past few days, however, the patient reportedly felt better this morning. As per the family, the patient received her flu vaccination 3 weeks ago. Family denies recent sick contacts. At presentation was being bagged by ems. Allergies: aspirin Past surgical history: cardiac stent x 10 Social history: denies toxic habits 86 year old F with pmh of IDDM, Cardiac Stent placement x10 (last placed 3 years prior), and aortic valve replacement (last year) presenting with shortness of breath. History obtained by daughter. Patient arrived from [place] via car last Wednesday. Patient was in usual state of health 2 days prior to admission. Patient performs ADLs and walks at baseline. Over the last 2 days patient had worsening SOB, decreased Urine output, weakness, and nonproductive cough with saliva. This evening patient's shortness of breath worsened and EMS was called. Patient was intubated in the field 2/2 to respiratory distress and was satting in the 50%. Daughter endorses chronic pedal edema, orthopnea, and dyspnea on exertion which has been worsening over the last 2 days as well. Per daughter, patient has not had increased salt intake. Patient denies fever, chills, nausea, vomiting, diarrhea, chest pain, palpitations, abdominal pain. ER course was notable for: (1) VS- WNL, CBC- wbc 20.1, ABG- 7.35/50.6/101/26.9 (2) Glucose- 389, Lactic Acid-6.0, Troponin of 6.75, CK-MB-26.816, BNP-20,000 (3) UA- negative (4) EKG- Sinus tachycardia. Q waves in inferior and lateral leads (5) CXR-pulmonary vascular congestion, pneumonia cannot be excluded - Current Medication List Current Medications: Active Medications Acetaminophen (Ofirmev Injection -) 1,000 mg IVPB Q6H PRN PRN Reason: FEVER OR PAIN Last Admin: 10/27/17 17:55 Dose: 1,000 mg Albuterol Sulfate (Ventolin 0.083% Nebulizer Soln -) 1 amp NEB Q4H PRN PRN Reason: SHORT OF BREATH/WHEEZING Atorvastatin Calcium (Lipitor -) 80 mg PO HS BILL Last Admin: 10/29/17 21:45 Dose: 80 mg Chlorhexidine Gluconate (Hibiclens For Decolonization -) 1 applic TP HS BILL Last Admin: 10/29/17 21:44 Dose: 1 applic Clopidogrel Bisulfate (Plavix -) 75 mg PO DAILY BILL Last Admin: 10/30/17 09:27 Dose: 75 mg Fentanyl (Sublimaze Injection -) 50 mcg IVPUSH Q2H PRN PRN Reason: AGITATION Stop: 10/31/17 08:29 Last Admin: 10/30/17 08:40 Dose: 50 mcg Heparin Sodium (Porcine) (Heparin -) 1,000 unit IVPUSH PRN PRN PRN Reason: Heparin Heparin Sodium (Porcine) (Heparin -) 5,000 unit IVPUSH PRN PRN PRN Reason: Heparin Heparin Sodium (Porcine) 25, (000 unit/ Sodium Chloride) 500 mls @ 16 mls/hr IV TITR BILL; 800 UNIT/HR PRN Reason: Protocol Last Titration: 10/30/17 08:37 Dose: 700 unit/hr, 14 mls/hr Fentanyl 500 mcg/ Dextrose 100 mls @ 5 mls/hr IVPB TITR BILL; 25 MCG/HR PRN Reason: Protocol Last Admin: 10/29/17 18:11 Dose: 5 mls/hr Ceftriaxone Sodium 1 gm/ (Sodium Chloride) 50 mls @ 100 mls/hr IVPB DAILY BILL Insulin Aspart (Novolog Vial Sliding Scale -) 1 vial SQ Q6HPO BILL PRN Reason: Protocol Last Admin: 10/30/17 07:06 Dose: 4 unit Mupirocin (Bactroban Ointment (For Decolonization) -) 1 applic NS BID BILL Stop: 11/01/17 09:59 Last Admin: 10/30/17 09:26 Dose: 1 applic Pregabalin (Lyrica -) 75 mg PO BID [facility] Last Admin: 10/30/17 09:27 Dose: 75 mg Ranitidine HCl (Zantac -) 150 mg PO DAILY [facility] Last Admin: 10/30/17 09:27 Dose: 150 mg - Objective Vital Signs: Vital Signs Temperature 100.1 F H 10/30/17 08:00 Pulse Rate 94 H 10/30/17 08:00 Respiratory Rate 15 10/30/17 08:00 Blood Pressure 112/80 10/30/17 08:00 O2 Sat by Pulse Oximetry (%) 98 10/29/17 20:59 Eyes: Yes: WNL, Conjunctiva Clear, EOM Intact HENT: Yes: WNL, Atraumatic, Normocephalic Neck: Yes: WNL, Supple, Trachea Midline Cardiovascular: Yes: WNL, Regular Rate and Rhythm Respiratory: Yes: WNL, Intubated, Mechanically Ventilated Gastrointestinal: Yes: WNL, Normal Bowel Sounds Genitourinary: Yes: WNL Musculoskeletal: Yes: WNL Extremities: Yes: WNL Edema: No Integumentary: Yes: WNL ...Motor Strength: WNL Psychiatric: Yes: WNL Labs: CBC, BMP 10/30/17 05:50 10/30/17 05:50 INR, PTT INR 1.13 (0.82-1.09) 10/26/17 21:53 Laboratory Tests 10/26/17 10/26/17 10/26/17 21:53 21:53 21:53 WBC RBC Hgb Hct MCV MCH MCHC RDW Plt Count MPV Total Counted Neutrophils % Neutrophils % (Manual) Band Neutrophils % Lymphocytes % Lymphocytes % (Manual) Monocytes % Monocytes % (Manual) Eosinophils % Basophils % Basophils % (Manual) Metamyelocytes Platelet Estimate Platelet Comment PT with INR 12.80 H INR 1.13 PTT (Actin FS) Puncture Site ABG pH ABG pCO2 at Pt Temp ABG pO2 at Pt Temp ABG HCO3 ABG O2 Sat (Measured) ABG O2 Content ABG Base Excess Olman Test Carboxyhemoglobin Methemoglobin O2 Delivery Device Oxygen Flow Rate Vent Mode Vent Rate Mechanical Rate PEEP Pressure Support Vent Sodium Potassium Chloride Carbon Dioxide Anion Gap BUN Creatinine Creat Clearance w eGFR POC Glucometer Random Glucose Hemoglobin A1c % Lactic Acid Calcium Phosphorus Magnesium Total Bilirubin AST ALT Alkaline Phosphatase Creatine Kinase 413 H Creatine Kinase Index 6.4 H* CK-MB (CK-2) 26.816 H Troponin I 6.75 H* B-Natriuretic Peptide 97286.60 H Total Protein Albumin Triglycerides Cholesterol Total LDL Cholesterol HDL Cholesterol Urine Color Lt. yellow Urine Appearance Clear Urine pH 5.0 Ur Specific [place] 1.020 Urine Protein 1+ H Urine Glucose (UA) Negative Urine Ketones Negative Urine Blood Negative Urine Nitrite Negative Urine Bilirubin Negative Urine Urobilinogen 0.2 Ur Leukocyte Esterase Trace H Urine WBC (Auto) 7 Urine RBC (Auto) 1 Ur Epithelial Cells Rare Urine Bacteria Moderate Hyaline Casts 9 Urine Mucus Rare Acetone, Qual Negative L Hepatitis A IgM Ab Hep Bs Antigen Hep B Core IgM Ab Hepatitis C Ab (EIA) Blood Type Antibody Screen 10/26/17 10/26/17 10/26/17 21:53 21:53 22:00 WBC 20.1 H RBC 4.39 Hgb 12.6 Hct 39.0 MCV 89.0 MCH 28.7 MCHC 32.2 RDW 13.9 Plt Count 125 L MPV 12.6 H Total Counted Neutrophils % 74.5 Neutrophils % (Manual) Band Neutrophils % Lymphocytes % 17.4 Lymphocytes % (Manual) Monocytes % 7.3 Monocytes % (Manual) Eosinophils % 0.4 Basophils % 0.4 Basophils % (Manual) Metamyelocytes Platelet Estimate Platelet Comment No clumping noted PT with INR INR PTT (Actin FS) Puncture Site ABG pH ABG pCO2 at Pt Temp ABG pO2 at Pt Temp ABG HCO3 ABG O2 Sat (Measured) ABG O2 Content ABG Base Excess Olman Test Carboxyhemoglobin Methemoglobin O2 Delivery Device Oxygen Flow Rate Vent Mode Vent Rate Mechanical Rate PEEP Pressure Support Vent Sodium Potassium Chloride Carbon Dioxide Anion Gap BUN Creatinine Creat Clearance w eGFR POC Glucometer Random Glucose Hemoglobin A1c % Lactic Acid 6.0 H* Calcium Phosphorus Magnesium Total Bilirubin AST ALT Alkaline Phosphatase Creatine Kinase Creatine Kinase Index CK-MB (CK-2) Troponin I B-Natriuretic Peptide Total Protein Albumin Triglycerides Cholesterol Total LDL Cholesterol HDL Cholesterol Urine Color Urine Appearance Urine pH Ur Specific [place] Urine Protein Urine Glucose (UA) Urine Ketones Urine Blood Urine Nitrite Urine Bilirubin Urine Urobilinogen Ur Leukocyte Esterase Urine WBC (Auto) Urine RBC (Auto) Ur Epithelial Cells Urine Bacteria Hyaline Casts Urine Mucus Acetone, Qual Hepatitis A IgM Ab Hep Bs Antigen Hep B Core IgM Ab Hepatitis C Ab (EIA) Blood Type A POSITIVE Antibody Screen Negative 10/26/17 10/26/17 10/27/17 22:00 23:25 01:00 WBC RBC Hgb Hct MCV MCH MCHC RDW Plt Count MPV Total Counted Neutrophils % Neutrophils % (Manual) Band Neutrophils % Lymphocytes % Lymphocytes % (Manual) Monocytes % Monocytes % (Manual) Eosinophils % Basophils % Basophils % (Manual) Metamyelocytes Platelet Estimate Platelet Comment PT with INR INR PTT (Actin FS) Puncture Site Left radial ABG pH 7.35 ABG pCO2 at Pt Temp 50.6 H ABG pO2 at Pt Temp 101.0 H ABG HCO3 26.9 H ABG O2 Sat (Measured) 97.7 ABG O2 Content 17.8 ABG Base Excess 1.0 Olman Test Positive Carboxyhemoglobin 1.3 Methemoglobin 0.7 O2 Delivery Device Mech vent Oxygen Flow Rate 100 Vent Mode A/c Vent Rate 14 Mechanical Rate Yes PEEP 5.0 Pressure Support Vent 450 Sodium 140 Potassium 4.4 Chloride 100 Carbon Dioxide 27 Anion Gap 13 BUN 32 H Creatinine 1.9 H Creat Clearance w eGFR 24.95 POC Glucometer Random Glucose 368 H* Hemoglobin A1c % Lactic Acid 3.2 H* Calcium 8.8 Phosphorus Magnesium Total Bilirubin 1.3 H AST 190 H ALT 105 H Alkaline Phosphatase 298 H Creatine Kinase Creatine Kinase Index CK-MB (CK-2) Troponin I B-Natriuretic Peptide Total Protein 7.3 Albumin 3.4 Triglycerides Cholesterol Total LDL Cholesterol HDL Cholesterol Urine Color Urine Appearance Urine pH Ur Specific [place] Urine Protein Urine Glucose (UA) Urine Ketones Urine Blood Urine Nitrite Urine Bilirubin Urine Urobilinogen Ur Leukocyte Esterase Urine WBC (Auto) Urine RBC (Auto) Ur Epithelial Cells Urine Bacteria Hyaline Casts Urine Mucus Acetone, Qual Hepatitis A IgM Ab Hep Bs Antigen Hep B Core IgM Ab Hepatitis C Ab (EIA) Blood Type Antibody Screen 10/27/17 10/27/17 10/27/17 06:00 06:00 06:00 WBC 13.9 H D RBC 3.98 Hgb 11.5 Hct 34.7 MCV 87.1 MCH 28.9 MCHC 33.1 RDW 14.0 Plt Count 96 L D MPV 12.6 H Total Counted 100 Neutrophils % No Result Required. Neutrophils % (Manual) 74.0 Band Neutrophils % 2.0 Lymphocytes % No Result Required. Lymphocytes % (Manual) 20.0 Monocytes % Monocytes % (Manual) 2 L Eosinophils % Basophils % Basophils % (Manual) 1.0 Metamyelocytes 1 Platelet Estimate Decreased Platelet Comment Mod large plt seen PT with INR INR PTT (Actin FS) Puncture Site ABG pH ABG pCO2 at Pt Temp ABG pO2 at Pt Temp ABG HCO3 ABG O2 Sat (Measured) ABG O2 Content ABG Base Excess Olman Test Carboxyhemoglobin Methemoglobin O2 Delivery Device Oxygen Flow Rate Vent Mode Vent Rate Mechanical Rate PEEP Pressure Support Vent Sodium 137 Potassium 4.3 Chloride 98 Carbon Dioxide 31 Anion Gap 8 BUN 35 H Creatinine 1.7 H Creat Clearance w eGFR 28.36 POC Glucometer Random Glucose 283 H D Hemoglobin A1c % Lactic Acid Calcium 7.8 L Phosphorus 3.0 Magnesium 2.1 Total Bilirubin 1.0 D AST 119 H D ALT 86 H Alkaline Phosphatase 254 H Creatine Kinase 362 H Creatine Kinase Index 3.3 CK-MB (CK-2) 12.198 H Troponin I 11.24 H* B-Natriuretic Peptide Total Protein 5.9 L Albumin 2.6 L D Triglycerides Cholesterol Total LDL Cholesterol HDL Cholesterol Urine Color Urine Appearance Urine pH Ur Specific [place] Urine Protein Urine Glucose (UA) Urine Ketones Urine Blood Urine Nitrite Urine Bilirubin Urine Urobilinogen Ur Leukocyte Esterase Urine WBC (Auto) Urine RBC (Auto) Ur Epithelial Cells Urine Bacteria Hyaline Casts Urine Mucus Acetone, Qual Hepatitis A IgM Ab Hep Bs Antigen Hep B Core IgM Ab Hepatitis C Ab (EIA) Blood Type Antibody Screen 10/27/17 10/27/17 10/27/17 06:00 06:06 06:12 WBC RBC Hgb Hct MCV MCH MCHC RDW Plt Count MPV Total Counted Neutrophils % Neutrophils % (Manual) Band Neutrophils % Lymphocytes % Lymphocytes % (Manual) Monocytes % Monocytes % (Manual) Eosinophils % Basophils % Basophils % (Manual) Metamyelocytes Platelet Estimate Platelet Comment PT with INR INR PTT (Actin FS) Puncture Site Left radial ABG pH 7.43 ABG pCO2 at Pt Temp 43.4 ABG pO2 at Pt Temp 103.0 H ABG HCO3 28.3 H ABG O2 Sat (Measured) 98.3 ABG O2 Content 15.7 ABG Base Excess 4.0 H Olman Test Positive Carboxyhemoglobin Methemoglobin O2 Delivery Device Mech vent Oxygen Flow Rate 70% Vent Mode A/c Vent Rate 20 Mechanical Rate Yes PEEP 5.0 Pressure Support Vent 300 Sodium Potassium Chloride Carbon Dioxide Anion Gap BUN Creatinine Creat Clearance w eGFR POC Glucometer 356.97184 Random Glucose Hemoglobin A1c % 10.2 H Lactic Acid Calcium Phosphorus Magnesium Total Bilirubin AST ALT Alkaline Phosphatase Creatine Kinase Creatine Kinase Index CK-MB (CK-2) Troponin I B-Natriuretic Peptide Total Protein Albumin Triglycerides Cholesterol Total LDL Cholesterol HDL Cholesterol Urine Color Urine Appearance Urine pH Ur Specific [place] Urine Protein Urine Glucose (UA) Urine Ketones Urine Blood Urine Nitrite Urine Bilirubin Urine Urobilinogen Ur Leukocyte Esterase Urine WBC (Auto) Urine RBC (Auto) Ur Epithelial Cells Urine Bacteria Hyaline Casts Urine Mucus Acetone, Qual Hepatitis A IgM Ab Hep Bs Antigen Hep B Core IgM Ab Hepatitis C Ab (EIA) Blood Type Antibody Screen 10/27/17 10/27/17 10/27/17 06:36 07:45 07:45 WBC RBC Hgb Hct MCV MCH MCHC RDW Plt Count MPV Total Counted Neutrophils % Neutrophils % (Manual) Band Neutrophils % Lymphocytes % Lymphocytes % (Manual) Monocytes % Monocytes % (Manual) Eosinophils % Basophils % Basophils % (Manual) Metamyelocytes Platelet Estimate Platelet Comment PT with INR INR PTT (Actin FS) Puncture Site ABG pH ABG pCO2 at Pt Temp ABG pO2 at Pt Temp ABG HCO3 ABG O2 Sat (Measured) ABG O2 Content ABG Base Excess Olman Test Carboxyhemoglobin Methemoglobin O2 Delivery Device Oxygen Flow Rate Vent Mode Vent Rate Mechanical Rate PEEP Pressure Support Vent Sodium Potassium Chloride Carbon Dioxide Anion Gap BUN Creatinine Creat Clearance w eGFR POC Glucometer [phone] Random Glucose Hemoglobin A1c % Lactic Acid 2.7 H* Calcium Phosphorus Magnesium Total Bilirubin AST ALT Alkaline Phosphatase Creatine Kinase Creatine Kinase Index CK-MB (CK-2) Troponin I B-Natriuretic Peptide Total Protein Albumin Triglycerides 461 H Cholesterol 94 Total LDL Cholesterol 40 HDL Cholesterol 29 L Urine Color Urine Appearance Urine pH Ur Specific [place] Urine Protein Urine Glucose (UA) Urine Ketones Urine Blood Urine Nitrite Urine Bilirubin Urine Urobilinogen Ur Leukocyte Esterase Urine WBC (Auto) Urine RBC (Auto) Ur Epithelial Cells Urine Bacteria Hyaline Casts Urine Mucus Acetone, Qual Hepatitis A IgM Ab Hep Bs Antigen Hep B Core IgM Ab Hepatitis C Ab (EIA) Blood Type Antibody Screen 10/27/17 10/27/17 10/27/17 07:45 09:50 10:42 WBC RBC Hgb Hct MCV MCH MCHC RDW Plt Count MPV Total Counted Neutrophils % Neutrophils % (Manual) Band Neutrophils % Lymphocytes % Lymphocytes % (Manual) Monocytes % Monocytes % (Manual) Eosinophils % Basophils % Basophils % (Manual) Metamyelocytes Platelet Estimate Platelet Comment PT with INR INR PTT (Actin FS) Puncture Site Left radial ABG pH 7.46 H ABG pCO2 at Pt Temp 41.9 ABG pO2 at Pt Temp 79.2 D ABG HCO3 29.6 H ABG O2 Sat (Measured) 97.1 ABG O2 Content 15.1 ABG Base Excess 5.7 H Olman Test Positive Carboxyhemoglobin Methemoglobin O2 Delivery Device Mech vent Oxygen Flow Rate 50 Vent Mode A/c Vent Rate 20 Mechanical Rate Esprit PEEP 5.0 Pressure Support Vent 300 tidal volume Sodium Potassium Chloride Carbon Dioxide Anion Gap BUN Creatinine Creat Clearance w eGFR POC Glucometer Random Glucose Hemoglobin A1c % Lactic Acid Calcium Phosphorus Magnesium Total Bilirubin AST ALT Alkaline Phosphatase Creatine Kinase 347 H Creatine Kinase Index 3.0 CK-MB (CK-2) 10.460 H Troponin I 12.30 H* B-Natriuretic Peptide Total Protein Albumin Triglycerides Cholesterol Total LDL Cholesterol HDL Cholesterol Urine Color Urine Appearance Urine pH Ur Specific [place] Urine Protein Urine Glucose (UA) Urine Ketones Urine Blood Urine Nitrite Urine Bilirubin Urine Urobilinogen Ur Leukocyte Esterase Urine WBC (Auto) Urine RBC (Auto) Ur Epithelial Cells Urine Bacteria Hyaline Casts Urine Mucus Acetone, Qual Hepatitis A IgM Ab Negative Hep Bs Antigen Negative Hep B Core IgM Ab Negative Hepatitis C Ab (EIA) 0.1 Blood Type Antibody Screen 10/27/17 10/27/17 10/27/17 11:27 13:46 13:46 WBC RBC Hgb Hct MCV MCH MCHC RDW Plt Count MPV Total Counted Neutrophils % Neutrophils % (Manual) Band Neutrophils % Lymphocytes % Lymphocytes % (Manual) Monocytes % Monocytes % (Manual) Eosinophils % Basophils % Basophils % (Manual) Metamyelocytes Platelet Estimate Platelet Comment PT with INR INR PTT (Actin FS) 61.9 H Puncture Site ABG pH ABG pCO2 at Pt Temp ABG pO2 at Pt Temp ABG HCO3 ABG O2 Sat (Measured) ABG O2 Content ABG Base Excess Olman Test Carboxyhemoglobin Methemoglobin O2 Delivery Device Oxygen Flow Rate Vent Mode Vent Rate Mechanical Rate PEEP Pressure Support Vent Sodium Potassium Chloride Carbon Dioxide Anion Gap BUN Creatinine Creat Clearance w eGFR POC Glucometer [phone] Random Glucose Hemoglobin A1c % Lactic Acid Calcium Phosphorus Magnesium Total Bilirubin AST ALT Alkaline Phosphatase Creatine Kinase 352 H Creatine Kinase Index 2.8 CK-MB (CK-2) 10.09 H Troponin I 11.14 H* B-Natriuretic Peptide Total Protein Albumin Triglycerides Cholesterol Total LDL Cholesterol HDL Cholesterol Urine Color Urine Appearance Urine pH Ur Specific [place] Urine Protein Urine Glucose (UA) Urine Ketones Urine Blood Urine Nitrite Urine Bilirubin Urine Urobilinogen Ur Leukocyte Esterase Urine WBC (Auto) Urine RBC (Auto) Ur Epithelial Cells Urine Bacteria Hyaline Casts Urine Mucus Acetone, Qual Hepatitis A IgM Ab Hep Bs Antigen Hep B Core IgM Ab Hepatitis C Ab (EIA) Blood Type Antibody Screen 10/27/17 10/27/17 10/27/17 13:46 16:46 21:59 WBC RBC Hgb Hct MCV MCH MCHC RDW Plt Count MPV Total Counted Neutrophils % Neutrophils % (Manual) Band Neutrophils % Lymphocytes % Lymphocytes % (Manual) Monocytes % Monocytes % (Manual) Eosinophils % Basophils % Basophils % (Manual) Metamyelocytes Platelet Estimate Platelet Comment PT with INR INR PTT (Actin FS) Puncture Site ABG pH ABG pCO2 at Pt Temp ABG pO2 at Pt Temp ABG HCO3 ABG O2 Sat (Measured) ABG O2 Content ABG Base Excess Olman Test Carboxyhemoglobin Methemoglobin O2 Delivery Device Oxygen Flow Rate Vent Mode Vent Rate Mechanical Rate PEEP Pressure Support Vent Sodium Potassium Chloride Carbon Dioxide Anion Gap BUN Creatinine Creat Clearance w eGFR POC Glucometer [phone] Random Glucose Hemoglobin A1c % Lactic Acid Calcium Phosphorus Magnesium Total Bilirubin AST ALT Alkaline Phosphatase Creatine Kinase Creatine Kinase Index CK-MB (CK-2) Troponin I Cancelled B-Natriuretic Peptide Total Protein Albumin Triglycerides Cholesterol Total LDL Cholesterol HDL Cholesterol Urine Color Urine Appearance Urine pH Ur Specific [place] Urine Protein Urine Glucose (UA) Urine Ketones Urine Blood Urine Nitrite Urine Bilirubin Urine Urobilinogen Ur Leukocyte Esterase Urine WBC (Auto) Urine RBC (Auto) Ur Epithelial Cells Urine Bacteria Hyaline Casts Urine Mucus Acetone, Qual Hepatitis A IgM Ab Hep Bs Antigen Hep B Core IgM Ab Hepatitis C Ab (EIA) Blood Type Antibody Screen 10/28/17 10/28/17 10/28/17 01:00 05:00 05:00 WBC 19.1 H D RBC 4.07 Hgb 11.7 Hct 35.5 MCV 87.1 MCH 28.7 MCHC 33.0 RDW 13.7 Plt Count 111 L MPV 12.9 H Total Counted Neutrophils % 60.7 Neutrophils % (Manual) Band Neutrophils % Lymphocytes % 29.2 D Lymphocytes % (Manual) Monocytes % 9.1 Monocytes % (Manual) Eosinophils % 0.6 Basophils % 0.4 Basophils % (Manual) Metamyelocytes Platelet Estimate Platelet Comment PT with INR INR PTT (Actin FS) 82.7 H D Puncture Site ABG pH ABG pCO2 at Pt Temp ABG pO2 at Pt Temp ABG HCO3 ABG O2 Sat (Measured) ABG O2 Content ABG Base Excess Olman Test Carboxyhemoglobin Methemoglobin O2 Delivery Device Oxygen Flow Rate Vent Mode Vent Rate Mechanical Rate PEEP Pressure Support Vent Sodium 138 Potassium 3.1 L D Chloride 98 Carbon Dioxide 29 Anion Gap 11 BUN 31 H Creatinine 1.5 H Creat Clearance w eGFR 32.77 POC Glucometer Random Glucose 234 H Hemoglobin A1c % Lactic Acid Calcium 7.7 L Phosphorus 3.5 Magnesium 2.2 Total Bilirubin 1.3 H D AST 77 H D ALT 63 D Alkaline Phosphatase 305 H D Creatine Kinase Creatine Kinase Index CK-MB (CK-2) Troponin I 7.39 H* B-Natriuretic Peptide Total Protein 6.2 L Albumin 2.6 L Triglycerides Cholesterol Total LDL Cholesterol HDL Cholesterol Urine Color Urine Appearance Urine pH Ur Specific [place] Urine Protein Urine Glucose (UA) Urine Ketones Urine Blood Urine Nitrite Urine Bilirubin Urine Urobilinogen Ur Leukocyte Esterase Urine WBC (Auto) Urine RBC (Auto) Ur Epithelial Cells Urine Bacteria Hyaline Casts Urine Mucus Acetone, Qual Hepatitis A IgM Ab Hep Bs Antigen Hep B Core IgM Ab Hepatitis C Ab (EIA) Blood Type Antibody Screen 10/28/17 10/28/17 10/28/17 05:00 05:10 05:43 WBC RBC Hgb Hct MCV MCH MCHC RDW Plt Count MPV Total Counted Neutrophils % Neutrophils % (Manual) Band Neutrophils % Lymphocytes % Lymphocytes % (Manual) Monocytes % Monocytes % (Manual) Eosinophils % Basophils % Basophils % (Manual) Metamyelocytes Platelet Estimate Platelet Comment PT with INR INR PTT (Actin FS) Puncture Site ABG pH ABG pCO2 at Pt Temp ABG pO2 at Pt Temp ABG HCO3 ABG O2 Sat (Measured) ABG O2 Content ABG Base Excess Olman Test Carboxyhemoglobin Methemoglobin O2 Delivery Device Oxygen Flow Rate Vent Mode Vent Rate Mechanical Rate PEEP Pressure Support Vent Sodium Potassium Chloride Carbon Dioxide Anion Gap BUN Creatinine Creat Clearance w eGFR POC Glucometer [phone] Random Glucose Hemoglobin A1c % Lactic Acid 2.9 H* Calcium Phosphorus Magnesium Total Bilirubin AST ALT Alkaline Phosphatase Creatine Kinase Creatine Kinase Index CK-MB (CK-2) Troponin I Cancelled B-Natriuretic Peptide Total Protein Albumin Triglycerides Cholesterol Total LDL Cholesterol HDL Cholesterol Urine Color Urine Appearance Urine pH Ur Specific [place] Urine Protein Urine Glucose (UA) Urine Ketones Urine Blood Urine Nitrite Urine Bilirubin Urine Urobilinogen Ur Leukocyte Esterase Urine WBC (Auto) Urine RBC (Auto) Ur Epithelial Cells Urine Bacteria Hyaline Casts Urine Mucus Acetone, Qual Hepatitis A IgM Ab Hep Bs Antigen Hep B Core IgM Ab Hepatitis C Ab (EIA) Blood Type Antibody Screen 10/28/17 10/28/17 10/28/17 08:52 13:05 13:46 WBC RBC Hgb Hct MCV MCH MCHC RDW Plt Count MPV Total Counted Neutrophils % Neutrophils % (Manual) Band Neutrophils % Lymphocytes % Lymphocytes % (Manual) Monocytes % Monocytes % (Manual) Eosinophils % Basophils % Basophils % (Manual) Metamyelocytes Platelet Estimate Platelet Comment PT with INR INR PTT (Actin FS) 57.0 H D Puncture Site ABG pH ABG pCO2 at Pt Temp ABG pO2 at Pt Temp ABG HCO3 ABG O2 Sat (Measured) ABG O2 Content ABG Base Excess Olman Test Carboxyhemoglobin Methemoglobin O2 Delivery Device Oxygen Flow Rate Vent Mode Vent Rate Mechanical Rate PEEP Pressure Support Vent Sodium 135 L Potassium 3.2 L Chloride 96 L Carbon Dioxide 30 Anion Gap 9 BUN 32 H Creatinine 1.5 H Creat Clearance w eGFR POC Glucometer > 400 Random Glucose 362 H* D Hemoglobin A1c % Lactic Acid Calcium 7.1 L Phosphorus Magnesium Total Bilirubin AST ALT Alkaline Phosphatase Creatine Kinase Creatine Kinase Index CK-MB (CK-2) Troponin I B-Natriuretic Peptide Total Protein Albumin Triglycerides Cholesterol Total LDL Cholesterol HDL Cholesterol Urine Color Urine Appearance Urine pH Ur Specific [place] Urine Protein Urine Glucose (UA) Urine Ketones Urine Blood Urine Nitrite Urine Bilirubin Urine Urobilinogen Ur Leukocyte Esterase Urine WBC (Auto) Urine RBC (Auto) Ur Epithelial Cells Urine Bacteria Hyaline Casts Urine Mucus Acetone, Qual Hepatitis A IgM Ab Hep Bs Antigen Hep B Core IgM Ab Hepatitis C Ab (EIA) Blood Type Antibody Screen 10/28/17 10/28/17 10/29/17 17:00 22:45 05:00 WBC RBC Hgb Hct MCV MCH MCHC RDW Plt Count MPV Total Counted Neutrophils % Neutrophils % (Manual) Band Neutrophils % Lymphocytes % Lymphocytes % (Manual) Monocytes % Monocytes % (Manual) Eosinophils % Basophils % Basophils % (Manual) Metamyelocytes Platelet Estimate Platelet Comment PT with INR INR PTT (Actin FS) 49.5 H Puncture Site ABG pH ABG pCO2 at Pt Temp ABG pO2 at Pt Temp ABG HCO3 ABG O2 Sat (Measured) ABG O2 Content ABG Base Excess Olman Test Carboxyhemoglobin Methemoglobin O2 Delivery Device Oxygen Flow Rate Vent Mode Vent Rate Mechanical Rate PEEP Pressure Support Vent Sodium 138 Potassium 4.3 D Chloride 101 Carbon Dioxide 28 Anion Gap 9 BUN 34 H Creatinine 1.5 H Creat Clearance w eGFR POC Glucometer [phone] Random Glucose 337 H* Hemoglobin A1c % Lactic Acid Calcium 6.8 L* Phosphorus Magnesium Total Bilirubin AST ALT Alkaline Phosphatase Creatine Kinase Creatine Kinase Index CK-MB (CK-2) Troponin I B-Natriuretic Peptide Total Protein Albumin Triglycerides Cholesterol Total LDL Cholesterol HDL Cholesterol Urine Color Urine Appearance Urine pH Ur Specific [place] Urine Protein Urine Glucose (UA) Urine Ketones Urine Blood Urine Nitrite Urine Bilirubin Urine Urobilinogen Ur Leukocyte Esterase Urine WBC (Auto) Urine RBC (Auto) Ur Epithelial Cells Urine Bacteria Hyaline Casts Urine Mucus Acetone, Qual Hepatitis A IgM Ab Hep Bs Antigen Hep B Core IgM Ab Hepatitis C Ab (EIA) Blood Type Antibody Screen 10/29/17 10/29/17 10/29/17 05:00 05:00 05:27 WBC 13.3 H D RBC 3.61 Hgb 10.4 L D Hct 30.9 L MCV 85.5 MCH 28.9 MCHC 33.8 RDW 14.0 Plt Count 124 L MPV 12.7 H Total Counted 100 Neutrophils % No Result Required. Neutrophils % (Manual) 59.0 D Band Neutrophils % Lymphocytes % No Result Required. Lymphocytes % (Manual) 28.0 D Monocytes % Monocytes % (Manual) 10 D Eosinophils % Basophils % Basophils % (Manual) 2.0 Metamyelocytes 1 Platelet Estimate Slt decrease Platelet Comment PT with INR INR PTT (Actin FS) Puncture Site ABG pH ABG pCO2 at Pt Temp ABG pO2 at Pt Temp ABG HCO3 ABG O2 Sat (Measured) ABG O2 Content ABG Base Excess Olman Test Carboxyhemoglobin Methemoglobin O2 Delivery Device Oxygen Flow Rate Vent Mode Vent Rate Mechanical Rate PEEP Pressure Support Vent Sodium 138 Potassium 3.9 Chloride 100 Carbon Dioxide 30 Anion Gap 8 BUN 31 H Creatinine 1.4 H Creat Clearance w eGFR 35.49 POC Glucometer [phone] Random Glucose 194 H D Hemoglobin A1c % Lactic Acid Calcium 7.5 L Phosphorus 4.2 Magnesium 2.4 Total Bilirubin 0.9 D AST 64 H ALT 53 Alkaline Phosphatase 428 H D Creatine Kinase 379 H Creatine Kinase Index 0.5 CK-MB (CK-2) 2.27 Troponin I 4.34 H* B-Natriuretic Peptide Total Protein 5.6 L Albumin 2.1 L Triglycerides Cholesterol Total LDL Cholesterol HDL Cholesterol Urine Color Urine Appearance Urine pH Ur Specific [place] Urine Protein Urine Glucose (UA) Urine Ketones Urine Blood Urine Nitrite Urine Bilirubin Urine Urobilinogen Ur Leukocyte Esterase Urine WBC (Auto) Urine RBC (Auto) Ur Epithelial Cells Urine Bacteria Hyaline Casts Urine Mucus Acetone, Qual Hepatitis A IgM Ab Hep Bs Antigen Hep B Core IgM Ab Hepatitis C Ab (EIA) Blood Type Antibody Screen 10/29/17 10/29/17 10/29/17 17:45 17:45 21:18 WBC RBC Hgb Hct MCV MCH MCHC RDW Plt Count MPV Total Counted Neutrophils % Neutrophils % (Manual) Band Neutrophils % Lymphocytes % Lymphocytes % (Manual) Monocytes % Monocytes % (Manual) Eosinophils % Basophils % Basophils % (Manual) Metamyelocytes Platelet Estimate Platelet Comment PT with INR INR PTT (Actin FS) 69.8 H D Puncture Site ABG pH ABG pCO2 at Pt Temp ABG pO2 at Pt Temp ABG HCO3 ABG O2 Sat (Measured) ABG O2 Content ABG Base Excess Olman Test Carboxyhemoglobin Methemoglobin O2 Delivery Device Oxygen Flow Rate Vent Mode Vent Rate Mechanical Rate PEEP Pressure Support Vent Sodium Potassium Chloride Carbon Dioxide Anion Gap BUN Creatinine Creat Clearance w eGFR POC Glucometer [phone] Random Glucose Hemoglobin A1c % Lactic Acid Calcium Phosphorus Magnesium Total Bilirubin AST ALT Alkaline Phosphatase Creatine Kinase Creatine Kinase Index CK-MB (CK-2) Troponin I 3.78 H* B-Natriuretic Peptide Total Protein Albumin Triglycerides Cholesterol Total LDL Cholesterol HDL Cholesterol Urine Color Urine Appearance Urine pH Ur Specific [place] Urine Protein Urine Glucose (UA) Urine Ketones Urine Blood Urine Nitrite Urine Bilirubin Urine Urobilinogen Ur Leukocyte Esterase Urine WBC (Auto) Urine RBC (Auto) Ur Epithelial Cells Urine Bacteria Hyaline Casts Urine Mucus Acetone, Qual Hepatitis A IgM Ab Hep Bs Antigen Hep B Core IgM Ab Hepatitis C Ab (EIA) Blood Type Antibody Screen 10/30/17 10/30/17 10/30/17 05:50 05:50 05:50 WBC 12.8 H RBC 3.87 Hgb 11.0 Hct 33.4 MCV 86.4 MCH 28.5 MCHC 33.0 RDW 14.3 Plt Count 122 L MPV 12.4 H Total Counted Neutrophils % 63.4 Neutrophils % (Manual) Band Neutrophils % Lymphocytes % 25.8 Lymphocytes % (Manual) Monocytes % 8.3 Monocytes % (Manual) Eosinophils % 2.2 D Basophils % 0.3 Basophils % (Manual) Metamyelocytes Platelet Estimate Platelet Comment PT with INR INR PTT (Actin FS) 92.7 H D Puncture Site ABG pH ABG pCO2 at Pt Temp ABG pO2 at Pt Temp ABG HCO3 ABG O2 Sat (Measured) ABG O2 Content ABG Base Excess Olman Test Carboxyhemoglobin Methemoglobin O2 Delivery Device Oxygen Flow Rate Vent Mode Vent Rate Mechanical Rate PEEP Pressure Support Vent Sodium 138 Potassium 3.9 Chloride 101 Carbon Dioxide 23 D Anion Gap 15 BUN 33 H Creatinine 1.6 H Creat Clearance w eGFR 30.42 POC Glucometer Random Glucose 189 H Hemoglobin A1c % Lactic Acid Calcium 7.3 L Phosphorus 4.6 Magnesium 2.8 H Total Bilirubin 0.9 AST 84 H D ALT 61 Alkaline Phosphatase 702 H D Creatine Kinase Creatine Kinase Index CK-MB (CK-2) Troponin I B-Natriuretic Peptide Total Protein 6.2 L Albumin 2.2 L Triglycerides Cholesterol Total LDL Cholesterol HDL Cholesterol Urine Color Urine Appearance Urine pH Ur Specific [place] Urine Protein Urine Glucose (UA) Urine Ketones Urine Blood Urine Nitrite Urine Bilirubin Urine Urobilinogen Ur Leukocyte Esterase Urine WBC (Auto) Urine RBC (Auto) Ur Epithelial Cells Urine Bacteria Hyaline Casts Urine Mucus Acetone, Qual Hepatitis A IgM Ab Hep Bs Antigen Hep B Core IgM Ab Hepatitis C Ab (EIA) Blood Type Antibody Screen Problem List - Problems (1) CHF (congestive heart failure) Code(s): I50.9 - HEART FAILURE, UNSPECIFIED (2) NSTEMI (non-ST elevated myocardial infarction) Code(s): I21.4 - NON-ST ELEVATION (NSTEMI) MYOCARDIAL INFARCTION Assessment/Plan - Problems (1) Acute on chronic systolic and diastolic heart failure, NYHA class 3 Assessment/Plan: NSTEMI; Mild-moderate LV dysfunction; unable to see RV well, and RVSP unable to be assessed. Hypotension resolved Fair urine output; continued vascular congestion. awaiting transfer to [facility] for c. cath when stable and bed in ICU available - as per dr. Lovell note Code(s): I50.43 - ACUTE ON CHRONIC COMBINED SYSTOLIC AND DIASTOLIC HRT FAIL (2) BASIL (acute kidney injury) Assessment/Plan: avoid excessive dehydration. Code(s): N17.9 - ACUTE KIDNEY FAILURE, UNSPECIFIED (3) CAD (coronary artery disease) Code(s): I25.10 - ATHSCL HEART DISEASE OF [place] CORONARY ARTERY W/O ANG PCTRS (4) IDDM (insulin dependent diabetes mellitus) Code(s): E11.9 - TYPE 2 DIABETES MELLITUS WITHOUT COMPLICATIONS; Z79.4 - [employer]GER (CURRENT) USE OF INSULIN (5) Lactic acidosis Code(s): E87.2 - ACIDOSIS (6) NSTEMI (non-ST elevated myocardial infarction) Assessment/Plan: Now off dopamine. TNI 12.3-->4.3 within the past 48 hours. Continue IV heparin and PO clopidogrel. On atorvastatin 80 mg/day. Consider ACEI when BP and renal status allow. BBlockers Code(s): I21.4 - NON-ST ELEVATION (NSTEMI) MYOCARDIAL INFARCTION (7) Severe sepsis Code(s): A41.9 - SEPSIS, UNSPECIFIED ORGANISM; R65.20 - SEVERE SEPSIS WITHOUT SEPTIC SHOCK (8) Transaminitis Assessment/Plan: likely secondary to passive congestion from CHF; levels are improving. Code(s): R74.0 - NONSPEC ELEV OF LEVELS OF TRANSAMNS & LACTIC ACID DEHYDRGNSE (9) At high risk for pulmonary embolism Assessment/Plan: relatively sudden SOB a week after a 9 hour car trip from [place]. Leg pains (however, these have been chronic). Continue IV heparin. Problematic doing CTA presently. Code(s): Z91.89 - OTH PERSONAL RISK FACTORS, NOT ELSEWHERE CLASSIFIED (10) Acute respiratory failure Assessment/Plan: For respiratory weaning per quality tech. Code(s): J96.00 - ACUTE RESPIRATORY FAILURE, UNSP W HYPOXIA OR HYPERCAPNIA cc time 40 min
[2017-10-30] MEDS ORDERED: fentaNYL CITRATE 250 MCG/5 ML VIAL ONE ×3 (10:11→19:46)
[2017-10-30] MEDS: CEFTRIAXONE 1 GM in SODIUM CHLORIDE 50 ML IVPB SCH (10:32)
[2017-10-30] MEDS: METOPROLOL TARTRATE 25 MG TABLET (FP) PO SCH ×2 (10:39→21:01)
[2017-10-30] MEDS: CHLORHEXIDINE GLUCONATE 4% CLEANSER FOR DECOLONIZATION TP SCH (21:01)
[2017-10-30] MEDS: ATORVASTATIN CA 80 MG TABLET (FP) PO SCH (21:01)
[2017-10-31] MEDS ORDERED: fentaNYL CITRATE 250 MCG/5 ML VIAL ONE ×4 (03:11→21:28)
[2017-10-31 05:50] LABS: MCH 28.6 pg (25.7-33.7); MCHC 33.2 g/dl (32.0-36.0); MEAN CELL VOLUME 86.1 fl (80-96); MEAN PLT VOLUME 11.6 fl (7.5-11.1); PLATELET COUNT 152 K/MM3 (134-434); RDW 13.9 % (11.6-15.6); WHITE BLOOD COUNT 10.9 K/mm3 (4.0-10.0)
[2017-10-31] MEDS: INSULIN SLIDING SCALE (NOVOLOG) 1 VIAL SQ SCH ×4 (06:00→17:30)
[2017-10-31] MEDS: HEPARIN - 25,000 UNIT in SODIUM CHLORIDE 495 ML IV SCH ×2 (06:02→09:24)
[2017-10-31 06:10] LABS: PLATELET COMMENTS RARE GIANT PLTS
[2017-10-31 06:50] LABS: ALK PHOS 755 U/L (45-117); ANION GAP 9 (8-16); BILIRUBIN,TOTAL 0.8 mg/dL (0.2-1.0); CALCIUM 7.6 mg/dL (8.5-10.1); CO2 28 mmol/L (21-32); CREATININE 1.4 mg/dL (0.55-1.02); GLUCOSE,RANDOM 199 mg/dL (74-106); MAGNESIUM 2.7 mg/dL (1.8-2.4); PHOSPHOROUS 3.6 mg/dL (2.5-4.9); SGOT/AST 71 U/L (15-37); SGPT/ALT 47 U/L (12-78); TOT PROT 6.1 g/dl (6.4-8.2)
[2017-10-31] MEDS ORDERED: FENTANYL INJECTION 500 MCG in DEXTROSE 5%-WATER - 90 ML IVPB SCH (07:45)
[2017-10-31] MEDS: FENTANYL INJECTION 500 MCG in DEXTROSE 5%-WATER - 90 ML IVPB SCH ×2 (07:45→16:21)
--- NOTE | 2017-10-31 08:38 | PN ---
Progress Note (short form) - Note Progress Note: PULM/CCM Pt Seen & examined in the ICU, restless on the Vent O/N off of Propofol requiring occasional extra push of Fent, remians off of COGNOS, remains O > I w/ gentle Lasix, hemodynamically stable. Active Medications Acetaminophen (Ofirmev Injection -) 1,000 mg IVPB Q6H PRN PRN Reason: FEVER OR PAIN Last Admin: 10/27/17 17:55 Dose: 1,000 mg Albuterol Sulfate (Ventolin 0.083% Nebulizer Soln -) 1 amp NEB Q4H PRN PRN Reason: SHORT OF BREATH/WHEEZING Atorvastatin Calcium (Lipitor -) 80 mg PO HS [facility] Last Admin: 10/30/17 21:01 Dose: 80 mg Chlorhexidine Gluconate (Hibiclens For Decolonization -) 1 applic TP HS [facility] Last Admin: 10/30/17 21:01 Dose: 1 applic Clopidogrel Bisulfate (Plavix -) 75 mg PO DAILY [facility] Last Admin: 10/30/17 09:27 Dose: 75 mg Fentanyl (Sublimaze Injection -) 100 mcg IVPUSH ONCE ONE Stop: 10/31/17 10:35 Heparin Sodium (Porcine) (Heparin -) 1,000 unit IVPUSH PRN PRN PRN Reason: Heparin Heparin Sodium (Porcine) (Heparin -) 5,000 unit IVPUSH PRN PRN PRN Reason: Heparin Heparin Sodium (Porcine) 25, (000 unit/ Sodium Chloride) 500 mls @ 16 mls/hr IV TITR BILL; 800 UNIT/HR PRN Reason: Protocol Last Admin: 10/31/17 09:24 Dose: 500 unit/hr, 10 mls/hr Ceftriaxone Sodium 1 gm/ (Sodium Chloride) 50 mls @ 100 mls/hr IVPB DAILY [facility] Last Admin: 10/31/17 09:18 Dose: 100 mls/hr Fentanyl 500 mcg/ Dextrose 100 mls @ 5 mls/hr IVPB TITR BILL; 25 MCG/HR PRN Reason: Protocol Last Admin: 10/31/17 07:45 Dose: 75 mcg/hr, 15 mls/hr Insulin Aspart (Novolog Vial Sliding Scale -) 1 vial SQ Q6HPO BILL PRN Reason: Protocol Last Admin: 10/31/17 06:00 Dose: 4 unit Metoprolol Tartrate (Lopressor -) 25 mg PO BID [facility] Last Admin: 10/30/17 21:01 Dose: 25 mg Mupirocin (Bactroban Ointment (For Decolonization) -) 1 applic NS BID [facility] Stop: 11/01/17 09:59 Last Admin: 10/31/17 09:22 Dose: 1 applic Potassium Chloride (Potassium Chloride 10 Meq Premix Ivpb -) 10 meq IVPB Q60M [facility] Stop: 10/31/17 13:16 Pregabalin (Lyrica -) 75 mg PO BID [facility] Last Admin: 10/30/17 21:01 Dose: Not Given Ranitidine HCl (Zantac -) 150 mg PO DAILY [facility] Last Admin: 10/30/17 09:27 Dose: 150 mg V/S Period Temp Pulse Resp BP Sys/[place] Pulse Ox Last 24 Hr 97.4 F-100.6 F 50-75 18-22 117-143/38-51 96 Intake & Output 10/28/17 10/29/17 10/30/17 10/31/17 23:59 23:59 23:59 23:59 Intake Total 2441 568 649 366 Output Total 8736 887 5172 400 Balance 741 -32 -551 -34 Weight 67.358 kg 67.5 kg 65.969 kg 65.6 kg GEN: Elderly woman sedated and intubated on the Vent HEENT: no JVD, PERRL, an-icteric, ETT CV: nml S1 S2, RR, distant heart sounds, unable to appreciate any G/M/R PULM: Bibasilar crackles ABd: Protuberant, +BS, soft, ND, minimal TTP in all quadrants, no guarding. Ext: Feet are warm but DP is not palpable, trace edema on b/l Legs, discolored, blackish areas on tip of big toes with peeling overlying skin , not changed . CBC, BMP 10/31/17 05:35 10/31/17 05:35 MICRO 10/26/17 21:54 Blood - Peripheral Venous Blood Culture - Preliminary NO GROWTH OBTAINED AFTER 96 HOURS, INCUBATION TO CONTINUE FOR 1 DAYS. 10/26/17 21:54 Blood - Peripheral Venous Blood Culture - Preliminary NO GROWTH OBTAINED AFTER 96 HOURS, INCUBATION TO CONTINUE FOR 1 DAYS. 10/27/17 06:30 Sputum - Endotrachea Suction/Ventilator Gram Stain - Final 10/27/17 06:30 Sputum - Endotrachea Suction/Ventilator Sputum Culture - Final Moraxella (Bran.) Catarrhalis 10/26/17 21:53 Urine - Urine [place] Urine Culture - Final NO GROWTH OBTAINED 10/27/17 06:48 Nasopharyngeal Swab Respiratory Virus (PCR) - Preliminary 10/27/17 06:30 Urine - Urine Sanches Legionella Antigen - Final 10/27/17 06:30 Urine - Urine [place] Streptococcus pneumoniae Antigen (M - Final 10/27/17 01:15 Nasopharyngeal Swab Influenza Types A,B Antigen (JIMMIE) - Final 10/27/17 01:15 Nasopharyngeal Swab - Final IMAGING 2 NOTE: CXR 10/31: PENDING ASSESS: This is an 86 y/o lady w/ cardiac stents x 10, AVR, & IDDM, who presented on 10/26 w/ SOB and was found to have acute pulm edema in the setting of an NSTEMI. PLAN: -Maintain O = I or O > I -Wean sedation as tolerated -Wean Vent as tolerated -Cont plavix -Cont Heparin gtt. -Cont BB -Strict I's & O's -Monitor UOP -Trend BUN/Cr -Replete e-lytes prn -Maintain O = I -Cont ceftriaxone (completed 5 days of azithro) -FSs -SSI -cont heparin gtt -Transfer to [facility] for CABG DGL, [facility] ICU PULM/CCM 1022
[2017-10-31] MEDS: POTASSIUM CHLORIDE 10 MEQ PREMIX IVPB (POTASSIUM RIDER) IVPB SCH ×2 (09:00→10:00)
[2017-10-31] MEDS ORDERED: FUROSEMIDE 40 MG/4 ML INJECTABLE VIAL IVPUSH ONE (09:04)
--- NOTE | 2017-10-31 09:06 | PN ---
Progress Note (short form) - Note Progress Note: Subjective: low grade fever last night . awake today and indicates back pain , denies CP or SOB or abd pain Objective: Vital Signs: Last Vital Signs Temp Pulse Resp BP Pulse Ox 99 F 53 L 20 136/46 96 10/31/17 08:00 10/31/17 08:00 10/31/17 08:00 10/31/17 08:00 10/30/17 20:08 Intake & Output 10/28/17 10/29/17 10/30/17 10/31/17 23:59 23:59 23:59 23:59 Intake Total 2441 568 649 366 Output Total 4105 097 3770 400 Balance 741 -32 -551 -34 Weight 148 lb 8 oz 148 lb 12.992 oz 145 lb 7 oz 144 lb 9.972 oz Laboratory Results - last 24 hr 10/29/17 10/30/17 10/30/17 13:48 05:50 06:08 WBC RBC Hgb Hct MCV MCH MCHC RDW Plt Count MPV Platelet Comment PTT (Actin FS) Sodium Potassium Chloride Carbon Dioxide 23 D Anion Gap 15 BUN 33 H Creatinine 1.6 H Creat Clearance w eGFR 30.42 POC Glucometer 250.54954 250.50250 Random Glucose 189 H Calcium 7.3 L Phosphorus 4.6 Magnesium 2.8 H Total Bilirubin 0.9 AST 84 H D ALT 61 Alkaline Phosphatase 702 H D Total Protein 6.2 L Albumin 2.2 L 10/30/17 10/30/17 10/30/17 11:53 17:03 17:36 WBC RBC Hgb Hct MCV MCH MCHC RDW Plt Count MPV Platelet Comment PTT (Actin FS) 94.2 H Sodium Potassium Chloride Carbon Dioxide Anion Gap BUN Creatinine Creat Clearance w eGFR POC Glucometer 234.64766 210.66068 Random Glucose Calcium Phosphorus Magnesium Total Bilirubin AST ALT Alkaline Phosphatase Total Protein Albumin 10/30/17 10/30/17 10/31/17 20:52 21:46 05:35 WBC 10.9 H RBC 3.49 L Hgb 10.0 L Hct 30.1 L MCV 86.1 MCH 28.6 MCHC 33.2 RDW 13.9 Plt Count 152 D MPV 11.6 H Platelet Comment Rare giant plts PTT (Actin FS) 78.9 H Sodium Potassium Chloride Carbon Dioxide Anion Gap BUN Creatinine Creat Clearance w eGFR POC Glucometer [phone] Random Glucose Calcium Phosphorus Magnesium Total Bilirubin AST ALT Alkaline Phosphatase Total Protein Albumin 10/31/17 10/31/17 10/31/17 05:35 05:35 05:35 WBC RBC Hgb Hct MCV MCH MCHC RDW Plt Count MPV Platelet Comment PTT (Actin FS) 78.4 H Sodium 132 L Potassium 3.1 L D Chloride 95 L Carbon Dioxide 28 D Anion Gap 9 BUN 33 H Creatinine 1.4 H Creat Clearance w eGFR 35.49 POC Glucometer 214.47557 Random Glucose 199 H Calcium 7.6 L Phosphorus 3.6 D Magnesium 2.7 H Total Bilirubin 0.8 AST 71 H ALT 47 D Alkaline Phosphatase 755 H Total Protein 6.1 L Albumin 2.0 L Physical Exam: awake, intubated . tracks and nods CV: RRR distant heart sounds , No JVD . Lungs: rales anteriorly, clear lungs in lower lobes ABd: soft, ND ,minimal TTP in all quadrants , no guarding ,NL BS . Ext:1+ edema on b/l Legs. DP is not palpable. warm feet . discolored, blackish areas on tip of big toes with peeling overlying skin , not changed . ASSESSMENT AND PLAN: 86 y/o unfortunate lady with h/o CAD, s/p stenting , AVR, IDDM , and other medical problems who presented with SOB and was found to have acute pulm edema in the setting of NSTEMI 1- Acute hypoxic respiratory failure: due to pulm edema and PNA I&O : net neg 500 cc in past 24 hr after lasix - give 40 of IV lasix again today . - Cont mechanical ventilation , with trial to wean off - cont Abx . 2- NSTEMI with cardiogenic shock. - cont plavix and Heparin gtt. - cont BB , monitor BB - off pressors - CAth plan per Card 3- BASIL: pre-renal from CHF. stable Cr - cont to monitor 4- CAP: with severe sepsis: - Cont ceftriaxone . day 6. completed 5 days of azithro - blood cx Neg to date - low grade fever last night , monitor 5-PVD: - cont heparin gtt 5-DM : - Cont SSI - Sugar improved after mixing ABx in NS 6- Transaminitis : initially thougth to be due to liver congestin. ALT/AST/Bili improved. but now Alk phos cont to increase. likely due to cholestasis form Ceftriaxone. Hep panel Neg - US of [facility] ICU level of care. Visit type - Emergency Visit Emergency Visit: Yes ED Registration Date: 10/27/17 Care time: The patient presented to the Emergency Department on the above date and was hospitalized for further evaluation of their emergent condition. - New Patient This patient is new to me today: No - Critical Care Critical Care patient: Yes Total Critical Care Time (in minutes): 30 Critical Care Statement: The care of this patient involved high complexity decision making to prevent further life threatening deterioration of the patient 's condition and/or to evaluate & treat vital organ system(s) failure or risk of failure.
[2017-10-31] MEDS ORDERED: PT OWN MED DRAWER 7, Y5N ONE (09:16)
[2017-10-31] MEDS: CEFTRIAXONE 1 GM in SODIUM CHLORIDE 50 ML IVPB SCH (09:18)
[2017-10-31] MEDS: MUPIROCIN 2% TOPICAL OINTMENT FOR DECOLONIZATION NS SCH ×2 (09:22→21:22)
--- NOTE | 2017-10-31 09:28 | PN ---
Progress Note, Physician History of Present Illness: The patient is an 86 year old female, with a significant past medical history of cardiac stents x 10, aortic valve replacement, IDDM, who presents to the emergency department brought in by ems intubated after complaint of difficulty breathing this evening. As per ems, the patient was read to be 90% on capnography which dropped to 50% after being bagged in the field. As per ems, the patient was found tachypneic in the field, in respiratory distress, and was intubated (ETT 7.0). As per the patients family at bedside, the patient was feeling well yesterday morning, performing activities of daily life without symptoms. As per patients family, the patient had a nonproductive cough for the past few days, however, the patient reportedly felt better this morning. As per the family, the patient received her flu vaccination 3 weeks ago. Family denies recent sick contacts. At presentation was being bagged by ems. Allergies: aspirin Past surgical history: cardiac stent x 10 Social history: denies toxic habits 86 year old F with pmh of IDDM, Cardiac Stent placement x10 (last placed 3 years prior), and aortic valve replacement (last year) presenting with shortness of breath. History obtained by daughter. Patient arrived from [place] via car last Wednesday. Patient was in usual state of health 2 days prior to admission. Patient performs ADLs and walks at baseline. Over the last 2 days patient had worsening SOB, decreased Urine output, weakness, and nonproductive cough with saliva. This evening patient's shortness of breath worsened and EMS was called. Patient was intubated in the field 2/2 to respiratory distress and was satting in the 50%. Daughter endorses chronic pedal edema, orthopnea, and dyspnea on exertion which has been worsening over the last 2 days as well. Per daughter, patient has not had increased salt intake. Patient denies fever, chills, nausea, vomiting, diarrhea, chest pain, palpitations, abdominal pain. ER course was notable for: (1) VS- WNL, CBC- wbc 20.1, ABG- 7.35/50.6/101/26.9 (2) Glucose- 389, Lactic Acid-6.0, Troponin of 6.75, CK-MB-26.816, BNP-20,000 (3) UA- negative (4) EKG- Sinus tachycardia. Q waves in inferior and lateral leads (5) CXR-pulmonary vascular congestion, pneumonia cannot be excluded - Current Medication List Current Medications: Active Medications Acetaminophen (Ofirmev Injection -) 1,000 mg IVPB Q6H PRN PRN Reason: FEVER OR PAIN Last Admin: 10/27/17 17:55 Dose: 1,000 mg Albuterol Sulfate (Ventolin 0.083% Nebulizer Soln -) 1 amp NEB Q4H PRN PRN Reason: SHORT OF BREATH/WHEEZING Atorvastatin Calcium (Lipitor -) 80 mg PO HS [facility] Last Admin: 10/30/17 21:01 Dose: 80 mg Chlorhexidine Gluconate (Hibiclens For Decolonization -) 1 applic TP HS [facility] Last Admin: 10/30/17 21:01 Dose: 1 applic Clopidogrel Bisulfate (Plavix -) 75 mg PO DAILY [facility] Last Admin: 10/30/17 09:27 Dose: 75 mg Heparin Sodium (Porcine) (Heparin -) 1,000 unit IVPUSH PRN PRN PRN Reason: Heparin Heparin Sodium (Porcine) (Heparin -) 5,000 unit IVPUSH PRN PRN PRN Reason: Heparin Heparin Sodium (Porcine) 25, (000 unit/ Sodium Chloride) 500 mls @ 16 mls/hr IV TITR BILL; 800 UNIT/HR PRN Reason: Protocol Last Admin: 10/31/17 09:24 Dose: 500 unit/hr, 10 mls/hr Ceftriaxone Sodium 1 gm/ (Sodium Chloride) 50 mls @ 100 mls/hr IVPB DAILY [facility] Last Admin: 10/31/17 09:18 Dose: 100 mls/hr Fentanyl 500 mcg/ Dextrose 100 mls @ 5 mls/hr IVPB TITR BILL; 25 MCG/HR PRN Reason: Protocol Last Admin: 10/31/17 07:45 Dose: 75 mcg/hr, 15 mls/hr Insulin Aspart (Novolog Vial Sliding Scale -) 1 vial SQ Q6HPO BILL PRN Reason: Protocol Last Admin: 10/31/17 06:00 Dose: 4 unit Metoprolol Tartrate (Lopressor -) 25 mg PO BID [facility] Last Admin: 10/30/17 21:01 Dose: 25 mg Mupirocin (Bactroban Ointment (For Decolonization) -) 1 applic NS BID [facility] Stop: 11/01/17 09:59 Last Admin: 10/31/17 09:22 Dose: 1 applic Potassium Chloride (Potassium Chloride 10 Meq Premix Ivpb -) 10 meq IVPB Q60M [facility] Stop: 10/31/17 12:01 Pregabalin (Lyrica -) 75 mg PO BID [facility] Last Admin: 10/30/17 21:01 Dose: Not Given Ranitidine HCl (Zantac -) 150 mg PO DAILY [facility] Last Admin: 10/30/17 09:27 Dose: 150 mg - Objective Vital Signs: Vital Signs Temperature 99 F 10/31/17 08:00 Pulse Rate 53 L 10/31/17 08:00 Respiratory Rate 20 10/31/17 08:00 Blood Pressure 136/46 10/31/17 08:00 O2 Sat by Pulse Oximetry (%) 96 10/30/17 20:08 Eyes: Yes: WNL, Conjunctiva Clear, EOM Intact HENT: Yes: WNL, Atraumatic, Normocephalic Neck: Yes: WNL, Supple, Trachea Midline Cardiovascular: Yes: WNL, Regular Rate and Rhythm Respiratory: Yes: Intubated, Mechanically Ventilated Gastrointestinal: Yes: WNL, Normal Bowel Sounds Genitourinary: Yes: WNL Musculoskeletal: Yes: WNL Extremities: Yes: WNL Edema: No Integumentary: Yes: WNL Neurological: Yes: WNL, Alert, Oriented ...Motor Strength: WNL Psychiatric: Yes: WNL Labs: CBC, BMP 10/31/17 05:35 10/31/17 05:35 INR, PTT INR 1.13 (0.82-1.09) 10/26/17 21:53 Problem List - Problems (1) CHF (congestive heart failure) Code(s): I50.9 - HEART FAILURE, UNSPECIFIED (2) NSTEMI (non-ST elevated myocardial infarction) Code(s): I21.4 - NON-ST ELEVATION (NSTEMI) MYOCARDIAL INFARCTION Assessment/Plan - Problems (1) Acute on chronic systolic and diastolic heart failure, NYHA class 3 Assessment/Plan: NSTEMI; Mild-moderate LV dysfunction; unable to see RV well, and RVSP unable to be assessed. Hypotension resolved Fair urine output; continued vascular congestion. awaiting transfer to [facility] for c. cath when stable and bed in ICU available - as per dr. Lovell note Code(s): I50.43 - ACUTE ON CHRONIC COMBINED SYSTOLIC AND DIASTOLIC HRT FAIL (2) BASIL (acute kidney injury) Assessment/Plan: avoid excessive dehydration. Code(s): N17.9 - ACUTE KIDNEY FAILURE, UNSPECIFIED (3) CAD (coronary artery disease) Code(s): I25.10 - ATHSCL HEART DISEASE OF [place] CORONARY ARTERY W/O ANG PCTRS (4) IDDM (insulin dependent diabetes mellitus) Code(s): E11.9 - TYPE 2 DIABETES MELLITUS WITHOUT COMPLICATIONS; Z79.4 - SENIOR CARE (CURRENT) USE OF INSULIN (5) Lactic acidosis Code(s): E87.2 - ACIDOSIS (6) NSTEMI (non-ST elevated myocardial infarction) Assessment/Plan: Now off dopamine. TNI 12.3-->4.3 within the past 48 hours. Continue IV heparin and PO clopidogrel. On atorvastatin 80 mg/day. Consider ACEI when BP and renal status allow. BBlockers Code(s): I21.4 - NON-ST ELEVATION (NSTEMI) MYOCARDIAL INFARCTION (7) Severe sepsis Code(s): A41.9 - SEPSIS, UNSPECIFIED ORGANISM; R65.20 - SEVERE SEPSIS WITHOUT SEPTIC SHOCK (8) Transaminitis Assessment/Plan: likely secondary to passive congestion from CHF; levels are improving. Code(s): R74.0 - NONSPEC ELEV OF LEVELS OF TRANSAMNS & LACTIC ACID DEHYDRGNSE (9) At high risk for pulmonary embolism Assessment/Plan: relatively sudden SOB a week after a 9 hour car trip from [place]. Leg pains (however, these have been chronic). Continue IV heparin. Problematic doing CTA presently. Code(s): Z91.89 - OT PERSONAL RISK FACTORS, NOT ELSEWHERE CLASSIFIED (10) Acute respiratory failure Assessment/Plan: For respiratory weaning per device processing engineer. Code(s): J96.00 - ACUTE RESPIRATORY FAILURE, UNSP W HYPOXIA OR HYPERCAPNIA cc time 40 min
[2017-10-31] MEDS ORDERED: POTASSIUM CHLORIDE 10 MEQ PREMIX IVPB (POTASSIUM RIDER) IVPB SCH (10:15)
[2017-10-31] MEDS: KCL 10 MEQ IVPB 10 MEQ/100 ML INFUS.BAG IVPB SCH ×4 (11:26→15:30)
[2017-10-31] MEDS: METOPROLOL TARTRATE 25 MG TABLET (FP) PO SCH ×2 (12:49→21:30)
[2017-10-31] MEDS: RANITIDINE HCL 150 MG TABLET (FP) PO SCH (12:49)
[2017-10-31] MEDS: PREGABALIN 75 MG CAPSULE PO SCH ×2 (12:49→21:30)
[2017-10-31] MEDS: CLOPIDOGREL BISULFATE 75 MG TABLET (FP) PO SCH (12:49)
[2017-10-31] MEDS ORDERED: BENZOIN/ALOE VERA/STORAX/TOLU 58 ML BOTTLE ONE (16:25)
[2017-10-31] MEDS: CHLORHEXIDINE GLUCONATE 4% CLEANSER FOR DECOLONIZATION TP SCH (21:21)
[2017-10-31] MEDS: ATORVASTATIN CA 80 MG TABLET (FP) PO SCH (21:30)
[2017-11-01] MEDS: INSULIN SLIDING SCALE (NOVOLOG) 1 VIAL SQ SCH ×4 (00:04→17:40)
[2017-11-01] MEDS ORDERED: fentaNYL CITRATE 250 MCG/5 ML VIAL ONE (00:53)
[2017-11-01] MEDS: FENTANYL INJECTION 500 MCG in DEXTROSE 5%-WATER - 90 ML IVPB SCH ×2 (04:00→17:41)
[2017-11-01 05:56] LABS: BASOPHIL 0.3 % (0-2.0); EOSINOPHIL 1.6 % (0-4.5); MCH 28.2 pg (25.7-33.7); MCHC 32.8 g/dl (32.0-36.0); MEAN CELL VOLUME 85.9 fl (80-96); MEAN PLT VOLUME 11.8 fl (7.5-11.1); PLATELET COUNT 175 K/MM3 (134-434); RDW 14.2 % (11.6-15.6); WHITE BLOOD COUNT 13.2 K/mm3 (4.0-10.0)
[2017-11-01] MEDS: HEPARIN - 25,000 UNIT in SODIUM CHLORIDE 495 ML IV SCH ×2 (06:36→10:00)
--- NOTE | 2017-11-01 06:40 | PN ---
Physical Exam: SUBJECTIVE: Patient seen and examined by me this AM - Pt awake, intubated still on fentanyl and heparin gtt. Vent setting AC mode, 20/300/40%/5 - Pt mildly sedated, had just received a bolus of fentanyl. Apparently was agitated with nursing overnight. Bradycardic overnight w/ stable MAPs - Pt had difficulty responding to questions. Reacts and acknowledges questions, but unable to effectively answer in +/-. - No other major overnight evets. Febrile to 100.6. Stable. - Will hopefully go for transfer today to [place] if bed available for [facility]. Will touch base with cardiology. May be extubated today PM - Per ICU discussion w/ Dr. Kerr, will likely go thurs to [place] for [facility] - Extubated today, doing well. OBJECTIVE: Vital Signs Intake & Output 10/29/17 10/30/17 10/31/17 11/01/17 23:59 23:59 23:59 23:59 Intake Total 409 885 8719 460 Output Total 600 1200 1400 250 Balance -32 -551 -72 210 Weight 67.5 kg 65.969 kg 65.6 kg 65.487 kg Period Temp Pulse Resp BP Sys/Chatman Pulse Ox Last 24 Hr 98.4 F-100.6 F 45-70 17-23 115-179/36-72 95-99 GENERAL: The patient is somnolent, intubated, laying in bed. Reactive to questions, unable to verbalize/answer in +/-. Able to follow commands. HEAD: Normal with no signs of trauma. EYES: Pinpoint pupils, minimally reactive. Still w/ scleral icterus, EOMI. ENT: Increased labial edema, perioral/peritracheal edema. NG, ETT in place. Ears normal, nares patent, oropharynx clear without exudates, moist mucous membranes. NECK: Trachea midline, supple. No JVD, no hepatojugular reflex LUNGS: Course breath sounds. Decreased at bases. No wheezes, no accessory muscle use. HEART: 2/6 blowing systolic murmur at LUSB/RUSB. Regular rate and rhythm, S1, S2 without murmur, rub or gallop. ABDOMEN: Soft, tender to palpation in all 4 quadrants. Typanic in all four quadrants. Normoactive bowel sounds, no masses or organomegaly. Upper EXTREMITIES: 2+ pulses, warm, well-perfused, 1+ non-pitting edema. R IV in forearm, L IV in dorsal aspect of hand. Lower extremities: No edema. Pressure ulcers noted on distal tip of 1st hallux BL. Still with 1+ DP, 2+ PT pulse BL. Mild BL stasis dermatitis Laboratory Results - last 24 hr CBC, BMP CBC, BMP 11/01/17 05:00 11/01/17 05:00 10/29/17 10/31/17 10/31/17 13:48 05:35 05:35 WBC RBC Hgb Hct MCV MCH MCHC RDW Plt Count MPV Neutrophils % Lymphocytes % Monocytes % Eosinophils % Basophils % PTT (Actin FS) Sodium 132 L Potassium 3.1 L D Chloride 95 L Carbon Dioxide 28 D Anion Gap 9 BUN 33 H Creatinine 1.4 H Creat Clearance w eGFR 35.49 POC Glucometer 250.40362 214.74382 Random Glucose 199 H Calcium 7.6 L Phosphorus 3.6 D Magnesium 2.7 H Total Bilirubin 0.8 AST 71 H ALT 47 D Alkaline Phosphatase 755 H Total Protein 6.1 L Albumin 2.0 L 10/31/17 10/31/17 10/31/17 12:12 17:09 23:54 WBC RBC Hgb Hct MCV MCH MCHC RDW Plt Count MPV Neutrophils % Lymphocytes % Monocytes % Eosinophils % Basophils % PTT (Actin FS) Sodium Potassium Chloride Carbon Dioxide Anion Gap BUN Creatinine Creat Clearance w eGFR POC Glucometer 230.23605 210.21517 [phone] Random Glucose Calcium Phosphorus Magnesium Total Bilirubin AST ALT Alkaline Phosphatase Total Protein Albumin 11/01/17 11/01/17 05:00 05:00 WBC 13.2 H RBC 3.52 L Hgb 9.9 L Hct 30.3 L MCV 85.9 MCH 28.2 MCHC 32.8 RDW 14.2 Plt Count 175 MPV 11.8 H Neutrophils % 71.0 Lymphocytes % 15.3 D Monocytes % 11.8 H Eosinophils % 1.6 Basophils % 0.3 PTT (Actin FS) 137.3 H D Sodium Potassium Chloride Carbon Dioxide Anion Gap BUN Creatinine Creat Clearance w eGFR POC Glucometer Random Glucose Calcium Phosphorus Magnesium Total Bilirubin AST ALT Alkaline Phosphatase Total Protein Albumin Active Medications Generic Name Dose Route Start Last Admin Trade Name Freq PRN Reason Stop Dose Admin Acetaminophen 1,000 mg 10/27/17 17:31 10/27/17 17:55 Ofirmev Injection - IVPB 1,000 mg Q6H PRN Administration FEVER OR PAIN Albuterol Sulfate 1 amp 10/28/17 16:04 Ventolin 0.083% Nebulizer Soln - NEB Q4H PRN SHORT OF BREATH/WHEEZING Atorvastatin Calcium 80 mg 10/27/17 22:00 10/31/17 21:30 Lipitor - PO 80 mg HS BILL Administration Chlorhexidine Gluconate 1 applic 10/27/17 22:00 10/31/17 21:21 Hibiclens For Decolonization - TP 1 applic HS BILL Administration Clopidogrel Bisulfate 75 mg 10/27/17 10:00 10/31/17 12:49 Plavix - PO 75 mg DAILY BILL Administration Fentanyl 50 mcg 10/31/17 10:55 Sublimaze Injection - IVPUSH 11/01/17 10:54 Q2H PRN AGITATION Heparin Sodium (Porcine) 1,000 unit 10/27/17 00:02 Heparin - IVPUSH PRN PRN Heparin Heparin Sodium (Porcine) 5,000 unit 10/27/17 00:02 Heparin - IVPUSH PRN PRN Heparin Heparin Sodium (Porcine) 25, 500 mls @ 16 mls/hr 10/27/17 00:15 10/31/17 09: 24 000 unit/ Sodium Chloride IV 500 unit/hr TITR BILL 10 mls/hr Protocol Administration 800 UNIT/HR Ceftriaxone Sodium 1 gm/ 50 mls @ 100 mls/hr 10/30/17 10:00 10/31/17 09:18 Sodium Chloride IVPB 100 mls/hr DAILY BILL Administration Fentanyl 500 mcg/ Dextrose 100 mls @ 5 mls/hr 10/31/17 07:45 10/31/17 16:21 IVPB 100 mcg/hr TITR BILL 20 mls/hr Protocol Administration 25 MCG/HR Insulin Aspart 1 vial 10/29/17 12:00 11/01/17 00:04 Novolog Vial Sliding Scale - SQ 2 unit Q6HPO BILL Administration Protocol Metoprolol Tartrate 25 mg 10/30/17 10:15 10/31/17 21:30 Lopressor - PO 25 mg BID BILL Administration Mupirocin 1 applic 10/27/17 10:00 10/31/17 21:22 Bactroban Ointment (For Decolonization) - NS 11/01/17 09:59 1 applic BID BILL Administration Pregabalin 75 mg 10/27/17 10:00 10/31/17 21:30 Lyrica - PO 75 mg BID BILL Administration Ranitidine HCl 150 mg 10/27/17 00:45 10/31/17 12:49 Zantac - PO 150 mg DAILY BILL Administration Microbiology 10/26/17 21:54 Blood - Peripheral Venous Blood Culture - Final NO GROWTH AFTER 5 DAYS INCUBATION 10/26/17 21:54 Blood - Peripheral Venous Blood Culture - Final NO GROWTH AFTER 5 DAYS INCUBATION 10/27/17 06:30 Sputum - Endotrachea Suction/Ventilator Gram Stain - Final 10/27/17 06:30 Sputum - Endotrachea Suction/Ventilator Sputum Culture - Final Moraxella (Bran.) Catarrhalis 10/26/17 21:53 Urine - Urine Sanches Urine Culture - Final NO GROWTH OBTAINED 10/27/17 06:48 Nasopharyngeal Swab Respiratory Virus (PCR) - Preliminary 10/27/17 06:30 Urine - Urine Sanches Legionella Antigen - Final 10/27/17 06:30 Urine - Urine Sanches Streptococcus pneumoniae Antigen (M - Final 10/27/17 01:15 Nasopharyngeal Swab Influenza Types A,B Antigen (JIMMIE) - Final 10/27/17 01:15 Nasopharyngeal Swab - Final Imaging: CXr 10/26 - 1. Endotracheal tube in place with the tip projecting approximately 2.7 cm above the joshua. 2. Pulmonary vascular congestion with interstitial edema and bilateral pleural effusions. Bilaterally airspace opacities are most likely alveolar edema. Pneumonia cannot be excluded. Please correlate clinically for severe CHF exacerbation. CXR 10/27 - No significant change. ETT in place. CXR 10/28 - No evidence of pneumothorax. Resolving vascular congestive changes. Resolving bilateral pulmonary consolidations. ECHO 10/27 - Poor study. Bioprosthetic aortic valve. Mild MR. LV filling pattern normal for age. Ef 58% EKG 10/27 - Sinus tach. No QTC prolongation. Normal axis. Deep q-waves in III, worse than prior ekg on presentation. TWIs in V5-6 EKG 10/28 - NSR. NAD. Q waves in III improved. No TWIs. Improved since prior Venous duplex LE 10/27 - No evidence of deep venous thrombosis. Arterial duplex 10/27 - Extensive atherosclerotic disease with weak, monophasic flow within the popliteal and posterior tibial arteries bilaterally. Clinical correlation and follow-up recommended. Please see above discussion. CXR 10/29 - No significant changes since prior CXR. RUQ U/S 10/31 - Nonvisualization of the gallbladder. Periportal echogenic densities in the liver suggestive of periportal edema, of uncertain significance or etiology. Dilated common bile duct measuring 1.2 cm in diameter. Note is made of a right pleural effusion CXR 10/31 - Since the prior exam of 10/29/2017, the NG tube and endotracheal tube remain in place. Again noted is evidence of previous valvular instrumentation, large heart, sclerotic knob and congestive changes. ASSESSMENT/PLAN: 86 yo w/ pmh of IDDM, CAD (s/p stents x10, most recently 3 y ago) and AVR (last year) presenting with SOB, found to have severe flash pulmonary edema in setting of NSTEMI. Pt still awaiting transfer to [facility] for [facility]. Stable, off pressors. Extubated today. Will likely go for transfer th per cardiology. #Acute Hypoxic Respiratory Failure 2/2 to NSTEMI - Extubated today - NRB. Escalate as needed. Maintain sat 94%> - Strict Is and Os - Ventolin q4h PRN - Lasix 40mg daily #NSTEMI - elevated trops, abnormal ekg listed above. Repeat EKG improved since prior on 10/27 - Transfer on per cardiology - Metoprolol 25mg BID - Heparin gtt protocol - Plavix 75mg daily - Cardiology consulted. Recs appreciated. - Lipitor 80 mg daily - Monitor for hypotension. Maintain MAP of 65>. #Possible CAP - WBC 13.2 today down slightly, Low fever 99.5 overnight - blood, urine neg to date - Sputum + moraxella catarrhalis - Legionella/pneumo urine ag neg - lactate 3.2 -> 2.7 10/27 AM - Day 7 tim betancourt d/c'ed - Trend fever, WBC #Elevated Alk phos - 713 today. - RUQ US w/ periportal edema, IKE DIL 1.2cm - GGT 622 - Repeat U/S. May need MRCP if tolerated - Continue to trend LFTs #PVD - arterial dopplers notable for extensive Bl atherosclerotic dz. - Vascular consulted. Recs appreciated - f/u as outpt #IDDM - Takes lantus 35u qHs at home + SS. AM BG 253 - Continue to monitor glucose. Consider basal insulin - lyrica 75mg BID for diabetic neuropathy - ISS adjusted - BGM q4h - All IV in meds in NS, not D5W #BASIL - Cr 1.4 -> 1.2 today. - Continue to hold IVFs for now in setting of CHF - Trend BUN/Cr - daily bmp's PPX: heparin gtt Zantac for GI FEN: Fluids: none Electrolytes: Daily BMPs, trend Cr Nutrition: none Dispo: ICU for further management. Transfer when stable/bed available at [facility], likely per cardiology Plan discussed with attending, Dr. Luis Aden, PGY1 Visit type - Emergency Visit Emergency Visit: Yes ED Registration Date: 10/27/17 Care time: The patient presented to the Emergency Department on the above date and was hospitalized for further evaluation of their emergent condition. - New Patient This patient is new to me today: No - Critical Care Critical Care patient: No
[2017-11-01 06:49] LABS: ALBUMIN 1.8 g/dl (3.4-5.0); ANION GAP 9 (8-16); BILIRUBIN,TOTAL 0.7 mg/dL (0.2-1.0); CALCIUM 7.7 mg/dL (8.5-10.1); CO2 29 mmol/L (21-32); CREATININE 1.2 mg/dL (0.55-1.02); GLUCOSE,RANDOM 209 mg/dL (74-106); MAGNESIUM 2.7 mg/dL (1.8-2.4); PHOSPHOROUS 3.1 mg/dL (2.5-4.9); SGOT/AST 66 U/L (15-37); SGPT/ALT 46 U/L (12-78); TOT PROT 6.7 g/dl (6.4-8.2)
[2017-11-01 06:50] LABS: ALK PHOS 731 U/L (45-117)
[2017-11-01] MEDS ORDERED: PT OWN MED DRAWER 7, Y5N ONE (09:18)
[2017-11-01] MEDS: CEFTRIAXONE 1 GM in SODIUM CHLORIDE 50 ML IVPB SCH (09:19)
[2017-11-01] MEDS: PREGABALIN 75 MG CAPSULE PO SCH ×2 (09:20→22:03)
[2017-11-01] MEDS: CLOPIDOGREL BISULFATE 75 MG TABLET (FP) PO SCH (09:20)
[2017-11-01] MEDS: RANITIDINE HCL 150 MG TABLET (FP) PO SCH (09:20)
[2017-11-01] MEDS: METOPROLOL TARTRATE 25 MG TABLET (FP) PO SCH ×2 (09:20→22:03)
[2017-11-01] MEDS: FUROSEMIDE 40 MG/4 ML INJECTABLE VIAL IVPUSH SCH ×2 (09:42→11:34)
--- NOTE | 2017-11-01 11:50 | MSN ---
Progress Note (short form) - Note Progress Note: SUBJECTIVE: Patient was seen and examined at bedside this morning. Overnight, nurse reports patient was slightly agitated. Patient was intubated during encounter, sedation through Fentanyl drip. Unable to attain ROS. OBJECTIVE: Vitals: Vital Signs Temp 100.3 F H 11/01/17 08:00 Pulse 68 11/01/17 10:00 Resp 16 11/01/17 10:00 BP 164/46 11/01/17 10:00 Pulse Ox 96 11/01/17 10:33 I&Os: Intake & Output 10/31/17 10/31/17 11/01/17 11:59 23:59 11:59 Intake Total 366 962 460 Output Total 400 1000 250 Balance -34 -38 210 Weight 144 lb 9.972 oz 144 lb 6 oz Intake: IV 316 382 360 ABX 50 Fentanyl drip 180 Heparin - 25,000 Unit In 136 120 120 Normal Saline - 495 ml @ 800 UNIT/HR 16 mls/hr IV TITR BILL Rx#:[id number] Sublimaze Injection - 500 212 240 Mcg In D5w - 90 ml @ 25 MCG/HR 5 mls/hr IVPB TITR BILL Rx#:[id number] IVPB 520 Tube Irrigant 50 60 100 Output: Urine 400 1000 250 [place] 400 1000 250 Other: Voiding Method Indwelling Catheter Indwelling Catheter Indwelling Catheter Weight Measurement Method Built in [facility] Built [facility] Home Medication List Medication Instructions Recorded Confirmed Type Amlodipine Besylate [Norvasc -] 10 mg PO DAILY 10/26/17 10/26/17 History Atorvastatin Ca [Lipitor] 20 mg PO HS 10/26/17 10/26/17 History Clopidogrel Bisulfate [Plavix -] 75 mg PO DAILY 10/26/17 10/26/17 History Furosemide [Lasix] 40 mg PO DAILY 10/26/17 10/26/17 History Insulin (LOG) Aspart [NovoLOG -] 0 units SQ TID 10/26/17 10/26/17 History Insulin Glargine,Hum.rec.anlog 35 units SQ AM 10/26/17 10/26/17 History [Lantus Solostar PEN (NF)] Metoprolol Succinate [Toprol Xl -] 37.5 mg PO BID 10/26/17 10/26/17 History Multivitamin/Iron/Folic Acid 1 each PO DAILY 10/26/17 10/26/17 History [Centrum Adults Tablet] Pregabalin [Lyrica -] 200 mg PO TID 10/26/17 10/26/17 History Physical Exam: * General: awake, lethargic, laying in bed; intubated; unable to respond to yes/ no questions * Head: normocephalic, atraumatic * Eyes: pupils minimally reactive to light; EOM intact * ENT: nares patent; NG tube, ET tube in place * Neck: supple, non-tender; no JVD * Cardiac: regular rate and rhythm; 2/6 systolic ejection murmur best heard over right upper sternal border radiating to the carotids; no rubs, gallops * Lungs: decreased breath sounds at the bases b/l anteriorly; no wheezing, crackles, rhonchi * Abdomen: hypoactive bowel sounds; soft, mildly distended compared to previous exam; mild tenderness upon palpation of RUQ * Extremities: no peripheral edema; 2+ radial pulses b/l; 1+ dorsalis pedis pulses b/l Home Medication List Medication Instructions Recorded Confirmed Type Amlodipine Besylate [Norvasc -] 10 mg PO DAILY 10/26/17 10/26/17 History Atorvastatin Ca [Lipitor] 20 mg PO HS 10/26/17 10/26/17 History Clopidogrel Bisulfate [Plavix -] 75 mg PO DAILY 10/26/17 10/26/17 History Furosemide [Lasix] 40 mg PO DAILY 10/26/17 10/26/17 History Insulin (LOG) Aspart [NovoLOG -] 0 units SQ TID 10/26/17 10/26/17 History Insulin Glargine,Hum.rec.anlog 35 units SQ AM 10/26/17 10/26/17 History [Lantus Solostar PEN (NF)] Metoprolol Succinate [Toprol Xl -] 37.5 mg PO BID 10/26/17 10/26/17 History Multivitamin/Iron/Folic Acid 1 each PO DAILY 10/26/17 10/26/17 History [Centrum Adults Tablet] Pregabalin [Lyrica -] 200 mg PO TID 10/26/17 10/26/17 History Active Medications Generic Name Dose Route Start Last Admin Trade Name Freq PRN Reason Stop Dose Admin Acetaminophen 1,000 mg 10/27/17 17:31 10/27/17 17:55 Ofirmev Injection - IVPB 1,000 mg Q6H PRN Administration FEVER OR PAIN Albuterol Sulfate 1 amp 10/28/17 16:04 Ventolin 0.083% Nebulizer Soln - NEB Q4H PRN SHORT OF BREATH/WHEEZING Atorvastatin Calcium 80 mg 10/27/17 22:00 10/31/17 21:30 Lipitor - PO 80 mg HS BILL Administration Chlorhexidine Gluconate 1 applic 10/27/17 22:00 10/31/17 21:21 Hibiclens For Decolonization - TP 1 applic HS BILL Administration Clopidogrel Bisulfate 75 mg 10/27/17 10:00 11/01/17 09:20 Plavix - PO 75 mg DAILY BILL Administration Furosemide 40 mg 11/01/17 09:30 11/01/17 11:34 Lasix Injection - IVPUSH Not Given DAILY BILL Heparin Sodium (Porcine) 1,000 unit 10/27/17 00:02 Heparin - IVPUSH PRN PRN Heparin Heparin Sodium (Porcine) 5,000 unit 10/27/17 00:02 Heparin - IVPUSH PRN PRN Heparin Heparin Sodium (Porcine) 25, 500 mls @ 16 mls/hr 10/27/17 00:15 11/01/17 09: 15 000 unit/ Sodium Chloride IV 350 unit/hr TITR BILL 7 mls/hr Protocol Titration 800 UNIT/HR Ceftriaxone Sodium 1 gm/ 50 mls @ 100 mls/hr 10/30/17 10:00 11/01/17 09:19 Sodium Chloride IVPB 100 mls/hr DAILY BILL Administration Fentanyl 500 mcg/ Dextrose 100 mls @ 5 mls/hr 10/31/17 07:45 11/01/17 04:00 IVPB 100 mcg/hr TITR BILL 20 mls/hr Protocol Administration 25 MCG/HR Insulin Aspart 1 vial 10/29/17 12:00 11/01/17 12:08 Novolog Vial Sliding Scale - SQ 4 unit Q6HPO BILL Administration Protocol Metoprolol Tartrate 25 mg 10/30/17 10:15 11/01/17 09:20 Lopressor - PO 25 mg BID BILL Administration Pregabalin 75 mg 10/27/17 10:00 11/01/17 09:20 Lyrica - PO 75 mg BID BILL Administration Ranitidine HCl 150 mg 10/27/17 00:45 11/01/17 09:20 Zantac - PO 150 mg DAILY BILL Administration Labs: Laboratory Last Values WBC 13.2 K/mm3 (4.0-10.0) H 11/01/17 05:00 RBC 3.52 M/mm3 (3.60-5.2) L 11/01/17 05:00 Hgb 9.9 GM/dL (10.7-15.3) L 11/01/17 05:00 Hct 30.3 % (32.4-45.2) L 11/01/17 05:00 MCV 85.9 fl (80-96) 11/01/17 05:00 MCH 28.2 pg (25.7-33.7) 11/01/17 05:00 MCHC 32.8 g/dl (32.0-36.0) 11/01/17 05:00 RDW 14.2 % (11.6-15.6) 11/01/17 05:00 Plt Count 175 K/MM3 (134-434) 11/01/17 05:00 MPV 11.8 fl (7.5-11.1) H 11/01/17 05:00 Total Counted 100 10/29/17 05:00 Neutrophils % 71.0 % (42.8-82.8) 11/01/17 05:00 Neutrophils % (Manual) 59.0 % (42.8-82.8) D 10/29/17 05:00 Band Neutrophils % 2.0 % 10/27/17 06:00 Lymphocytes % 15.3 % (8-40) D 11/01/17 05:00 Lymphocytes % (Manual) 28.0 % (8-40) D 10/29/17 05:00 Monocytes % 11.8 % (3.8-10.2) H 11/01/17 05:00 Monocytes % (Manual) 10 % (3.8-10.2) D 10/29/17 05:00 Eosinophils % 1.6 % (0-4.5) 11/01/17 05:00 Basophils % 0.3 % (0-2.0) 11/01/17 05:00 Basophils % (Manual) 2.0 % (0-2.0) 10/29/17 05:00 Metamyelocytes 1 % (0-2) 10/29/17 05:00 Platelet Estimate Slt decrease 10/29/17 05:00 Platelet Comment Rare giant plts 10/31/17 05:35 PT with INR 12.80 SEC (9.98-11.88) H 10/26/17 21:53 INR 1.13 (0.82-1.09) 10/26/17 21:53 PTT (Actin FS) 137.3 SECONDS (26.9-34.4) H D 11/01/17 05:00 Puncture Site Left radial 10/27/17 10:42 ABG pH 7.46 (7.35-7.45) H 10/27/17 10:42 ABG pCO2 at Pt Temp 41.9 mmHg (35-45) 10/27/17 10:42 ABG pO2 at Pt Temp 79.2 mmHg (68-100) D 10/27/17 10:42 ABG HCO3 29.6 meq/L (22-26) H 10/27/17 10:42 ABG O2 Sat (Measured) 97.1 % (90-98.9) 10/27/17 10:42 ABG O2 Content 15.1 % vol (15-22) 10/27/17 10:42 ABG Base Excess 5.7 meq/l (-2-2) H 10/27/17 10:42 Olman Test Positive 10/27/17 10:42 Carboxyhemoglobin 1.3 gm% (0.5-2.0) 10/26/17 23:25 Methemoglobin 0.7 % (0.4-1.5) 10/26/17 23:25 O2 Delivery Device Mech vent 10/27/17 10:42 Oxygen Flow Rate 50 10/27/17 10:42 Vent Mode A/c 10/27/17 10:42 Vent Rate 20 10/27/17 10:42 Mechanical Rate Esprit 10/27/17 10:42 PEEP 5.0 cmH2O 10/27/17 10:42 Pressure Support Vent 300 tidal volume 10/27/17 10:42 Sodium 143 mmol/L (136-145) 11/01/17 05:00 Potassium 3.5 mmol/L (3.5-5.1) 11/01/17 05:00 Chloride 105 mmol/L (98-107) D 11/01/17 05:00 Carbon Dioxide 29 mmol/L (21-32) 11/01/17 05:00 Anion Gap 9 (8-16) 11/01/17 05:00 BUN 34 mg/dL (7-18) H 11/01/17 05:00 Creatinine 1.2 mg/dL (0.55-1.02) H 11/01/17 05:00 Creat Clearance w eGFR 42.40 (>60) 11/01/17 05:00 POC Glucometer 219.21172 UNITS (80-120) 11/01/17 12:02 Random Glucose 209 mg/dL (74-106) H 11/01/17 05:00 Hemoglobin A1c % 10.2 % (4.8-6.0) H 10/27/17 06:00 Lactic Acid 2.9 mmol/L (0.4-2.0) H* 10/28/17 05:00 Calcium 7.7 mg/dL (8.5-10.1) L 11/01/17 05:00 Phosphorus 3.1 mg/dL (2.5-4.9) 11/01/17 05:00 Magnesium 2.7 mg/dL (1.8-2.4) H 11/01/17 05:00 Total Bilirubin 0.7 mg/dL (0.2-1.0) 11/01/17 05:00 GGT 519 U/L (5-85) H 11/01/17 05:00 AST 66 U/L (15-37) H 11/01/17 05:00 ALT 46 U/L (12-78) 11/01/17 05:00 Alkaline Phosphatase 731 U/L (45-117) H 11/01/17 05:00 Creatine Kinase 379 IU/L (26-192) H 10/29/17 05:00 Creatine Kinase Index 0.5 % (0.0-5.0) 10/29/17 05:00 CK-MB (CK-2) 2.27 ng/mL (0.5-3.6) 10/29/17 05:00 Troponin I 3.78 ng/ml (0.00-0.05) H* 10/29/17 17:45 B-Natriuretic Peptide 82555.60 pg/ml (5-450) H 10/26/17 21:53 Total Protein 6.7 g/dl (6.4-8.2) 11/01/17 05:00 Albumin 1.8 g/dl (3.4-5.0) L 11/01/17 05:00 Triglycerides 461 mg/dL (35-160) H 10/27/17 07:45 Cholesterol 94 mg/dL (50-200) 10/27/17 07:45 Total LDL Cholesterol 40 mg/dL (5-100) 10/27/17 07:45 HDL Cholesterol 29 mg/dL (40-60) L 10/27/17 07:45 Urine Color Lt. yellow 10/26/17 21:53 Urine Appearance Clear 10/26/17 21:53 Urine pH 5.0 (5.0-8.0) 10/26/17 21:53 Ur Specific [place] 1.020 (1.001-1.035) 10/26/17 21:53 Urine Protein 1+ (NEGATIVE) H 10/26/17 21:53 Urine Glucose (UA) Negative (NEGATIVE) 10/26/17 21:53 Urine Ketones Negative (NEGATIVE) 10/26/17 21:53 Urine Blood Negative (NEGATIVE) 10/26/17 21:53 Urine Nitrite Negative (NEGATIVE) 10/26/17 21:53 Urine Bilirubin Negative (NEGATIVE) 10/26/17 21:53 Urine Urobilinogen 0.2 mg/dL (0.2-1.0) 10/26/17 21:53 Ur Leukocyte Esterase Trace (NEGATIVE) H 10/26/17 21:53 Urine WBC (Auto) 7 /hpf (3-5) 10/26/17 21:53 Urine RBC (Auto) 1 /hpf (0-3) 10/26/17 21:53 Ur Epithelial Cells Rare /HPF (FEW) 10/26/17 21:53 Urine Bacteria Moderate /hpf (NONE SEEN) 10/26/17 21:53 Hyaline Casts 9 /lpf 10/26/17 21:53 Urine Mucus Rare 10/26/17 21:53 Acetone, Qual Negative (NEGATIVE) L 10/26/17 21:53 Hepatitis A IgM Ab Negative (Negative) 10/27/17 07:45 Hep Bs Antigen Negative (Negative) 10/27/17 07:45 Hep B Core IgM Ab Negative (Negative) 10/27/17 07:45 Hepatitis C Ab (EIA) 0.1 s/co ratio (0.0-0.9) 10/27/17 07:45 Blood Type A POSITIVE 10/26/17 21:53 Antibody Screen Negative 10/26/17 21:53 Imaging: * CXR (10/31): * RUQ U/S (10/31): periportal echogenic densities in the liver suggestive of periportal edema. Dilated common bile duct (1.2cm intraluminal diameter) ASSESSMENT/PLAN: Patient is a 86 y/o female with a PMH of CAD, cardiac stents x 10 (last placed 3 years ago), aortic valve replacement (placed last year), and IDDM who presented with acute hypoxic respiratory failure. Patient was intubated in the field after being found by EMS to be in respiratory distress and with an O2 saturation in the 50's. Patient's family notes that patient was experiencing progressive SOB, anon-productive cough, weakness, and worsening LE edema for 2 days prior to her acute presentation. Patient recently moved from [place]. In ED, workup was significant for elevated troponins. Initial EKG showed sinus tachycardia with ST segment depression in the anterolateral leads. 1) Acute hypoxic respiratory failure most likely 2/2 NSTEMI * ICU day 6 * Patient was seen awake, intubated, and able to follow commands this morning -- > passed CPAP/PS trials and is currently extubated now * F/u speech evaluation * Progress diet as tolerated * Continue Lasix 40mg IV push daily * Continue Duonebs q4H PRN 2) NSTEMI * Plan is for patient to be [facility] for cardiac cath. Beds are currently full. * PE unlikely in the setting of elevated CK-MB. However, unable to r/out PE with chest CTA as patient was found to have an BASIL. * Continue Lopressor 25mg PO BID * Hold lopressor if patient is found to be hypotensive * Goal MAP is > 65mmHg * Continue Heparin drip (25,000u in normal saline) * PTT elevated today at 137.3 --> heparin infusion decreased to 7cc/hr * Continue Plavix 75mg PO daily * Continue Lipitor 80mg PO HS * Cardiology following (seen by Dr. Kerr) * Repeat echo for better visualization of right heart 3) Leukocytosis 2/2 possible community acquired pneumonia * Patient had a low grade fever overnight (~100F) * WBC mildly elevated today at 13.2 (increased from 10.9 yesterday) * Day 6 of Ceftriaxone 1gm IV @100cc/hr * Azithromycin 5 day course finished * Sputum cx positve for Moraxella Catarrhalis * Blood cx, urine cx - negative for growth * Monitor CBC daily 4) Elevated Alkaline phosphatase * RUQ U/S (10/31): periportal echogenic densities in the liver suggestive of periportal edema. Dilated common bile duct (1.2cm intraluminal diameter) * Periportal edema may be consistent with hepatic congestion 2/2 to CHF * AST/ALT improving (66/46 today) * Continue to trend LFTs daily * Repeat RUQ U/S on Wednesday * GGT ordered to determine if elevated Alk Phosp is 2/2 to hepatic or bone etiology * Consider MRCP if patient can tolerate procedure 5) Peripheral Vascular disease * DP and PT pulses diminished b/l (0 to 1+ pulses) * Arterial doppler showed extensive b/l atherosclerotic disease in LE * Vascular sugery consulted - recommend to continue medical management 6) IDDM * Home med: Lantus 35units qHS + sliding scale insulin * Patient is currently receiving Novalag sliding scale insulin * Continue Lyrica 75mg PO BID for peripheral neuropathy 7) BASIL * Currently resolved * Patient creatinine elevated at 1.9 on admission * Cr: 1.2 today (decreased from 1.4 yesterday) * Continue to monitor Cr. daily * Hold IVFs in the setting of CHF
[2017-11-01] MEDS ORDERED: HEMOQUE TEST 1 EACH EACH ONE ×2 (11:56→22:01)
[2017-11-01] MEDS ORDERED: INSULIN (NOVOLOG) ASPART 100 UNITS/ML 10ML VIAL ONE (12:07)
--- NOTE | 2017-11-01 12:10 | PN ---
Progress Note, Physician History of Present Illness: The patient is an 86 year old female, with a significant past medical history of cardiac stents x 10, aortic valve replacement, IDDM, who presents to the emergency department brought in by ems intubated after complaint of difficulty breathing this evening. As per ems, the patient was read to be 90% on capnography which dropped to 50% after being bagged in the field. As per ems, the patient was found tachypneic in the field, in respiratory distress, and was intubated (ETT 7.0). As per the patients family at bedside, the patient was feeling well yesterday morning, performing activities of daily life without symptoms. As per patients family, the patient had a nonproductive cough for the past few days, however, the patient reportedly felt better this morning. As per the family, the patient received her flu vaccination 3 weeks ago. Family denies recent sick contacts. At presentation was being bagged by ems. Allergies: aspirin Past surgical history: cardiac stent x 10 Social history: denies toxic habits 86 year old F with pmh of IDDM, Cardiac Stent placement x10 (last placed 3 years prior), and aortic valve replacement (last year) presenting with shortness of breath. History obtained by daughter. Patient arrived from [place] via car last Wednesday. Patient was in usual state of health 2 days prior to admission. Patient performs ADLs and walks at baseline. Over the last 2 days patient had worsening SOB, decreased Urine output, weakness, and nonproductive cough with saliva. This evening patient's shortness of breath worsened and EMS was called. Patient was intubated in the field 2/2 to respiratory distress and was satting in the 50%. Daughter endorses chronic pedal edema, orthopnea, and dyspnea on exertion which has been worsening over the last 2 days as well. Per daughter, patient has not had increased salt intake. Patient denies fever, chills, nausea, vomiting, diarrhea, chest pain, palpitations, abdominal pain. ER course was notable for: (1) VS- WNL, CBC- wbc 20.1, ABG- 7.35/50.6/101/26.9 (2) Glucose- 389, Lactic Acid-6.0, Troponin of 6.75, CK-MB-26.816, BNP-20,000 (3) UA- negative (4) EKG- Sinus tachycardia. Q waves in inferior and lateral leads (5) CXR-pulmonary vascular congestion, pneumonia cannot be excluded - Current Medication List Current Medications: Active Medications Acetaminophen (Ofirmev Injection -) 1,000 mg IVPB Q6H PRN PRN Reason: FEVER OR PAIN Last Admin: 10/27/17 17:55 Dose: 1,000 mg Albuterol Sulfate (Ventolin 0.083% Nebulizer Soln -) 1 amp NEB Q4H PRN PRN Reason: SHORT OF BREATH/WHEEZING Atorvastatin Calcium (Lipitor -) 80 mg PO HS [facility] Last Admin: 10/31/17 21:30 Dose: 80 mg Chlorhexidine Gluconate (Hibiclens For Decolonization -) 1 applic TP HS [facility] Last Admin: 10/31/17 21:21 Dose: 1 applic Clopidogrel Bisulfate (Plavix -) 75 mg PO DAILY [facility] Last Admin: 11/01/17 09:20 Dose: 75 mg Furosemide (Lasix Injection -) 40 mg IVPUSH DAILY [facility] Last Admin: 11/01/17 11:34 Dose: Not Given Heparin Sodium (Porcine) (Heparin -) 1,000 unit IVPUSH PRN PRN PRN Reason: Heparin Heparin Sodium (Porcine) (Heparin -) 5,000 unit IVPUSH PRN PRN PRN Reason: Heparin Heparin Sodium (Porcine) 25, (000 unit/ Sodium Chloride) 500 mls @ 16 mls/hr IV TITR BILL; 800 UNIT/HR PRN Reason: Protocol Last Titration: 11/01/17 08:15 Dose: 0 unit/hr, 0 mls/hr Ceftriaxone Sodium 1 gm/ (Sodium Chloride) 50 mls @ 100 mls/hr IVPB DAILY [facility] Last Admin: 11/01/17 09:19 Dose: 100 mls/hr Fentanyl 500 mcg/ Dextrose 100 mls @ 5 mls/hr IVPB TITR BILL; 25 MCG/HR PRN Reason: Protocol Last Admin: 11/01/17 04:00 Dose: 100 mcg/hr, 20 mls/hr Insulin Aspart (Novolog Vial Sliding Scale -) 1 vial SQ Q6HPO BILL PRN Reason: Protocol Last Admin: 11/01/17 06:37 Dose: 6 unit Metoprolol Tartrate (Lopressor -) 25 mg PO BID [facility] Last Admin: 11/01/17 09:20 Dose: 25 mg Pregabalin (Lyrica -) 75 mg PO BID [facility] Last Admin: 11/01/17 09:20 Dose: 75 mg Ranitidine HCl (Zantac -) 150 mg PO DAILY [facility] Last Admin: 11/01/17 09:20 Dose: 150 mg - Objective Vital Signs: Vital Signs Temperature 100.5 F H 11/01/17 12:00 Pulse Rate 64 11/01/17 12:00 Respiratory Rate 20 11/01/17 12:00 Blood Pressure 140/36 11/01/17 12:00 O2 Sat by Pulse Oximetry (%) 95 11/01/17 11:52 Eyes: Yes: WNL, Conjunctiva Clear, EOM Intact HENT: Yes: WNL, Atraumatic, Normocephalic Neck: Yes: WNL, Supple, Trachea Midline Cardiovascular: Yes: WNL, Regular Rate and Rhythm, Murmur, S1, S2 Respiratory: Yes: WNL, Regular, CTA Bilaterally, Diminished Gastrointestinal: Yes: WNL, Normal Bowel Sounds Genitourinary: Yes: WNL Musculoskeletal: Yes: WNL Extremities: Yes: WNL Edema: No Integumentary: Yes: WNL Neurological: Yes: WNL, Alert, Oriented ...Motor Strength: WNL Psychiatric: Yes: WNL Labs: CBC, BMP 11/01/17 05:00 11/01/17 05:00 INR, PTT INR 1.13 (0.82-1.09) 10/26/17 21:53 Problem List - Problems (1) CHF (congestive heart failure) Code(s): I50.9 - HEART FAILURE, UNSPECIFIED (2) NSTEMI (non-ST elevated myocardial infarction) Code(s): I21.4 - NON-ST ELEVATION (NSTEMI) MYOCARDIAL INFARCTION Assessment/Plan - Problems (1) Acute on chronic systolic and diastolic heart failure, NYHA class 3 Assessment/Plan: NSTEMI; Mild-moderate LV dysfunction; unable to see RV well, and RVSP unable to be assessed. Hypotension resolved Fair urine output; continued vascular congestion. awaiting transfer to [facility] for c. cath when stable and bed in ICU available - as per dr. Lovell note Code(s): I50.43 - ACUTE ON CHRONIC COMBINED SYSTOLIC AND DIASTOLIC HRT FAIL (2) BASIL (acute kidney injury) Assessment/Plan: resolved (3) CAD (coronary artery disease) Code(s): I25.10 - ATHSCL HEART DISEASE OF [place] CORONARY ARTERY W/O ANG PCTRS (4) IDDM (insulin dependent diabetes mellitus) Code(s): E11.9 - TYPE 2 DIABETES MELLITUS WITHOUT COMPLICATIONS; Z79.4 - HEAD OF [place] BUYING (CURRENT) USE OF INSULIN (5) Lactic acidosis Code(s): E87.2 - ACIDOSIS (6) NSTEMI (non-ST elevated myocardial infarction) Assessment/Plan: Now off dopamine. TNI 12.3-->4.3 within the past 48 hours. Continue IV heparin and PO clopidogrel. On atorvastatin 80 mg/day. Consider ACEI when BP and renal status allow. BBlockers Code(s): I21.4 - NON-ST ELEVATION (NSTEMI) MYOCARDIAL INFARCTION (7) Severe sepsis Code(s): A41.9 - SEPSIS, UNSPECIFIED ORGANISM; R65.20 - SEVERE SEPSIS WITHOUT SEPTIC SHOCK resolved (8) Transaminitis Assessment/Plan: likely secondary to passive congestion from CHF; levels are improving. Code(s): R74.0 - NONSPEC ELEV OF LEVELS OF TRANSAMNS & LACTIC ACID DEHYDRGNSE (9) At high risk for pulmonary embolism Assessment/Plan: relatively sudden SOB a week after a 9 hour car trip from [place]. Leg pains (however, these have been chronic). Continue IV heparin. Problematic doing CTA presently. 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 Code(s): J96.00 - ACUTE RESPIRATORY FAILURE, UNSP W HYPOXIA OR HYPERCAPNIA d/w family and ICU team cc time 40 min
--- NOTE | 2017-11-01 12:19 | PN ---
Teaching Attending Note Name of Resident: David Melendez ATTENDING PHYSICIAN STATEMENT I saw and evaluated the patient. I reviewed the resident's note and discussed the case with the resident. I agree with the resident's findings and plan as documented. SUBJECTIVE: Pt seen and examined in the ICU. Remained intubated, awake off sedation, following commands. Tolerated CPAP/PS trials and subsequently extubated during rounds. Low grade fevers overnight. OBJECTIVE: Last Vital Signs Temp Pulse Resp BP Pulse Ox 100.5 F H 64 20 140/36 95 11/01/17 12:00 11/01/17 12:00 11/01/17 12:00 11/01/17 12:00 11/01/17 11:52 Intake & Output 10/29/17 10/30/17 10/31/17 11/01/17 23:59 23:59 23:59 23:59 Intake Total 539 589 7258 460 Output Total 600 1200 1400 250 Balance -32 -551 -72 210 Weight 148 lb 12.992 oz 145 lb 7 oz 144 lb 9.972 oz 144 lb 6 oz Gen: extubated Heart: RRR Lung: decreased breath sounds at the bases Abd: soft, ?RUQ tenderness, no rebound Ext: + edema CBC, BMP 11/01/17 05:00 11/01/17 05:00 Active Medications Acetaminophen (Ofirmev Injection -) 1,000 mg IVPB Q6H PRN PRN Reason: FEVER OR PAIN Last Admin: 10/27/17 17:55 Dose: 1,000 mg Albuterol Sulfate (Ventolin 0.083% Nebulizer Soln -) 1 amp NEB Q4H PRN PRN Reason: SHORT OF BREATH/WHEEZING Atorvastatin Calcium (Lipitor -) 80 mg PO HS COUNTS INCLUDE 234 BEDS AT THE [facility] Last Admin: 10/31/17 21:30 Dose: 80 mg Chlorhexidine Gluconate (Hibiclens For Decolonization -) 1 applic TP HS COUNTS INCLUDE 234 BEDS AT THE [facility] Last Admin: 10/31/17 21:21 Dose: 1 applic Clopidogrel Bisulfate (Plavix -) 75 mg PO DAILY COUNTS INCLUDE 234 BEDS AT THE [facility] Last Admin: 11/01/17 09:20 Dose: 75 mg Furosemide (Lasix Injection -) 40 mg IVPUSH DAILY COUNTS INCLUDE 234 BEDS AT THE [facility] Last Admin: 11/01/17 11:34 Dose: Not Given Heparin Sodium (Porcine) (Heparin -) 1,000 unit IVPUSH PRN PRN PRN Reason: Heparin Heparin Sodium (Porcine) (Heparin -) 5,000 unit IVPUSH PRN PRN PRN Reason: Heparin Heparin Sodium (Porcine) 25, (000 unit/ Sodium Chloride) 500 mls @ 16 mls/hr IV TITR BILL; 800 UNIT/HR PRN Reason: Protocol Last Titration: 11/01/17 09:15 Dose: 350 unit/hr, 7 mls/hr Ceftriaxone Sodium 1 gm/ (Sodium Chloride) 50 mls @ 100 mls/hr IVPB DAILY COUNTS INCLUDE 234 BEDS AT THE [facility] Last Admin: 11/01/17 09:19 Dose: 100 mls/hr Fentanyl 500 mcg/ Dextrose 100 mls @ 5 mls/hr IVPB TITR BILL; 25 MCG/HR PRN Reason: Protocol Last Admin: 11/01/17 04:00 Dose: 100 mcg/hr, 20 mls/hr Insulin Aspart (Novolog Vial Sliding Scale -) 1 vial SQ Q6HPO BILL PRN Reason: Protocol Last Admin: 11/01/17 12:08 Dose: 4 unit Metoprolol Tartrate (Lopressor -) 25 mg PO BID COUNTS INCLUDE 234 BEDS AT THE [facility] Last Admin: 11/01/17 09:20 Dose: 25 mg Pregabalin (Lyrica -) 75 mg PO BID COUNTS INCLUDE 234 BEDS AT THE [facility] Last Admin: 11/01/17 09:20 Dose: 75 mg Ranitidine HCl (Zantac -) 150 mg PO DAILY COUNTS INCLUDE 234 BEDS AT THE [facility] Last Admin: 11/01/17 09:20 Dose: 150 mg ASSESSMENT AND PLAN: Acute Hypoxic Respiratory Failure Acute Pulmonary Edema Acute NSTEMI CAD h/o AVR Pneumonia Acute Kidney Injury improving DM - pt extubated - continue lasix - monitor urine output, creatinine - continue antibiotics - repeat cultures - continue anticoagulation - consider repeat echocardiogram to visualize right heart - plavix, beta emeterio - for cardiac catheterization when stable - continue ICU monitoring critical care time spent in reviewing chart, evaluating patient and formulating plan 40 min
--- NOTE | 2017-11-01 12:38 | PN ---
Physical Exam: SUBJECTIVE: The patient is a [place] speaking 86F with a PMH of CAD s/p 10 stents 3 years ago, aortic valve replacement last year, IDDM who was brought into the ED for respiratory distress. The patient was intubated in the field and sedated. The patient remains intubated and sedated in the ICU. Per RN, patient became agitated overnight. No longer agitated. Responsive to verbal stimuli at bedside. Unable to obtain ROS. Patient was ventilating well on CPAP mode with breathing tube inserted. Will extubate. Pending transfer to [facility] for heart cath. OBJECTIVE: Vital Signs Period Temp Pulse Resp BP Sys/Chatman Pulse Ox Last 24 Hr 98.4 F-100.6 F 45-70 16-21 115-164/36-72 95-97 GENERAL: The patient is awake, alert, and fully oriented, in no acute distress. HEAD: Normal with no signs of trauma. EYES: PERRL, extraocular movements intact, sclera anicteric, conjunctiva clear. No ptosis. ENT: Ears normal, nares patent, oropharynx clear without exudates, moist mucous membranes. NECK: Trachea midline, full range of motion, supple. LUNGS: Breath sounds equal, clear to auscultation bilaterally, no wheezes, no crackles, no accessory muscle use. HEART: Regular rate and rhythm, S1, S2 without murmur, rub or gallop. ABDOMEN: Soft, nontender, nondistended, normoactive bowel sounds, no guarding, no rebound, no hepatosplenomegaly, no masses. EXTREMITIES: 2+ pulses, warm, well-perfused, no edema. NEUROLOGICAL: Cranial nerves II through XII grossly intact. Normal speech, gait not observed. PSYCH: Normal mood, normal affect. SKIN: Warm, dry, normal turgor, no rashes or lesions noted Laboratory Results - last 24 hr 10/31/17 10/31/17 10/31/17 12:12 17:09 23:54 WBC RBC Hgb Hct MCV MCH MCHC RDW Plt Count MPV Neutrophils % Lymphocytes % Monocytes % Eosinophils % Basophils % PTT (Actin FS) Sodium Potassium Chloride Carbon Dioxide Anion Gap BUN Creatinine Creat Clearance w eGFR POC Glucometer 230.00172 210.66649 193.14238 Random Glucose Calcium Phosphorus Magnesium Total Bilirubin GGT AST ALT Alkaline Phosphatase Total Protein Albumin 11/01/17 11/01/1717 05:00 05:00 05:00 WBC 13.2 H RBC 3.52 L Hgb 9.9 L Hct 30.3 L MCV 85.9 MCH 28.2 MCHC 32.8 RDW 14.2 Plt Count 175 MPV 11.8 H Neutrophils % 71.0 Lymphocytes % 15.3 D Monocytes % 11.8 H Eosinophils % 1.6 Basophils % 0.3 PTT (Actin FS) 137.3 H D Sodium 143 Potassium 3.5 Chloride 105 D Carbon Dioxide 29 Anion Gap 9 BUN 34 H Creatinine 1.2 H Creat Clearance w eGFR 42.40 POC Glucometer Random Glucose 209 H Calcium 7.7 L Phosphorus 3.1 Magnesium 2.7 H Total Bilirubin 0.7 GGT AST 66 H ALT 46 Alkaline Phosphatase 731 H Total Protein 6.7 Albumin 1.8 L 11/01/17 11/01/17 11/01/17 05:00 06:36 12:02 WBC RBC Hgb Hct MCV MCH MCHC RDW Plt Count MPV Neutrophils % Lymphocytes % Monocytes % Eosinophils % Basophils % PTT (Actin FS) Sodium Potassium Chloride Carbon Dioxide Anion Gap BUN Creatinine Creat Clearance w eGFR POC Glucometer 253.89605 [phone] Random Glucose Calcium Phosphorus Magnesium Total Bilirubin GGT 519 H AST ALT Alkaline Phosphatase Total Protein Albumin Active Medications Generic Name Dose Route Start Last Admin Trade Name Ritesh PRN Reason Stop Dose Admin Acetaminophen 1,000 mg 10/27/17 17:31 10/27/17 17:55 Ofirmev Injection - IVPB 1,000 mg Q6H PRN Administration FEVER OR PAIN Albuterol Sulfate 1 amp 10/28/17 16:04 Ventolin 0.083% Nebulizer Soln - NEB Q4H PRN SHORT OF BREATH/WHEEZING Atorvastatin Calcium 80 mg 10/27/17 22:00 10/31/17 21:30 Lipitor - PO 80 mg HS BILL Administration Chlorhexidine Gluconate 1 applic 10/27/17 22:00 10/31/17 21:21 Hibiclens For Decolonization - TP 1 applic HS BILL Administration Clopidogrel Bisulfate 75 mg 10/27/17 10:00 11/01/17 09:20 Plavix - PO 75 mg DAILY BILL Administration Furosemide 40 mg 11/01/17 09:30 11/01/17 11:34 Lasix Injection - IVPUSH Not Given DAILY BILL Heparin Sodium (Porcine) 1,000 unit 10/27/17 00:02 Heparin - IVPUSH PRN PRN Heparin Heparin Sodium (Porcine) 5,000 unit 10/27/17 00:02 Heparin - IVPUSH PRN PRN Heparin Heparin Sodium (Porcine) 25, 500 mls @ 16 mls/hr 10/27/17 00:15 11/01/17 09: 15 000 unit/ Sodium Chloride IV 350 unit/hr TITR BILL 7 mls/hr Protocol Titration 800 UNIT/HR Ceftriaxone Sodium 1 gm/ 50 mls @ 100 mls/hr 10/30/17 10:00 11/01/17 09:19 Sodium Chloride IVPB 100 mls/hr DAILY BILL Administration Fentanyl 500 mcg/ Dextrose 100 mls @ 5 mls/hr 10/31/17 07:45 11/01/17 04:00 IVPB 100 mcg/hr TITR BILL 20 mls/hr Protocol Administration 25 MCG/HR Insulin Aspart 1 vial 10/29/17 12:00 11/01/17 12:08 Novolog Vial Sliding Scale - SQ 4 unit Q6HPO BILL Administration Protocol Metoprolol Tartrate 25 mg 10/30/17 10:15 11/01/17 09:20 Lopressor - PO 25 mg BID BILL Administration Pregabalin 75 mg 10/27/17 10:00 11/01/17 09:20 Lyrica - PO 75 mg BID BILL Administration Ranitidine HCl 150 mg 10/27/17 00:45 11/01/17 09:20 Zantac - PO 150 mg DAILY BILL Administration ASSESSMENT/PLAN: The patient is an 86F who presented to the ED in respiratory distress and is currently extubated and comfortable. Neuro: - Weaned sedation this AM - Will continue to monitor for agitation CV: CAD and questionable NSTEMI - Continue heparin GGT and plavix - Pt is allergic to ASA - Continue Lopressor 25, lipitor 80, lasix 40 IV - Pending transfer to [facility] for cath - EKG shows nonspecific T-wave changes - BP is normotensive Pulm: NSTEMI vs PNA - CAP coverage: 1 gm rocephin - Azithro d/c - Continue diuresis with 40 mg IV lasix Renal: BASIL - BUN/Cr: 34/1.2, stable : - None GI: - On Zantac 150 daily - LOCKSTITCHER states that the patient is not ready for oral feeding ID: Sepsis 2/2 CAP or inflammation vs cardiogenic shock - WBC elevated 13.2 from 10.5 - Sandraro was d/c; will discuss with attending for new abx as patient has concurrent low grade fever - Quintero culture patient - Continue resuscitation Hem/Onc: - None Endocrine: IDDM - Continue meds - Novolog 1 sq q6h MSK: - None PPX: - Heparin ggt FEN (Fluids, electrolytes, nutrition): - S/p extubation - LOCKSTITCHER states that the patient is not ready for oral feeding - Will discuss with dietitican regarding NG tube feeding Dispo: - Transfer to [facility] when bed is available Visit type - Emergency Visit Emergency Visit: Yes ED Registration Date: 10/27/17 Care time: The patient presented to the Emergency Department on the above date and was hospitalized for further evaluation of their emergent condition. - New Patient This patient is new to me today: No - Critical Care Critical Care patient: Yes Total Critical Care Time (in minutes): 45 Critical Care Statement: The care of this patient involved high complexity decision making to prevent further life threatening deterioration of the patient 's condition and/or to evaluate & treat vital organ system(s) failure or risk of failure.
--- NOTE | 2017-11-01 13:44 | PN ---
Teaching Attending Note Name of Resident: Fransico Aden ATTENDING PHYSICIAN STATEMENT I saw and evaluated the patient. I reviewed the resident's note and discussed the case with the resident. I agree with the resident's findings and plan as documented. SUBJECTIVE:seen at 9 am . was intubated at that time No events over night, awake and denies any pain . OBJECTIVE: awake, intubated . tracks and nods CV: RRR distant heart sounds , No JVD . Lungs: clear lungs anteriorly ABd: soft, ND ,TTP i n RUQ. no guarding ,NL BS . Ext:trace edema on LE . DP pulses not felt . discoloration is still present on tip of R big toe, but fading on L big toe ASSESSMENT AND PLAN: 86 y/o unfortunate lady with h/o CAD, s/p stenting , AVR, IDDM , and other medical problems who presented with SOB and was found to have acute pulm edema in the setting of NSTEMI 1- Acute hypoxic respiratory failure: due to pulm edema and PNA I&O: net neg 75 cc in past 24 hr after lasix - Give 40 of IV lasix daily . - Extubated today. - cont Abx. 2- NSTEMI with cardiogenic shock. shock resolved - cont plavix and Heparin gtt. - cont BB , monitor Bp - will d/w card transfer details - reasonable to repeat echo 3- BASIL: pre-renal from CHF. stable Cr. - cont to monitor 4- Elevated ALk Phos: initially though to be due to liver congestion in setting of heart failure, but ALT/AST improved. ceftriaxone could cause cholestatsis , but US showed CBD dilation of 1.2 cm. she unlikely has an infection in biliary tree. - If she can tolerate MRI will obtain MRCP. 5-CAP with severe sepsis: cont with low grade fever and mild leukocytosis - Cont ceftriaxone . day 7. completed 5 days of azithro - blood cx Neg to date 6-PVD: - cont heparin gtt 7-DM : - Cont SSI ICU level of care .
--- NOTE | 2017-11-01 14:17 | CONSULT ---
Admitting History and Physical - Primary Care Physician PCP: Abisai Smith - Admission History of Present Illness: 86 year old F with pmh of IDDM, Cardiac Stent placement x10 (last placed 3 years prior), and aortic valve replacement (last year) presenting with shortness of breath, intubated in the field, and admitted to the ICU for Acute hypoxic Respiratory failure 2/2 to CHF exacerbation. Extubated this morning. NGT remains in place. Acute hypoxic respiratory failure, acute pulmonary edema, acute NSTEMI, PNA. History Source: Medical Record Limitations to Obtaining History: Clinical Condition - Past Medical History Cardiovascular: Yes: CAD, CHF Endocrine: Yes: Diabetes Mellitus - Smoking History Smoking history: Unknown if ever smoked - Alcohol/Substance Use Hx Alcohol Use: No History - Admission Reason For Visit: NSTEMI CHF - Diagnostics X-ray: Report Reviewed - General Mental Status: Awake and Alert, Able to Follow Commands, Vague Attention: Distractible Ability to Follow Directions: Fair Head/Neck Control: Fair - Hearing Hearing: Functional Hearing Aide: No With Patient: No Speech Evaluation - Communication Primary Language: MAURITIAN - Speech Production Intelligibility: Yes: Severely Impaired - Speech Characteristics Voice Loudness: Hypophonia Voice Pitch: Yes: Mildly High Voice Phonatory-based Quality: Yes: Weak, Dysphonia Speech Pattern: Impaired Speech Clarity: < 25% Nasal Resonance: Normal - Language/Verbal Expression Able to Respond to Simple Queries: Yes: Severely Impaired Able to Communicate Wants and Needs: Yes: Severely Impaired Functional Communication Status: Yes: Severely Impaired - Swallow Evaluation/Bedside Assessment Current Nutritional Intake: NG Tube (Feedings not yet initiated) Oral Secretions: Yes: WFL Facial Symmetry at Rest: Symmetrical (Upper lip swollen from intubation.) Lingual Movement: Symmetric Labial Seal: Impaired Right Odynophagia: Pharyngeal Recommendations - Speech Evaluation, Impression/Plan Impression: Pharyngeal odynophagia and severe dysphonia, with likely vocal cord edema secondary to intubation. Extubated this am. Rare intelligible verbalizations. Possibly too painful, but rarely mouthing words as well. Lips swollen. - Dysphagia Impressions/Plan Swallowing Skills: Impaired Dysphagia Impressions: Severe Impairment, Suspect Aspiration *Silent aspiration: cannot be R/O at bedside Recommendations: Modified Barium Swallow (when appropriate), Other (Consider NGT feedings, if not medically contraindicated, until swallowing improves) - Recommendations Diet Consistency: NPO Liquids: NPO
[2017-11-01] MEDS: ALBUTEROL SO4 0.083% IH SOL 2.5 MG/3 ML VIAL.NEB. NEB PRN (18:10)
[2017-11-01] MEDS: ATORVASTATIN CA 80 MG TABLET (FP) PO SCH (22:03)
[2017-11-01] MEDS: CHLORHEXIDINE GLUCONATE 4% CLEANSER FOR DECOLONIZATION TP SCH (22:03)
[2017-11-01 23:44] LABS: URINE APPEARANCE CLOUDY; URINE BILIRUBIN NEGATIVE (NEGATIVE); URINE BLOOD 2+ (NEGATIVE); URINE COLOR YELLOW; URINE GLUCOSE (UA) NEGATIVE (NEGATIVE); URINE KETONE TRACE (NEGATIVE); URINE NITRITE NEGATIVE (NEGATIVE); URINE UROBILINOGEN NEGATIVE mg/dL (0.2-1.0)
[2017-11-01 23:49] LABS: URINE PROTEIN 2+ (NEGATIVE)
[2017-11-01 23:50] LABS: URINE MUCUS RARE; URINE RBC 11 /hpf (0-3); URINE WBC 2 /hpf (3-5)
[2017-11-02] MEDS: INSULIN SLIDING SCALE (NOVOLOG) 1 VIAL SQ SCH ×4 (00:10→17:12)
[2017-11-02 06:06] LABS: BASOPHIL 0.8 % (0-2.0); EOSINOPHIL 1.7 % (0-4.5); MCH 28.2 pg (25.7-33.7); MCHC 32.5 g/dl (32.0-36.0); MEAN CELL VOLUME 86.9 fl (80-96); MEAN PLT VOLUME 12.1 fl (7.5-11.1); NEUTROPHILS 76.2 % (42.8-82.8); PLATELET COUNT 268 K/MM3 (134-434); RDW 13.7 % (11.6-15.6); WHITE BLOOD COUNT 20.3 K/mm3 (4.0-10.0)
--- NOTE | 2017-11-02 06:21 | PN ---
Physical Exam: SUBJECTIVE: Patient seen and examined by me this AM - WBC to 20 from 13 overnight. No fevers. Blood, urine cx's sent yesterday evening. - May go for MRCP if indicated today. Possible transfer to [facility] on per cardiology - Pt more alert, interactive today. Intermittently complaining of CP, but has been inconsistent with different providers - Denies any SOB, BUENROSTRO/Dizziness, fevers/chills, N/V. Still with mild, non- productive cough. PM: - Pt transferred to floors. Tolerating NC - Daughter at bedside. Given MRI questionnaire. Informed about need for MRCP for evaluation of CBD. OBJECTIVE: Vital Signs Period Temp Pulse Resp BP Sys/[place]man Pulse Ox Last 24 Hr 98.6 F-100.5 F 64-93 12-23 132-168/36-64 95-96 GENERAL: NAD, laying in bed. A&Ox1. Able to respond to HEAD: Normal with no signs of trauma. EYES: PERRLA, trace scleral icterus, EOMI ENT: Ears normal, nares patent, oropharynx clear without exudates, moist mucous membranes. MIld labial edema NECK: Trachea midline, supple. No JVD, no hepatojugular reflex LUNGS: BL crackles, more at bases. No wheezes, no accessory muscle use. HEART: 2/6 blowing systolic murmur at LUSB/RUSB. Regular rate and rhythm, S1, S2 without murmur, rub or gallop. ABDOMEN: Soft, tender to palpation in all 4 quadrants. Typanic in all four quadrants. Normoactive bowel sounds, no masses or organomegaly. Upper EXTREMITIES: 2+ pulses, warm, well-perfused, no edema. Still w/ R IV in forearm, L IV in dorsal aspect of hand. Lower extremities: No edema. Pressure ulcers noted on distal tip of 1st hallux BL. Still with 1+ DP, 2+ PT pulse BL. Mild BL stasis dermatitis Laboratory Results - last 24 hr CBC, BMP CBC, BMP 11/02/17 05:00 11/02/17 05:00 11/02/17 05:00 11/01/17 11/01/17 11/01/17 05:00 05:00 06:36 WBC RBC Hgb Hct MCV MCH MCHC RDW Plt Count MPV Neutrophils % Lymphocytes % Monocytes % Eosinophils % Basophils % PTT (Actin FS) Sodium 143 Potassium 3.5 Chloride 105 D Carbon Dioxide 29 Anion Gap 9 BUN 34 H Creatinine 1.2 H Creat Clearance w eGFR 42.40 POC Glucometer [phone] Random Glucose 209 H Calcium 7.7 L Phosphorus 3.1 Magnesium 2.7 H Total Bilirubin 0.7 GGT 519 H AST 66 H ALT 46 Alkaline Phosphatase 731 H Total Protein 6.7 Albumin 1.8 L Urine Color Urine Appearance Urine pH Ur Specific [place] Urine Protein Urine Glucose (UA) Urine Ketones Urine Blood Urine Nitrite Urine Bilirubin Urine Urobilinogen Urine WBC (Auto) Urine RBC (Auto) Ur Epithelial Cells Urine Mucus 11/01/17 11/01/17 11/01/17 12:02 13:50 13:50 WBC RBC Hgb Hct MCV MCH MCHC RDW Plt Count MPV Neutrophils % Lymphocytes % Monocytes % Eosinophils % Basophils % PTT (Actin FS) 45.9 H D Sodium Potassium Chloride Carbon Dioxide Anion Gap BUN Creatinine Creat Clearance w eGFR POC Glucometer [phone] Random Glucose Calcium Phosphorus Magnesium Total Bilirubin GGT 622 H AST ALT Alkaline Phosphatase Total Protein Albumin Urine Color Urine Appearance Urine pH Ur Specific [place] Urine Protein Urine Glucose (UA) Urine Ketones Urine Blood Urine Nitrite Urine Bilirubin Urine Urobilinogen Urine WBC (Auto) Urine RBC (Auto) Ur Epithelial Cells Urine Mucus 11/01/17 11/01/17 11/02/17 22:00 23:00 05:00 WBC 20.3 H D RBC 3.92 Hgb 11.0 D Hct 34.0 MCV 86.9 MCH 28.2 MCHC 32.5 RDW 13.7 Plt Count 268 D MPV 12.1 H Neutrophils % 76.2 Lymphocytes % 11.9 D Monocytes % 9.4 Eosinophils % 1.7 Basophils % 0.8 PTT (Actin FS) 72.7 H D Sodium Potassium Chloride Carbon Dioxide Anion Gap BUN Creatinine Creat Clearance w eGFR POC Glucometer Random Glucose Calcium Phosphorus Magnesium Total Bilirubin GGT AST ALT Alkaline Phosphatase Total Protein Albumin Urine Color Yellow Urine Appearance Cloudy Urine pH 5.0 Ur Specific [place] 1.016 Urine Protein 2+ H Urine Glucose (UA) Negative Urine Ketones Trace H Urine Blood 2+ H Urine Nitrite Negative Urine Bilirubin Negative Urine Urobilinogen Negative Urine WBC (Auto) 2 Urine RBC (Auto) 11 Ur Epithelial Cells Rare Urine Mucus Rare Active Medications Generic Name Dose Route Start Last Admin Trade Name Freq PRN Reason Stop Dose Admin Acetaminophen 1,000 mg 10/27/17 17:31 10/27/17 17:55 Ofirmev Injection - IVPB 1,000 mg Q6H PRN Administration FEVER OR PAIN Albuterol Sulfate 1 amp 10/28/17 16:04 11/01/17 18:10 Ventolin 0.083% Nebulizer Soln - NEB 1 amp Q4H PRN Administration SHORT OF BREATH/WHEEZING Atorvastatin Calcium 80 mg 10/27/17 22:00 11/01/17 22:03 Lipitor - PO 80 mg HS BILL Administration Chlorhexidine Gluconate 1 applic 10/27/17 22:00 11/01/17 22:03 Hibiclens For Decolonization - TP 1 applic HS BILL Administration Clopidogrel Bisulfate 75 mg 10/27/17 10:00 11/01/17 09:20 Plavix - PO 75 mg DAILY BILL Administration Furosemide 40 mg 11/01/17 09:30 11/01/17 11:34 Lasix Injection - IVPUSH Not Given DAILY BILL Heparin Sodium (Porcine) 1,000 unit 10/27/17 00:02 11/01/17 16:00 Heparin - IVPUSH 1,000 unit PRN PRN Administration Heparin Heparin Sodium (Porcine) 5,000 unit 10/27/17 00:02 Heparin - IVPUSH PRN PRN Heparin Heparin Sodium (Porcine) 25, 500 mls @ 16 mls/hr 10/27/17 00:15 11/01/17 10: 00 000 unit/ Sodium Chloride IV 450 unit/hr TITR BILL 9 mls/hr Protocol Administration 800 UNIT/HR Ceftriaxone Sodium 1 gm/ 50 mls @ 100 mls/hr 10/30/17 10:00 11/01/17 09:19 Sodium Chloride IVPB 100 mls/hr DAILY BILL Administration Fentanyl 500 mcg/ Dextrose 100 mls @ 5 mls/hr 10/31/17 07:45 11/01/17 17:41 IVPB Not Given TITR [facility] Protocol 25 MCG/HR Insulin Aspart 1 vial 10/29/17 12:00 11/02/17 05:49 Novolog Vial Sliding Scale - SQ 4 unit Q6HPO BILL Administration Protocol Metoprolol Tartrate 25 mg 10/30/17 10:15 11/01/17 22:03 Lopressor - PO 25 mg BID BILL Administration Pregabalin 75 mg 10/27/17 10:00 11/01/17 22:03 Lyrica - PO 75 mg BID BILL Administration Ranitidine HCl 150 mg 10/27/17 00:45 11/01/17 09:20 Zantac - PO 150 mg DAILY BILL Administration Microbiology 10/26/17 21:54 Blood - Peripheral Venous Blood Culture - Final NO GROWTH AFTER 5 DAYS INCUBATION 10/26/17 21:54 Blood - Peripheral Venous Blood Culture - Final NO GROWTH AFTER 5 DAYS INCUBATION 10/27/17 06:30 Sputum - Endotrachea Suction/Ventilator Gram Stain - Final 10/27/17 06:30 Sputum - Endotrachea Suction/Ventilator Sputum Culture - Final Moraxella (Bran.) Catarrhalis 10/26/17 21:53 Urine - Urine Sanches Urine Culture - Final NO GROWTH OBTAINED 10/27/17 06:48 Nasopharyngeal Swab Respiratory Virus (PCR) - Preliminary 10/27/17 06:30 Urine - Urine Sanches Legionella Antigen - Final 10/27/17 06:30 Urine - Urine Sanches Streptococcus pneumoniae Antigen (M - Final 10/27/17 01:15 Nasopharyngeal Swab Influenza Types A,B Antigen (JIMMIE) - Final 10/27/17 01:15 Nasopharyngeal Swab - Final Imaging: CXr 10/26 - 1. Endotracheal tube in place with the tip projecting approximately 2.7 cm above the joshua. 2. Pulmonary vascular congestion with interstitial edema and bilateral pleural effusions. Bilaterally airspace opacities are most likely alveolar edema. Pneumonia cannot be excluded. Please correlate clinically for severe CHF exacerbation. CXR 10/27 - No significant change. ETT in place. CXR 10/28 - No evidence of pneumothorax. Resolving vascular congestive changes. Resolving bilateral pulmonary consolidations. ECHO 10/27 - Poor study. Bioprosthetic aortic valve. Mild MR. LV filling pattern normal for age. Ef 58% EKG 10/27 - Sinus tach. No QTC prolongation. Normal axis. Deep q-waves in III, worse than prior ekg on presentation. TWIs in V5-6 EKG 10/28 - NSR. NAD. Q waves in III improved. No TWIs. Improved since prior Venous duplex LE 10/27 - No evidence of deep venous thrombosis. Arterial duplex 10/27 - Extensive atherosclerotic disease with weak, monophasic flow within the popliteal and posterior tibial arteries bilaterally. Clinical correlation and follow-up recommended. Please see above discussion. CXR 10/29 - No significant changes since prior CXR. RUQ U/S 10/31 - Nonvisualization of the gallbladder. Periportal echogenic densities in the liver suggestive of periportal edema, of uncertain significance or etiology. Dilated common bile duct measuring 1.2 cm in diameter. Note is made of a right pleural effusion CXR 10/31 - Since the prior exam of 10/29/2017, the NG tube and endotracheal tube remain in place. Again noted is evidence of previous valvular instrumentation, large heart, sclerotic knob and congestive changes. CXR 11/02 - New suspected L pleural effusion. No significant change in R lung. ASSESSMENT/PLAN: 86 yo w/ pmh of IDDM, CAD (s/p stents x10, most recently 3 y ago) and AVR (last year) presenting with SOB, found to have severe flash pulmonary edema in setting of NSTEMI. Pt still awaiting transfer to [facility] for [facility]. Continue to improve, tolerating NC w/ transfer to floors. Elevated WBC, uptrending alk phos and CXR w/ L new pleural effusion. #Acute Hypoxic Respiratory Failure 2/2 to NSTEMI - Extubated yesterday. On NC, tolerating well. - O2 tx. Escalate as needed. Maintain sat 94%> - Strict Is and Os - Ventolin q4h PRN - Lasix 40mg daily #NSTEMI - elevated trops, abnormal ekg listed above. Repeat EKG improved since prior on 10/27 - Presumptive transfer on per cardiology if stable, no infection - Metoprolol increased to 37.5 BID - Off heparin gtt - Plavix 75mg daily - Cardiology consulted. Recs continually appreciated. - Lipitor 80 mg daily - Monitor for hypotension. Maintain MAP of 65>. #Possible CAP - WBC 13 -> 20 overnight. Fever of 100.1. CXR w/ L pleural effusion. - blood, urine neg to date - Sputum + moraxella catarrhalis - Legionella/pneumo urine ag neg - Received 7 days of rocephin. Started on zosyn today. - Trend fever, WBC #Elevated Alk phos - 713 -> 920 today. - RUQ US w/ periportal edema, IKE DIL 1.2cm - GGT 622 - MRCP ordered. MRI clearance forms given to daughter. Hx of stent may be contraindication. - Continue to trend LFTs - GI consulted. Recs appreciated. #PVD - arterial dopplers notable for extensive Bl atherosclerotic dz. - Vascular consulted. Recs appreciated - f/u as outpt #IDDM - Takes lantus 35u qHs at home + SS. AM BG 253 - Continue to monitor glucose. Consider basal insulin - lyrica 75mg BID for diabetic neuropathy - ISS adjusted - BGM q4h - All IV in meds in NS, not D5W #BASIL - Cr 1.0 today, at pt baseline - Trend BUN/Cr - daily bmp's PPX: SubQ heparin Zantac for GI FEN: Fluids: none Electrolytes: Daily BMPs, trend Cr Nutrition: Chopped Dispo: Transfer to [facility], with possible transfer to [place] later this week if no other active issues Plan discussed with attending, Dr. Luis Aden, PGY1 Visit type - Emergency Visit Emergency Visit: Yes ED Registration Date: 10/27/17 Care time: The patient presented to the Emergency Department on the above date and was hospitalized for further evaluation of their emergent condition. - New Patient This patient is new to me today: No - Critical Care Critical Care patient: Yes Total Critical Care Time (in minutes): 35 Critical Care Statement: The care of this patient involved high complexity decision making to prevent further life threatening deterioration of the patient 's condition and/or to evaluate & treat vital organ system(s) failure or risk of failure.
[2017-11-02 07:01] LABS: ALBUMIN 2.1 g/dl (3.4-5.0); ANION GAP 12 (8-16); BILIRUBIN,TOTAL 0.7 mg/dL (0.2-1.0); CALCIUM 7.8 mg/dL (8.5-10.1); CO2 28 mmol/L (21-32); GLUCOSE,RANDOM 229 mg/dL (74-106); MAGNESIUM 2.7 mg/dL (1.8-2.4); PHOSPHOROUS 4.3 mg/dL (2.5-4.9); SGOT/AST 89 U/L (15-37); SGPT/ALT 65 U/L (12-78); TOT PROT 6.5 g/dl (6.4-8.2)
[2017-11-02 07:02] LABS: ALK PHOS 950 U/L (45-117)
[2017-11-02] MEDS ORDERED: PIPERACILLIN/TAZOB 3.375 GM 50 ML IVPB ONE (08:25)
[2017-11-02] MEDS ORDERED: PIPERACILLIN/TAZOB 3.375 GM 3.375 GM in DEXTROSE 5%-WATER - 50 ML IVPB ONE (08:31)
[2017-11-02] MEDS: RANITIDINE HCL 150 MG TABLET (FP) PO SCH (09:51)
[2017-11-02] MEDS: FUROSEMIDE 40 MG/4 ML INJECTABLE VIAL IVPUSH SCH (09:51)
[2017-11-02] MEDS: PREGABALIN 75 MG CAPSULE PO SCH ×2 (09:52→21:52)
[2017-11-02] MEDS: CLOPIDOGREL BISULFATE 75 MG TABLET (FP) PO SCH (09:52)
[2017-11-02] MEDS: METOPROLOL TARTRATE 25 MG TABLET (FP) PO SCH ×2 (09:52→21:51)
--- NOTE | 2017-11-02 10:12 | PN ---
Progress Note, Physician Chief Complaint: Pt is A&O; feels weak; denies chest pain or dyspnea. History of Present Illness: The patient is an 86 year old female (b. [place]),, with a significant past medical history of cardiac stents x 10, aortic valve replacement, IDDM, who presents to the emergency department brought in by ems intubated after complaint of difficulty breathing this evening. As per ems, the patient was read to be 90% on capnography which dropped to 50% after being bagged in the field. As per ems, the patient was found tachypneic in the field, in respiratory distress, and was intubated (ETT 7.0). As per the patients family at bedside, the patient was feeling well yesterday morning, performing activities of daily life without symptoms. As per patients family, the patient had a nonproductive cough for the past few days, however, the patient reportedly felt better this morning. As per the family, the patient received her flu vaccination 3 weeks ago. Family denies recent sick contacts. At presentation was being bagged by ems. Allergies: aspirin Past surgical history: cardiac stent x 10 Social history: denies toxic habits - Current Medication List Current Medications: Active Medications Acetaminophen (Ofirmev Injection -) 1,000 mg IVPB Q6H PRN PRN Reason: FEVER OR PAIN Last Admin: 10/27/17 17:55 Dose: 1,000 mg Albuterol Sulfate (Ventolin 0.083% Nebulizer Soln -) 1 amp NEB Q4H PRN PRN Reason: SHORT OF BREATH/WHEEZING Last Admin: 11/01/17 18:10 Dose: 1 amp Atorvastatin Calcium (Lipitor -) 80 mg PO HS [facility] Last Admin: 11/01/17 22:03 Dose: 80 mg Chlorhexidine Gluconate (Hibiclens For Decolonization -) 1 applic TP HS [facility] Last Admin: 11/01/17 22:03 Dose: 1 applic Clopidogrel Bisulfate (Plavix -) 75 mg PO DAILY [facility] Last Admin: 11/02/17 09:52 Dose: 75 mg Furosemide (Lasix Injection -) 40 mg IVPUSH DAILY [facility] Last Admin: 11/02/17 09:51 Dose: 40 mg Heparin Sodium (Porcine) (Heparin -) 1,000 unit IVPUSH PRN PRN PRN Reason: Heparin Last Admin: 11/01/17 16:00 Dose: 1,000 unit Heparin Sodium (Porcine) (Heparin -) 5,000 unit IVPUSH PRN PRN PRN Reason: Heparin Heparin Sodium (Porcine) 25, (000 unit/ Sodium Chloride) 500 mls @ 16 mls/hr IV TITR BILL; 800 UNIT/HR PRN Reason: Protocol Last Titration: 11/02/17 07:18 Dose: 450 unit/hr, 9 mls/hr Fentanyl 500 mcg/ Dextrose 100 mls @ 5 mls/hr IVPB TITR BILL; 25 MCG/HR PRN Reason: Protocol Last Admin: 11/01/17 17:41 Dose: Not Given Insulin Aspart (Novolog Vial Sliding Scale -) 1 vial SQ Q6HPO BILL PRN Reason: Protocol Last Admin: 11/02/17 05:49 Dose: 4 unit Metoprolol Tartrate (Lopressor -) 25 mg PO BID [facility] Last Admin: 11/02/17 09:52 Dose: 25 mg Piperacillin/Tazobactam/Dextrose (Zosyn 3.375gm Ivpb (Premix)) 3.375 gm IVPB Q6H [facility] Pregabalin (Lyrica -) 75 mg PO BID [facility] Last Admin: 11/02/17 09:52 Dose: 75 mg Ranitidine HCl (Zantac -) 150 mg PO DAILY [facility] Last Admin: 11/02/17 09:51 Dose: 150 mg - Objective Vital Signs: Vital Signs Temperature 98.6 F 11/02/17 06:00 Pulse Rate 93 H 11/02/17 06:00 Respiratory Rate 19 11/02/17 08:00 Blood Pressure 155/56 11/02/17 08:00 O2 Sat by Pulse Oximetry (%) 95 11/01/17 19:59 Constitutional: Yes: Calm Eyes: Yes: WNL HENT: Yes: WNL Neck: Yes: WNL Cardiovascular: Yes: Murmur (2/6 systolic murmur, LSB-->apex), S1, S2 Respiratory: Yes: Regular, Diminished (left base) Gastrointestinal: Yes: Soft ...Rectal Exam: Yes: Deferred Genitourinary: No: Anuria Breast(s): Yes: WNL Musculoskeletal: Yes: Muscle Weakness Extremities: Yes: Cool Edema: Yes Edema: LLE: Trace, RLE: Trace Peripheral Pulses WNL: No Peripheral Pulses: Left Doralis Pedis: 1+, Right Dorsalis Pedis: 1+ Neurological: Yes: Alert, Oriented, Weakness Psychiatric: Yes: Alert, Oriented Labs: CBC, BMP 11/02/17 05:00 11/02/17 05:00 INR, PTT INR 1.13 (0.82-1.09) 10/26/17 21:53 Abnormal Lab Results 11/02/17 11/02/17 05:00 05:00 BUN 34 H Random Glucose 229 H Calcium 7.8 L Magnesium 2.7 H GGT 720 H AST 89 H D Alkaline Phosphatase 950 H D Albumin 2.1 L - ....Imaging Chest X-ray: Image Reviewed (?left pleural effusion) Other: Image Reviewed (telemetry: NSR) Problem List - Problems (1) Acute on chronic systolic and diastolic heart failure, NYHA class 3 Assessment/Plan: NSTEMI; Likely mild-moderate LV dysfunction; unable to see RV well, and RVSP unable to be assessed. On metoprolol and furosemide; hypertensive. Start ACEI if renal status allows. Code(s): I50.43 - ACUTE ON CHRONIC COMBINED SYSTOLIC AND DIASTOLIC HRT FAIL (2) BASIL (acute kidney injury) Assessment/Plan: avoid excessive dehydration. Code(s): N17.9 - ACUTE KIDNEY FAILURE, UNSPECIFIED (3) CAD (coronary artery disease) Code(s): I25.10 - ATHSCL HEART DISEASE OF [place] CORONARY ARTERY W/O ANG PCTRS (4) IDDM (insulin dependent diabetes mellitus) Code(s): E11.9 - TYPE 2 DIABETES MELLITUS WITHOUT COMPLICATIONS; Z79.4 - ALF (CURRENT) USE OF INSULIN (5) Lactic acidosis Code(s): E87.2 - ACIDOSIS (6) NSTEMI (non-ST elevated myocardial infarction) Assessment/Plan: Now off dopamine. NTI 12.3-->4.3 within the past 48 hours. Continue IV heparin and PO clopidogrel. On atorvastatin 80 mg/day. Consider ACEI when BP and renal status allow. For coronary angiogram (hx multiple coronary stents). Code(s): I21.4 - NON-ST ELEVATION (NSTEMI) MYOCARDIAL INFARCTION (7) Severe sepsis Code(s): A41.9 - SEPSIS, UNSPECIFIED ORGANISM; R65.20 - SEVERE SEPSIS WITHOUT SEPTIC SHOCK (8) Transaminitis Assessment/Plan: likely secondary to passive congestion from CHF; f/u levels. Code(s): R74.0 - NONSPEC ELEV OF LEVELS OF TRANSAMNS & LACTIC ACID DEHYDRGNSE (9) Acute respiratory failure Assessment/Plan: now extubated; f/u with pulmonary. Code(s): J96.00 - ACUTE RESPIRATORY FAILURE, UNSP W HYPOXIA OR HYPERCAPNIA Assessment/Plan cc time spent: 40 minutes.
[2017-11-02] MEDS ORDERED: PIPERACIL/TAZOB 3.375 GM 3.375 GM/50 ML PREMIX IVPB SCH (10:15)
[2017-11-02] MEDS ORDERED: INSULIN (NOVOLOG) ASPART 100 UNITS/ML 10ML VIAL ONE (11:46)
--- NOTE | 2017-11-02 11:51 | PN ---
Progress Note, [employer] - Note Progress Note: Much improved. Voice is now euphonic, with overtly strong swallow. One instance of cough with water from straw. Oriented.Still with c/o pharyngeal odynophagia, but seems improved. NGT removed this am Selected Entries 10/31/17 10/31/17 10/31/17 04:00 08:00 10:20 Temperature 97.4 F L 99 F 99.3 F 10/31/17 10/31/17 10/31/17 11:21 14:00 16:00 Temperature 99.9 F H 99.6 F 98.8 F 10/31/17 10/31/17 10/31/17 17:00 19:00 21:00 Temperature 98.4 F 98.5 F 100.6 F H 11/01/17 11/01/17 11/01/17 02:00 06:00 08:00 Temperature 100.3 F H 100.2 F H 100.3 F H 11/01/17 11/01/17 11/01/17 12:00 14:00 18:00 Temperature 100.5 F H 100 F H 100 F H 11/01/17 11/02/17 11/02/17 22:00 02:00 06:00 Temperature 100.1 F H 99.6 F 98.6 F Laboratory Tests 10/31/17 11/01/17 11/02/17 05:35 05:00 05:00 WBC 10.9 H 13.2 H 20.3 H D Noted to be coughing after respiratory tx and chest PT. Consider: Trial of Dys chopped/nectar thick liquid initially Glucerna BID, per RD recommendations. Monitor tolerance: need for diet down grade/mbs, if cough, congestion, fever. Obtain dentures from family.
[2017-11-02] MEDS: ALBUTEROL SO4 0.083% IH SOL 2.5 MG/3 ML VIAL.NEB. NEB PRN ×3 (12:06→23:11)
--- NOTE | 2017-11-02 12:32 | PN ---
Teaching Attending Note Name of Resident: David Melendez ATTENDING PHYSICIAN STATEMENT I saw and evaluated the patient. I reviewed the resident's note and discussed the case with the resident. I agree with the resident's findings and plan as documented. SUBJECTIVE: Pt seen and examined in the ICU. Remains extubated. Voice strong. Denies shortness of breath on partial rebreather. Low grade temps. Repeat CXR showing new LINDA infiltrate. Denies abdominal pain, nausea or vomiting. OBJECTIVE: Last Vital Signs Temp Pulse Resp BP Pulse Ox 98.6 F 93 H 19 155/56 95 11/02/17 06:00 11/02/17 06:00 11/02/17 09:00 11/02/17 08:00 11/01/17 19:59 Intake & Output 10/30/17 10/31/17 11/01/17 11/02/17 23:59 23:59 23:59 23:59 Intake Total 649 1328 767 108 Output Total 1200 1400 1000 700 Balance -551 -72 -233 -592 Weight 145 lb 7 oz 144 lb 9.972 oz 144 lb 6 oz 139 lb 4.8 oz Gen: mildly tachypneic at rest Heart: RRR Lung: basilar rales Abd: soft, nontender Ext: no edema CBC, BMP 11/02/17 05:00 11/02/17 05:00 Active Medications Acetaminophen (Ofirmev Injection -) 1,000 mg IVPB Q6H PRN PRN Reason: FEVER OR PAIN Last Admin: 10/27/17 17:55 Dose: 1,000 mg Albuterol Sulfate (Ventolin 0.083% Nebulizer Soln -) 1 amp NEB Q4H PRN PRN Reason: SHORT OF BREATH/WHEEZING Last Admin: 11/02/17 12:06 Dose: 1 amp Atorvastatin Calcium (Lipitor -) 80 mg PO HS [facility] Last Admin: 11/01/17 22:03 Dose: 80 mg Chlorhexidine Gluconate (Hibiclens For Decolonization -) 1 applic TP HS [facility] Last Admin: 11/01/17 22:03 Dose: 1 applic Clopidogrel Bisulfate (Plavix -) 75 mg PO DAILY [facility] Last Admin: 11/02/17 09:52 Dose: 75 mg Furosemide (Lasix Injection -) 40 mg IVPUSH DAILY [facility] Last Admin: 11/02/17 09:51 Dose: 40 mg Fentanyl 500 mcg/ Dextrose 100 mls @ 5 mls/hr IVPB TITR BILL; 25 MCG/HR PRN Reason: Protocol Last Admin: 11/01/17 17:41 Dose: Not Given Piperacillin Sod/Tazobactam (Sod 3.375 gm/ Dextrose) 50 mls @ 100 mls/hr IVPB Q6H-IV BILL Insulin Aspart (Novolog Vial Sliding Scale -) 1 vial SQ Q6HPO BILL PRN Reason: Protocol Metoprolol Tartrate (Lopressor -) 37.5 mg PO BID [facility] Pregabalin (Lyrica -) 75 mg PO BID [facility] Last Admin: 11/02/17 09:52 Dose: 75 mg Ranitidine HCl (Zantac -) 150 mg PO DAILY [facility] Last Admin: 11/02/17 09:51 Dose: 150 mg ASSESSMENT AND PLAN: Acute Hypoxic Respiratory Failure Acute Pulmonary Edema Acute NSTEMI CAD h/o AVR Pneumonia Acute Kidney Injury improving DM - will broaden antibiotics - f/u cultures - continue lasix - monitor urine output, creatinine - consider GI consult for rising alk phos - consider repeat echocardiogram to visualize right heart - plavix, beta emeterio - for cardiac catheterization when stable - can monitor on telemetry critical care time spent in reviewing chart, evaluating patient and formulating plan 35 min
[2017-11-02 12:39] LABS: URINE LEUK ESTERASE Negative (NEGATIVE)
--- NOTE | 2017-11-02 12:55 | PN ---
Physical Exam: SUBJECTIVE: The patient is a Samoan speaking 86F with a PMH of CAD s/p 10 stents 3 years ago, aortic valve replacement last year, IDDM who was brought into the ED for respiratory distress. The patient was intubated in the field and sedated. The patient was extubated this morning and is tolerating a Venti mask well at 40%. The patient is speaking and states that her only complaint is a cough. She denies any abdominal pain. Her alk phos is slowly increasing. The patient is scheduled to be sent to [place] on for a heart cath. OBJECTIVE: Vital Signs Period Temp Pulse Resp BP Sys/Chatman Pulse Ox Last 24 Hr 98.6 F-100.1 F 66-93 12-23 132-168/36-71 95-95 GENERAL: The patient is awake, alert, and fully oriented, in no acute distress. HEAD: Normal with no signs of trauma. EYES: PERRL, extraocular movements intact, sclera anicteric, conjunctiva clear. No ptosis. ENT: Ears normal, nares patent, oropharynx clear without exudates, moist mucous membranes. NECK: Trachea midline, full range of motion, supple. LUNGS: Breath sounds equal, clear to auscultation bilaterally, no wheezes, no crackles, no accessory muscle use. HEART: Regular rate and rhythm, S1, S2 without murmur, rub or gallop. ABDOMEN: Soft, nontender, nondistended, normoactive bowel sounds, no guarding, no rebound, no hepatosplenomegaly, no masses. EXTREMITIES: 2+ pulses, warm, well-perfused, no edema. NEUROLOGICAL: Cranial nerves II through XII grossly intact. Normal speech, gait not observed. PSYCH: Normal mood, normal affect. SKIN: Warm, dry, normal turgor, no rashes or lesions noted Laboratory Results - last 24 hr 11/01/17 11/01/17 11/01/17 13:50 13:50 22:00 WBC RBC Hgb Hct MCV MCH MCHC RDW Plt Count MPV Neutrophils % Lymphocytes % Monocytes % Eosinophils % Basophils % PTT (Actin FS) 45.9 H D 72.7 H D Sodium Potassium Chloride Carbon Dioxide Anion Gap BUN Creatinine Creat Clearance w eGFR POC Glucometer Random Glucose Calcium Phosphorus Magnesium Total Bilirubin GGT 622 H AST ALT Alkaline Phosphatase Total Protein Albumin Urine Color Urine Appearance Urine pH Ur Specific [place] Urine Protein Urine Glucose (UA) Urine Ketones Urine Blood Urine Nitrite Urine Bilirubin Urine Urobilinogen Ur Leukocyte Esterase Urine WBC (Auto) Urine RBC (Auto) Ur Epithelial Cells Urine Mucus 11/01/17 11/01/17 11/02/17 23:00 23:42 05:00 WBC RBC Hgb Hct MCV MCH MCHC RDW Plt Count MPV Neutrophils % Lymphocytes % Monocytes % Eosinophils % Basophils % PTT (Actin FS) 51.9 H Sodium Potassium Chloride Carbon Dioxide Anion Gap BUN Creatinine Creat Clearance w eGFR POC Glucometer [phone] Random Glucose Calcium Phosphorus Magnesium Total Bilirubin GGT AST ALT Alkaline Phosphatase Total Protein Albumin Urine Color Yellow Urine Appearance Cloudy Urine pH 5.0 Ur Specific [place] 1.016 Urine Protein 2+ H Urine Glucose (UA) Negative Urine Ketones Trace H Urine Blood 2+ H Urine Nitrite Negative Urine Bilirubin Negative Urine Urobilinogen Negative Ur Leukocyte Esterase Negative Urine WBC (Auto) 2 Urine RBC (Auto) 11 Ur Epithelial Cells Rare Urine Mucus Rare 11/02/17 11/02/17 11/02/17 05:00 05:00 05:00 WBC 20.3 H D RBC 3.92 Hgb 11.0 D Hct 34.0 MCV 86.9 MCH 28.2 MCHC 32.5 RDW 13.7 Plt Count 268 D MPV 12.1 H Neutrophils % 76.2 Lymphocytes % 11.9 D Monocytes % 9.4 Eosinophils % 1.7 Basophils % 0.8 PTT (Actin FS) Sodium 145 Potassium 3.9 Chloride 105 Carbon Dioxide 28 Anion Gap 12 BUN 34 H Creatinine 1.0 Creat Clearance w eGFR 52.33 POC Glucometer Random Glucose 229 H Calcium 7.8 L Phosphorus 4.3 D Magnesium 2.7 H Total Bilirubin 0.7 GGT 720 H AST 89 H D ALT 65 D Alkaline Phosphatase 950 H D Total Protein 6.5 Albumin 2.1 L Urine Color Urine Appearance Urine pH Ur Specific [place] Urine Protein Urine Glucose (UA) Urine Ketones Urine Blood Urine Nitrite Urine Bilirubin Urine Urobilinogen Ur Leukocyte Esterase Urine WBC (Auto) Urine RBC (Auto) Ur Epithelial Cells Urine Mucus 11/02/17 11/02/17 05:12 11:42 WBC RBC Hgb Hct MCV MCH MCHC RDW Plt Count MPV Neutrophils % Lymphocytes % Monocytes % Eosinophils % Basophils % PTT (Actin FS) Sodium Potassium Chloride Carbon Dioxide Anion Gap BUN Creatinine Creat Clearance w eGFR POC Glucometer [phone] Random Glucose Calcium Phosphorus Magnesium Total Bilirubin GGT AST ALT Alkaline Phosphatase Total Protein Albumin Urine Color Urine Appearance Urine pH Ur Specific [place] Urine Protein Urine Glucose (UA) Urine Ketones Urine Blood Urine Nitrite Urine Bilirubin Urine Urobilinogen Ur Leukocyte Esterase Urine WBC (Auto) Urine RBC (Auto) Ur Epithelial Cells Urine Mucus Active Medications Generic Name Dose Route Start Last Admin Trade Name Freq PRN Reason Stop Dose Admin Acetaminophen 1,000 mg 10/27/17 17:31 10/27/17 17:55 Ofirmev Injection - IVPB 1,000 mg Q6H PRN Administration FEVER OR PAIN Albuterol Sulfate 1 amp 10/28/17 16:04 11/02/17 12:06 Ventolin 0.083% Nebulizer Soln - NEB 1 amp Q4H PRN Administration SHORT OF BREATH/WHEEZING Atorvastatin Calcium 80 mg 10/27/17 22:00 11/01/17 22:03 Lipitor - PO 80 mg HS BILL Administration Chlorhexidine Gluconate 1 applic 10/27/17 22:00 11/01/17 22:03 Hibiclens For Decolonization - TP 1 applic HS BILL Administration Clopidogrel Bisulfate 75 mg 10/27/17 10:00 11/02/17 09:52 Plavix - PO 75 mg DAILY BILL Administration Furosemide 40 mg 11/01/17 09:30 11/02/17 09:51 Lasix Injection - IVPUSH 40 mg DAILY BILL Administration Fentanyl 500 mcg/ Dextrose 100 mls @ 5 mls/hr 10/31/17 07:45 11/01/17 17:41 IVPB Not Given TITR BILL Protocol 25 MCG/HR Piperacillin Sod/Tazobactam 50 mls @ 100 mls/hr 11/02/17 15:00 Sod 3.375 gm/ Dextrose IVPB Q6H-IV BILL Insulin Aspart 1 vial 11/02/17 18:00 Novolog Vial Sliding Scale - SQ Q6HPO [facility] Protocol Metoprolol Tartrate 37.5 mg 11/02/17 10:17 Lopressor - PO BID BILL Pregabalin 75 mg 10/27/17 10:00 11/02/17 09:52 Lyrica - PO 75 mg BID BILL Administration Ranitidine HCl 150 mg 10/27/17 00:45 11/02/17 09:51 Zantac - PO 150 mg DAILY BILL Administration ASSESSMENT/PLAN: The patient is an 86F who presented to the ED in respiratory distress and is currently extubated and comfortable. Neuro: - Weaned sedation this AM - Patient is conversing CV: CAD and questionable NSTEMI - Discontinue heparin per cardiology's recs - Pt is allergic to ASA - Continue Lopressor 25, lipitor 80, lasix 40 IV - Pending transfer to [place] for cath - EKG shows nonspecific T-wave changes - BP is normotensive Pulm: NSTEMI vs PNA - CAP coverage: 1 gm rocephin - Add zosyn for increasing white count and worsening CXR - Continue diuresis with 40 mg IV lasix Renal: BASIL - BUN/Cr: 34/1.0, stable : - None GI: - On Zantac 150 daily - STEREO COMPILER states that the patient is not ready for oral feeding ID: Sepsis 2/2 CAP or inflammation vs cardiogenic shock - WBC elevated 20.3 from 13.2 - Azithro was d/c; will discuss with attending for new abx as patient has concurrent low grade fever - Quintero culture patient - Continue resuscitation Hem/Onc: - None Endocrine: IDDM - Continue meds - Novolog 1 sq q6h MSK: - None PPX: - Heparin ggt FEN (Fluids, electrolytes, nutrition): - S/p extubation - STEREO COMPILER states that the patient is ready for chopped/soft diet - Will order diet for patient Dispo: - Transfer to [facility] until - Transfer to [place] when bed is available Visit type - Emergency Visit Emergency Visit: Yes ED Registration Date: 10/27/17 Care time: The patient presented to the Emergency Department on the above date and was hospitalized for further evaluation of their emergent condition. - New Patient This patient is new to me today: No - Critical Care Critical Care patient: Yes Total Critical Care Time (in minutes): 40 Critical Care Statement: The care of this patient involved high complexity decision making to prevent further life threatening deterioration of the patient 's condition and/or to evaluate & treat vital organ system(s) failure or risk of failure.
--- NOTE | 2017-11-02 14:30 | CON.GI ---
Consult - History of Present Illness History of Present Illness: Chart reviewed, events noted. Pt is an 86 yo female PTCA, aortic valve replacement, IDDM was brought to ED intubated in the field. S/p acute hypoxic respiratory failure requiring vent support, acute NSTEMI and acute kidney injury. On Abx for pneumonia. Now on telemetry, extubated, alert, oriented and comfortable. Daughter at the bedside and helps with history and interpreting. We were called for abnormal liver enzymes. No history of liver disease, viral hepatitis risk factors, chronic alcohol, or NSAIDs use. Was never told she had liver problem, or abnormal liver blood tests. The most recent blood testing was done in [facility] this summer and it was normal, per daughter. Total Bilirubin 0.7 mg/dL (0.2-1.0) 11/02/17 05:00 AST 89 U/L (15-37) H D 11/02/17 05:00 ALT 65 U/L (12-78) D 11/02/17 05:00 Alkaline Phosphatase 950 U/L (45-117) H D 11/02/17 05:00 Albumin 2.1 g/dl (3.4-5.0) L 11/02/17 05:00 - History Source History Provided By: Patient, Family Member, Medical Record - Past Medical History Cardio/Vascular: Yes: CAD, CHF Endocrine: Yes: Diabetes Mellitus - Alcohol/Substance Use Hx Alcohol Use: No - Smoking History Smoking history: Unknown if ever smoked Home Medications - Allergies Allergies/Adverse Reactions: Allergies Allergy/AdvReac Type Severity Reaction Status Date / Time aspirin Allergy Verified 10/26/17 21:50 - Home Medications Home Medications: Ambulatory Orders Amlodipine Besylate [Norvasc -] 10 mg PO DAILY 10/26/17 Atorvastatin Ca [Lipitor] 20 mg PO HS 10/26/17 Clopidogrel Bisulfate [Plavix -] 75 mg PO DAILY 10/26/17 Furosemide [Lasix] 40 mg PO DAILY 10/26/17 Insulin (LOG) Aspart [NovoLOG -] 0 units SQ TID 10/26/17 Insulin Glargine,Hum.rec.anlog [Lantus Solostar PEN (NF)] 35 units SQ AM Metoprolol Succinate [Toprol Xl -] 37.5 mg PO BID 10/26/17 Multivitamin/Iron/Folic Acid [Centrum Adults Tablet] 1 each PO DAILY 10/26/17 Pregabalin [Lyrica -] 200 mg PO TID 10/26/17 Family Disease History - Family Disease History Family History: Unremarkable Review of Systems Findings/Remarks: please refer to H&P, events since admission Physical Exam-GI Vital Signs: Vital Signs Temperature 99.0 F 11/02/17 14:00 Pulse Rate 85 11/02/17 14:00 Respiratory Rate 19 11/02/17 14:00 Blood Pressure 147/59 11/02/17 14:00 O2 Sat by Pulse Oximetry (%) 95 11/01/17 19:59 Negative viral profile Constitutional: Yes: Well Nourished, No Distress, Calm Eyes: Yes: Conjunctiva Clear HENT: Yes: Atraumatic Neck: Yes: Supple Cardiovascular: Yes: Regular Rate and Rhythm Respiratory: Yes: Regular ...Auscultate: Yes: Normoactive Bowel Sounds ...Palpate: Yes: Soft. No: Firm/Rigid, Guarding, Mass, Tenderness, Tenderness, Epigastium, Tenderness, Rebound Integumentary: No: Jaundice Neurological: Yes: Alert, Oriented Labs: CBC, BMP 11/02/17 05:00 11/02/17 05:00 INR, PTT INR 1.13 (0.82-1.09) 10/26/17 21:53 CBCD WBC 20.3 K/mm3 (4.0-10.0) H D 11/02/17 05:00 RBC 3.92 M/mm3 (3.60-5.2) 11/02/17 05:00 Hgb 11.0 GM/dL (10.7-15.3) D 11/02/17 05:00 Hct 34.0 % (32.4-45.2) 11/02/17 05:00 MCV 86.9 fl (80-96) 11/02/17 05:00 MCHC 32.5 g/dl (32.0-36.0) 11/02/17 05:00 RDW 13.7 % (11.6-15.6) 11/02/17 05:00 Plt Count 268 K/MM3 (134-434) D 11/02/17 05:00 MPV 12.1 fl (7.5-11.1) H 11/02/17 05:00 CMP Sodium 145 mmol/L (136-145) 11/02/17 05:00 Potassium 3.9 mmol/L (3.5-5.1) 11/02/17 05:00 Chloride 105 mmol/L (98-107) 11/02/17 05:00 Carbon Dioxide 28 mmol/L (21-32) 11/02/17 05:00 Anion Gap 12 (8-16) 11/02/17 05:00 BUN 34 mg/dL (7-18) H 11/02/17 05:00 Creatinine 1.0 mg/dL (0.55-1.02) 11/02/17 05:00 Creat Clearance w eGFR 52.33 (>60) 11/02/17 05:00 Calcium 7.8 mg/dL (8.5-10.1) L 11/02/17 05:00 Total Bilirubin 0.7 mg/dL (0.2-1.0) 11/02/17 05:00 AST 89 U/L (15-37) H D 11/02/17 05:00 ALT 65 U/L (12-78) D 11/02/17 05:00 Alkaline Phosphatase 950 U/L (45-117) H D 11/02/17 05:00 Total Protein 6.5 g/dl (6.4-8.2) 11/02/17 05:00 Albumin 2.1 g/dl (3.4-5.0) L 11/02/17 05:00 Imaging - Results Ultrasound: Report Reviewed (Periportal edema, CBD 12 mm, no GB) Assessment/Plan An 86 yof with with multiple acute medical issues requiring ICU and ventilatory support is nicely recovering, however noted to develop asymptomatic, cholestatic picture. It appears to be an acute event that occurred during this hospitalization. Multiple events could have contribute to choelstasis including ischemic cholangiopathy, Abx, and congestive hepatopathy. Expect hepatic panel to slowly improve over the next few days. Significant leukocytosis. Agree with MRCP to r/o anatomic obstruction Maintain adequate hydration and normal BP Avoid all non-essential hepatotoxic medications daily CMP, PT ALP isoenzymes Send C. diff toxin if diarrhea (WBC 20K) will follow Discussed with patient's family
[2017-11-02] MEDS: PIPERACILLIN/TAZOB 3.375 GM 3.375 GM in DEXTROSE 5%-WATER - 50 ML IVPB SCH ×2 (15:31→21:41)
--- NOTE | 2017-11-02 15:42 | PN ---
Teaching Attending Note Name of Resident: Fransico Aden ATTENDING PHYSICIAN STATEMENT I saw and evaluated the patient. I reviewed the resident's note and discussed the case with the resident. I agree with the resident's findings and plan as documented. SUBJECTIVE: she feels better , has no pain, denies any CP ro SOB OBJECTIVE: awake,alert , cooperative CV: RRR distant heart sounds, No JVD . Lungs: clear lungs anteriorly Abd: soft, ND,TTP in RUQ. no guarding, NL BS . Ext:trace edema on LE . DP pulses not felt. discoloration is still present on tip of R big toe, but fading on L big toe. ASSESSMENT AND PLAN: 86 y/o unfortunate lady with h/o CAD, s/p stenting , AVR, IDDM , and other medical problems who presented with SOB and was found to have acute pulm edema in the setting of NSTEMI 1- Acute hypoxic respiratory failure: due to pulm edema and PNA - cont 40 of IV lasix daily. - received 7 days of ceftriaxone for PNA 2- NSTEMI with cardiogenic shock. shock resolved - cont plavix and Heparin gtt. - increase BB to 37.5 BID due to elevated bP - repeat echo pending 3- BASIL: pre-renal from CHF. stable Cr. - cont to monitor 4- Elevated ALk Phos: with dilated CBD , adn RUQ pain along with worsening WBC increase the suspicion for biliary infection/obstruction - MRCP. - GI consult. - follow LFTS - change Abx to zosyn 5-PVD: - cont heparin gtt 6-DM : - Cont SSI tx to tele
[2017-11-02] MEDS ORDERED: INSULIN SLIDING SCALE (NOVOLOG) 1 VIAL SQ SCH (16:30)
[2017-11-02] MEDS: ATORVASTATIN CA 80 MG TABLET (FP) PO SCH (21:51)
[2017-11-03] MEDS: INSULIN SLIDING SCALE (NOVOLOG) 1 VIAL SQ SCH ×5 (00:05→18:03)
[2017-11-03] MEDS: PIPERACILLIN/TAZOB 3.375 GM 3.375 GM in DEXTROSE 5%-WATER - 50 ML IVPB SCH ×4 (03:12→21:23)
[2017-11-03 07:09] LABS: BASOPHIL 0.5 % (0-2.0); EOSINOPHIL 1.3 % (0-4.5); MCHC 30.8 g/dl (32.0-36.0); MEAN CELL VOLUME 87.9 fl (80-96); MEAN PLT VOLUME 11.1 fl (7.5-11.1); NEUTROPHILS 74.2 % (42.8-82.8); PLATELET COUNT 281 K/MM3 (134-434); RDW 14.4 % (11.6-15.6); WHITE BLOOD COUNT 16.8 K/mm3 (4.0-10.0)
--- NOTE | 2017-11-03 07:09 | PN ---
Physical Exam: SUBJECTIVE: Patient seen and examined by me this AM - Appears more delirious this AM. Trouble swallowing breakfast per nursing. S+S consulted. - Denies any fever, CP, cough, SOB, N/V, ab pain, neuro symptoms, or LE edema - Febrile overnight to 100.1. - No MRCP yesterday as w/ coronary stents, unknown if they are ferromagnetic. - Transitioned to venti mask overnight. Satting well. OBJECTIVE: Vital Signs Intake & Output 10/31/17 11/01/17 11/02/17 11/03/17 23:59 23:59 23:59 23:59 Intake Total 1328 767 758 330 Output Total 1400 1000 700 Balance -72 -233 58 330 Weight 65.6 kg 65.487 kg 63.185 kg 65.544 kg Period Temp Pulse Resp BP Sys/Chatman Pulse Ox Last 24 Hr 98.9 F-100.2 F 68-89 13-22 132-165/51-71 95-100 GENERAL: NAD, laying in bed. A&Ox3. Somnolent, waxing and waning. HEAD: Normal with no signs of trauma. EYES: PERRLA, trace scleral icterus, EOMI ENT: Ears normal, nares patent, oropharynx clear without exudates, moist mucous membranes. MIld labial edema NECK: Trachea midline, supple. No JVD, no hepatojugular reflex LUNGS: Bibasilar crackles. No wheezes, no accessory muscle use. HEART: 2/6 blowing systolic murmur at LUSB/RUSB. Regular rate and rhythm, S1, S2 without murmur, rub or gallop. ABDOMEN: Soft, ND, NT. Hypoactive bowel sounds, no masses or organomegaly. Upper EXTREMITIES: 2+ pulses, warm, well-perfused, no edema. Still w/ R IV in forearm, L IV in dorsal aspect of hand. BL ecchymoses on both arms. Lower extremities: No edema. Pressure ulcers noted on distal tip of 1st hallux BL. Still with 1+ DP, 2+ PT pulse BL. Mild BL stasis dermatitis Laboratory Results - last 24 hr CBC, BMP 11/03/17 06:45 11/03/17 06:45 11/01/17 11/01/17 11/01/17 16:44 23:00 23:42 POC Glucometer 201.97451 200.48892 GGT Ur Leukocyte Esterase Negative 11/02/17 11/02/17 11/02/17 05:00 05:12 11:42 POC Glucometer 240.06830 212.13606 GGT 720 H Ur Leukocyte Esterase 11/02/17 11/02/17 11/03/17 17:10 22:12 05:37 POC Glucometer 362 397 398 GGT Ur Leukocyte Esterase Active Medications Generic Name Dose Route Start Last Admin Trade Name Freq PRN Reason Stop Dose Admin Acetaminophen 1,000 mg 10/27/17 17:31 10/27/17 17:55 Ofirmev Injection - IVPB 1,000 mg Q6H PRN Administration FEVER OR PAIN Albuterol Sulfate 1 amp 10/28/17 16:04 11/02/17 23:11 Ventolin 0.083% Nebulizer Soln - NEB 1 amp Q4H PRN Administration SHORT OF BREATH/WHEEZING Atorvastatin Calcium 80 mg 10/27/17 22:00 11/02/17 21:51 Lipitor - PO 80 mg HS BILL Administration Clopidogrel Bisulfate 75 mg 10/27/17 10:00 11/02/17 09:52 Plavix - PO 75 mg DAILY BILL Administration Furosemide 40 mg 11/01/17 09:30 11/02/17 09:51 Lasix Injection - IVPUSH 40 mg DAILY BILL Administration Piperacillin Sod/Tazobactam 50 mls @ 100 mls/hr 11/02/17 15:00 11/03/17 03:12 Sod 3.375 gm/ Dextrose IVPB 100 mls/hr Q6H-IV BILL Administration Insulin Aspart 1 vial 11/02/17 18:00 11/03/17 06:02 Novolog Vial Sliding Scale - SQ 10 units Q6HPO BILL Administration Protocol Metoprolol Tartrate 37.5 mg 11/02/17 10:17 11/02/17 21:51 Lopressor - PO 37.5 mg BID BILL Administration Pregabalin 75 mg 10/27/17 10:00 11/02/17 21:52 Lyrica - PO 75 mg BID BILL Administration Ranitidine HCl 150 mg 10/27/17 00:45 11/02/17 09:51 Zantac - PO 150 mg DAILY BILL Administration Microbiology 11/01/17 19:15 Blood - Peripheral Venous Blood Culture - Preliminary NO GROWTH OBTAINED AFTER 24 HOURS, INCUBATION TO CONTINUE FOR 4 DAYS. 11/01/17 19:15 Blood - Peripheral Venous Blood Culture - Preliminary NO GROWTH OBTAINED AFTER 24 HOURS, INCUBATION TO CONTINUE FOR 4 DAYS. 11/02/17 11:10 Sputum - Expectorated Gram Stain - Final 10/26/17 21:54 Blood - Peripheral Venous Blood Culture - Final NO GROWTH AFTER 5 DAYS INCUBATION 10/26/17 21:54 Blood - Peripheral Venous Blood Culture - Final NO GROWTH AFTER 5 DAYS INCUBATION 10/27/17 06:30 Sputum - Endotrachea Suction/Ventilator Gram Stain - Final 10/27/17 06:30 Sputum - Endotrachea Suction/Ventilator Sputum Culture - Final Moraxella (Bran.) Catarrhalis 10/26/17 21:53 Urine - Urine Sanches Urine Culture - Final NO GROWTH OBTAINED 10/27/17 06:48 Nasopharyngeal Swab Respiratory Virus (PCR) - Preliminary 10/27/17 06:30 Urine - Urine Sanches Legionella Antigen - Final 10/27/17 06:30 Urine - Urine Sanches Streptococcus pneumoniae Antigen (M - Final 10/27/17 01:15 Nasopharyngeal Swab Influenza Types A,B Antigen (JIMMIE) - Final 10/27/17 01:15 Nasopharyngeal Swab - Final Imaging: CXr 10/26 - 1. Endotracheal tube in place with the tip projecting approximately 2.7 cm above the joshua. 2. Pulmonary vascular congestion with interstitial edema and bilateral pleural effusions. Bilaterally airspace opacities are most likely alveolar edema. Pneumonia cannot be excluded. Please correlate clinically for severe CHF exacerbation. CXR 10/27 - No significant change. ETT in place. CXR 10/28 - No evidence of pneumothorax. Resolving vascular congestive changes. Resolving bilateral pulmonary consolidations. ECHO 10/27 - Poor study. Bioprosthetic aortic valve. Mild MR. LV filling pattern normal for age. Ef 58% EKG 10/27 - Sinus tach. No QTC prolongation. Normal axis. Deep q-waves in III, worse than prior ekg on presentation. TWIs in V5-6 EKG 10/28 - NSR. NAD. Q waves in III improved. No TWIs. Improved since prior Venous duplex LE 10/27 - No evidence of deep venous thrombosis. Arterial duplex 10/27 - Extensive atherosclerotic disease with weak, monophasic flow within the popliteal and posterior tibial arteries bilaterally. Clinical correlation and follow-up recommended. Please see above discussion. CXR 10/29 - No significant changes since prior CXR. RUQ U/S 10/31 - Nonvisualization of the gallbladder. Periportal echogenic densities in the liver suggestive of periportal edema, of uncertain significance or etiology. Dilated common bile duct measuring 1.2 cm in diameter. Note is made of a right pleural effusion CXR 10/31 - Since the prior exam of 10/29/2017, the NG tube and endotracheal tube remain in place. Again noted is evidence of previous valvular instrumentation, large heart, sclerotic knob and congestive changes. CXR 11/02 - New suspected L pleural effusion. No significant change in R lung. CXR 11/03 - Since 11/02/2017, the congestive and infiltrative changes with pleural fluid has diminished slightly. Follow-up recommended. ASSESSMENT/PLAN: 86 yo w/ pmh of IDDM, CAD (s/p stents x10, most recently 3 y ago) and AVR (last year) presenting with SOB, found to have severe flash pulmonary edema in setting of NSTEMI. Pt still awaiting transfer to [facility] for [facility]. Continue to improve, tolerating NC w/ transfer to floors. Still w/ elevated WBC , uptrending alk phos (950) and CXR w/ resolving L pleural effusion. #Acute Hypoxic Respiratory Failure /2 to NSTEMI - Extubated 11/01. On venti-mask, tolerating well. - O2 tx. Escalate as needed. Maintain sat 94%> - Strict Is and Os - Ventolin q4h PRN - Lasix 40mg daily #NSTEMI - elevated trops, abnormal ekg listed above. Repeat EKG improved since prior on 10/27 - Presumptive transfer on per cardiology if stable - Metoprolol increased to 37.5 BID - Off heparin gtt - Plavix 75mg daily - Cardiology consulted. Recs continually appreciated. - Lipitor 80 mg daily - Monitor for hypotension. Maintain MAP of 65>. #Possible CAP - WBC 20-> 16.8 overnight. Fever of 100.2 again. CXR w/ L pleural effusion, resolving 11/03 - blood, urine neg to date - Sputum + moraxella catarrhalis - Legionella/pneumo urine ag neg - Received 7 days of rocephin. Started on zosyn today. Day 2/7 zosyn - Trend fever, WBC #Elevated Alk phos - 920-> 950 today. - RUQ US w/ periportal edema, IKE DIL 1.2cm - GGT 622 - No MRCP with multiple stents - Continue to trend LFTs - GI consulted. Recs appreciated. #PVD - arterial dopplers notable for extensive Bl atherosclerotic dz. - Vascular consulted. Recs appreciated - f/u as outpt #IDDM - Takes lantus 35u qHs at home + SS. AM BG 401 - Continue to monitor glucose. Started on home dose of lantus 35u in AM - lyrica 75mg BID for diabetic neuropathy - ISS - BGM q4h - All IV in meds in NS, not D5W #BASIL - Cr 1.0 today, at pt baseline -Resolved PPX: SubQ heparin Zantac for GI FEN: Fluids: none Electrolytes: Daily BMPs, trend Cr Nutrition: Chopped/nectar thick recommended per S+S Dispo: Monitor on tele with possible transfer to [place] later this week if no other active issues Plan discussed with attending, Dr. Judd Aden, PGY1 Visit type - Emergency Visit Emergency Visit: Yes ED Registration Date: 10/27/17 Care time: The patient presented to the Emergency Department on the above date and was hospitalized for further evaluation of their emergent condition. - New Patient This patient is new to me today: No - Critical Care Critical Care patient: No
[2017-11-03 07:36] LABS: ALBUMIN 2.1 g/dl (3.4-5.0); ANION GAP 11 (8-16); BILIRUBIN,TOTAL 0.7 mg/dL (0.2-1.0); CALCIUM 8.2 mg/dL (8.5-10.1); CO2 32 mmol/L (21-32); CREATININE 1.4 mg/dL (0.55-1.02); MAGNESIUM 2.9 mg/dL (1.8-2.4); PHOSPHOROUS 3.5 mg/dL (2.5-4.9); SGOT/AST 61 U/L (15-37); SGPT/ALT 65 U/L (12-78)
[2017-11-03 07:38] LABS: ALK PHOS 791 U/L (45-117); TOT PROT 6.4 g/dl (6.4-8.2)
[2017-11-03 07:40] LABS: GLUCOSE,RANDOM 401 mg/dL (74-106)
[2017-11-03] MEDS ORDERED: INSULIN (NOVOLOG) ASPART 100 UNITS/ML 10ML VIAL ONE (07:43)
--- NOTE | 2017-11-03 08:21 | PN ---
Progress Note, Physician History of Present Illness: Chart reviewed, events noted. Required non-rebreather mask to maintain good saturation. - Current Medication List Current Medications: Active Medications Acetaminophen (Ofirmev Injection -) 1,000 mg IVPB Q6H PRN PRN Reason: FEVER OR PAIN Last Admin: 10/27/17 17:55 Dose: 1,000 mg Albuterol Sulfate (Ventolin 0.083% Nebulizer Soln -) 1 amp NEB Q4H PRN PRN Reason: SHORT OF BREATH/WHEEZING Last Admin: 11/02/17 23:11 Dose: 1 amp Atorvastatin Calcium (Lipitor -) 80 mg PO HS [facility] [place] Last Admin: 11/02/17 21:51 Dose: 80 mg Clopidogrel Bisulfate (Plavix -) 75 mg PO DAILY [facility] Last Admin: 11/02/17 09:52 Dose: 75 mg Furosemide (Lasix Injection -) 40 mg IVPUSH DAILY [facility] [place] Last Admin: 11/02/17 09:51 Dose: 40 mg Piperacillin Sod/Tazobactam (Sod 3.375 gm/ Dextrose) 50 mls @ 100 mls/hr IVPB Q6H-IV [facility] [place] Last Admin: 11/03/17 03:12 Dose: 100 mls/hr Insulin Aspart (Novolog Vial Sliding Scale -) 1 vial SQ Q6HPO BILL PRN Reason: Protocol Last Admin: 11/03/17 08:14 Dose: 8 units Metoprolol Tartrate (Lopressor -) 37.5 mg PO BID [facility] [place] Last Admin: 11/02/17 21:51 Dose: 37.5 mg Pregabalin (Lyrica -) 75 mg PO BID [facility] [place] Last Admin: 11/02/17 21:52 Dose: 75 mg Ranitidine HCl (Zantac -) 150 mg PO DAILY [facility] [place] Last Admin: 11/02/17 09:51 Dose: 150 mg - Objective Vital Signs: Vital Signs Temperature 99.0 F 11/03/17 07:10 Pulse Rate 81 11/03/17 07:10 Respiratory Rate 20 11/03/17 07:13 Blood Pressure 138/54 11/03/17 07:10 O2 Sat by Pulse Oximetry (%) 93 L 11/03/17 07:13 Constitutional: Yes: Anxious Eyes: Yes: Conjunctiva Clear HENT: Yes: Atraumatic Neck: Yes: Supple Cardiovascular: Yes: Regular Rate and Rhythm Respiratory: Yes: Regular Gastrointestinal: Yes: Soft. No: Melena, Rectal Bleeding, Tenderness Neurological: Yes: Alert Labs: CBC, BMP 11/03/17 06:45 11/03/17 06:45 INR, PTT INR 1.13 (0.82-1.09) 10/26/17 21:53 Hepatic Panel Total Bilirubin 0.7 mg/dL (0.2-1.0) 11/03/17 06:45 AST 61 U/L (15-37) H D 11/03/17 06:45 ALT 65 U/L (12-78) 11/03/17 06:45 Alkaline Phosphatase 791 U/L (45-117) H 11/03/17 06:45 Albumin 2.1 g/dl (3.4-5.0) L 11/03/17 06:45 Problem List - Problems (1) Cholestasis Code(s): K83.1 - OBSTRUCTION OF BILE DUCT Assessment/Plan Pulmonary follow up Agree with MRCP to r/o anatomic obstruction Maintain adequate hydration Avoid all non-essential hepatotoxic medications Daily CMP, PT ALP isoenzymes Send C. diff toxin if diarrhea (WBC 20K) Will follow
--- NOTE | 2017-11-03 08:45 | PN ---
Teaching Attending Note Name of Resident: Fransico Aden ATTENDING PHYSICIAN STATEMENT I saw and evaluated the patient. I reviewed the resident's note and discussed the case with the resident. I agree with the resident's findings and plan as documented. SUBJECTIVE: Patient denies having any chest pain. No shortness of breath, no nausea or vomiting. OBJECTIVE: Vital Signs Temperature 99.0 F 11/03/17 07:10 Pulse Rate 81 11/03/17 07:10 Respiratory Rate 20 11/03/17 07:13 Blood Pressure 138/54 11/03/17 07:10 O2 Sat by Pulse Oximetry (%) 93 L 11/03/17 07:13 CBCD WBC 16.8 K/mm3 (4.0-10.0) H 11/03/17 06:45 RBC 3.86 M/mm3 (3.60-5.2) 11/03/17 06:45 Hgb 10.4 GM/dL (10.7-15.3) L 11/03/17 06:45 Hct 33.9 % (32.4-45.2) 11/03/17 06:45 MCV 87.9 fl (80-96) 11/03/17 06:45 MCHC 30.8 g/dl (32.0-36.0) L 11/03/17 06:45 RDW 14.4 % (11.6-15.6) 11/03/17 06:45 Plt Count 281 K/MM3 (134-434) 11/03/17 06:45 MPV 11.1 fl (7.5-11.1) 11/03/17 06:45 CMP Sodium 147 mmol/L (136-145) H 11/03/17 06:45 Potassium 4.0 mmol/L (3.5-5.1) 11/03/17 06:45 Chloride 104 mmol/L (98-107) 11/03/17 06:45 Carbon Dioxide 32 mmol/L (21-32) 11/03/17 06:45 Anion Gap 11 (8-16) 11/03/17 06:45 BUN 38 mg/dL (7-18) H 11/03/17 06:45 Creatinine 1.4 mg/dL (0.55-1.02) H D 11/03/17 06:45 Creat Clearance w eGFR 35.41 (>60) 11/03/17 06:45 Random Glucose 401 mg/dL (74-106) H* D 11/03/17 06:45 Calcium 8.2 mg/dL (8.5-10.1) L 11/03/17 06:45 Total Bilirubin 0.7 mg/dL (0.2-1.0) 11/03/17 06:45 AST 61 U/L (15-37) H D 11/03/17 06:45 ALT 65 U/L (12-78) 11/03/17 06:45 Alkaline Phosphatase 791 U/L (45-117) H 11/03/17 06:45 Total Protein 6.4 g/dl (6.4-8.2) 11/03/17 06:45 Albumin 2.1 g/dl (3.4-5.0) L 11/03/17 06:45 CARDIAC ENZYMES Creatine Kinase 379 IU/L (26-192) H 10/29/17 05:00 Troponin I 3.78 ng/ml (0.00-0.05) H* 10/29/17 17:45 Current Medications Generic Name Dose Route Start Last Admin Trade Name Freq PRN Reason Stop Dose Admin Acetaminophen 1,000 mg 10/27/17 17:31 10/27/17 17:55 Ofirmev Injection - IVPB 1,000 mg Q6H PRN Administration FEVER OR PAIN Albuterol Sulfate 1 amp 10/28/17 16:04 11/02/17 23:11 Ventolin 0.083% Nebulizer Soln - NEB 1 amp Q4H PRN Administration SHORT OF BREATH/WHEEZING Atorvastatin Calcium 80 mg 10/27/17 22:00 11/02/17 21:51 Lipitor - PO 80 mg HS BILL Administration Clopidogrel Bisulfate 75 mg 10/27/17 10:00 11/02/17 09:52 Plavix - PO 75 mg DAILY BILL Administration Furosemide 40 mg 11/01/17 09:30 11/02/17 09:51 Lasix Injection - IVPUSH 40 mg DAILY BILL Administration Piperacillin Sod/Tazobactam 50 mls @ 100 mls/hr 11/02/17 15:00 11/03/17 03:12 Sod 3.375 gm/ Dextrose IVPB 100 mls/hr Q6H-IV BILL Administration Insulin Aspart 1 vial 11/02/17 18:00 11/03/17 08:14 Novolog Vial Sliding Scale - SQ 8 units Q6HPO BILL Administration Protocol Metoprolol Tartrate 37.5 mg 11/02/17 10:17 11/02/17 21:51 Lopressor - PO 37.5 mg BID BILL Administration Pregabalin 75 mg 10/27/17 10:00 11/02/17 21:52 Lyrica - PO 75 mg BID BILL Administration Ranitidine HCl 150 mg 10/27/17 00:45 11/02/17 09:51 Zantac - PO 150 mg DAILY BILL Administration Home Medications Medication Instructions Recorded Amlodipine Besylate [Norvasc -] 10 mg PO DAILY 10/26/17 Atorvastatin Ca [Lipitor] 20 mg PO HS 10/26/17 Clopidogrel Bisulfate [Plavix -] 75 mg PO DAILY 10/26/17 Furosemide [Lasix] 40 mg PO DAILY 10/26/17 Insulin (LOG) Aspart [NovoLOG -] 0 units SQ TID 10/26/17 Insulin Glargine,Hum.rec.anlog 35 units SQ AM 10/26/17 [Lantus Solostar PEN (NF)] Metoprolol Succinate [Toprol Xl -] 37.5 mg PO BID 10/26/17 Multivitamin/Iron/Folic Acid 1 each PO DAILY 10/26/17 [Centrum Adults Tablet] Pregabalin [Lyrica -] 200 mg PO TID 10/26/17 PE: per resident's note ASSESSMENT AND PLAN: Patient is a 87 y/o female with h/o CAD, s/p stenting , AVR, IDDM , presented with SOB and was found to have acute pulmonary edema in the setting of NSTEMI. # NSTEMI with cardiogenic shock. shock resolved. On plavix continue s/p Heparin drip , on BB 37.5 BID. 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 #Acute hypoxic respiratory failure: due to pulm edema and PNA , cont Lasix 40 of IV daily and s/p IV antibiotic. # Acute PNA s/p 7 days of ceftriaxone # BASIL: pre-renal from CHF. Continue to monitor. # Elevated ALk Phos: with dilated CBD , RUQ pain along improving and WBC trending down today. will continue to monitor #Hx of PVD: On heparin gtt # DM : Cont SSI DVT Px: Heparin sq discussed with the resident.
[2017-11-03] MEDS: PREGABALIN 75 MG CAPSULE PO SCH ×2 (09:38→22:05)
[2017-11-03] MEDS: METOPROLOL TARTRATE 25 MG TABLET (FP) PO SCH ×2 (09:38→22:05)
[2017-11-03] MEDS: CLOPIDOGREL BISULFATE 75 MG TABLET (FP) PO SCH (09:38)
[2017-11-03] MEDS: RANITIDINE HCL 150 MG TABLET (FP) PO SCH (09:39)
[2017-11-03] MEDS: FUROSEMIDE 40 MG/4 ML INJECTABLE VIAL IVPUSH SCH (09:39)
--- NOTE | 2017-11-03 11:05 | PN ---
Progress Note, Physician History of Present Illness: The patient is an 86 year old female, with a significant past medical history of cardiac stents x 10, aortic valve replacement, IDDM, who presents to the emergency department brought in by ems intubated after complaint of difficulty breathing this evening. As per ems, the patient was read to be 90% on capnography which dropped to 50% after being bagged in the field. As per ems, the patient was found tachypneic in the field, in respiratory distress, and was intubated (ETT 7.0). As per the patients family at bedside, the patient was feeling well yesterday morning, performing activities of daily life without symptoms. As per patients family, the patient had a nonproductive cough for the past few days, however, the patient reportedly felt better this morning. As per the family, the patient received her flu vaccination 3 weeks ago. Family denies recent sick contacts. At presentation was being bagged by ems. Allergies: aspirin Past surgical history: cardiac stent x 10 Social history: denies toxic habits 86 year old F with pmh of IDDM, Cardiac Stent placement x10 (last placed 3 years prior), and aortic valve replacement (last year) presenting with shortness of breath. History obtained by daughter. Patient arrived from [place] via car last Wednesday. Patient was in usual state of health 2 days prior to admission. Patient performs ADLs and walks at baseline. Over the last 2 days patient had worsening SOB, decreased Urine output, weakness, and nonproductive cough with saliva. This evening patient's shortness of breath worsened and EMS was called. Patient was intubated in the field 2/2 to respiratory distress and was satting in the 50%. Daughter endorses chronic pedal edema, orthopnea, and dyspnea on exertion which has been worsening over the last 2 days as well. Per daughter, patient has not had increased salt intake. Patient denies fever, chills, nausea, vomiting, diarrhea, chest pain, palpitations, abdominal pain. ER course was notable for: (1) VS- WNL, CBC- wbc 20.1, ABG- 7.35/50.6/101/26.9 (2) Glucose- 389, Lactic Acid-6.0, Troponin of 6.75, CK-MB-26.816, BNP-20,000 (3) UA- negative (4) EKG- Sinus tachycardia. Q waves in inferior and lateral leads (5) CXR-pulmonary vascular congestion, pneumonia cannot be excluded - Current Medication List Current Medications: Active Medications Acetaminophen (Ofirmev Injection -) 1,000 mg IVPB Q6H PRN PRN Reason: FEVER OR PAIN Last Admin: 10/27/17 17:55 Dose: 1,000 mg Albuterol Sulfate (Ventolin 0.083% Nebulizer Soln -) 1 amp NEB Q4H PRN PRN Reason: SHORT OF BREATH/WHEEZING Last Admin: 11/02/17 23:11 Dose: 1 amp Atorvastatin Calcium (Lipitor -) 80 mg PO HS [facility] Last Admin: 11/02/17 21:51 Dose: 80 mg Clopidogrel Bisulfate (Plavix -) 75 mg PO DAILY [facility] Last Admin: 11/03/17 09:38 Dose: 75 mg Furosemide (Lasix Injection -) 40 mg IVPUSH DAILY [facility] Last Admin: 11/03/17 09:39 Dose: 40 mg Piperacillin Sod/Tazobactam (Sod 3.375 gm/ Dextrose) 50 mls @ 100 mls/hr IVPB Q6H-IV BILL Last Admin: 11/03/17 09:38 Dose: 100 mls/hr Insulin Aspart (Novolog Vial Sliding Scale -) 1 vial SQ Q6HPO BILL PRN Reason: Protocol Last Admin: 11/03/17 08:14 Dose: 8 units Metoprolol Tartrate (Lopressor -) 37.5 mg PO BID [facility] Last Admin: 11/03/17 09:38 Dose: 37.5 mg Non-Formulary Medication (Insulin Glargine,Hum.Rec.Anlog) 35 units SQ AM BILL Pregabalin (Lyrica -) 75 mg PO BID [facility] Last Admin: 11/03/17 09:38 Dose: 75 mg Ranitidine HCl (Zantac -) 150 mg PO DAILY [facility] Last Admin: 11/03/17 09:39 Dose: 150 mg - Objective Vital Signs: Vital Signs Temperature 99.0 F 11/03/17 07:10 Pulse Rate 81 11/03/17 07:10 Respiratory Rate 20 11/03/17 07:13 Blood Pressure 138/54 11/03/17 07:10 O2 Sat by Pulse Oximetry (%) 93 L 11/03/17 07:13 Eyes: Yes: WNL, Conjunctiva Clear, EOM Intact HENT: Yes: WNL, Atraumatic, Normocephalic Neck: Yes: WNL, Supple, Trachea Midline Cardiovascular: Yes: WNL, Regular Rate and Rhythm Respiratory: Yes: WNL, Regular, CTA Bilaterally Gastrointestinal: Yes: WNL, Normal Bowel Sounds Genitourinary: Yes: WNL Musculoskeletal: Yes: WNL Extremities: Yes: WNL Edema: No Integumentary: Yes: WNL Neurological: Yes: WNL, Alert, Oriented ...Motor Strength: WNL Psychiatric: Yes: WNL Labs: CBC, BMP 11/03/17 06:45 11/03/17 06:45 INR, PTT INR 1.13 (0.82-1.09) 10/26/17 21:53 Problem List - Problems (1) CHF (congestive heart failure) Code(s): I50.9 - HEART FAILURE, UNSPECIFIED (2) NSTEMI (non-ST elevated myocardial infarction) Code(s): I21.4 - NON-ST ELEVATION (NSTEMI) MYOCARDIAL INFARCTION Assessment/Plan - Problems (- Problems (1) Acute on chronic systolic and diastolic heart failure, NYHA class 3 Assessment/Plan: NSTEMI; Likely mild-moderate LV dysfunction; unable to see RV well, and RVSP unable to be assessed. On metoprolol and furosemide; hypertensive. Start ACEI if renal status allows. Code(s): I50.43 - ACUTE ON CHRONIC COMBINED SYSTOLIC AND DIASTOLIC HRT FAIL (2) BASIL (acute kidney injury) Assessment/Plan: avoid excessive dehydration. Code(s): N17.9 - ACUTE KIDNEY FAILURE, UNSPECIFIED (3) CAD (coronary artery disease) Code(s): I25.10 - ATHSCL HEART DISEASE OF [place] CORONARY ARTERY W/O ANG PCTRS (4) IDDM (insulin dependent diabetes mellitus) Code(s): E11.9 - TYPE 2 DIABETES MELLITUS WITHOUT COMPLICATIONS; Z79.4 - NURSING HOME (CURRENT) USE OF INSULIN (5) Lactic acidosis Code(s): E87.2 - ACIDOSIS (6) NSTEMI (non-ST elevated myocardial infarction) Assessment/Plan: Now off dopamine. NTI 12.3-->4.3 within the past 48 hours. Continue IV heparin and PO clopidogrel. On atorvastatin 80 mg/day. Consider ACEI when BP and renal status allow. For coronary angiogram (hx multiple coronary stents). Code(s): I21.4 - NON-ST ELEVATION (NSTEMI) MYOCARDIAL INFARCTION (7) Severe sepsis Code(s): A41.9 - SEPSIS, UNSPECIFIED ORGANISM; R65.20 - SEVERE SEPSIS WITHOUT SEPTIC SHOCK (8) Transaminitis Assessment/Plan: likely secondary to passive congestion from CHF; f/u levels. Code(s): R74.0 - NONSPEC ELEV OF LEVELS OF TRANSAMNS & LACTIC ACID DEHYDRGNSE (9) Acute respiratory failure Assessment/Plan: now extubated; f/u with pulmonary. Code(s): J96.00 - ACUTE RESPIRATORY FAILURE, UNSP W HYPOXIA OR HYPERCAPNIA
--- NOTE | 2017-11-03 11:17 | PN ---
Progress Note, Physician History of Present Illness: pulmonary alert,-c/o sob,-cough,-cp - Current Medication List Current Medications: Active Medications Acetaminophen (Ofirmev Injection -) 1,000 mg IVPB Q6H PRN PRN Reason: FEVER OR PAIN Last Admin: 10/27/17 17:55 Dose: 1,000 mg Albuterol Sulfate (Ventolin 0.083% Nebulizer Soln -) 1 amp NEB Q4H PRN PRN Reason: SHORT OF BREATH/WHEEZING Last Admin: 11/02/17 23:11 Dose: 1 amp Atorvastatin Calcium (Lipitor -) 80 mg PO HS [facility] Last Admin: 11/02/17 21:51 Dose: 80 mg Clopidogrel Bisulfate (Plavix -) 75 mg PO DAILY [facility] Last Admin: 11/03/17 09:38 Dose: 75 mg Furosemide (Lasix Injection -) 40 mg IVPUSH DAILY [facility] Last Admin: 11/03/17 09:39 Dose: 40 mg Piperacillin Sod/Tazobactam (Sod 3.375 gm/ Dextrose) 50 mls @ 100 mls/hr IVPB Q6H-IV BILL Last Admin: 11/03/17 09:38 Dose: 100 mls/hr Insulin Aspart (Novolog Vial Sliding Scale -) 1 vial SQ Q6HPO BILL PRN Reason: Protocol Last Admin: 11/03/17 11:07 Dose: 6 units Insulin Detemir (Levemir Vial) 35 units SQ AM [facility] Metoprolol Tartrate (Lopressor -) 37.5 mg PO BID [facility] Last Admin: 11/03/17 09:38 Dose: 37.5 mg Pregabalin (Lyrica -) 75 mg PO BID [facility] Last Admin: 11/03/17 09:38 Dose: 75 mg Ranitidine HCl (Zantac -) 150 mg PO DAILY [facility] Last Admin: 11/03/17 09:39 Dose: 150 mg - Objective Vital Signs: Vital Signs Temperature 99.0 F 11/03/17 07:10 Pulse Rate 81 11/03/17 07:10 Respiratory Rate 20 11/03/17 07:13 Blood Pressure 138/54 11/03/17 07:10 O2 Sat by Pulse Oximetry (%) 93 L 11/03/17 07:13 Constitutional: Yes: Well Nourished, Calm Eyes: Yes: WNL HENT: Yes: WNL Neck: Yes: WNL Cardiovascular: Yes: Regular Rate and Rhythm, S1, S2 Respiratory: Yes: Rales (bibasilar crackles) Gastrointestinal: Yes: Normal Bowel Sounds, Soft Extremities: Yes: WNL Edema: No Labs: CBC, BMP 11/03/17 06:45 11/03/17 06:45 INR, PTT INR 1.13 (0.82-1.09) 10/26/17 21:53 - ....Imaging Chest X-ray: Report Reviewed, Image Reviewed (less congestion bilaterally) Problem List - Problems (1) BASIL (acute kidney injury) Code(s): N17.9 - ACUTE KIDNEY FAILURE, UNSPECIFIED (2) Acute on chronic systolic and diastolic heart failure, NYHA class 3 Code(s): I50.43 - ACUTE ON CHRONIC COMBINED SYSTOLIC AND DIASTOLIC HRT FAIL (3) Acute respiratory failure Code(s): J96.00 - ACUTE RESPIRATORY FAILURE, UNSP W HYPOXIA OR HYPERCAPNIA (4) CAD (coronary artery disease) Code(s): I25.10 - ATHSCL HEART DISEASE OF [place] CORONARY ARTERY W/O ANG PCTRS (5) CHF (congestive heart failure) Code(s): I50.9 - HEART FAILURE, UNSPECIFIED (6) IDDM (insulin dependent diabetes mellitus) Code(s): E11.9 - TYPE 2 DIABETES MELLITUS WITHOUT COMPLICATIONS; Z79.4 - HALFWAY (CURRENT) USE OF INSULIN (7) NSTEMI (non-ST elevated myocardial infarction) Code(s): I21.4 - NON-ST ELEVATION (NSTEMI) MYOCARDIAL INFARCTION (8) Transaminitis Code(s): R74.0 - NONSPEC ELEV OF LEVELS OF TRANSAMNS & LACTIC ACID DEHYDRGNSE Assessment/Plan ASSESSMENT AND PLAN: Acute Hypoxic Respiratory Failure improved Acute Pulmonary Edema improved Acute NSTEMI CAD h/o AVR Pneumonia Acute Kidney Injury improving DM - antibiotics - continue lasix - monitor urine output, creatinine - consider repeat echocardiogram to visualize right heart - plavix, beta emeterio - for cardiac catheterization when stable DR HAYS
--- NOTE | 2017-11-03 11:57 | PN ---
Progress Note, CAPTAIN[employer]IL[employer] - Note Progress Note: Dys chopped/nectar thick liquid suggested initially Monitor tolerance: need for diet down grade/mbs, if cough, congestion, fever. Obtain dentures from family. Selected Entries 11/02/17 11/02/17 11/02/17 02:00 06:00 10:00 Breakfast Supper NPO Temperature 99.6 F 98.6 F 98.9 F 11/02/17 11/02/17 11/02/17 14:00 17:00 19:50 Breakfast Supper 100% Temperature 99.0 F 99.8 F H 11/02/17 11/03/17 11/03/17 22:00 02:00 06:00 Breakfast Supper Temperature 99.0 F 100.2 F H 99.0 F 11/03/17 11/03/17 11/03/17 07:10 09:58 10:00 Breakfast 50% 50% Supper Temperature 99.0 F Laboratory Tests 11/01/17 11/02/17 11/03/17 05:00 05:00 06:45 WBC 13.2 H 20.3 H D 16.8 H Pt on thin liquids in orders but downgraded to nectar by RD and receiving nectar thick liquid. Using Non rebreather at night, with oral/pharyngeal dryness suspected. Grimacing with each swallow this am, improved with PO intake , moistening the oral cavity. Plan is for transfer today. Suggest nectar thick liquid for now and dysphagia chopped diet. f/u by speech pathology for diet upgrade, as indicated.
[2017-11-03] MEDS ORDERED: INSULIN (NOVOLOG) ASPART 100 UNITS/ML 10ML VIAL SQ ONE ×2 (16:52→18:55)
[2017-11-03] MEDS ORDERED: INSULIN DETEMIR 100 UNITS/ML MDV SQ ONE (18:56)
[2017-11-03] MEDS ORDERED: PT OWN MED DRAWER 7, Y5N ONE (21:21)
[2017-11-03] MEDS: HEPARIN NA (PORCINE) 5,000 UNITS/ML 1ML VIAL SQ SCH (22:05)
[2017-11-03] MEDS: ATORVASTATIN CA 80 MG TABLET (FP) PO SCH (22:05)
[2017-11-04] MEDS: INSULIN SLIDING SCALE (NOVOLOG) 1 VIAL SQ SCH ×5 (00:16→20:25)
[2017-11-04] MEDS ORDERED: PT OWN MED DRAWER 7, Y5N ONE ×5 (01:50→21:34)
[2017-11-04] MEDS: PIPERACILLIN/TAZOB 3.375 GM 3.375 GM in DEXTROSE 5%-WATER - 50 ML IVPB SCH ×4 (02:25→21:39)
[2017-11-04] MEDS: HEPARIN NA (PORCINE) 5,000 UNITS/ML 1ML VIAL SQ SCH ×3 (06:39→21:39)
[2017-11-04] MEDS: INSULIN DETEMIR 100 UNITS/ML MDV SQ SCH (06:40)
--- NOTE | 2017-11-04 08:26 | PN ---
Physical Exam: SUBJECTIVE: Patient seen and examined by me this AM - Feels well. No bowel movements last night. Mild fever. Afib note by nursing staff on monitor - More alert today. Complaining of pain in legs, likely due to prolonged bedrest. - possible transfer today. Recommended for repeat ECHO per cards. - Pt restarted on home levemir dose today. Still with poorly controlled BGM 300- 400s. PM: - Per Dr. Rowan, no available beds at [facility] still. May attempt for transfer to another institution with a manager labor relations. - Pt continues to improve. Stable, satting well on NC. - Family at bedside. Counseled on currently plan. OBJECTIVE: Vital Signs Intake & Output 11/01/17 11/02/17 11/03/17 11/04/17 23:59 23:59 23:59 23:59 Intake Total 767 758 860 60 Output Total 1000 700 Balance -233 58 860 60 Weight 65.487 kg 63.185 kg 65.544 kg 66.95 kg Period Temp Pulse Resp BP Sys/Chatman Pulse Ox Last 24 Hr 98.3 F-99.7 F 71-81 18-20 120-168/51-71 95-98 GENERAL: NAD, laying in bed. A&Ox3. More alert today, interactive and conversant HEAD: Normal with no signs of trauma. EYES: PERRLA, trace scleral icterus, EOMI ENT: Ears normal, nares patent, oropharynx clear without exudates, moist mucous membranes. Labial edema improving. NECK: Trachea midline, supple. No JVD, no hepatojugular reflex LUNGS: Trace crackles at bases. No wheezes, no accessory muscle use. HEART: 2/6 blowing systolic murmur, best appreciated at RUSB. Regular rate and rhythm, S1, S2 without murmur, rub or gallop. ABDOMEN: Soft, ND, NT. Hypoactive bowel sounds, no masses or organomegaly. Upper EXTREMITIES: 2+ pulses, warm, well-perfused, no edema. BL ecchymoses on both arms. Lower extremities: No edema. Pressure ulcers on distal tip of 1st hallux BL. 1+ DP, PT pulses BL. Mild BL stasis dermatitis Laboratory Results - last 24 hr 11/03/17 11/03/17 11/03/17 08:11 11:05 17:58 POC Glucometer 335 249 443 Random Glucose 11/03/17 11/03/17 11/04/17 19:20 21:31 00:14 POC Glucometer 386 347 Random Glucose 468 H* 11/04/17 05:23 POC Glucometer 252 Random Glucose Active Medications Generic Name Dose Route Start Last Admin Trade Name Freq PRN Reason Stop Dose Admin Acetaminophen 1,000 mg 10/27/17 17:31 10/27/17 17:55 Ofirmev Injection - IVPB 1,000 mg Q6H PRN Administration FEVER OR PAIN Albuterol Sulfate 1 amp 10/28/17 16:04 11/02/17 23:11 Ventolin 0.083% Nebulizer Soln - NEB 1 amp Q4H PRN Administration SHORT OF BREATH/WHEEZING Atorvastatin Calcium 80 mg 10/27/17 22:00 11/03/17 22:05 Lipitor - PO 80 mg HS BILL Administration Clopidogrel Bisulfate 75 mg 10/27/17 10:00 11/03/17 09:38 Plavix - PO 75 mg DAILY BILL Administration Furosemide 40 mg 11/01/17 09:30 11/03/17 09:39 Lasix Injection - IVPUSH 40 mg DAILY BILL Administration Heparin Sodium (Porcine) 5,000 unit 11/03/17 22:00 11/04/17 06:39 Heparin - SQ 5,000 unit TID BILL Administration Piperacillin Sod/Tazobactam 50 mls @ 100 mls/hr 11/02/17 15:00 11/04/17 02:25 Sod 3.375 gm/ Dextrose IVPB 100 mls/hr Q6H-IV BILL Administration Insulin Aspart 1 vial 11/03/17 18:00 11/04/17 06:39 Novolog Vial Sliding Scale - SQ 8 units Q6HPO BILL Administration Protocol Insulin Detemir 35 units 11/04/17 07:00 11/04/17 06:40 Levemir Vial SQ 35 units AM BILL Administration Metoprolol Tartrate 37.5 mg 11/02/17 10:17 11/03/17 22:05 Lopressor - PO 37.5 mg BID BILL Administration Pregabalin 75 mg 10/27/17 10:00 11/03/17 22:05 Lyrica - PO 75 mg BID BILL Administration Ranitidine HCl 150 mg 10/27/17 00:45 11/03/17 09:39 Zantac - PO 150 mg DAILY BILL Administration Microbiology 11/01/17 19:15 Blood - Peripheral Venous Blood Culture - Preliminary NO GROWTH OBTAINED AFTER 48 HOURS, INCUBATION TO CONTINUE FOR 3 DAYS. 11/01/17 19:15 Blood - Peripheral Venous Blood Culture - Preliminary NO GROWTH OBTAINED AFTER 48 HOURS, INCUBATION TO CONTINUE FOR 3 DAYS. 11/03/17 11:30 Stool Clostridium difficile Antigen (JIMMIE) - Final 11/03/17 11:30 Stool Clostridium difficile Toxin Assay - Final 11/02/17 11:10 Sputum - Expectorated Gram Stain - Final 11/02/17 11:10 Sputum - Expectorated Sputum Culture - Preliminary NORMAL RESPIRATORY NICOL 11/01/17 23:00 Urine - Urine - Catheterized Urine Culture - Final NO GROWTH OBTAINED 10/26/17 21:54 Blood - Peripheral Venous Blood Culture - Final NO GROWTH AFTER 5 DAYS INCUBATION 10/26/17 21:54 Blood - Peripheral Venous Blood Culture - Final NO GROWTH AFTER 5 DAYS INCUBATION 10/27/17 06:30 Sputum - Endotrachea Suction/Ventilator Gram Stain - Final 10/27/17 06:30 Sputum - Endotrachea Suction/Ventilator Sputum Culture - Final Moraxella (Bran.) Catarrhalis 10/26/17 21:53 Urine - Urine Sanches Urine Culture - Final NO GROWTH OBTAINED 10/27/17 06:48 Nasopharyngeal Swab Respiratory Virus (PCR) - Preliminary 10/27/17 06:30 Urine - Urine Sanches Legionella Antigen - Final 10/27/17 06:30 Urine - Urine Sanches Streptococcus pneumoniae Antigen (M - Final 10/27/17 01:15 Nasopharyngeal Swab Influenza Types A,B Antigen (JIMMIE) - Final 10/27/17 01:15 Nasopharyngeal Swab - Final Imaging: CXr 10/26 - 1. Endotracheal tube in place with the tip projecting approximately 2.7 cm above the joshua. 2. Pulmonary vascular congestion with interstitial edema and bilateral pleural effusions. Bilaterally airspace opacities are most likely alveolar edema. Pneumonia cannot be excluded. Please correlate clinically for severe CHF exacerbation. CXR 10/27 - No significant change. ETT in place. CXR 10/28 - No evidence of pneumothorax. Resolving vascular congestive changes. Resolving bilateral pulmonary consolidations. ECHO 10/27 - Poor study. Bioprosthetic aortic valve. Mild MR. LV filling pattern normal for age. Ef 58% EKG 10/27 - Sinus tach. No QTC prolongation. Normal axis. Deep q-waves in III, worse than prior ekg on presentation. TWIs in V5-6 EKG 10/28 - NSR. NAD. Q waves in III improved. No TWIs. Improved since prior Venous duplex LE 10/27 - No evidence of deep venous thrombosis. Arterial duplex 10/27 - Extensive atherosclerotic disease with weak, monophasic flow within the popliteal and posterior tibial arteries bilaterally. Clinical correlation and follow-up recommended. Please see above discussion. CXR 10/29 - No significant changes since prior CXR. RUQ U/S 10/31 - Nonvisualization of the gallbladder. Periportal echogenic densities in the liver suggestive of periportal edema, of uncertain significance or etiology. Dilated common bile duct measuring 1.2 cm in diameter. Note is made of a right pleural effusion CXR 10/31 - Since the prior exam of 10/29/2017, the NG tube and endotracheal tube remain in place. Again noted is evidence of previous valvular instrumentation, large heart, sclerotic knob and congestive changes. CXR 11/02 - New suspected L pleural effusion. No significant change in R lung. CXR 11/03 - Since 11/02/2017, the congestive and infiltrative changes with pleural fluid has diminished slightly. Follow-up recommended. EK 11/04 - NSR, NAD, rate of 75. Occasional PVCs. ASSESSMENT/PLAN: 86 yo w/ pmh of IDDM, CAD (s/p stents x10, most recently 3 y ago) and AVR (last year) presenting with SOB, found to have severe flash pulmonary edema in setting of NSTEMI. Pt still awaiting transfer to [facility] for [facility], no beds available currently. Improving, more interactive, conversant today. WBC downtrending (16.8 -> 14), alk phos downtrending (791-> 688). #Acute Hypoxic Respiratory Failure 2/2 to NSTEMI - Tolerating NC - O2 tx. Escalate as needed. Maintain sat 94%> - Strict Is and Os - Ventolin q4h PRN - Lasix 40mg daily. Held today due to HypoK (3.4). #NSTEMI - EKG normal - Transfer to [facility] this week sometime. - Metoprolol 37.5mg BID - Plavix 75mg daily - Cardiology consulted. Recs continually appreciated. - Lipitor 80 mg daily - Monitor for hypotension. Maintain MAP of 65>. #Possible CAP - WBC 20-> 16.8 -> 14 today overnight. No longer febrile. Infection likely resolving. Pt not-complaining of infectious symptoms. - blood, urine neg to date - Sputum + moraxella catarrhalis 10/27 - Legionella/pneumo urine ag neg - Day 02/02 zosyn - Trend fever, WBC #Elevated Alk phos - 950-> 791->688 today - RUQ US w/ periportal edema, IKE DIL 1.2cm - GGT 622 - Will not received MRCP given hx of stents, resolving alk phos - Continue to trend LFTs - GI consulted. Recs appreciated. #PVD - f/u as outpt - arterial dopplers notable for extensive Bl atherosclerotic dz. - Vascular consulted. Recs appreciated - f/u as outpt #IDDM - Takes lantus 35u qHs at home + SS. BGM 300-400s over past 24hrs. Started on home levemir today - Levemir 35 units AM - lyrica 75mg BID for diabetic neuropathy - ISS - BGM q4h - All IV in meds in NS, not D5W PPX: SubQ heparin Zantac for GI FEN: Fluids: PO hydration Electrolytes: Daily BMPs, trend K Nutrition: Chopped/nectar thick recommended per S+S Dispo: Continue to monitor on Tele, transfer to [facility] per cardiology. Plan discussed with attending, Dr. Judd Aden, PGY1 Visit type - Emergency Visit Emergency Visit: Yes ED Registration Date: 10/27/17 Care time: The patient presented to the Emergency Department on the above date and was hospitalized for further evaluation of their emergent condition. - New Patient This patient is new to me today: No - Critical Care Critical Care patient: No
[2017-11-04 08:27] LABS: BASOPHIL 0.6 % (0-2.0); EOSINOPHIL 2.5 % (0-4.5); MCH 27.5 pg (25.7-33.7); MCHC 31.5 g/dl (32.0-36.0); MEAN CELL VOLUME 87.3 fl (80-96); MEAN PLT VOLUME 10.6 fl (7.5-11.1); NEUTROPHILS 70.5 % (42.8-82.8); PLATELET COUNT 293 K/MM3 (134-434); RDW 14.1 % (11.6-15.6); WHITE BLOOD COUNT 14.1 K/mm3 (4.0-10.0)
[2017-11-04 09:02] LABS: ALBUMIN 2.1 g/dl (3.4-5.0); ALK PHOS 688 U/L (45-117); ANION GAP 6 (8-16); BILIRUBIN,TOTAL 0.5 mg/dL (0.2-1.0); CO2 36 mmol/L (21-32); CREATININE 1.4 mg/dL (0.55-1.02); GLUCOSE,RANDOM 290 mg/dL (74-106); SGOT/AST 54 U/L (15-37); SGPT/ALT 67 U/L (12-78); TOT PROT 6.3 g/dl (6.4-8.2)
[2017-11-04] MEDS: FUROSEMIDE 40 MG/4 ML INJECTABLE VIAL IVPUSH SCH (10:11)
[2017-11-04] MEDS: METOPROLOL TARTRATE 25 MG TABLET (FP) PO SCH ×2 (10:11→21:40)
[2017-11-04] MEDS: PREGABALIN 75 MG CAPSULE PO SCH ×2 (10:13→21:39)
[2017-11-04] MEDS: RANITIDINE HCL 150 MG TABLET (FP) PO SCH (10:13)
[2017-11-04] MEDS: CLOPIDOGREL BISULFATE 75 MG TABLET (FP) PO SCH (10:13)
[2017-11-04] MEDS: ALBUTEROL SO4 0.083% IH SOL 2.5 MG/3 ML VIAL.NEB. NEB PRN ×2 (10:40→22:35)
--- NOTE | 2017-11-04 11:34 | EKG ---
Test Reason : Blood Pressure : / mmHG Vent. Rate : 075 BPM Atrial Rate : 075 BPM P-R Int : 116 ms QRS Dur : 106 ms QT Int : 370 ms P-R-T Axes : 059 006 117 degrees QTc Int : 413 ms SINUS RHYTHM WITH OCCASIONAL PREMATURE VENTRICULAR COMPLEXES CANNOT RULE OUT ANTERIOR INFARCT , AGE UNDETERMINED ABNORMAL ECG WHEN COMPARED WITH ECG OF 03-NOV-2017 09:03, PREMATURE VENTRICULAR COMPLEXES ARE NOW PRESENT Confirmed by JOE VILLEGAS, DIANA ([id number]) on 11/04/2017 11:34:09 AM Referred By: Confirmed By:DIANA DIAZ MD
--- NOTE | 2017-11-04 11:39 | EKG ---
Test Reason : Blood Pressure : / mmHG Vent. Rate : 083 BPM Atrial Rate : 083 BPM P-R Int : 130 ms QRS Dur : 106 ms QT Int : 344 ms P-R-T Axes : 056 -09 150 degrees QTc Int : 404 ms NORMAL SINUS RHYTHM INCOMPLETE LEFT BUNDLE BRANCH BLOCK NONSPECIFIC ST AND T WAVE ABNORMALITY ABNORMAL ECG WHEN COMPARED WITH ECG OF 29-OCT-2017 11:16, NONSPECIFIC T WAVE ABNORMALITY, WORSE IN INFERIOR LEADS NONSPECIFIC T WAVE ABNORMALITY, WORSE IN LATERAL LEADS QT HAS SHORTENED Confirmed by DIANA DIAZ MD ([id number]) on 11/04/2017 11:39:16 AM Referred By: PO JIMÉNEZ DR Confirmed By:DIANA DIAZ MD
--- NOTE | 2017-11-04 12:19 | PN ---
Progress Note, CARETAKER - Note Progress Note: Pt is verbal.Seems o x 3. Language barrier. Vocal quality is euphonic. Overtly tolerating thin liquid. (-) 3 oz water test. Missing dentition. Pt still needs family to bring in her dentures. Selected Entries 11/03/17 11/03/17 11/03/17 09:58 10:00 15:25 Breakfast 50% 50% Lunch 75% Supper 11/03/17 11/04/17 19:34 10:26 Breakfast 75% Lunch Supper 100% Laboratory Tests 11/02/17 11/04/17 05:00 07:55 WBC 20.3 H D 14.1 H REC: Trial of chopped with 1-2 soft items Thin liquid Obtain dentures for diet upgrade to soft,reg.
--- NOTE | 2017-11-04 12:36 | PN ---
Progress Note, Physician History of Present Illness: Chart reviewed, events noted. Clinically better. Tolerating diet. Asymptomatic - Current Medication List Current Medications: Active Medications Acetaminophen (Ofirmev Injection -) 1,000 mg IVPB Q6H PRN PRN Reason: FEVER OR PAIN Last Admin: 10/27/17 17:55 Dose: 1,000 mg Albuterol Sulfate (Ventolin 0.083% Nebulizer Soln -) 1 amp NEB Q4H PRN PRN Reason: SHORT OF BREATH/WHEEZING Last Admin: 11/04/17 10:40 Dose: 1 amp Atorvastatin Calcium (Lipitor -) 80 mg PO HS BILL Last Admin: 11/03/17 22:05 Dose: 80 mg Clopidogrel Bisulfate (Plavix -) 75 mg PO DAILY BILL Last Admin: 11/04/17 10:13 Dose: 75 mg Furosemide (Lasix Injection -) 40 mg IVPUSH DAILY BILL Last Admin: 11/04/17 10:11 Dose: 40 mg Heparin Sodium (Porcine) (Heparin -) 5,000 unit SQ TID BILL Last Admin: 11/04/17 06:39 Dose: 5,000 unit Piperacillin Sod/Tazobactam (Sod 3.375 gm/ Dextrose) 50 mls @ 100 mls/hr IVPB Q6H-IV BILL Last Admin: 11/04/17 10:04 Dose: 100 mls/hr Insulin Aspart (Novolog Vial Sliding Scale -) 1 vial SQ Q6HPO IBLL PRN Reason: Protocol Last Admin: 11/04/17 11:26 Dose: 12 units Insulin Detemir (Levemir Vial) 35 units SQ AM COUNTS INCLUDE 234 BEDS AT THE [facility] Last Admin: 11/04/17 06:40 Dose: 35 units Metoprolol Tartrate (Lopressor -) 37.5 mg PO BID COUNTS INCLUDE 234 BEDS AT THE [facility] Last Admin: 11/04/17 10:11 Dose: 37.5 mg Pregabalin (Lyrica -) 75 mg PO BID BILL Last Admin: 11/04/17 10:13 Dose: 75 mg Ranitidine HCl (Zantac -) 150 mg PO DAILY COUNTS INCLUDE 234 BEDS AT THE [facility] Last Admin: 11/04/17 10:13 Dose: 150 mg - Objective Vital Signs: Vital Signs Temperature 99.5 F 11/04/17 06:00 Pulse Rate 81 11/04/17 10:40 Respiratory Rate 20 11/04/17 06:00 Blood Pressure 150/58 11/04/17 06:00 O2 Sat by Pulse Oximetry (%) 96 11/04/17 10:40 Constitutional: Yes: No Distress, Calm Eyes: Yes: Conjunctiva Clear HENT: Yes: Atraumatic Neck: Yes: Supple Respiratory: Yes: Regular Gastrointestinal: Yes: Soft. No: Melena, Rectal Bleeding, Tenderness, Vomiting Labs: CBC, BMP 11/04/17 07:55 11/04/17 07:55 INR, PTT INR 1.13 (0.82-1.09) 10/26/17 21:53 Hepatic Panel Total Bilirubin 0.5 mg/dL (0.2-1.0) D 11/04/17 07:55 AST 54 U/L (15-37) H 11/04/17 07:55 ALT 67 U/L (12-78) 11/04/17 07:55 Alkaline Phosphatase 688 U/L (45-117) H 11/04/17 07:55 Albumin 2.1 g/dl (3.4-5.0) L 11/04/17 07:55 Problem List - Problems (1) Cholestasis Code(s): K83.1 - OBSTRUCTION OF BILE DUCT Assessment/Plan MRI on hold - ?safety renal stents Maintain adequate hydration Avoid all non-essential hepatotoxic medications Daily CMP ALP isoenzymes pending Will follow
--- NOTE | 2017-11-04 13:00 | PN ---
Progress Note (short form) - Note Progress Note: Awake and alert. NAD on NC O2. No CP or SOB. Intake & Output 11/01/17 11/02/17 11/03/17 11/04/17 23:59 23:59 23:59 23:59 Intake Total 767 758 860 200 Output Total 1000 700 Balance -233 58 860 200 Weight 144 lb 6 oz 139 lb 4.8 oz 144 lb 8 oz 147 lb 9.6 oz Last Vital Signs Temp Pulse Resp BP Pulse Ox 98.2 F 81 20 134/72 96 11/04/17 10:00 11/04/17 10:40 11/04/17 10:00 11/04/17 10:00 11/04/17 10:40 Active Medications Acetaminophen (Ofirmev Injection -) 1,000 mg IVPB Q6H PRN PRN Reason: FEVER OR PAIN Last Admin: 10/27/17 17:55 Dose: 1,000 mg Albuterol Sulfate (Ventolin 0.083% Nebulizer Soln -) 1 amp NEB Q4H PRN PRN Reason: SHORT OF BREATH/WHEEZING Last Admin: 11/04/17 10:40 Dose: 1 amp Atorvastatin Calcium (Lipitor -) 80 mg PO HS BILL Last Admin: 11/03/17 22:05 Dose: 80 mg Clopidogrel Bisulfate (Plavix -) 75 mg PO DAILY BILL Last Admin: 11/04/17 10:13 Dose: 75 mg Furosemide (Lasix Injection -) 40 mg IVPUSH DAILY BILL Last Admin: 11/04/17 10:11 Dose: 40 mg Heparin Sodium (Porcine) (Heparin -) 5,000 unit SQ TID BILL Last Admin: 11/04/17 06:39 Dose: 5,000 unit Piperacillin Sod/Tazobactam (Sod 3.375 gm/ Dextrose) 50 mls @ 100 mls/hr IVPB Q6H-IV BILL Last Admin: 11/04/17 10:04 Dose: 100 mls/hr Insulin Aspart (Novolog Vial Sliding Scale -) 1 vial SQ Q6HPO BILL PRN Reason: Protocol Last Admin: 11/04/17 11:26 Dose: 12 units Insulin Detemir (Levemir Vial) 35 units SQ AM BILL Last Admin: 11/04/17 06:40 Dose: 35 units Metoprolol Tartrate (Lopressor -) 37.5 mg PO BID [facility] Last Admin: 11/04/17 10:11 Dose: 37.5 mg Pregabalin (Lyrica -) 75 mg PO BID [facility] Last Admin: 11/04/17 10:13 Dose: 75 mg Ranitidine HCl (Zantac -) 150 mg PO DAILY [facility] Last Admin: 11/04/17 10:13 Dose: 150 mg Constitutional: Yes: NAD Eyes: Yes: WNL HENT: Yes: WNL Neck: Yes: WNL Cardiovascular: Yes: Regular Rate and Rhythm, S1, S2 Respiratory: Yes: Bibasilar rales / rhonchi Gastrointestinal: Yes: Normal Bowel Sounds, Soft Extremities: Yes: WNL Edema: No Labs: Laboratory Results - last 24 hr 11/03/17 11/03/17 11/03/17 16:47 17:58 18:47 WBC RBC Hgb Hct MCV MCH MCHC RDW Plt Count MPV Neutrophils % Lymphocytes % Monocytes % Eosinophils % Basophils % Sodium Potassium Chloride Carbon Dioxide Anion Gap BUN Creatinine Creat Clearance w eGFR POC Glucometer 441 443 462 Random Glucose Calcium Total Bilirubin AST ALT Alkaline Phosphatase Total Protein Albumin 11/03/17 11/03/17 11/04/17 19:20 21:31 00:14 WBC RBC Hgb Hct MCV MCH MCHC RDW Plt Count MPV Neutrophils % Lymphocytes % Monocytes % Eosinophils % Basophils % Sodium Potassium Chloride Carbon Dioxide Anion Gap BUN Creatinine Creat Clearance w eGFR POC Glucometer 386 347 Random Glucose 468 H* Calcium Total Bilirubin AST ALT Alkaline Phosphatase Total Protein Albumin 11/04/17 11/04/17 11/04/17 05:23 07:55 07:55 WBC 14.1 H RBC 3.98 Hgb 10.9 Hct 34.8 MCV 87.3 MCH 27.5 MCHC 31.5 L RDW 14.1 Plt Count 293 MPV 10.6 Neutrophils % 70.5 Lymphocytes % 18.2 D Monocytes % 8.2 Eosinophils % 2.5 D Basophils % 0.6 Sodium 148 H Potassium 3.4 L Chloride 106 Carbon Dioxide 36 H Anion Gap 6 L BUN 35 H Creatinine 1.4 H Creat Clearance w eGFR 35.41 POC Glucometer 252 Random Glucose 290 H D Calcium 8.0 L Total Bilirubin 0.5 D AST 54 H ALT 67 Alkaline Phosphatase 688 H Total Protein 6.3 L Albumin 2.1 L 11/04/17 11:15 WBC RBC Hgb Hct MCV MCH MCHC RDW Plt Count MPV Neutrophils % Lymphocytes % Monocytes % Eosinophils % Basophils % Sodium Potassium Chloride Carbon Dioxide Anion Gap BUN Creatinine Creat Clearance w eGFR POC Glucometer 415 Random Glucose Calcium Total Bilirubin AST ALT Alkaline Phosphatase Total Protein Albumin Problem List - Problems (1) BASIL (acute kidney injury) Code(s): N17.9 - ACUTE KIDNEY FAILURE, UNSPECIFIED (2) Acute on chronic systolic and diastolic heart failure, NYHA class 3 Code(s): I50.43 - ACUTE ON CHRONIC COMBINED SYSTOLIC AND DIASTOLIC HRT FAIL (3) Acute respiratory failure Code(s): J96.00 - ACUTE RESPIRATORY FAILURE, UNSP W HYPOXIA OR HYPERCAPNIA (4) CAD (coronary artery disease) Code(s): I25.10 - ATHSCL HEART DISEASE OF [place] CORONARY ARTERY W/O ANG PCTRS (5) CHF (congestive heart failure) Code(s): I50.9 - HEART FAILURE, UNSPECIFIED (6) IDDM (insulin dependent diabetes mellitus) Code(s): E11.9 - TYPE 2 DIABETES MELLITUS WITHOUT COMPLICATIONS; Z79.4 - DECISION SUPPORT MANAGER (CURRENT) USE OF INSULIN (7) NSTEMI (non-ST elevated myocardial infarction) Code(s): I21.4 - NON-ST ELEVATION (NSTEMI) MYOCARDIAL INFARCTION (8) Transaminitis Code(s): R74.0 - NONSPEC ELEV OF LEVELS OF TRANSAMNS & LACTIC ACID DEHYDRGNSE Assessment/Plan Acute Hypoxic Respiratory Failure improved Acute Pulmonary Edema improved Acute NSTEMI CAD h/o AVR Pneumonia Acute Kidney Injury improving DM - ABX - Lasix - plavix, beta emeterio - for possible cardiac catheterization when stable Dr Coelho
[2017-11-04] MEDS ORDERED: KCL 10 MEQ IVPB 10 MEQ/100 ML INFUS.BAG IVPB SCH (14:00)
[2017-11-04] MEDS ORDERED: POTASSIUM CHLORIDE 30 MEQ in SODIUM CHLORIDE 300 ML IVPB ONE (15:30)
[2017-11-04] MEDS ORDERED: POTASSIUM CHLORIDE TABS 20 MEQ TABLET.ER (FP) PO ONE (15:30)
[2017-11-04 16:16] LABS: ANION GAP 10 (8-16); CALCIUM 7.8 mg/dL (8.5-10.1); CO2 31 mmol/L (21-32); CREATININE 1.4 mg/dL (0.55-1.02)
[2017-11-04 16:28] LABS: GLUCOSE,RANDOM 335 mg/dL (74-106)
--- NOTE | 2017-11-04 19:11 | PN ---
Teaching Attending Note Name of Resident: Fransico Aden ATTENDING PHYSICIAN STATEMENT I saw and evaluated the patient. I reviewed the resident's note and discussed the case with the resident. I agree with the resident's findings and plan as documented. SUBJECTIVE: Patient is comfortable with no acute distress. No fever or chills. family at bedside. OBJECTIVE: Vital Signs Temperature 98.8 F 11/04/17 14:00 Pulse Rate 72 11/04/17 14:00 Respiratory Rate 20 11/04/17 10:00 Blood Pressure 147/66 11/04/17 14:00 O2 Sat by Pulse Oximetry (%) 96 11/04/17 10:40 CBCD WBC 14.1 K/mm3 (4.0-10.0) H 11/04/17 07:55 RBC 3.98 M/mm3 (3.60-5.2) 11/04/17 07:55 Hgb 10.9 GM/dL (10.7-15.3) 11/04/17 07:55 Hct 34.8 % (32.4-45.2) 11/04/17 07:55 MCV 87.3 fl (80-96) 11/04/17 07:55 MCHC 31.5 g/dl (32.0-36.0) L 11/04/17 07:55 RDW 14.1 % (11.6-15.6) 11/04/17 07:55 Plt Count 293 K/MM3 (134-434) 11/04/17 07:55 MPV 10.6 fl (7.5-11.1) 11/04/17 07:55 CMP Sodium 142 mmol/L (136-145) 11/04/17 14:15 Potassium 3.8 mmol/L (3.5-5.1) 11/04/17 14:15 Chloride 101 mmol/L (98-107) 11/04/17 14:15 Carbon Dioxide 31 mmol/L (21-32) 11/04/17 14:15 Anion Gap 10 (8-16) 11/04/17 14:15 BUN 35 mg/dL (7-18) H 11/04/17 14:15 Creatinine 1.4 mg/dL (0.55-1.02) H 11/04/17 14:15 Creat Clearance w eGFR 35.41 (>60) 11/04/17 07:55 Random Glucose 335 mg/dL (74-106) H* 11/04/17 14:15 Calcium 7.8 mg/dL (8.5-10.1) L 11/04/17 14:15 Total Bilirubin 0.5 mg/dL (0.2-1.0) D 11/04/17 07:55 AST 54 U/L (15-37) H 11/04/17 07:55 ALT 67 U/L (12-78) 11/04/17 07:55 Alkaline Phosphatase 688 U/L (45-117) H 11/04/17 07:55 Total Protein 6.3 g/dl (6.4-8.2) L 11/04/17 07:55 Albumin 2.1 g/dl (3.4-5.0) L 11/04/17 07:55 CARDIAC ENZYMES Creatine Kinase 379 IU/L (26-192) H 10/29/17 05:00 Troponin I 3.78 ng/ml (0.00-0.05) H* 10/29/17 17:45 Current Medications Generic Name Dose Route Start Last Admin Trade Name Freq PRN Reason Stop Dose Admin Acetaminophen 1,000 mg 10/27/17 17:31 10/27/17 17:55 Ofirmev Injection - IVPB 1,000 mg Q6H PRN Administration FEVER OR PAIN Albuterol Sulfate 1 amp 10/28/17 16:04 11/04/17 10:40 Ventolin 0.083% Nebulizer Soln - NEB 1 amp Q4H PRN Administration SHORT OF BREATH/WHEEZING Atorvastatin Calcium 80 mg 10/27/17 22:00 11/03/17 22:05 Lipitor - PO 80 mg HS BILL Administration Clopidogrel Bisulfate 75 mg 10/27/17 10:00 11/04/17 10:13 Plavix - PO 75 mg DAILY BILL Administration Furosemide 40 mg 11/01/17 09:30 11/04/17 10:11 Lasix Injection - IVPUSH 40 mg DAILY BILL Administration Heparin Sodium (Porcine) 5,000 unit 11/03/17 22:00 11/04/17 13:50 Heparin - SQ 5,000 unit TID BILL Administration Piperacillin Sod/Tazobactam 50 mls @ 100 mls/hr 11/02/17 15:00 11/04/17 14:21 Sod 3.375 gm/ Dextrose IVPB 100 mls/hr Q6H-IV BILL Administration Insulin Aspart 1 vial 11/04/17 16:00 11/04/17 17:12 Novolog Vial Sliding Scale - SQ 8 units Q4H BILL Administration Protocol Insulin Detemir 35 units 11/04/17 07:00 11/04/17 06:40 Levemir Vial SQ 35 units AM BILL Administration Metoprolol Tartrate 37.5 mg 11/02/17 10:17 11/04/17 10:11 Lopressor - PO 37.5 mg BID BILL Administration Pregabalin 75 mg 10/27/17 10:00 11/04/17 10:13 Lyrica - PO 75 mg BID BILL Administration Ranitidine HCl 150 mg 10/27/17 00:45 11/04/17 10:13 Zantac - PO 150 mg DAILY BILL Administration Home Medications Medication Instructions Recorded Amlodipine Besylate [Norvasc -] 10 mg PO DAILY 10/26/17 Atorvastatin Ca [Lipitor] 20 mg PO HS 10/26/17 Clopidogrel Bisulfate [Plavix -] 75 mg PO DAILY 10/26/17 Furosemide [Lasix] 40 mg PO DAILY 10/26/17 Insulin (LOG) Aspart [NovoLOG -] 0 units SQ TID 10/26/17 Insulin Glargine,Hum.rec.anlog 35 units SQ AM 10/26/17 [Lantus Solostar PEN (NF)] Metoprolol Succinate [Toprol Xl -] 37.5 mg PO BID 10/26/17 Multivitamin/Iron/Folic Acid 1 each PO DAILY 10/26/17 [Centrum Adults Tablet] Pregabalin [Lyrica -] 200 mg PO TID 10/26/17 PE: per resident's note ASSESSMENT AND PLAN: Patient is a 87 y/o female with h/o CAD, s/p stenting , AVR, IDDM , presented with SOB and was found to have acute pulmonary edema in the setting of NSTEMI. # NSTEMI with cardiogenic shock. shock resolved. On plavix /Lipitor continue on BB 37.5 BID.discussed with cardio. will be transferred to [facility] for cath. once a bed is available will be transferred. #Acute hypoxic respiratory failure: due to pulm edema and PNA , cont Lasix 40 of IV daily and On IV antibiotic. # Acute PNA on IV antibiotic. # BASIL: pre-renal from CHF. Continue to monitor. # Elevated ALk Phos: with dilated CBD , RUQ pain along improving and WBC trending down today. will continue to monitor #Hx of PVD: on Plavix # DM : Cont SSI DVT Px: Heparin Sq
--- NOTE | 2017-11-04 20:42 | PN ---
Progress Note (short form) - Note Progress Note: paged for suspected thrombophlebitis s/p peripheral IV access in R AC fossa. IV live changed earlier today to L AC fossa. Pt denies any pain currently PE: R arm AC fossa erythematous and indurated. No pain upon palpation. Distal pulses intact 2+ ROM and strength not limited and 5/5 respectively A/P R Arm US to r/o superficial clot Warm compress to area Doubt infection related to IV insertion MC, DO IM PGY-1
[2017-11-04] MEDS: ATORVASTATIN CA 80 MG TABLET (FP) PO SCH (21:41)
[2017-11-05] MEDS: INSULIN SLIDING SCALE (NOVOLOG) 1 VIAL SQ SCH ×3 (00:29→10:00)
[2017-11-05] MEDS ORDERED: PT OWN MED DRAWER 7, Y5N ONE ×2 (02:30→09:21)
[2017-11-05] MEDS: PIPERACILLIN/TAZOB 3.375 GM 3.375 GM in DEXTROSE 5%-WATER - 50 ML IVPB SCH ×2 (03:37→09:28)
[2017-11-05] MEDS: ALBUTEROL SO4 0.083% IH SOL 2.5 MG/3 ML VIAL.NEB. NEB PRN (06:45)
[2017-11-05] MEDS: HEPARIN NA (PORCINE) 5,000 UNITS/ML 1ML VIAL SQ SCH (06:56)
[2017-11-05] MEDS: INSULIN DETEMIR 100 UNITS/ML MDV SQ SCH (06:56)
[2017-11-05 07:37] LABS: BASOPHIL 0.5 % (0-2.0); EOSINOPHIL 2.8 % (0-4.5); MCH 27.6 pg (25.7-33.7); MCHC 31.8 g/dl (32.0-36.0); MEAN CELL VOLUME 86.8 fl (80-96); MEAN PLT VOLUME 10.9 fl (7.5-11.1); NEUTROPHILS 71.7 % (42.8-82.8); PLATELET COUNT 302 K/MM3 (134-434); RDW 13.5 % (11.6-15.6); WHITE BLOOD COUNT 15.5 K/mm3 (4.0-10.0)
[2017-11-05 07:50] LABS: ALK PHOS 571 U/L (45-117); ANION GAP 8 (8-16); BILIRUBIN,TOTAL 0.7 mg/dL (0.2-1.0); CALCIUM 7.7 mg/dL (8.5-10.1); CO2 34 mmol/L (21-32); CREATININE 1.2 mg/dL (0.55-1.02); GLUCOSE,RANDOM 247 mg/dL (74-106); SGOT/AST 47 U/L (15-37); SGPT/ALT 61 U/L (12-78); TOT PROT 6.1 g/dl (6.4-8.2)
[2017-11-05] MEDS ORDERED: ACETAMINOPHEN 1000 MG/100 ML VIAL (NON FORMULARY) IVPB ONE (08:52)
--- NOTE | 2017-11-05 08:57 | PN ---
Physical Exam: SUBJECTIVE: Patient seen and examined OBJECTIVE: Vital Signs Intake & Output 11/02/17 11/03/17 11/04/17 11/05/17 23:59 23:59 23:59 23:59 Intake Total 758 860 560 100 Output Total 700 Balance 58 860 560 100 Weight 63.185 kg 65.544 kg 66.95 kg 66.769 kg Period Temp Pulse Resp BP Sys/Chatman Pulse Ox Last 24 Hr 97.8 F-98.8 F 70-81 18-20 130-153/52-72 96-96 GENERAL: NAD, laying in bed. A&Ox3. Somnolent, waxing and waning. HEAD: Normal with no signs of trauma. EYES: PERRLA, trace scleral icterus, EOMI ENT: Ears normal, nares patent, oropharynx clear without exudates, moist mucous membranes. MIld labial edema NECK: Trachea midline, supple. No JVD, no hepatojugular reflex LUNGS: Bibasilar crackles. No wheezes, no accessory muscle use. HEART: 2/6 blowing systolic murmur at LUSB/RUSB. Regular rate and rhythm, S1, S2 without murmur, rub or gallop. ABDOMEN: Soft, ND, NT. Hypoactive bowel sounds, no masses or organomegaly. Upper EXTREMITIES: 2+ pulses, warm, well-perfused, no edema. Still w/ R IV in forearm, L IV in dorsal aspect of hand. BL ecchymoses on both arms. Lower extremities: No edema. Pressure ulcers noted on distal tip of 1st hallux BL. Still with 1+ DP, 2+ PT pulse BL. Mild BL stasis dermatitis Laboratory Results - last 24 hr CBC, BMP 11/05/17 05:05 11/05/17 05:05 11/03/17 11/03/17 11/04/17 16:47 18:47 07:55 WBC RBC Hgb Hct MCV MCH MCHC RDW Plt Count MPV Neutrophils % Lymphocytes % Monocytes % Eosinophils % Basophils % Sodium 148 H Potassium 3.4 L Chloride 106 Carbon Dioxide 36 H Anion Gap 6 L BUN 35 H Creatinine 1.4 H Creat Clearance w eGFR 35.41 POC Glucometer 441 462 Random Glucose 290 H D Calcium 8.0 L Total Bilirubin 0.5 D AST 54 H ALT 67 Alkaline Phosphatase 688 H Total Protein 6.3 L Albumin 2.1 L 11/04/17 11/04/17 11/04/17 11:15 13:49 14:15 WBC RBC Hgb Hct MCV MCH MCHC RDW Plt Count MPV Neutrophils % Lymphocytes % Monocytes % Eosinophils % Basophils % Sodium 142 Potassium 3.8 Chloride 101 Carbon Dioxide 31 Anion Gap 10 BUN 35 H Creatinine 1.4 H Creat Clearance w eGFR POC Glucometer 415 379 Random Glucose 335 H* Calcium 7.8 L Total Bilirubin AST ALT Alkaline Phosphatase Total Protein Albumin 11/04/17 11/04/17 11/05/17 17:11 20:22 00:22 WBC RBC Hgb Hct MCV MCH MCHC RDW Plt Count MPV Neutrophils % Lymphocytes % Monocytes % Eosinophils % Basophils % Sodium Potassium Chloride Carbon Dioxide Anion Gap BUN Creatinine Creat Clearance w eGFR POC Glucometer 328 330 220 Random Glucose Calcium Total Bilirubin AST ALT Alkaline Phosphatase Total Protein Albumin 11/05/17 11/05/17 11/05/17 05:05 05:05 05:06 WBC 15.5 H RBC 3.68 Hgb 10.1 L Hct 31.9 L MCV 86.8 MCH 27.6 MCHC 31.8 L RDW 13.5 Plt Count 302 MPV 10.9 Neutrophils % 71.7 Lymphocytes % 18.0 Monocytes % 7.0 Eosinophils % 2.8 Basophils % 0.5 Sodium 144 Potassium 3.9 Chloride 102 Carbon Dioxide 34 H Anion Gap 8 BUN 31 H Creatinine 1.2 H Creat Clearance w eGFR 42.30 POC Glucometer 222 Random Glucose 247 H D Calcium 7.7 L Total Bilirubin 0.7 D AST 47 H ALT 61 Alkaline Phosphatase 571 H Total Protein 6.1 L Albumin 2.0 L Active Medications Generic Name Dose Route Start Last Admin Trade Name Freq PRN Reason Stop Dose Admin Acetaminophen 1,000 mg 10/27/17 17:31 10/27/17 17:55 Ofirmev Injection - IVPB 1,000 mg Q6H PRN Administration FEVER OR PAIN Acetaminophen 1,000 mg 11/05/17 08:52 Ofirmev Injection - IVPB Q6H PRN FEVER OR PAIN Albuterol Sulfate 1 amp 10/28/17 16:04 11/05/17 06:45 Ventolin 0.083% Nebulizer Soln - NEB 1 amp Q4H PRN Administration SHORT OF BREATH/WHEEZING Atorvastatin Calcium 80 mg 10/27/17 22:00 11/04/17 21:41 Lipitor - PO 80 mg HS BILL Administration Clopidogrel Bisulfate 75 mg 10/27/17 10:00 11/04/17 10:13 Plavix - PO 75 mg DAILY BILL Administration Furosemide 40 mg 11/01/17 09:30 11/04/17 10:11 Lasix Injection - IVPUSH 40 mg DAILY BILL Administration Heparin Sodium (Porcine) 5,000 unit 11/03/17 22:00 11/05/17 06:56 Heparin - SQ 5,000 unit TID BILL Administration Piperacillin Sod/Tazobactam 50 mls @ 100 mls/hr 11/02/17 15:00 11/05/17 03:37 Sod 3.375 gm/ Dextrose IVPB 100 mls/hr Q6H-IV BILL Administration Insulin Aspart 1 vial 11/04/17 16:00 11/05/17 06:56 Novolog Vial Sliding Scale - SQ 4 units Q4H BILL Administration Protocol Insulin Detemir 35 units 11/04/17 07:00 11/05/17 06:56 Levemir Vial SQ 35 units AM BILL Administration Metoprolol Tartrate 37.5 mg 11/02/17 10:17 11/04/17 21:40 Lopressor - PO 37.5 mg BID BILL Administration Pregabalin 75 mg 10/27/17 10:00 11/04/17 21:39 Lyrica - PO 75 mg BID BILL Administration Ranitidine HCl 150 mg 10/27/17 00:45 11/04/17 10:13 Zantac - PO 150 mg DAILY BILL Administration Microbiology 11/01/17 19:15 Blood - Peripheral Venous Blood Culture - Preliminary NO GROWTH OBTAINED AFTER 72 HOURS, INCUBATION TO CONTINUE FOR 2 DAYS. 11/01/17 19:15 Blood - Peripheral Venous Blood Culture - Preliminary NO GROWTH OBTAINED AFTER 72 HOURS, INCUBATION TO CONTINUE FOR 2 DAYS. 11/02/17 11:10 Sputum - Expectorated Gram Stain - Final 11/02/17 11:10 Sputum - Expectorated Sputum Culture - Final NORMAL RESPIRATORY NICOL 11/03/17 11:30 Stool Clostridium difficile Antigen (JIMMIE) - Final 11/03/17 11:30 Stool Clostridium difficile Toxin Assay - Final 11/01/17 23:00 Urine - Urine - Catheterized Urine Culture - Final NO GROWTH OBTAINED 10/26/17 21:54 Blood - Peripheral Venous Blood Culture - Final NO GROWTH AFTER 5 DAYS INCUBATION 10/26/17 21:54 Blood - Peripheral Venous Blood Culture - Final NO GROWTH AFTER 5 DAYS INCUBATION 10/27/17 06:30 Sputum - Endotrachea Suction/Ventilator Gram Stain - Final 10/27/17 06:30 Sputum - Endotrachea Suction/Ventilator Sputum Culture - Final Moraxella (Bran.) Catarrhalis 10/26/17 21:53 Urine - Urine Sanches Urine Culture - Final NO GROWTH OBTAINED 10/27/17 06:48 Nasopharyngeal Swab Respiratory Virus (PCR) - Preliminary 10/27/17 06:30 Urine - Urine Sanches Legionella Antigen - Final 10/27/17 06:30 Urine - Urine Sanches Streptococcus pneumoniae Antigen (M - Final 10/27/17 01:15 Nasopharyngeal Swab Influenza Types A,B Antigen (JIMMIE) - Final 10/27/17 01:15 Nasopharyngeal Swab - Final Imaging: CXr 10/26 - 1. Endotracheal tube in place with the tip projecting approximately 2.7 cm above the joshua. 2. Pulmonary vascular congestion with interstitial edema and bilateral pleural effusions. Bilaterally airspace opacities are most likely alveolar edema. Pneumonia cannot be excluded. Please correlate clinically for severe CHF exacerbation. CXR 10/27 - No significant change. ETT in place. CXR 10/28 - No evidence of pneumothorax. Resolving vascular congestive changes. Resolving bilateral pulmonary consolidations. ECHO 10/27 - Poor study. Bioprosthetic aortic valve. Mild MR. LV filling pattern normal for age. Ef 58% EKG 10/27 - Sinus tach. No QTC prolongation. Normal axis. Deep q-waves in III, worse than prior ekg on presentation. TWIs in V5-6 EKG 10/28 - NSR. NAD. Q waves in III improved. No TWIs. Improved since prior Venous duplex LE 10/27 - No evidence of deep venous thrombosis. Arterial duplex 10/27 - Extensive atherosclerotic disease with weak, monophasic flow within the popliteal and posterior tibial arteries bilaterally. Clinical correlation and follow-up recommended. Please see above discussion. CXR 10/29 - No significant changes since prior CXR. RUQ U/S 10/31 - Nonvisualization of the gallbladder. Periportal echogenic densities in the liver suggestive of periportal edema, of uncertain significance or etiology. Dilated common bile duct measuring 1.2 cm in diameter. Note is made of a right pleural effusion CXR 10/31 - Since the prior exam of 10/29/2017, the NG tube and endotracheal tube remain in place. Again noted is evidence of previous valvular instrumentation, large heart, sclerotic knob and congestive changes. CXR 11/02 - New suspected L pleural effusion. No significant change in R lung. CXR 11/03 - Since 11/02/2017, the congestive and infiltrative changes with pleural fluid has diminished slightly. Follow-up recommended. ASSESSMENT/PLAN: 86 yo w/ pmh of IDDM, CAD (s/p stents x10, most recently 3 y ago) and AVR (last year) presenting with SOB, found to have severe flash pulmonary edema in setting of NSTEMI. Pt still awaiting transfer to [facility] for [facility]. Continue to improve, tolerating NC w/ transfer to floors. Still w/ elevated WBC , uptrending alk phos (950) and CXR w/ resolving L pleural effusion. #Acute Hypoxic Respiratory Failure 2/2 to NSTEMI - Extubated 11/01. On venti-mask, tolerating well. - O2 tx. Escalate as needed. Maintain sat 94%> - Strict Is and Os - Ventolin q4h PRN - Lasix 40mg daily #NSTEMI - elevated trops, abnormal ekg listed above. Repeat EKG improved since prior on 10/27 - Presumptive transfer on per cardiology if stable - Metoprolol increased to 37.5 BID - Off heparin gtt - Plavix 75mg daily - Cardiology consulted. Recs continually appreciated. - Lipitor 80 mg daily - Monitor for hypotension. Maintain MAP of 65>. #Possible CAP - WBC 20-> 16.8 overnight. Fever of 100.2 again. CXR w/ L pleural effusion, resolving 11/03 - blood, urine neg to date - Sputum + moraxella catarrhalis - Legionella/pneumo urine ag neg - Received 7 days of rocephin. Started on zosyn today. Day 2/7 zosyn - Trend fever, WBC #Elevated Alk phos - 920-> 950 today. - RUQ US w/ periportal edema, IKE DIL 1.2cm - GGT 622 - No MRCP with multiple stents - Continue to trend LFTs - GI consulted. Recs appreciated. #PVD - arterial dopplers notable for extensive Bl atherosclerotic dz. - Vascular consulted. Recs appreciated - f/u as outpt #IDDM - Takes lantus 35u qHs at home + SS. AM BG 401 - Continue to monitor glucose. Started on home dose of lantus 35u in AM - lyrica 75mg BID for diabetic neuropathy - ISS - BGM q4h - All IV in meds in NS, not D5W #BASIL - Cr 1.0 today, at pt baseline -Resolved PPX: SubQ heparin Zantac for GI FEN: Fluids: none Electrolytes: Daily BMPs, trend Cr Nutrition: Chopped/nectar thick recommended per S+S Dispo: Monitor on tele with possible transfer to [place] later this week if no other active issues Plan discussed with attending, Dr. Judd Aden, PGY1
[2017-11-05] MEDS: FUROSEMIDE 40 MG/4 ML INJECTABLE VIAL IVPUSH SCH ×2 (09:28→10:29)
[2017-11-05 09:51] LABS: ARTERIAL BLD GAS O2 SATURATION 95.3 % (90-98.9); ARTERIAL BLOOD GAS BASE EXCESS 9.7 meq/l (-2-2); ARTERIAL BLOOD GAS HCO3 35.4 meq/L (22-26); ARTERIAL BLOOD GAS PO2 75.2 mmHg (68-100); ARTERIAL BLOOD GAS pH 7.43 (7.35-7.45)
[2017-11-05 09:59] LABS: ART PUNCT SITE RIGHT RADIAL
[2017-11-05] MEDS ORDERED: PREGABALIN 25 MG CAPSULE PO SCH (10:00)
--- NOTE | 2017-11-05 10:00 | PN ---
Teaching Attending Note Name of Resident: Fransico Aden ATTENDING PHYSICIAN STATEMENT I saw and evaluated the patient. I reviewed the resident's note and discussed the case with the resident. I agree with the resident's findings and plan as documented. SUBJECTIVE: Patient was found lethargic this morning. Patient on Lyrica 75mg bid, reduced the dose to 25mg po bid. OBJECTIVE: Vital Signs Temperature 98.0 F 11/05/17 05:41 Pulse Rate 78 11/05/17 05:41 Respiratory Rate 20 11/05/17 05:41 Blood Pressure 153/52 11/05/17 05:41 O2 Sat by Pulse Oximetry (%) 96 11/04/17 20:28 CBCD WBC 15.5 K/mm3 (4.0-10.0) H 11/05/17 05:05 RBC 3.68 M/mm3 (3.60-5.2) 11/05/17 05:05 Hgb 10.1 GM/dL (10.7-15.3) L 11/05/17 05:05 Hct 31.9 % (32.4-45.2) L 11/05/17 05:05 MCV 86.8 fl (80-96) 11/05/17 05:05 MCHC 31.8 g/dl (32.0-36.0) L 11/05/17 05:05 RDW 13.5 % (11.6-15.6) 11/05/17 05:05 Plt Count 302 K/MM3 (134-434) 11/05/17 05:05 MPV 10.9 fl (7.5-11.1) 11/05/17 05:05 CMP Sodium 144 mmol/L (136-145) 11/05/17 05:05 Potassium 3.9 mmol/L (3.5-5.1) 11/05/17 05:05 Chloride 102 mmol/L (98-107) 11/05/17 05:05 Carbon Dioxide 34 mmol/L (21-32) H 11/05/17 05:05 Anion Gap 8 (8-16) 11/05/17 05:05 BUN 31 mg/dL (7-18) H 11/05/17 05:05 Creatinine 1.2 mg/dL (0.55-1.02) H 11/05/17 05:05 Creat Clearance w eGFR 42.30 (>60) 11/05/17 05:05 Random Glucose 247 mg/dL (74-106) H D 11/05/17 05:05 Calcium 7.7 mg/dL (8.5-10.1) L 11/05/17 05:05 Total Bilirubin 0.7 mg/dL (0.2-1.0) D 11/05/17 05:05 AST 47 U/L (15-37) H 11/05/17 05:05 ALT 61 U/L (12-78) 11/05/17 05:05 Alkaline Phosphatase 571 U/L (45-117) H 11/05/17 05:05 Total Protein 6.1 g/dl (6.4-8.2) L 11/05/17 05:05 Albumin 2.0 g/dl (3.4-5.0) L 11/05/17 05:05 CARDIAC ENZYMES Creatine Kinase 379 IU/L (26-192) H 10/29/17 05:00 Troponin I 3.78 ng/ml (0.00-0.05) H* 10/29/17 17:45 Current Medications Generic Name Dose Route Start Last Admin Trade Name Freq PRN Reason Stop Dose Admin Acetaminophen 1,000 mg 10/27/17 17:31 10/27/17 17:55 Ofirmev Injection - IVPB 1,000 mg Q6H PRN Administration FEVER OR PAIN Albuterol Sulfate 1 amp 10/28/17 16:04 11/05/17 06:45 Ventolin 0.083% Nebulizer Soln - NEB 1 amp Q4H PRN Administration SHORT OF BREATH/WHEEZING Atorvastatin Calcium 80 mg 10/27/17 22:00 11/04/17 21:41 Lipitor - PO 80 mg HS BILL Administration Clopidogrel Bisulfate 75 mg 10/27/17 10:00 11/04/17 10:13 Plavix - PO 75 mg DAILY BILL Administration Furosemide 40 mg 11/01/17 09:30 11/05/17 09:28 Lasix Injection - IVPUSH 40 mg DAILY BILL Administration Heparin Sodium (Porcine) 5,000 unit 11/03/17 22:00 11/05/17 06:56 Heparin - SQ 5,000 unit TID BILL Administration Piperacillin Sod/Tazobactam 50 mls @ 100 mls/hr 11/02/17 15:00 12/08/17 09:28 Sod 3.375 gm/ Dextrose IVPB 100 mls/hr Q6H-IV BILL Administration Insulin Aspart 1 vial 11/04/17 16:00 11/05/17 06:56 Novolog Vial Sliding Scale - SQ 4 units Q4H BILL Administration Protocol Insulin Detemir 35 units 11/04/17 07:00 11/05/17 06:56 Levemir Vial SQ 35 units AM BILL Administration Metoprolol Tartrate 37.5 mg 11/02/17 10:17 11/04/17 21:40 Lopressor - PO 37.5 mg BID BILL Administration Pregabalin 25 mg 11/05/17 10:00 Lyrica - PO BID BILL Ranitidine HCl 150 mg 10/27/17 00:45 11/04/17 10:13 Zantac - PO 150 mg DAILY BILL Administration Home Medications Medication Instructions Recorded Amlodipine Besylate [Norvasc -] 10 mg PO DAILY 10/26/17 Atorvastatin Ca [Lipitor] 20 mg PO HS 10/26/17 Clopidogrel Bisulfate [Plavix -] 75 mg PO DAILY 10/26/17 Furosemide [Lasix] 40 mg PO DAILY 10/26/17 Insulin (LOG) Aspart [NovoLOG -] 0 units SQ TID 10/26/17 Insulin Glargine,Hum.rec.anlog 35 units SQ AM 10/26/17 [Lantus Solostar PEN (NF)] Metoprolol Succinate [Toprol Xl -] 37.5 mg PO BID 10/26/17 Multivitamin/Iron/Folic Acid 1 each PO DAILY 10/26/17 [Centrum Adults Tablet] Pregabalin [Lyrica -] 200 mg PO TID 10/26/17 Microbiology 11/01/17 19:15 Blood - Peripheral Venous Blood Culture - Preliminary NO GROWTH OBTAINED AFTER 72 HOURS, INCUBATION TO CONTINUE FOR 2 DAYS. 11/01/17 19:15 Blood - Peripheral Venous Blood Culture - Preliminary NO GROWTH OBTAINED AFTER 72 HOURS, INCUBATION TO CONTINUE FOR 2 DAYS. 11/02/17 11:10 Sputum - Expectorated Gram Stain - Final 11/02/17 11:10 Sputum - Expectorated Sputum Culture - Final NORMAL RESPIRATORY NICOL 11/03/17 11:30 Stool Clostridium difficile Antigen (JIMMIE) - Final 11/03/17 11:30 Stool Clostridium difficile Toxin Assay - Final 11/01/17 23:00 Urine - Urine - Catheterized Urine Culture - Final NO GROWTH OBTAINED 10/26/17 21:54 Blood - Peripheral Venous Blood Culture - Final NO GROWTH AFTER 5 DAYS INCUBATION 10/26/17 21:54 Blood - Peripheral Venous Blood Culture - Final NO GROWTH AFTER 5 DAYS INCUBATION 10/27/17 06:30 Sputum - Endotrachea Suction/Ventilator Gram Stain - Final 10/27/17 06:30 Sputum - Endotrachea Suction/Ventilator Sputum Culture - Final Moraxella (Bran.) Catarrhalis 10/26/17 21:53 Urine - Urine Sanches Urine Culture - Final NO GROWTH OBTAINED 10/27/17 06:48 Nasopharyngeal Swab Respiratory Virus (PCR) - Preliminary 10/27/17 06:30 Urine - Urine Sanches Legionella Antigen - Final 10/27/17 06:30 Urine - Urine Sanches Streptococcus pneumoniae Antigen (M - Final 10/27/17 01:15 Nasopharyngeal Swab Influenza Types A,B Antigen (JIMMIE) - Final 10/27/17 01:15 Nasopharyngeal Swab - Final PE: per resident's note ASSESSMENT AND PLAN: Patient is a 87 y/o female with h/o CAD, s/p stenting , AVR, IDDM , presented with SOB and was found to have acute pulmonary edema in the setting of NSTEMI. # NSTEMI: On plavix /Lipitor continue on BB 37.5 BID. Discussed with cardio. patient is getting transferred to [facility] for cath. Bed is available today. #Acute cellulitis of RUE on Zosyn continue monitor #Acute hypoxic respiratory failure improving : due to pulm edema and PNA , cont Lasix 40 of IV daily and On IV antibiotic. # Acute PNA on IV antibiotic Zosyn continue. # BASIL: pre-renal from CHF. # Elevated ALk Phos: with dilated CBD , RUQ pain along improving and WBC improving ,continue to monitor. will continue to monitor #Hx of PVD: on Plavix # DM : Cont SSI DVT Px: Heparin sq
[2017-11-05] MEDS: RANITIDINE HCL 150 MG TABLET (FP) PO SCH (10:16)
[2017-11-05] MEDS: METOPROLOL TARTRATE 25 MG TABLET (FP) PO SCH (10:16)
[2017-11-05] MEDS: CLOPIDOGREL BISULFATE 75 MG TABLET (FP) PO SCH (10:16)
--- NOTE | 2017-11-05 10:42 | EKG ---
Test Reason : Blood Pressure : / mmHG Vent. Rate : 075 BPM Atrial Rate : 075 BPM P-R Int : 122 ms QRS Dur : 104 ms QT Int : 422 ms P-R-T Axes : 042 -03 070 degrees QTc Int : 471 ms NORMAL SINUS RHYTHM LEFT VENTRICULAR HYPERTROPHY WITH REPOLARIZATION ABNORMALITY POOR R WAVE PROGRESSION ABNORMAL ECG Confirmed by MD LIBERTY, LENI ([id number]) on 11/05/2017 10:42:05 AM Referred By: Confirmed By:LENI KOENIG MD
[2017-11-05 10:53] VITALS: PULSE 80
[2017-11-05 11:54] VITALS: BP 145/52; TEMP 99.8
--- NOTE | 2017-11-05 15:53 | DS ---
Physical Exam: SUBJECTIVE: Patient seen and examined by me this AM - Night team responded to erythema, induration suspicious for cellulitis in R cubital fossa at prior IV site. RUE U/S negative for DVT. Ordered for warm compresses. - Pt more somnolent in AM. Per nursing, desatting to high 80s in AM when sleeping. 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 Stat EKG, CXR unremarkable. - Denies any fever/chills, SOB, CP/palpitations, N/V, dysuria, diarrhea/ constipation or new neuro symptoms. Good appetite, energy level. Later AM: - Pt A&Ox3, more alert per nursing, asking for breakfast. Dr. Rowan notified of events by nursing. - Per cardiology, Pt confirmed for inpatient transfer to [facility] for cardiac cath. OBJECTIVE: Vital Signs Period Temp Pulse Resp BP Sys/Chatman Pulse Ox Last 24 Hr 97.8 F-99.8 F 70-80 18-20 130-153/52-72 96-98 PHYSICAL EXAM GENERAL: NAD, laying in bed. A&Ox3. More somnolent today. HEAD: Normal with no signs of trauma. EYES: PERRLA, trace scleral icterus, EOMI ENT: Ears normal, nares patent, oropharynx clear without exudates, moist mucous membranes. Labial edema improving. NECK: Trachea midline, supple. No JVD, no hepatojugular reflex LUNGS: Trace bibasilar crackles. No wheezes, no accessory muscle use. HEART: 2/6 blowing systolic murmur, best appreciated at RUSB. Regular rate and rhythm, S1, S2 without murmur, rub or gallop. ABDOMEN: Soft, ND, NT. Hypoactive bowel sounds, no masses or organomegaly. Upper EXTREMITIES: Erythematous, focally indurated rash in R cubital fossa w/ multiple excoriations at prior IV site. 2+ pulses, warm, well-perfused, no edema. BL ecchymoses on both arms. Lower extremities: No edema. Pressure ulcers on distal tip of 1st hallux BL. 1+ DP, PT pulses BL. Mild BL stasis dermatitis LABS Laboratory Results - last 24 hr 11/04/17 11/04/17 11/04/17 14:15 17:11 20:22 WBC RBC Hgb Hct MCV MCH MCHC RDW Plt Count MPV Neutrophils % Lymphocytes % Monocytes % Eosinophils % Basophils % Puncture Site ABG pH ABG pCO2 at Pt Temp ABG pO2 at Pt Temp ABG HCO3 ABG O2 Sat (Measured) ABG O2 Content ABG Base Excess Sodium 142 Potassium 3.8 Chloride 101 Carbon Dioxide 31 Anion Gap 10 BUN 35 H Creatinine 1.4 H Creat Clearance w eGFR POC Glucometer 328 330 Random Glucose 335 H* Calcium 7.8 L Total Bilirubin AST ALT Alkaline Phosphatase Total Protein Albumin 11/05/17 11/05/17 11/05/17 00:22 05:05 05:05 WBC 15.5 H RBC 3.68 Hgb 10.1 L Hct 31.9 L MCV 86.8 MCH 27.6 MCHC 31.8 L RDW 13.5 Plt Count 302 MPV 10.9 Neutrophils % 71.7 Lymphocytes % 18.0 Monocytes % 7.0 Eosinophils % 2.8 Basophils % 0.5 Puncture Site ABG pH ABG pCO2 at Pt Temp ABG pO2 at Pt Temp ABG HCO3 ABG O2 Sat (Measured) ABG O2 Content ABG Base Excess Sodium 144 Potassium 3.9 Chloride 102 Carbon Dioxide 34 H Anion Gap 8 BUN 31 H Creatinine 1.2 H Creat Clearance w eGFR 42.30 POC Glucometer 220 Random Glucose 247 H D Calcium 7.7 L Total Bilirubin 0.7 D AST 47 H ALT 61 Alkaline Phosphatase 571 H Total Protein 6.1 L Albumin 2.0 L 11/05/17 11/05/17 11/05/17 05:06 08:56 09:13 WBC RBC Hgb Hct MCV MCH MCHC RDW Plt Count MPV Neutrophils % Lymphocytes % Monocytes % Eosinophils % Basophils % Puncture Site Right radial ABG pH 7.43 ABG pCO2 at Pt Temp 54.3 H D ABG pO2 at Pt Temp 75.2 ABG HCO3 35.4 H ABG O2 Sat (Measured) 95.3 ABG O2 Content 16.5 ABG Base Excess 9.7 H Sodium Potassium Chloride Carbon Dioxide Anion Gap BUN Creatinine Creat Clearance w eGFR POC Glucometer 222 248 Random Glucose Calcium Total Bilirubin AST ALT Alkaline Phosphatase Total Protein Albumin HOSPITAL COURSE: Date of Admission:10/27/17 Date of Discharge: 11/05/17 86 yo w/ pmh of IDDM, CAD (s/p stents x10, most recently 3 y ago) and AVR (last year) who presented with worsening SOB, fatigue and decreased UOP of two days, BIBEMS after being intubated in field with sats in 50s. ED course notable for WBC 20.1, ABG 7.35/50/101/27, lactic acid 6, trop of 6.75 and BNP of 20,000. EKG notable for sinus tachy w/ Q waves in inferior and lateral leads. CXR notable for pulmonary congestion. Respiratory failure likely due to flash pulmonary edema from acute HF 2/2 to NSTEMI. Pt was too unstable for transfer to cath center, started on heparin gtt, treated with lopressor 25 mg, ASA, lasix 40mg IV and serial ekgs/trops ordered. Also coverage for CAP with rocephin /azithro given elevated WBC. Remained intubated and vented and transferred to ICU. Echo 10/27 unremarkable, trops continually elevating to 12.3. Pt remained stable in ICU on heparin gtt, requiring low dose dopamine 5mcg for hemodynamic support. Pt progressively weaned off vent/pressor support, extubated on 11/01 with no complications. Cr slowly improved during ICU stay, however decision was made to forego CTA during ICU stay to r/o PE, as desired to preserve renal function for subsequent cardiac cath. Pt awaited transfer to [facility] throughout admission, however no beds available for transfer. Pt ICU course was notable for steadily uptrending Alk phos w/normal LFTs (zenith 950 on 11/02). RUQ US notable for biliary dilatation, however unable to perform MRCP as pt w/ numerous stents (unknown if ferromagnetic). Pt with elevated WBC to 20 on 11/02 while receiving CAP coverage w/ rocephin/azithro. F/u sputum cultures + for moraxella, pt started on zosyn for PNA vs. cholangitis. Pt transferred to floors , tolerating O2 wean and improving clinically, with steadily improved MS. Pt w/ poor glucose control since admission w/ A1C ~10 and new possible R cubital fossa cellulitis on 11/05. Approved for transfer to [facility] for cardiac cath 11/05, with outpt follow-up with bottom cager in [place]. Microbiology 11/01/17 19:15 Blood - Peripheral Venous Blood Culture - Preliminary NO GROWTH OBTAINED AFTER 96 HOURS, INCUBATION TO CONTINUE FOR 1 DAYS. 11/01/17 19:15 Blood - Peripheral Venous Blood Culture - Preliminary NO GROWTH OBTAINED AFTER 96 HOURS, INCUBATION TO CONTINUE FOR 1 DAYS. 11/02/17 11:10 Sputum - Expectorated Gram Stain - Final 11/02/17 11:10 Sputum - Expectorated Sputum Culture - Final NORMAL RESPIRATORY NICOL 11/03/17 11:30 Stool Clostridium difficile Antigen (JIMMIE) - Final 11/03/17 11:30 Stool Clostridium difficile Toxin Assay - Final 11/01/17 23:00 Urine - Urine - Catheterized Urine Culture - Final NO GROWTH OBTAINED 10/26/17 21:54 Blood - Peripheral Venous Blood Culture - Final NO GROWTH AFTER 5 DAYS INCUBATION 10/26/17 21:54 Blood - Peripheral Venous Blood Culture - Final NO GROWTH AFTER 5 DAYS INCUBATION 10/27/17 06:30 Sputum - Endotrachea Suction/Ventilator Gram Stain - Final 10/27/17 06:30 Sputum - Endotrachea Suction/Ventilator Sputum Culture - Final Moraxella (Bran.) Catarrhalis 10/26/17 21:53 Urine - Urine Sanches Urine Culture - Final NO GROWTH OBTAINED 10/27/17 06:48 Nasopharyngeal Swab Respiratory Virus (PCR) - Preliminary 10/27/17 06:30 Urine - Urine Sanches Legionella Antigen - Final 10/27/17 06:30 Urine - Urine Sanches Streptococcus pneumoniae Antigen (M - Final 10/27/17 01:15 Nasopharyngeal Swab Influenza Types A,B Antigen (JIMMIE) - Final 10/27/17 01:15 Nasopharyngeal Swab - Final Imaging: CXr 10/26 - 1. Endotracheal tube in place with the tip projecting approximately 2.7 cm above the joshua. 2. Pulmonary vascular congestion with interstitial edema and bilateral pleural effusions. Bilaterally airspace opacities are most likely alveolar edema. Pneumonia cannot be excluded. Please correlate clinically for severe CHF exacerbation. CXR 10/27 - No significant change. ETT in place. CXR 10/28 - No evidence of pneumothorax. Resolving vascular congestive changes. Resolving bilateral pulmonary consolidations. ECHO 10/27 - Poor study. Bioprosthetic aortic valve. Mild MR. LV filling pattern normal for age. Ef 58% EKG 10/27 - Sinus tach. No QTC prolongation. Normal axis. Deep q-waves in III, worse than prior ekg on presentation. TWIs in V5-6 EKG 10/28 - NSR. NAD. Q waves in III improved. No TWIs. Improved since prior Venous duplex LE 10/27 - No evidence of deep venous thrombosis. Arterial duplex 10/27 - Extensive atherosclerotic disease with weak, monophasic flow within the popliteal and posterior tibial arteries bilaterally. Clinical correlation and follow-up recommended. Please see above discussion. CXR 10/29 - No significant changes since prior CXR. RUQ U/S 10/31 - Nonvisualization of the gallbladder. Periportal echogenic densities in the liver suggestive of periportal edema, of uncertain significance or etiology. Dilated common bile duct measuring 1.2 cm in diameter. Note is made of a right pleural effusion CXR 10/31 - Since the prior exam of 10/29/2017, the NG tube and endotracheal tube remain in place. Again noted is evidence of previous valvular instrumentation, large heart, sclerotic knob and congestive changes. CXR 11/02 - New suspected L pleural effusion. No significant change in R lung. CXR 11/03 - Since 11/02/2017, the congestive and infiltrative changes with pleural fluid has diminished slightly. Follow-up recommended. EKG 11/04 - NSR, NAD, rate of 75. Occasional PVCs. Consults: Cardiology Pulmonology Pt is medically cleared for transfer to [facility] for cardiac cath for further evaluation of CAD. F/u with outpt bottom cager in [place]. Minutes to complete discharge: 35 Discharge Summary Reason For Visit: NSTEMI CHF Condition: Stable - Instructions Diet, Activity, Other Instructions: You were admitted to [facility] for respiratory failure requiring intubation and heart attack. You were treated for a pneumonia with IV antibiotics, azithromycin and ceftriaxone 10/26-10/30, and with zosyn 11/02-11/05. Please inform your primary medical team at the institution you are being transferred to about this condition. The receiving medical team will be informed by our medical team as well. Please continue your home medications as prescribed. You are being transferred to another hospital for a heart catheterization. Our cardiology team will be managing this transfer. Diet: Suggest nectar thick liquid for now and chopped diet. Cut your food into small pieces. Eat a low-sodium, diabetic diet. Follow-up with a speech pathology for diet upgrade, as indicated. Activity: As recommended at time of discharge from [facility] after your cardiac cath. Follow-up: - your primary care physician in one week of discharge. If you do not have one, contact information for Dr. White has been provided for you. You can call her office for an appointment. - bottom cager, contact information for Dr. Kerr has been provided for you. Please call his office for an appointment within one week of discharge. Otherwise, please follow-up with your normal outpatient bottom cager in one week. If you experience any of the following symptoms, or experience any new symptoms , please return to the hospital: - Fever >101.0 - Chest pain/tightness - Shortness of Breath - Worsening rash - Prolonged lightheadness/dizziness Referrals: Marco Antonio White MD [Staff Physician] - 1 Week Flavio Kerr MD [Staff Physician] - 1 Week STAFF,NOT ON [Primary Care Provider] - Disposition: TRANSFER ACUTE CARE/OTHER HOSP - Home Medications Comprehensive Discharge Medication List: Ambulatory Orders Amlodipine Besylate [Norvasc -] 10 mg PO DAILY 10/26/17 Atorvastatin Ca [Lipitor] 20 mg PO HS 10/26/17 Clopidogrel Bisulfate [Plavix -] 75 mg PO DAILY 10/26/17 Furosemide [Lasix] 40 mg PO DAILY 10/26/17 Insulin Glargine,Hum.rec.anlog [Lantus Solostar PEN -] 35 units SQ AM 10/26/17 Metoprolol Succinate [Toprol XL -] 37.5 mg PO BID 10/26/17 Multivitamin/Iron/Folic Acid [Centrum Adults Tablet] 1 each PO DAILY 10/26/17 Pregabalin [Lyrica -] 200 mg PO TID 10/26/17 This patient is new to me today: No Emergency Visit: Yes ED Registration Date: 10/27/17 Care time: The patient presented to the Emergency Department on the above date and was hospitalized for further evaluation of their emergent condition. Critical Care patient: No - Discharge Referral Referred to [facility] No
[2017-11-06 00:07] LABS: ALKALINE PHOSPHATASE 844 IU/L (39-117); INTESTINAL FRAC.: 0 % (0-18)
== END 2017-11-05 11:45 | disposition short-term general hospital (02) | DRG 870 ==
LOC: JER 21:39 → JERBED 10-27 01:15 → JICU 10-27 02:19 → J4W 11-02 14:12
PROVIDERS: ADMIT Internal Medicine; ATTEND Internal Medicine
PROC: 5A1955Z Respiratory Ventilation, Greater than 96 Consecutive Hours (ICD-10-PCS; principal; 2017-10-26)
DX: A41.89 Other specified sepsis (principal); J96.01 Acute respiratory failure with hypoxia; J18.9 Pneumonia, unspecified organism; J81.0 Acute pulmonary edema; I50.43 Acute on chronic combined systolic (congestive) and diastolic (congestive) heart failure; K83.1 Obstruction of bile duct; I21.4 Non-ST elevation (NSTEMI) myocardial infarction; E87.2 Acidosis; N17.9 Acute kidney failure, unspecified; I47.1 Supraventricular tachycardia; L03.113 Cellulitis of right upper limb; R65.20 Severe sepsis without septic shock; I11.0 Hypertensive heart disease with heart failure; D72.828 Other elevated white blood cell count; E78.5 Hyperlipidemia, unspecified; R74.0 Nonspecific elevation of levels of transaminase and lactic acid dehydrogenase [LDH]; E66.8 Other obesity; Z68.27 Body mass index [BMI] 27.0-27.9, adult; I25.10 Atherosclerotic heart disease of native coronary artery without angina pectoris; I80.8 Phlebitis and thrombophlebitis of other sites; L89.899 Pressure ulcer of other site, unspecified stage; E11.51 Type 2 diabetes mellitus with diabetic peripheral angiopathy without gangrene; E11.65 Type 2 diabetes mellitus with hyperglycemia; Z95.5 Presence of coronary angioplasty implant and graft; Z95.2 Presence of prosthetic heart valve; Z79.4 Long term (current) use of insulin
CPT/HCPCS: 36415; 36600; 71010-TC; 76705-TC; 80048; 80053; 80061; 80074; 81003; 81015; 82009; 82375; 82550; 82553; 82803; 82947; 82977; 83036; 83050; 83605; 83721; 83735; 83880; 84080; 84100; 84484; 85025; 85027; 85610; 85730; 86850; 86900; 86901; 87040; 87070; 87077; 87086; 87205; 87324; 87449; 87633; 87804; 87899; 93005; 93010; 93306-TC; 93925-TC; 93970-TC; 93971; 94002; 94640; 97116-GP; 97162-GP; 99285-25; J1644